=== PATIENT | male | born 1950 | race Caucasian/White ===

== ENCOUNTER 2018-12-25 21:36 | Inpatient (IN) | payer MEDICARE, OTHER ==
[~2018-12-25] VITALS: Ht 167.6 cm; Wt 68.2 kg
[2018-12-25 21:58] VITALS: Ht 167.6 cm; Wt 68.2 kg
[2018-12-25] MEDS ORDERED: morphine 2 MG INJ IV STA (21:58)
--- NOTE | 2018-12-25 22:52 | ERD ---
ER Documentation Chief Complaint Chief Complaint [id number],from home,tripped & fell,c/o Rt hip pain HPI 68-year-old male with a history of hypertension and diabetes brought in by ambulance after having a ground-level fall while getting into the car. Patient states that he suddenly had a vertiginous episode which he has had in the past. He fell onto the curb and hit the right side of his hip. Currently he is complaining of right hip pain that is nonradiating, worse with any movement, 9 out of 10, stabbing. No associated numbness or tingling in the leg. Denies any back pain or any other injuries. He is not on any blood thinners. Denies hitting his head. ROS All systems reviewed and are negative except as per history of present illness. Allergies Allergies: Coded Allergies: No Known Allergy (Unverified , 12/25/18) PMhx/Soc History of Surgery: Yes (Perforated gastric ulcer repair) Hx Cardiac Disorders: Yes (htn, dm) Hx Miscellaneous Medical Probl: Yes (Vertigo, CKD) Hx Alcohol Use: No Hx Substance Use: No Hx Tobacco Use: No Smoking Status: Current every day smoker FmHx Family History: No diabetes Physical Exam Vitals Vital Signs Date Temp Pulse Resp B/P (MAP) Pulse Ox O2 O2 Flow FiO2 Time Delivery Rate 12/25/18 76 16 169/56 99 Room Air 22:22 (93) 12/25/18 97.8 65 18 164/65 100 21:58 (98) Physical Exam Const: No acute distress Head: Atraumatic Eyes: Normal Conjunctiva, PERRLA, EOMI, no nystagmus ENT: Normal External Ears, Nose and Mouth. Neck: Full range of motion. No meningismus. Resp: Clear to auscultation bilaterally Cardio: Regular rate and rhythm, no murmurs. 2+ distal pulses in all 4 extremities Abd: Soft, non tender, non distended. Normal bowel sounds Skin: No petechiae or rashes Pelvis: Stable. Back: No midline or flank tenderness Ext: No cyanosis, or edema. Right hip with tenderness to palpation and mild joint swelling. No bruising or erythema. Unable to range at the right hip secondary to pain. Full range of motion of the right ankle. No pain to palpation below the right hip. All other extremities normal to inspection and palpation. Neur: Awake and alert, oriented x3, normal speech, cranial nerves intact, strength and sensations intact grossly in all 4 extremities. Psych: Normal Mood and Affect Result Diagram: 12/25/18221012/25/182210 Results 24 hrs Laboratory Tests Test 12/25/18 22:11 White Blood Count 10.1 10^3/ul Red Blood Count 4.17 10^6/ul Hemoglobin 10.3 g/dl Hematocrit 33.0 % Mean Corpuscular Volume 79.1 fl Mean Corpuscular Hemoglobin 24.7 pg Mean Corpuscular Hemoglobin Concent 31.2 g/dl Red Cell Distribution Width 16.1 % Platelet Count 345 10^3/UL Mean Platelet Volume 10.5 fl Immature Granulocytes % 0.700 % Neutrophils % 67.2 % Lymphocytes % 19.4 % Monocytes % 8.9 % Eosinophils % 3.2 % Basophils % 0.6 % Nucleated Red Blood Cells % 0.0 /100WBC Immature Granulocytes # 0.070 10^3/ul Neutrophils # 6.8 10^3/ul Lymphocytes # 2.0 10^3/ul Monocytes # 0.9 10^3/ul Eosinophils # 0.3 10^3/ul Basophils # 0.1 10^3/ul Nucleated Red Blood Cells # 0.0 10^3/ul Prothrombin Time 12.4 Sec Prothrombin Time Ratio 1.0 INR International Normalized Ratio 0.91 Activated Partial Thromboplast Time 28.1 Sec Sodium Level 141 mmol/L Potassium Level 5.3 mmol/L Chloride Level 114 mmol/L Carbon Dioxide Level 17 mmol/L Anion Gap 10 Blood Urea Nitrogen 53 mg/dl Creatinine 2.58 mg/dl Est Glomerular Filtrat Rate mL/min 25 mL/min Glucose Level 174 mg/dl Calcium Level 9.2 mg/dl Iron Level 63 ug/dl Total Iron Binding Capacity 270 ug/dl Percent Iron Saturation 23 % SAT Ferritin 97.8 ng/ml Troponin I < 0.012 ng/ml Current Medications Medications Dose Sig/Alexa Start Time Status Last (Trade) Ordered Route PRN Stop Time Admin Dose Reason Admin Morphine 6 mg ONCE STAT 12/25/18 DC 12/25/18 Sulfate IV 21:58 22:16 (morphine) 12/25/18 22:01 Procedures/MDM EMERGENT LABS AND DIAGNOSTIC STUDIES: Lab Results above were reviewed and interpreted by me. CBC: Mild anemia. No evidence of infection or platelet disorder BMP: Elevated BUN and creatinine with mild hyperkalemia and evidence of acidosis, consistent with renal failure. No evidence of diabetic ketoacidosis Coags unremarkable Troponin within normal limits, not indicative of cardiac ischemia 12-lead EKG was interpreted by Rachel Wright MD: Normal Sinus Rhythm Normal axis Normal intervals ST abnormality with up sloping elevations in I, III, and aVF. No acute ST or T wave changes suggestive of acute ischemia or STEMI. Radiology Results as interpreted by Radiology below were reviewed by Eilas Wright MD: Chest x-ray shows no acute abnormalities X-ray of the pelvis and right femur show mildly displaced right intertrochanteric femur fracture with impaction Initial Nursing notes reviewed. Previous Medical Records requested via the Electronic Health Record. EMERGENCY DEPARTMENT COURSE / MEDICAL DECISION MAKING: Patient is presenting after a ground-level fall after having an episode of vertigo. Vitals were notable for only mild hypertension. Neurologically he is intact and I do not suspect stroke or ACS. X-rays did confirm evidence of a right hip fracture. He is neurovascularly intact on exam. Labs showed evidence of known chronic kidney disease with possibly acute component. I spoke with the orthopedist on-call, who agreed to see the patient and plans for doing surgery tomorrow once the patient is medically cleared. I updated family and patient regarding the plan. They are agreeable to admission and surgical consultation. Accepting Care Team: Current data and ongoing care discussed. Time: Time of admission Primary Provider: Dr. Amos Consulting: Dr. Duque Outstanding Data: none Departure Diagnosis: Primary Impression: Fracture, intertrochanteric, right femur Encounter type: initial encounter Fracture type: closed Fracture alignment: displaced Qualified Codes: S72.141A - Displaced intertrochanteric fracture of right femur, initial encounter for closed f racture Additional Impressions: Acute on chronic renal failure Acute renal failure type: unspecified Chronic kidney disease stage: unspecified stage Qualified Codes: N17.9 - Acute kidney failure, unspecifie d; N18.9 - Chronic kidney disease, unspecified Metabolic acidosis Condition: Serious OLYA WRIGHT MD Dec 25, 2018 22:52
[2018-12-25] MEDS ORDERED: ONDANSETRON 4 MG INJ IV STA (23:45)
--- NOTE | 2018-12-25 23:46 | HP ---
Date/Time of Note Date/Time of Note DATE: 12/25/18 TIME: 23:46 Assessment/Plan VTE Prophylaxis SCD applied (from Nsg): Yes (Left lower extremity) Pharmacological prophylaxis: NA/contraindicated Pharm contraindication: surgical contra Lines/Catheters IV Catheter Type (from Nrsg): Saline Lock Assessment/Plan Hospital Course This is a 68-year-old male being admitted to the [facility] floor for: #1 Acute right femur fracture: X-rays show: Acute intertrochanteric fracture of the right femur. Given patient's abnormal EKG along with his dizziness that led to his fall we will need to rule out any cardiovascular events and any underlying cardiac issues prior to surgery.. Will trend cardiac enzymes x3. First set was negative. We will check an echocardiogram. On ABG patient's P O2 was noted to be 68 with a bicarb of 15, likely consistent with possible COPD given his extensive smoking history, and underlying chronic kidney disease respectively. Nonetheless given his fall will assess for pulmonary embolism though my suspicion is less likely at the current time given his normal heart rate as well as presentation with 100% on room air. Consult cardiology for preoperative clearance, pulmonology clearance as well. #2 hypoxia: Chest x-ray is clear. ABG noted to have a PO2 of 68, patient likely has underlying COPD that has not been formally diagnosed given his extensive 2 pack per day smoking history. Nonetheless we will also assess for underlying PE, and also a CT of the chest without contrast. #3 chronic kidney disease: Unknown baseline creatinine. Patient did present with hyperkalemia 5.3. As well as metabolic acidosis with a bicarb of 17 on CMP and 15 on the ABG. He is still producing urine. Will check renal ultrasound, urine studies. We will monitor electrolytes. We will give the patient a half normal saline 500 cc bolus. Consult nephrology Dr. Aldridge. #4 metabolic acidosis: ABG 7.2 with a bicarb of 15. Likely secondary to underlying chronic kidney disease. Also checking a urinalysis for any signs of underlying infection. Will consult nephrology. Patient likely will need to be started on sodium bicarb supplementation. #5 diabetes mellitus: We will check a hemoglobin A1c, hold patient's home medications, insulin sliding scale #6 hypothyroidism: Resume patient's levothyroxine #7 heavy tobacco use: Nicotine patch #8 DVT and GI prophylaxis: SCDs to the left lower externally, no GI prophylaxis indicated Further treatment strategy will be implemented as per the clinical course Result Diagram: 12/25/18 2211 12/25/18 2211 Results 24hrs Laboratory Tests Test 12/25/18 22:11 White Blood Count 10.1 Red Blood Count 4.17 L Hemoglobin 10.3 L Hematocrit 33.0 L Mean Corpuscular Volume 79.1 L Mean Corpuscular Hemoglobin 24.7 L Mean Corpuscular Hemoglobin Concent 31.2 L Red Cell Distribution Width 16.1 H Platelet Count 345 Mean Platelet Volume 10.5 H Immature Granulocytes % 0.700 H Neutrophils % 67.2 Lymphocytes % 19.4 Monocytes % 8.9 Eosinophils % 3.2 Basophils % 0.6 Nucleated Red Blood Cells % 0.0 Immature Granulocytes # 0.070 H Neutrophils # 6.8 Lymphocytes # 2.0 Monocytes # 0.9 Eosinophils # 0.3 Basophils # 0.1 Nucleated Red Blood Cells # 0.0 Prothrombin Time 12.4 Prothrombin Time Ratio 1.0 INR International Normalized Ratio 0.91 Activated Partial Thromboplast Time 28.1 Sodium Level 141 Potassium Level 5.3 H Chloride Level 114 H Carbon Dioxide Level 17 L Anion Gap 10 Blood Urea Nitrogen 53 H Creatinine 2.58 H Est Glomerular Filtrat Rate mL/min 25 L Glucose Level 174 Calcium Level 9.2 Troponin I < 0.012 HPI/ROS Admit Date/Time Admit Date/Time Hx of Present Illness Chief complaint: Dizziness, fall and right hip This is a 68-year-old male history of hypertension, chronic kidney disease, and diabetes brought in by ambulance after having a ground-level fall while getting into the car. The following history was obtained from the daughter as well as through the patient through an inspector of weights and measures. Patient apparently had a dizzy spell which she has been dealing with for a while and he he fell onto the curb and hit the right side of his hip. Currently he is complaining of right hip pain that is nonradiating, worse with any movement, 9 out of 10, stabbing. No associated numbness or tingling in the leg. Denies any back pain or any other injuries. He is not on any blood thinners. Denies hitting his head and no loss of consciousness. He is a 2 pack/day smoker. Patient does report that he does feel shortness of breath on and off. Allergies: NKDA Medications: See MAR ROS Const: As per HPI Eyes : No pain discharge or redness or change in visual acuity ENT: No pain, sore throat, congestion, congestion, dysphagia or discharge Respiratory: No shortness of breath, cough, sputum, wheezing, or pleuritic pain Cardiovascular: No chest pain, palpitation, PND, or edema GI : no change in appetite, abdominal pain, nausea, vomiting, diarrhea, constipation, or change in the color his stool Genitourinary: No dysuria, hematuria, flank pain , discharge or CVA tenderness Musculoskeletal: As per HPI Skin: No rash, bruising or hives Neuro: No headache, dizziness, syncope, seizure, focal weakness Endocrine: No polyuria, polydipsia, temperature intolerance Psych: No hallucination, depression, anxiety or suicidal ideation PMH/Family/Social Past Medical History Chronic kidney disease, diabetes mellitus, hypothyroidism, hypertension Medications Current Medications Ondansetron HCl (Zofran Inj) 4 mg BRIDGE ORDER PRN IV NAUSEA/VOMITING; Start 12/26/18 at 00:00; Stop 12/26/18 at 23:59 Acetaminophen (Tylenol Tab) 650 mg ER BRIDGE PRN PO .MILD PAIN 1-3 OR TEMP; Start 12/26/18 at 00:00; Stop 12/26/18 at 23:59 IV Flush (NS 3 ml) 3 ml PER PROTOCOL IV ; Start 12/26/18 at 00:00; Status UNV Ondansetron HCl (Zofran Tab) 4 mg Q6H PRN PO NAUSEA/VOMITING; Start 12/26/18 at 00:00; Status UNV Acetaminophen (Tylenol Tab) 650 mg Q6H PRN PO .PAIN 1-3 OR TEMP; Start 12/26/18 at 00:00; Status UNV Acetaminophen/ Hydrocodone Bitart ([place] (5/325)) 1 tab Q6H PRN PO .MOD PAIN 4- 6; Start 12/26/18 at 00:00; Status UNV Morphine Sulfate (morphine) 2 mg Q4H PRN IV .SEVERE PAIN 7-10; Start 12/26/18 at 00:00; Status UNV Docusate Sodium (Colace) 100 mg Q12H PRN PO .CONSTIPATION; Start 12/26/18 at 00:00; Status UNV Bisacodyl (Dulcolax) 5 mg DAILY PRN PO .CONSTIPATION; Start 12/26/18 at 00:00; Status UNV Coded Allergies: No Known Allergy (Unverified , 12/25/18) Past Surgical History History of stomach surgery in the past for ulcer Family History Significant Family History: no pertinent family hx Social History Alcohol Use: none Smoking Status: Current every day smoker (2 packs/day) Drug Use: none Exam/Review of Systems Vital Signs Vitals Vital Signs Date Temp Pulse Resp B/P (MAP) Pulse Ox O2 O2 Flow FiO2 Time Delivery Rate 12/25/18 76 16 169/56 99 Room Air 22:22 (93) 12/25/18 97.8 21:58 Exam Exam General: Currently lying in bed in mild distress from right hip pain HEENT: Atraumatic, normocephalic. The pupils are equal, round and reactive. Extraocular motor are intact Neck: Supple with full range of motion. No rigidity or meningismus Chest: Nontender Lungs: Clear to auscultation bilaterally no crackles rales or wheezing Heart: Normal S1-S2, regular rate rhythm, suspect systolic murmur at the left second intercostal space Abdomen: Soft , nontender, nondistended , bowel sounds are present. No guarding no rebound tenderness , No masses or organomegaly. No costovertebral temporal angle mass Extremities: Right lower extremity range of motion limited secondary to fracture, pain Neurologic: Normal mental status, speech normal, cranial nerves II through XII are intact, motor and sensory are intact, gait not assessed secondary to fracture Additional Comments PROCEDURE: XR Chest. TECHNIQUE: Single frontal radiograph. CLINICAL INDICATION: Trauma COMPARISON: CT CHEST 02/17/2016. FINDINGS: Lung volumes are low with elevation of the right hemidiaphragm. There is right basilar atelectasis. There is curvilinear densities in the peripheral left mid and basilar lungs, also present on prior urban planning teacher CT image, consistent with scarring. Hemidiaphragms remain sharply defined. No evidence of focal consolidation, pneumothorax, or pleural effusion. There is mild cardiomegaly, allowing for low lung volumes. There is mild atherosclerotic calcification of the aortic arch. No acute osseous abnormality identified, allowing for mild osteopenia and single view technique. Overlying soft tissues are equally unremarkable. IMPRESSION: No evidence of acute cardiopulmonary process, allowing for low lung volumes and atelectasis. Mild curvilinear scarring in the left mid and basilar peripheral lung. RPTAT: EE Benedicto Gary Physician Date Time Electronically viewed and signed by Physician Sofya on 12/25/2018 23:19 BP/ CC: OLYA GUTIERREZ MD [id number] PROCEDURE: Right femur x-ray CLINICAL INDICATION: pain after fall TECHNIQUE: AP and lateral views of the femur were obtained. COMPARISON: None FINDINGS: There is comminuted intertrochanteric fracture of the right femur. There is mild overlap, impaction and varus angulation with the displacement of the lesser trochanter. No additional acute displaced fracture identified in the femur. Extensive vascular calcifications are present in the soft tissues. IMPRESSION: Comminuted right intertrochanteric fracture with overlap, impaction and varus angulation mild displacement of the lesser trochanter. Extensive vascular calcifications. STEVEN singleton will alert Olya Michelle or associates, fax a report, and provide a call back number for any questions regarding the report at this time. STEVEN singleton was called for assistance at 12/25/2018 11:23:42 PM. RPTAT: EE Benedicto Gary Physician Date Time Electronically viewed and signed by Physician Sofya on 12/25/2018 23:24 BP/ CC: OYLA GUTIERREZ MD [id number] PROCEDURE: Pelvis x-ray CLINICAL INDICATION: Trauma TECHNIQUE: Single AP view of the pelvis performed. COMPARISON: Concurrent radiograph of the femur FINDINGS: Acute comminuted fracture of the right intertrochanteric femur is again identified. No additional acute displaced fracture identified within the pelvis. However, there is overlying bowel gas and stool partially obscuring osseous structures including the sacrum and sacroiliac joints. Bones are mildly osteopenic. No focal abnormality identified in the overlying soft tissues. IMPRESSION: Acute intertrochanteric fracture of the right femur, again identified. No additional fractures of the visualized pelvis identified, allowing for overlying obscuring bowel gas. RPTAT: EE Physician Sofya Date Time Electronically viewed and signed by Benedicto Gary Physician on 12/25/2018 23:28 BP/ CC: OLYA GUTIERREZ MD [id number] 12-lead EKG Normal Sinus Rhythm Normal axis Normal intervals ST abnormality with up sloping elevations in I, III, and aVF. No acute ST or T wave changes suggestive of acute ischemia or STEMI. BRITTANY CASSIDY Dec 25, 2018 23:46
[2018-12-26] MEDS ORDERED: BISACODYL (EC) 5 MG TAB PO PRN
[2018-12-26] MEDS ORDERED: ONDANSETRON 4 MG TAB PO PRN
[2018-12-26] MEDS ORDERED: NACL 0.9% 3 ML SYG IV SCH
[2018-12-26] MEDS ORDERED: DOCUSATE SODIUM 100 MG CAP PO PRN
[2018-12-26] MEDS ORDERED: ACETAMINOPHEN 325 MG TAB PO PRN
[2018-12-26 01:17] VITALS: BP 153/68; PULSE 75; RESP 18
[2018-12-26] MEDS ORDERED: SITA50TA2 PO (01:52)
[2018-12-26] MEDS ORDERED: LEVO175T6 PO (01:52)
[2018-12-26] MEDS ORDERED: LEVEM (01:52)
[2018-12-26] MEDS ORDERED: AMLO-147 PO (01:52)
[2018-12-26] MEDS ORDERED: ASPI-805 PO (01:52)
[2018-12-26] MEDS ORDERED: OMEP40CA6 PO (01:52)
[2018-12-26] MEDS ORDERED: PATI16.8 PO (01:52)
[2018-12-26] MEDS ORDERED: SERT-165 PO (01:52)
[2018-12-26] MEDS ORDERED: GLIM4TAB PO (01:52)
[2018-12-26] MEDS ORDERED: SOD CHLORIDE 0.9% 500 ML IV ONE (02:00)
[2018-12-26] MEDS: SODIUM CHLORIDE 0.45% 500 ML BAG IV* ONE ×2 (02:21→02:43)
[2018-12-26] MEDS: ACCU-CHEK XX SCH (02:22)
[2018-12-26] MEDS ORDERED: GLUCOSE GEL 15 GRAM TUBE PO PRN ×2 (02:30)
[2018-12-26] MEDS ORDERED: GLUCAGON 1 MG INJ IM PRN (02:30)
[2018-12-26] MEDS ORDERED: GLUCOSE GEL 15 GRAM TUBE BUCCAL PRN (02:30)
[2018-12-26] MEDS ORDERED: DEXTROSE 50% 50 ML SYRINGE IV PRN ×4 (02:30→12:30)
[2018-12-26] MEDS ORDERED: LEVALBUTEROL (NEB) 1.25 MG/0.5 ML AMP HHN PRN (05:30)
[2018-12-26] MEDS: morphine 2 MG INJ IV PRN ×3 (05:51→20:39)
[2018-12-26] MEDS: PANTOPRAZOLE (EC) 40 MG TAB PO SCH (06:00)
[2018-12-26] MEDS: LEVOTHYROXINE 175 MCG TAB PO SCH (06:18)
[2018-12-26] MEDS ORDERED: INSULIN REGULAR, HUMAN 100 UNIT/1 ML 3ML VIAL IVP STA ×2 (06:22→12:21)
[2018-12-26] MEDS ORDERED: ALBUTEROL 0.083% (NEB) 2.5 MG/3 ML AMP HHN STA (06:23)
[2018-12-26] MEDS ORDERED: NICOTINE POLACRILEX 2 MG GUM BUCCAL PRN (06:30)
[2018-12-26] MEDS ORDERED: MAGNESIUM SULFATE 2 GM/50 ML 50 ML IVPB ONE (07:00)
[2018-12-26] MEDS ORDERED: NA POLYST SULFON 15 GM/60 ML BTL PO ONE ×2 (07:00→15:30)
--- NOTE | 2018-12-26 07:18 | CONS ---
Assessment/Plan Assessment/Plan Hospital Course (Demo Recall) 68-year-old male with multiple medical problems including COPD, chronic renal disease, diabetes with acute right intertrochanteric hip fracture. Given the fracture I did recommend surgical fixation to the patient. I reviewed benefits and risks with the patient the benefit would be immobilization and pain control. Without surgery would likely be bedbound for many months and would likely not be able to bear weight on his right lower extremity again. Risks include but not limited to completion anesthesia, cardiopulmonary complications, , nonunion, malunion, hardware failure, infection, need for removal of hardware, neurovascular injury, and need for further surgery. He understood these and wished to proceed with surgery. Plan: Surgery this evening for IM nail right IT fracture Medical optimization DVT prophylaxis: SCDs n.p.o. Rodriguez Pain control Nonweightbearing right lower extremity Consultation Date/Type/Reason Admit Date/Time Date of Consultation: Dec 26, 2018 Reason for Consultation Right intertrochanteric hip fracture Date/Time of Note DATE: 12/26/18 TIME: 07:12 Hx of Present Illness This is a 68-year-old male history of hypertension, chronic kidney disease, COPD, and diabetes brought in by ambulance after having a ground-level fall w hile getting into the car. He was found to have a right intertrochanteric hip fracture and orthopedics was consulted. Patient states he has pain in his right groin. Denies pain elsewhere. Denies hitting his head or loss of consciousness. Denies numbness and tingling. The medical team is currently working up the patient and optimizing him for potential surgery. Cardiology and pulmonary consults are pending. Patient denies fever, chills, shortness of breath, chest pain, nausea/vomiting, constipation, diarrhea, numbness, and tingling. Past Medical History Hypertension COPD hypothyroidism Chronic renal disease diabetes Home Meds Reported Medications Patiromer Calcium Sorbitex (Veltassa) 16.8 Gm Powd.pack, 16.8 GM PO 12/26/18 Insulin Detemir (Levemir) 100 Unit/1 Ml Vial, for 20units at hs 12/26/18 Sitagliptin* (Januvia*) 50 Mg Tablet, 50 MG PO DAILY, #30 TAB 12/26/18 Sertraline Hcl* (Sertraline Hcl*) 100 Mg Tablet, 100 MG PO DAILY, #30 TAB 12/26/18 Glimepiride* (Glimepiride*) 4 Mg Tablet, 4 MG PO WITH BREAKFAST DINNE, TAB 12/26/18 Omeprazole* (Omeprazole*) 40 Mg Capsule.dr, 40 MG PO DAILY, #30 CAP 12/26/18 Levothyroxine Sodium* (Levothyroxine Sodium*) 175 Mcg Tablet, 175 MCG PO BEFORE BREAKFAST, #30 TAB 12/26/18 Aspirin* (Juniata Aspirin*) 81 Mg Tab.chew, 81 MG PO DAILY, TAB.CHEW 12/26/18 Amlodipine Besylate* (Amlodipine Besylate*) 10 Mg Tablet, 10 MG PO DAILY, #30 TAB 12/26/18 Medications Current Medications Ondansetron HCl (Zofran Inj) 4 mg BRIDGE ORDER PRN IV NAUSEA/VOMITING; Start 12/26/18 at 00:00; Stop 12/26/18 at 23:59 Acetaminophen (Tylenol Tab) 650 mg ER BRIDGE PRN PO .MILD PAIN 1-3 OR TEMP; Start 12/26/18 at 00:00; Stop 12/26/18 at 23:59 IV Flush (NS 3 ml) 3 ml PER PROTOCOL IV ; Start 12/26/18 at 00:00 Ondansetron HCl (Zofran Tab) 4 mg Q6H PRN PO NAUSEA/VOMITING; Start 12/26/18 at 00:00 Acetaminophen (Tylenol Tab) 650 mg Q6H PRN PO .PAIN 1-3 OR TEMP; Start 12/26/18 at 00:00 Acetaminophen/ Hydrocodone Bitart ([place] (5/325)) 1 tab Q6H PRN PO .MOD PAIN 4- 6; Start 12/26/18 at 00:00 Morphine Sulfate (morphine) 2 mg Q4H PRN IV .SEVERE PAIN 7-10 Last administered on 12/26/18at 05:51; Admin Dose 2 MG; Start 12/26/18 at 00:00 Docusate Sodium (Colace) 100 mg Q12H PRN PO .CONSTIPATION; Start 12/26/18 at 00:00 Bisacodyl (Dulcolax) 5 mg DAILY PRN PO .CONSTIPATION; Start 12/26/18 at 00:00 Amlodipine Besylate (Norvasc) 10 mg DAILY PO ; Start 12/26/18 at 09:00 Levothyroxine Sodium (Synthroid) 175 mcg BEFORE BREAKFAST PO ; Start 12/26/18 at 07:00 Sertraline HCl (Zoloft) 100 mg DAILY PO ; Start 12/26/18 at 09:00 Pantoprazole (Protonix Tab) 40 mg DAILY@06 PO ; Start 12/26/18 at 06:00 Diagnostic Test (Pha) (Accu-Chek) 1 ea 02 XX Last administered on 12/26/18at 02:22; Admin Dose 1 EA; Start 12/26/18 at 02:00 Insulin Aspart (Novolog Insulin Pen) NOVOLOG *MILD* ALGORITHM WITH MEALS BEDTIME SC ; Start 12/26/18 at 07:50 Miscellaneous Information 1 ea NOTE XX ; Start 12/26/18 at 02:30 Glucose (Glutose) 15 gm Q15M PRN PO DECREASED GLUCOSE; Start 12/26/18 at 02:30 Glucose (Glutose) 22.5 gm Q15M PRN PO DECREASED GLUCOSE; Start 12/26/18 at 02:30 Dextrose (D50w Syringe) 25 ml Q15M PRN IV DECREASED GLUCOSE; Start 12/26/18 at 02:30 Dextrose (D50w Syringe) 50 ml Q15M PRN IV DECREASED GLUCOSE; Start 12/26/18 at 02:30 Glucagon (Glucagen) 1 mg Q15M PRN IM DECREASED GLUCOSE; Start 12/26/18 at 02:30 Glucose (Glutose) 15 gm Q15M PRN BUCCAL DECREASED GLUCOSE; Start 12/26/18 at 02:30 Levalbuterol (Xopenex Neb) 1.25 mg Q4H RESP THERAPY PRN HHN SHORTNESS OF BREATH; Start 12/26/18 at 05:30 Sodium Chloride 1,000 ml @ 50 mls/hr Q20H IV ; Start 12/26/18 at 09:00 Insulin Glargine (Lantus) 5 units ONCE ONCE SC ; Start 12/26/18 at 08:00; Stop 12/26/18 at 08:01 Nicotine (Nicoderm 21 Mg/ 24hr) 1 patch DAILY TRANSDERM ; Start 12/26/18 at 09:00 Nicotine Polacrilex (Nicorette) 2 mg Q2H PRN BUCCAL CONTROL WITHDRAWAL SYMPTOMS; Start 12/26/18 at 06:30 Magnesium Sulfate 50 ml @ 25 mls/hr ONCE ONCE IVPB ; Start 12/26/18 at 07:00; Stop 12/26/18 at 08:59 Allergies: Coded Allergies: No Known Allergy (Unverified , 12/25/18) Past Surgical History Past Surgical Hx: noncontributory Family History Significant Family History: no pertinent family hx Social History Alcohol Use: none Smoking Status: Current every day smoker (2 packs/day) Drug Use: none Exam/Review of Systems Exam Vitals Vital Signs Date Temp Pulse Resp B/P (MAP) Pulse Ox O2 O2 Flow FiO2 Time Delivery Rate 12/26/18 3.0 01:36 12/26/18 98.1 75 18 153/68 90 Room Air 01:17 (96) Intake and Output 12/25/18 12/25/18 12/26/18 1515:00 23:00 07:00 IntakeIntake Total 500 ml OutputOutput Total 600 ml BalanceBalance -100 ml Exam General: Awake, alert, in no acute distress, pleasant and cooperative Heart: regular rhythm Lungs: breathing comfortably, no tachypnea or dyspnea MUSCULOSKELETAL: Right lower extremity: Skin intact. Right lower extremity shortened and externally rotated. Sensation intact to light touch in a sural, saphenous, deep peroneal, superficial peroneal, medial and lateral plantar nerve distribution. Motor is intact, patient able to dorsiflex and plantarflex ankle and extend and flex great toe. Dorsalis Pedis pulse +2, Brisk capillary refill. Compartments are soft. Calves non-tender to palpation bilaterally. Results Result Diagram: 12/26/18 0428 12/26/18 0428 Results 24hrs Laboratory Tests Test 12/25/18 22:11 12/25/18 23:41 12/26/18 02:10 12/26/18 04:00 White Blood 10.1 Count Red Blood Count 4.17 L Hemoglobin 10.3 L Hematocrit 33.0 L Mean Corpuscular 79.1 L Volume Mean Corpuscular 24.7 L Hemoglobin Mean Corpuscular 31.2 L Hemoglobin Janis nt Red Cell 16.1 H Distribution Width Platelet Count 345 Mean Platelet 10.5 H Volume Immature 0.700 H Granulocytes % Neutrophils % 67.2 Lymphocytes % 19.4 Monocytes % 8.9 Eosinophils % 3.2 Basophils % 0.6 Nucleated Red 0.0 Blood Cells % Immature 0.070 H Granulocytes # Neutrophils # 6.8 Lymphocytes # 2.0 Monocytes # 0.9 Eosinophils # 0.3 Basophils # 0.1 Nucleated Red 0.0 Blood Cells # Prothrombin Time 12.4 Prothrombin Time 1.0 Ratio INR 0.91 International Normalized Ratio Activated 28.1 Partial Thrombop last Time Sodium Level 141 Potassium Level 5.3 H Chloride Level 114 H Carbon Dioxide 17 L Level Anion Gap 10 Blood Urea 53 H Nitrogen Creatinine 2.58 H Est Glomerular 25 L Filtrat Rate mL/min Glucose Level 174 Calcium Level 9.2 Iron Level 63 Total Iron 270 Binding Capacity Percent Iron 23 Saturation Ferritin 97.8 Troponin I < 0.012 Blood Gas Blood arterial Specimen Source Arterial Blood 12/26/2018 1:14: Date Drawn 02 AM Arterial Blood 7.236 *L pH (Temp corrected) Arterial Blood 36.5 pCO2 (Temp correct) Arterial Blood 68.7 L pO2 (Temp corrected) Arterial Blood 15.2 L HCO3 Arterial Blood -11.4 L Base Excess Arterial Blood 92.0 L Oxygen Saturatio n Sean Test ACCEPTAB Arterial Blood Right Radial Gas Puncture Site Arterial 1.6 Blood Carboxyhem oglobin Arterial Blood 0.2 Methemoglobin Blood Gas A-a O2 37.3 H Differential Oxyhemoglobin 90.3 L Percent Blood Gas 37.0 Temperature Blood Gas ROOM AIR Modality FiO2 21.0 Blood Gas Aly CASSIDY MD Critical Value Read Back Blood Gas MM Notified Whom Blood Gas 12/26/2018 1:21: Notified Time 45 AM Bedside Glucose 231 H Urine Color YELLOW Urine Clarity SLIGHTLY CLOUDY A Urine pH 5.0 Urine Specific 1.009 [place] Urine Ketones NEGATIVE Urine Nitrite NEGATIVE Urine Bilirubin NEGATIVE Urine NEGATIVE Urobilinogen Urine Leukocyte NEGATIVE Esterase Urine 15 H Microscopic RBC Urine 1 Microscopic WBC Urine Hemoglobin 2+ H Urine Random 72 Sodium Urine Glucose NEGATIVE Urine Total 3+ H Protein Test 12/26/18 04:28 12/26/18 06:00 White Blood 17.1 #H Count Red Blood Count 4.05 L Hemoglobin 10.1 L Hematocrit 32.7 L Mean Corpuscular 80.7 L Volume Mean Corpuscular 24.9 L Hemoglobin Mean Corpuscular 30.9 L Hemoglobin Janis nt Red Cell 15.9 H Distribution Width Platelet Count 346 Mean Platelet 10.7 H Volume Immature 0.500 H Granulocytes % Neutrophils % 85.0 H Lymphocytes % 6.0 L Monocytes % 8.2 Eosinophils % 0.1 Basophils % 0.2 Nucleated Red 0.0 Blood Cells % Immature 0.090 H Granulocytes # Neutrophils # 14.6 H Lymphocytes # 1.0 Monocytes # 1.4 H Eosinophils # 0.0 Basophils # 0.0 Nucleated Red 0.0 Blood Cells # Sodium Level 139 Potassium Level 5.8 H Chloride Level 111 H Carbon Dioxide 15 L Level Anion Gap 13 Blood Urea 56 H Nitrogen Creatinine 2.76 H Est Glomerular 23 L Filtrat Rate mL/min Glucose Level 244 H Calcium Level 9.1 Magnesium Level 1.5 L Total Bilirubin 0.1 L Direct Bilirubin 0.00 Indirect 0.1 Bilirubin Aspartate Amino 11 L Transf (AST/SGOT ) Alanine 15 Aminotransferase (ALT/SGPT) Alkaline 77 Phosphatase Creatine Kinase 53 Creatine Kinase 2.9 Index Creatinine 1.56 Kinase MB (Mass) Troponin I < 0.012 Total Protein 6.7 Albumin 3.9 Globulin 2.80 Albumin/Globulin 1.39 Ratio Triglycerides 182 H Level Cholesterol 199 Level LDL Cholesterol, 126 Calculated HDL Cholesterol 37 Cholesterol/HDL 5.3 Ratio Urine Color RED Urine Clarity CLOUDY A Urine pH 6.0 Urine Specific 1.006 [place]yr Urine Ketones NEGATIVE Urine Nitrite NEGATIVE Urine Bilirubin NEGATIVE Urine NEGATIVE Urobilinogen Urine Leukocyte 2+ H Esterase Urine > 182 H Microscopic RBC Urine > 182 H Microscopic WBC Urine Bacteria FEW A Urine Yeast MODERATE A (Budding) Urine Hemoglobin 3+ H Urine Glucose 1+ H Urine Total 2+ H Protein Imaging Imaging AP pelvis and AP lateral right femur personally reviewed. Demonstrates displaced slightly comminuted right intricate trochanteric hip fracture. Medications Medication Current Medications Ondansetron HCl (Zofran Inj) 4 mg BRIDGE ORDER PRN IV NAUSEA/VOMITING; Start 12/26/18 at 00:00; Stop 12/26/18 at 23:59 Acetaminophen (Tylenol Tab) 650 mg ER BRIDGE PRN PO .MILD PAIN 1-3 OR TEMP; Start 12/26/18 at 00:00; Stop 12/26/18 at 23:59 IV Flush (NS 3 ml) 3 ml PER PROTOCOL IV ; Start 12/26/18 at 00:00 Ondansetron HCl (Zofran Tab) 4 mg Q6H PRN PO NAUSEA/VOMITING; Start 12/26/18 at 00:00 Acetaminophen (Tylenol Tab) 650 mg Q6H PRN PO .PAIN 1-3 OR TEMP; Start 12/26/18 at 00:00 Acetaminophen/ Hydrocodone Bitart ([place] (5/325)) 1 tab Q6H PRN PO .MOD PAIN 4- 6; Start 12/26/18 at 00:00 Morphine Sulfate (morphine) 2 mg Q4H PRN IV .SEVERE PAIN 7-10 Last administered on 12/26/18at 05:51; Admin Dose 2 MG; Start 12/26/18 at 00:00 Docusate Sodium (Colace) 100 mg Q12H PRN PO .CONSTIPATION; Start 12/26/18 at 00:00 Bisacodyl (Dulcolax) 5 mg DAILY PRN PO .CONSTIPATION; Start 12/26/18 at 00:00 Amlodipine Besylate (Norvasc) 10 mg DAILY PO ; Start 12/26/18 at 09:00 Levothyroxine Sodium (Synthroid) 175 mcg BEFORE BREAKFAST PO ; Start 12/26/18 at 07:00 Sertraline HCl (Zoloft) 100 mg DAILY PO ; Start 12/26/18 at 09:00 Pantoprazole (Protonix Tab) 40 mg DAILY@06 PO ; Start 12/26/18 at 06:00 Diagnostic Test (Pha) (Accu-Chek) 1 ea 02 XX Last administered on 12/26/18at 02:22; Admin Dose 1 EA; Start 12/26/18 at 02:00 Insulin Aspart (Novolog Insulin Pen) NOVOLOG *MILD* ALGORITHM WITH MEALS BEDTIME SC ; Start 12/26/18 at 07:50 Miscellaneous Information 1 ea NOTE XX ; Start 12/26/18 at 02:30 Glucose (Glutose) 15 gm Q15M PRN PO DECREASED GLUCOSE; Start 12/26/18 at 02:30 Glucose (Glutose) 22.5 gm Q15M PRN PO DECREASED GLUCOSE; Start 12/26/18 at 02:30 Dextrose (D50w Syringe) 25 ml Q15M PRN IV DECREASED GLUCOSE; Start 12/26/18 at 02:30 Dextrose (D50w Syringe) 50 ml Q15M PRN IV DECREASED GLUCOSE; Start 12/26/18 at 02:30 Glucagon (Glucagen) 1 mg Q15M PRN IM DECREASED GLUCOSE; Start 12/26/18 at 02:30 Glucose (Glutose) 15 gm Q15M PRN BUCCAL DECREASED GLUCOSE; Start 12/26/18 at 02:30 Levalbuterol (Xopenex Neb) 1.25 mg Q4H RESP THERAPY PRN HHN SHORTNESS OF BREATH; Start 12/26/18 at 05:30 Sodium Chloride 1,000 ml @ 50 mls/hr Q20H IV ; Start 12/26/18 at 09:00 Insulin Glargine (Lantus) 5 units ONCE ONCE SC ; Start 12/26/18 at 08:00; Stop 12/26/18 at 08:01 Nicotine (Nicoderm 21 Mg/ 24hr) 1 patch DAILY TRANSDERM ; Start 12/26/18 at 09:00 Nicotine Polacrilex (Nicorette) 2 mg Q2H PRN BUCCAL CONTROL WITHDRAWAL SYMPTOMS; Start 12/26/18 at 06:30 Magnesium Sulfate 50 ml @ 25 mls/hr ONCE ONCE IVPB ; Start 12/26/18 at 07:00; Stop 12/26/18 at 08:59 SIVA NGUYEN MD Dec 26, 2018 07:18
[2018-12-26] MEDS ORDERED: INSULIN GLARGINE [LANTus] (100 UNITS/ML) SYG SC ONE (08:00)
[2018-12-26] MEDS: INSULIN ASPART [NOVOLOG] 3 ML PEN SC SCH ×4 (08:09→20:33)
[2018-12-26] MEDS: AMLODIPINE 10 MG TAB PO SCH (08:12)
[2018-12-26] MEDS: CEFTRIAXONE 1 GM/50 ML (PMX) 50 ML IVPB SCH (08:13)
[2018-12-26] MEDS: NICOTINE (21 MG/24 HR) PATCH TRANSDERM SCH (08:14)
[2018-12-26] MEDS: SERTRALINE 100 MG TAB PO SCH (08:14)
[2018-12-26 08:29] VITALS: BP 179/77; PULSE 94; RESP 18
[2018-12-26] MEDS ORDERED: SOD CHLORIDE 0.9% 1,000 ML IV SCH (09:00)
--- NOTE | 2018-12-26 10:04 | CONS ---
DATE OF ADMISSION: 12/25/2018 DATE OF CONSULTATION: 12/26/2018 TYPE OF CONSULTATION: Nephrology. REASON FOR CONSULTATION: Acute kidney injury, acute CKD. REQUESTING PHYSICIAN: Dr. Cassidy. HISTORY OF PRESENT ILLNESS: This is a 68-year-old male with a past medical history of possible chron ic kidney disease with unknown baseline creatinine, history of diabetes, history of hypothyroidism, h istory of tobacco use who presents to [facility] after a ground level fall. The pa antonina stated he had a dizzy spell while getting from his car and he fell down and hit the right side of the curb. The patient developed severe pain, 9/10. He was brought into the emergency room. The patient upon arrival had imaging studies that showed evidence of right femoral fracture. The patient was given pain medications and admitted to med/surg for evaluation. In terms of patient's renal history, the patient says that he has underlying chronic kidney disease b ut does not know his baseline creatinine. The patient denies seeing a primary strategic planner. Patient denies any hemoptysis, hematemesis or hematochezia. PAST MEDICAL HISTORY: History of CKD, history of diabetes, history of hypertension, history of tobac co use. PAST SURGICAL HISTORY: Has been reviewed. ALLERGIES: Have been reviewed. FAMILY HISTORY: No family history of kidney disease. SOCIAL HISTORY: Positive for tobacco use. MEDICATIONS: The patient's medications have been reviewed. REVIEW OF SYSTEMS: A 14-point review of systems was conducted. Pertinent positives stated in HPI, o therwise negative. PHYSICAL EXAMINATION: VITAL SIGNS: Blood pressure is 179/77, respiration 18, pulse 94, temperature 98.4. HEENT: Head is normocephalic. NECK: Supple. HEART: Regular rate. LUNGS: Show diminished breath sounds at the base. ABDOMEN: Soft, nontender to palpation without rebound or guarding. EXTREMITIES: Negative for clubbing, cyanosis, no edema. DERMATOLOGIC: No rashes. MUSCULOSKELETAL: No joint effusion. NEUROLOGIC: No change in exam. MEDICATIONS: The patient's medications have been reviewed. LABORATORY DATA: The laboratory data has been reviewed. The patient's sodium is 139, potassium 5.8, BUN 56, creatinine 2.76, glucose 244. White count 17.1, hemoglobin 10.1, platelet count 346. IMAGING STUDIES: Patient's CT scan of the chest was reviewed, showed evidence of emphysematous ernandez es. A renal ultrasound is pending. ASSESSMENT AND PLAN: This is a 68-year-old male who presents with: 1. Nonoliguric acute kidney injury on top of chronic kidney disease with unknown baseline creatinine . Etiology of acute kidney injury is secondary to hemodynamics. Questionable tubular injury. The p atient's urinalysis does show evidence of pyuria, hematuria and positive yeast. The possibility of a cute glomerulonephritis, acute vasculitis is less likely given patient's clinical presentation. [place], a full workup will be done. Plan is to repeat urinalysis, will quantify the patient's proteinur ia. Will check a renal ultrasound to rule out obstruction. Will further attempt to obtain patient's old medical records to ascertain baseline creatinine. We will continue medical management with IV h ydration. Continue supportive care, renally dose all meds. Will monitor renal function closely. 2. Hyperkalemia. Etiology secondary to acute kidney injury and chronic kidney disease. The patient is status post Kayexalate. We will continue to monitor potassium levels. Continue low-potassium di et. 3. Mixed acid base disorder. The patient has a metabolic acidosis and respiratory acidosis. The pa antonina's pCO2 levels are inappropriately elevated given level of acidemia. Plan is to start the patien t on bicarbonate drip. Will continue to monitor closely. 4. Anemia. Monitor hemoglobin and hematocrit levels. 5. Mineral bone disorder, monitor calcium and phosphorus levels. 6. Hypomagnesemia. Continue to monitor and replete. 7. Acute right femoral fracture. The patient is pending orthopedic evaluation. Continue to monitor , continue pain control. 8. Leukocytosis, SIRS, possibly due to stress . Continue to monitor. 9. Hypoxemia, possibly due to underlying chronic obstructive pulmonary disease. Continue medical ma nagement. 10. Supplemental oxygen, continue nebulizers. The patient is being ruled out for PE with a V/Q scan . Thank you, Dr. Cassidy, for this interesting consult. It will be a pleasure to follow patient with y ou throughout the hospital course. Dictated By: SHIN COHEN DO NR/NTS Conf#: [id number] DID#: [id number] CC: BRITTANY CASSIDY MD; LIZZIE HAWK MD;*[facility]*
--- NOTE | 2018-12-26 11:13 | RADRPT ---
Echocardiogram Report Patient Name: EFRAIN NATHPatient ID: [id number] : 1950 (68y 3m)Study Date: 12/26/2018 7:40:22 AM Gender: MAccession #: [id number] Tech: Jass Anglin [place] Location: [facility] Ref.Physician: BRITTANY CASSIDY Height(Cm): BSA: Weight(Kg): Quality: AdequateAccount #: Procedures: Echocardiographic Report: Transthoracic echocardiogram with complete 2D, M-Mode, and doppler examination. Indications: Pre-op. Measurements: 2D/M Mode Doppler Measurement Value Normal Range Measurement Value Normal Range LVIDd 2D 5.0 [ 4.2 - 5.8 ] cm AV Peak Cecil 1.9 [ 100.0 - 170.0 ] cm/sec LVIDs 2D 2.5 [ 2.5 - 4.0 ] cm AV Peak PG 15.0 [ 2.0 - 9.0 ] mmHg LVPWd 2D 1.2 [ 0.6 - 1.0 ] cm LVOT Peak Cecil 1.5 [ 70.0 - 110.0 ] cm/sec IVSd 2D 1.2 [ 0.6 - 1.0 ] cm LVOT Peak PG 9.0 [ 2.0 - 6.0 ] mmHg AoR Diam 2D 2.9 [ 2.6 - 3.4 ] cm MV E Peak Cecil 0.7 [ 60.0 - 130.0 ] cm/sec EDV 2D 120.0 [ 62.0 - 150.0 ] ml MV A Peak Cecil 0.9 [ 100.0 - 120.0 ] cm/sec ESV 2D 23.2 [ 21.0 - 61.0 ] ml MV E/A 0.7 [ 0.8 - 1.5 ] ratio EF 2D 80.7 [ 52.0 - 72.0 ] percent MV Decel Time 180 [ 104 - 258 ] msec LA Dimen 2D 4.0 [ 3.0 - 4.0 ] cm Lat E` Cecil 0.1 [ 10.0 - 15.0 ] cm/sec Lateral E/E` 7.3 [ 1.0 - 2.0 ] ratio MV E/A 0.7 [ 0.8 - 1.5 ] ratio TR Peak Cecil 2.8 [ 100.0 - 280.0 ] cm/sec TR Peak PG 31.0 mmHg RVSP 41.0 [ 10.0 - 36.0 ] mmHg RA Pressure 10.0 mmHg Findings: Left Ventricle: Normal left ventricular systolic function. Normal left ventricular cavity size. Mild concentric left ventricular hypertrophy. Ejection fraction is visually estimated at 65-70 %. Tissue Doppler/Mitral Doppler indices are consistent with impaired relaxation (Stage I diastolic dysfunction). Right Ventricle: Normal right ventricular size. Normal right ventricular systolic function. Left Atrium: Upper limit of normal left atrial size. Right Atrium: The right atrium is normal in size. Mitral Valve: Mitral valve leaflets appear mildly thickened. Mild mitral annular calcification. Trace mitral regurgitation. Aortic Valve: Normal appearance of the aortic valve. No significant aortic stenosis or insufficiency. Tricuspid Valve: Normal appearance of the tricuspid valve. Estimated peak PA systolic pressure 41 mmHg. There is mild tricuspid regurgitation. Pulmonic Valve: Pulmonic valve not well visualized. Pericardium: Normal pericardium with no significant pericardial effusion. Aorta: Normal aortic root. IVC: Normal size and normal respiratory collapse consistent with normal right atrial pressure. Conclusions: Normal left ventricular systolic function. Normal left ventricular cavity size. Mild concentric left ventricular hypertrophy. Ejection fraction is visually estimated at 65-70 %. Tissue Doppler/Mitral Doppler indices are consistent with impaired relaxation (Stage I diastolic dysfunction). Upper limit of normal left atrial size. Mitral valve leaflets appear mildly thickened. Mild mitral annular calcification. Trace mitral regurgitation. Normal appearance of the aortic valve. No significant aortic stenosis or insufficiency. Normal appearance of the tricuspid valve. Estimated peak PA systolic pressure 41 mmHg. There is mild tricuspid regurgitation. Normal size and normal respiratory collapse consistent with normal right atrial pressure. Electronically Signed By: Tanner Sanchez 2018-12-26 11:12:53 PDT
[2018-12-26] MEDS ORDERED: ONDANSETRON 4 MG INJ IV PRN ×2 (11:30)
[2018-12-26] MEDS ORDERED: SODIUM BICARBONATE (IV ADD) 75 MEQ in SOD CHLORIDE 0.45% 1,000 ML IV SCH (11:30)
[2018-12-26 11:43] VITALS: BP 150/66; PULSE 79; RESP 18
[2018-12-26] MEDS: SODIUM BICARBONATE (IV ADD) 75 MEQ in SOD CHLORIDE 0.45% 1,000 ML IV SCH (12:01)
--- NOTE | 2018-12-26 12:08 | CONS ---
Assessment/Plan Assessment/Plan Assessment/Plan (Daily) Assessment and recommendations; 1. Patient admitted with fall resulting in right femoral fracture awaiting ORIF. 2. History of COPD with likely chronic mild hypoxemia 3. Metabolic acidosis likely from underlying renal insufficiency. 4. History of diabetes and hypertension. 5. Currently there is no indication of any ongoing infective process. Add sodium bicarbonate 650 mg orally 3 times daily. Further recommendations per banana expert and senior php developer. From a pulmonary perspective patient is cleared for general anesthesia. Consultation Date/Type/Reason Admit Date/Time Date of Consultation: Dec 26, 2018 Type of Consult Pulmonary Pulmonary consult requested for preop clearance regarding right femoral fracture . Patient is a 68-year-old male who was admitted to the hospital because of acute fall resulting in right intertrochanteric femoral fracture. Pulmonary consult has been requested for preop clearance due to hypoxemia and metabolic acidosis. Patient denies any shortness of breath, chest pain, coughing, wheezing. Complains of right leg pain. According to him he tripped and fell resulting in fracture. Past medical history; 1. Chronic renal insufficiency. 2. COPD. 3. Diabetes. 4. Hypertension. Medications; reviewed. Allergies; none. Social history; smokes 2 packs a day. Family history; , has a supportive family. Occupational history; patient has had miscellaneous occupations. Review of systems; denies any headache, visual changes, seizures. Any chest pain, angina, wheezing, cough. Denies any shortness of breath. Denies any abdominal pain, nausea vomiting. Any edema orthopnea. Complains of right hip pain. Denies any melena, hematochezia. Any urinary symptoms. Any weight loss. Any dizziness. General exam; elderly male, awake alert, currently in no distress. Laying comfortably in bed. Date/Time of Note DATE: 12/26/18 TIME: 12:04 Past Medical History Home Meds Reported Medications Patiromer Calcium Sorbitex (Veltassa) 16.8 Gm Powd.pack, 16.8 GM PO 12/26/18 Insulin Detemir (Levemir) 100 Unit/1 Ml Vial, for 20units at hs 12/26/18 Sitagliptin* (Januvia*) 50 Mg Tablet, 50 MG PO DAILY, #30 TAB 12/26/18 Sertraline Hcl* (Sertraline Hcl*) 100 Mg Tablet, 100 MG PO DAILY, #30 TAB 12/26/18 Glimepiride* (Glimepiride*) 4 Mg Tablet, 4 MG PO WITH BREAKFAST DINNE, TAB 12/26/18 Omeprazole* (Omeprazole*) 40 Mg Capsule.dr, 40 MG PO DAILY, #30 CAP 12/26/18 Levothyroxine Sodium* (Levothyroxine Sodium*) 175 Mcg Tablet, 175 MCG PO BEFORE BREAKFAST, #30 TAB 12/26/18 Aspirin* ([place] Aspirin*) 81 Mg Tab.chew, 81 MG PO DAILY, TAB.CHEW 12/26/18 Amlodipine Besylate* (Amlodipine Besylate*) 10 Mg Tablet, 10 MG PO DAILY, #30 TAB 12/26/18 Medications Current Medications IV Flush (NS 3 ml) 3 ml PER PROTOCOL IV ; Start 12/26/18 at 00:00 Acetaminophen (Tylenol Tab) 650 mg Q6H PRN PO .PAIN 1-3 OR TEMP; Start 12/26/18 at 00:00 Acetaminophen/ Hydrocodone Bitart ([place] (5/325)) 1 tab Q6H PRN PO .MOD PAIN 4- 6; Start 12/26/18 at 00:00 Morphine Sulfate (morphine) 2 mg Q4H PRN IV .SEVERE PAIN 7-10 Last administered on 12/26/18at 11:44; Admin Dose 2 MG; Start 12/26/18 at 00:00 Docusate Sodium (Colace) 100 mg Q12H PRN PO .CONSTIPATION; Start 12/26/18 at 00:00 Bisacodyl (Dulcolax) 5 mg DAILY PRN PO .CONSTIPATION; Start 12/26/18 at 00:00 Amlodipine Besylate (Norvasc) 10 mg DAILY PO Last administered on 12/26/18at 08:12; Admin Dose 10 MG; Start 12/26/18 at 09:00 Levothyroxine Sodium (Synthroid) 175 mcg BEFORE BREAKFAST PO ; Start 12/26/18 at 07:00 Sertraline HCl (Zoloft) 100 mg DAILY PO Last administered on 12/26/18at 08:14; Admin Dose 100 MG; Start 12/26/18 at 09:00 Pantoprazole (Protonix Tab) 40 mg DAILY@06 PO ; Start 12/26/18 at 06:00 Diagnostic Test (Pha) (Accu-Chek) 1 ea 02 XX Last administered on 12/26/18at 02:22; Admin Dose 1 EA; Start 12/26/18 at 02:00 Insulin Aspart (Novolog Insulin Pen) NOVOLOG *MILD* ALGORITHM WITH MEALS BEDTIME SC Last administered on 12/26/18at 08:09; Admin Dose 3 UNIT; Start 12/26/18 at 07:50 Miscellaneous Information 1 ea NOTE XX ; Start 12/26/18 at 02:30 Glucose (Glutose) 15 gm Q15M PRN PO DECREASED GLUCOSE; Start 12/26/18 at 02:30 Glucose (Glutose) 22.5 gm Q15M PRN PO DECREASED GLUCOSE; Start 12/26/18 at 02:30 Dextrose (D50w Syringe) 25 ml Q15M PRN IV DECREASED GLUCOSE; Start 12/26/18 at 02:30 Dextrose (D50w Syringe) 50 ml Q15M PRN IV DECREASED GLUCOSE; Start 12/26/18 at 02:30 Glucagon (Glucagen) 1 mg Q15M PRN IM DECREASED GLUCOSE; Start 12/26/18 at 02:30 Glucose (Glutose) 15 gm Q15M PRN BUCCAL DECREASED GLUCOSE; Start 12/26/18 at 02:30 Levalbuterol (Xopenex Neb) 1.25 mg Q4H RESP THERAPY PRN HHN SHORTNESS OF BREATH; Start 12/26/18 at 05:30 Nicotine (Nicoderm 21 Mg/ 24hr) 1 patch DAILY TRANSDERM Last administered on 12/26/18at 08:14; Admin Dose 1 PATCH; Start 12/26/18 at 09:00 Nicotine Polacrilex (Nicorette) 2 mg Q2H PRN BUCCAL CONTROL WITHDRAWAL SYMPTOMS Last administered on 12/26/18at 08:11; Admin Dose 2 MG; Start 12/26/18 at 06:30 Ceftriaxone Sodium 50 ml @ 100 mls/hr Q24H IVPB Last administered on 12/26/18at 08:13; Admin Dose 100 MLS/HR; Start 12/26/18 at 07:30 Ondansetron HCl (Zofran Inj) 4 mg Q4H PRN IV NAUSEA AND/OR VOMITING; Start 12/26/18 at 11:30 Sodium Bicarbonate 75 meq/Sodium Chloride 1,075 ml @ 50 mls/hr [id number] IV Last administered on 12/26/18at 12:01; Admin Dose 50 MLS/HR; Start 12/26/18 at 11:39 Allergies: Coded Allergies: No Known Allergy (Unverified , 12/25/18) Past Surgical History Past Surgical Hx: noncontributory Social History Alcohol Use: none Smoking Status: Current every day smoker (2 packs/day) Drug Use: none Exam/Review of Systems Exam Vitals Vital Signs Date Temp Pulse Resp B/P (MAP) Pulse Ox O2 O2 Flow FiO2 Time Delivery Rate 12/26/18 98.4 94 18 179/77 96 Room Air 08:29 (111) 12/26/18 3.0 07:35 Intake and Output 12/25/18 12/25/18 12/26/18 1414:59 22:59 06:59 IntakeIntake Total 500 ml OutputOutput Total 600 ml BalanceBalance -100 ml Exam HEENT exam; supple neck, no JVD. No lymphadenopathy. Midline trachea. No thyromegaly. Pharynx is clear. Patient has multiple carious teeth. Chest exam; diminished but clear breath sounds. S1-S2 audible, no murmurs. Regular rhythm. Abdomen exam; soft, no organomegaly. Bowel sounds audible. Nontender. Extremity exam; tenderness involving the right hip area. No peripheral edema. No clubbing. Pulses 2+. ICU RN exam; no focal deficit. Results Result Diagram: 12/26/18 0428 12/26/18 0955 Results 24hrs Laboratory Tests Test 12/25/18 22:11 12/25/18 23:41 12/26/18 02:10 12/26/18 04:00 White Blood 10.1 Count Red Blood Count 4.17 L Hemoglobin 10.3 L Hematocrit 33.0 L Mean Corpuscular 79.1 L Volume Mean Corpuscular 24.7 L Hemoglobin Mean Corpuscular 31.2 L Hemoglobin Janis nt Red Cell 16.1 H Distribution Width Platelet Count 345 Mean Platelet 10.5 H Volume Immature 0.700 H Granulocytes % Neutrophils % 67.2 Lymphocytes % 19.4 Monocytes % 8.9 Eosinophils % 3.2 Basophils % 0.6 Nucleated Red 0.0 Blood Cells % Immature 0.070 H Granulocytes # Neutrophils # 6.8 Lymphocytes # 2.0 Monocytes # 0.9 Eosinophils # 0.3 Basophils # 0.1 Nucleated Red 0.0 Blood Cells # Prothrombin Time 12.4 Prothrombin Time 1.0 Ratio INR 0.91 International Normalized Ratio Activated 28.1 Partial Thrombop last Time Sodium Level 141 Potassium Level 5.3 H Chloride Level 114 H Carbon Dioxide 17 L Level Anion Gap 10 Blood Urea 53 H Nitrogen Creatinine 2.58 H Est Glomerular 25 L Filtrat Rate mL/min Glucose Level 174 Calcium Level 9.2 Iron Level 63 Total Iron 270 Binding Capacity Percent Iron 23 Saturation Ferritin 97.8 Troponin I < 0.012 Blood Gas Blood arterial Specimen Source Arterial Blood 12/26/2018 1:14: Date Drawn 02 AM Arterial Blood 7.236 *L pH (Temp corrected) Arterial Blood 36.5 pCO2 (Temp correct) Arterial Blood 68.7 L pO2 (Temp corrected) Arterial Blood 15.2 L HCO3 Arterial Blood -11.4 L Base Excess Arterial Blood 92.0 L Oxygen Saturatio n Sean Test ACCEPTAB Arterial Blood Right Radial Gas Puncture Site Arterial 1.6 Blood Carboxyhem oglobin Arterial Blood 0.2 Methemoglobin Blood Gas A-a O2 37.3 H Differential Oxyhemoglobin 90.3 L Percent Blood Gas 37.0 Temperature Blood Gas ROOM AIR Modality FiO2 21.0 Blood Gas Aly CASSIDY MD Critical Value Read Back Blood Gas MM Notified Whom Blood Gas 12/26/2018 1:21: Notified Time 45 AM Bedside Glucose 231 H Urine Color YELLOW Urine Clarity SLIGHTLY CLOUDY A Urine pH 5.0 Urine Specific 1.009 [place] Urine Ketones NEGATIVE Urine Nitrite NEGATIVE Urine Bilirubin NEGATIVE Urine NEGATIVE Urobilinogen Urine Leukocyte NEGATIVE Esterase Urine 15 H Microscopic RBC Urine 1 Microscopic WBC Urine Hemoglobin 2+ H Urine Random 72 Sodium Urine Glucose NEGATIVE Urine Total 3+ H Protein Test 12/26/18 04:28 12/26/18 06:00 12/26/18 08:01 12/26/18 09:55 White Blood 17.1 #H Count Red Blood Count 4.05 L Hemoglobin 10.1 L Hematocrit 32.7 L Mean Corpuscular 80.7 L Volume Mean Corpuscular 24.9 L Hemoglobin Mean Corpuscular 30.9 L Hemoglobin Janis nt Red Cell 15.9 H Distribution Width Platelet Count 346 Mean Platelet 10.7 H Volume Immature 0.500 H Granulocytes % Neutrophils % 85.0 H Lymphocytes % 6.0 L Monocytes % 8.2 Eosinophils % 0.1 Basophils % 0.2 Nucleated Red 0.0 Blood Cells % Immature 0.090 H Granulocytes # Neutrophils # 14.6 H Lymphocytes # 1.0 Monocytes # 1.4 H Eosinophils # 0.0 Basophils # 0.0 Nucleated Red 0.0 Blood Cells # Sodium Level 139 139 Potassium Level 5.8 H 5.4 H Chloride Level 111 H 112 H Carbon Dioxide 15 L 17 L Level Anion Gap 13 10 Blood Urea 56 H 59 H Nitrogen Creatinine 2.76 H 2.83 H Est Glomerular 23 L 22 L Filtrat Rate mL/min Glucose Level 244 H 230 H Hemoglobin A1c 7.2 H Calcium Level 9.1 9.1 Magnesium Level 1.5 L Total Bilirubin 0.1 L Direct Bilirubin 0.00 Indirect 0.1 Bilirubin Aspartate Amino 11 L Transf (AST/SGOT ) Alanine 15 Aminotransferase (ALT/SGPT) Alkaline 77 Phosphatase Creatine Kinase 53 57 Creatine Kinase 2.9 2.5 Index Creatinine 1.56 1.43 Kinase MB (Mass) Troponin I < 0.012 < 0.012 Total Protein 6.7 Albumin 3.9 Globulin 2.80 Albumin/Globulin 1.39 Ratio Triglycerides 182 H Level Cholesterol 199 Level LDL Cholesterol, 126 Calculated HDL Cholesterol 37 Cholesterol/HDL 5.3 Ratio Urine Color RED Urine Clarity CLOUDY A Urine pH 6.0 Urine Specific 1.006 [place] Urine Ketones NEGATIVE Urine Nitrite NEGATIVE Urine Bilirubin NEGATIVE Urine NEGATIVE Urobilinogen Urine Leukocyte 2+ H Esterase Urine > 182 H Microscopic RBC Urine > 182 H Microscopic WBC Urine Bacteria FEW A Urine Yeast MODERATE A (Budding) Urine Hemoglobin 3+ H Urine Glucose 1+ H Urine Total 2+ H Protein Bedside Glucose 226 H Medications Medication Current Medications IV Flush (NS 3 ml) 3 ml PER PROTOCOL IV ; Start 12/26/18 at 00:00 Acetaminophen (Tylenol Tab) 650 mg Q6H PRN PO .PAIN 1-3 OR TEMP; Start 12/26/18 at 00:00 Acetaminophen/ Hydrocodone Bitart ([place] (5/325)) 1 tab Q6H PRN PO .MOD PAIN 4- 6; Start 12/26/18 at 00:00 Morphine Sulfate (morphine) 2 mg Q4H PRN IV .SEVERE PAIN 7-10 Last administered on 12/26/18at 11:44; Admin Dose 2 MG; Start 12/26/18 at 00:00 Docusate Sodium (Colace) 100 mg Q12H PRN PO .CONSTIPATION; Start 12/26/18 at 00:00 Bisacodyl (Dulcolax) 5 mg DAILY PRN PO .CONSTIPATION; Start 12/26/18 at 00:00 Amlodipine Besylate (Norvasc) 10 mg DAILY PO Last administered on 12/26/18at 08:12; Admin Dose 10 MG; Start 12/26/18 at 09:00 Levothyroxine Sodium (Synthroid) 175 mcg BEFORE BREAKFAST PO ; Start 12/26/18 at 07:00 Sertraline HCl (Zoloft) 100 mg DAILY PO Last administered on 12/26/18at 08:14; Admin Dose 100 MG; Start 12/26/18 at 09:00 Pantoprazole (Protonix Tab) 40 mg DAILY@06 PO ; Start 12/26/18 at 06:00 Diagnostic Test (Pha) (Accu-Chek) 1 ea 02 XX Last administered on 12/26/18at 02:22; Admin Dose 1 EA; Start 12/26/18 at 02:00 Insulin Aspart (Novolog Insulin Pen) NOVOLOG *MILD* ALGORITHM WITH MEALS BEDTIME SC Last administered on 12/26/18at 08:09; Admin Dose 3 UNIT; Start 12/26/18 at 07:50 Miscellaneous Information 1 ea NOTE XX ; Start 12/26/18 at 02:30 Glucose (Glutose) 15 gm Q15M PRN PO DECREASED GLUCOSE; Start 12/26/18 at 02:30 Glucose (Glutose) 22.5 gm Q15M PRN PO DECREASED GLUCOSE; Start 12/26/18 at 02:30 Dextrose (D50w Syringe) 25 ml Q15M PRN IV DECREASED GLUCOSE; Start 12/26/18 at 02:30 Dextrose (D50w Syringe) 50 ml Q15M PRN IV DECREASED GLUCOSE; Start 12/26/18 at 02:30 Glucagon (Glucagen) 1 mg Q15M PRN IM DECREASED GLUCOSE; Start 12/26/18 at 02:30 Glucose (Glutose) 15 gm Q15M PRN BUCCAL DECREASED GLUCOSE; Start 12/26/18 at 02:30 Levalbuterol (Xopenex Neb) 1.25 mg Q4H RESP THERAPY PRN HHN SHORTNESS OF BREATH; Start 12/26/18 at 05:30 Nicotine (Nicoderm 21 Mg/ 24hr) 1 patch DAILY TRANSDERM Last administered on 12/26/18 08:14; Admin Dose 1 PATCH; Start 12/26/18 at 09:00 Nicotine Polacrilex (Nicorette) 2 mg Q2H PRN BUCCAL CONTROL WITHDRAWAL SYMPTOMS Last administered on 12/26/18 08:11; Admin Dose 2 MG; Start 12/26/18 at 06:30 Ceftriaxone Sodium 50 ml @ 100 mls/hr Q24H IVPB Last administered on 12/26/18 08:13; Admin Dose 100 MLS/HR; Start 12/26/18 at 07:30 Ondansetron HCl (Zofran Inj) 4 mg Q4H PRN IV NAUSEA AND/OR VOMITING; Start 12/26/18 at 11:30 Sodium Bicarbonate 75 meq/Sodium Chloride 1,075 ml @ 50 mls/hr [id number] IV Last administered on 12/26/18 12:01; Admin Dose 50 MLS/HR; Start 12/26/18 at 11:39 GILBERT SPAULDING Dec 26, 2018 12:08
[2018-12-26] MEDS: NA BICARBONATE 650 MG TAB PO SCH ×2 (14:30→20:30)
--- NOTE | 2018-12-26 15:12 | PN ---
Date/Time of Note Date/Time of Note DATE: 12/26/18 TIME: 15:03 Assessment/Plan VTE Prophylaxis Risk score (from Nsg)>0 risk: 8 SCD applied (from Nsg): Yes Pharmacological prophylaxis: NA/contraindicated Pharm contraindication: surgical contra Lines/Catheters IV Catheter Type (from Nrsg): Saline Lock Urinary Cath still in place: Yes Reason Cath still needed: terminal illness/intractable pain Assessment/Plan Assessment/Plan 1. Acute right femur fracture s/p fall - Ortho on board and awaiting optimization clinically prior to clearance for OR. Once electrolytes and acidosis corrected will be able to proceed with surgical intervention if no further cardiac workup needed - Pulm on board given patient history of COPD and cleared for anesthesia - Cardiology consultation appreciated. 2. Hypoxia - resolved - tolerating RA and saturation 99% - most likely chronic given extensive smoking history and COPD - V/Q scan negative - Pulm on board - on bicarb tabs 3. LEONEL on CKD - Nephrology consultation appreciated and will continue current fluid regime 4. Metabolic acidosis - on bicarb and will monitor for improvement 5. DM - A1c noted - ISS on board 6. Hypothyroidism - on Levothyroxine 7. Hyperkalemia - in setting of LEONEL on CKD - will give insulin and Kayexalate 8. Tobacco use - nicotine patch 9. Hematuria - most likely from insertion trauma given started after placement of pinedo - H/H stable 10. Disposition - Awaiting Cardiac clearance and improvement in k/acidosis prior to medical clearance for surgical intervention Result Diagram: 12/26/18 0428 12/26/18 1427 Results 24hrs Laboratory Tests Test 12/25/18 22:11 12/25/18 23:41 12/26/18 02:10 12/26/18 04:00 White Blood 10.1 Count Red Blood Count 4.17 L Hemoglobin 10.3 L Hematocrit 33.0 L Mean Corpuscular 79.1 L Volume Mean Corpuscular 24.7 L Hemoglobin Mean Corpuscular 31.2 L Hemoglobin Janis nt Red Cell 16.1 H Distribution Width Platelet Count 345 Mean Platelet 10.5 H Volume Immature 0.700 H Granulocytes % Neutrophils % 67.2 Lymphocytes % 19.4 Monocytes % 8.9 Eosinophils % 3.2 Basophils % 0.6 Nucleated Red 0.0 Blood Cells % Immature 0.070 H Granulocytes # Neutrophils # 6.8 Lymphocytes # 2.0 Monocytes # 0.9 Eosinophils # 0.3 Basophils # 0.1 Nucleated Red 0.0 Blood Cells # Prothrombin Time 12.4 Prothrombin Time 1.0 Ratio INR 0.91 International Normalized Ratio Activated 28.1 Partial Thrombop last Time Sodium Level 141 Potassium Level 5.3 H Chloride Level 114 H Carbon Dioxide 17 L Level Anion Gap 10 Blood Urea 53 H Nitrogen Creatinine 2.58 H Est Glomerular 25 L Filtrat Rate mL/min Glucose Level 174 Calcium Level 9.2 Iron Level 63 Total Iron 270 Binding Capacity Percent Iron 23 Saturation Ferritin 97.8 Troponin I < 0.012 Blood Gas Blood arterial Specimen Source Arterial Blood 12/26/2018 1:14: Date Drawn 02 AM Arterial Blood 7.236 *L pH (Temp corrected) Arterial Blood 36.5 pCO2 (Temp correct) Arterial Blood 68.7 L pO2 (Temp corrected) Arterial Blood 15.2 L HCO3 Arterial Blood -11.4 L Base Excess Arterial Blood 92.0 L Oxygen Saturatio n Sean Test ACCEPTAB Arterial Blood Right Radial Gas Puncture Site Arterial 1.6 Blood Carboxyhem oglobin Arterial Blood 0.2 Methemoglobin Blood Gas A-a O2 37.3 H Differential Oxyhemoglobin 90.3 L Percent Blood Gas 37.0 Temperature Blood Gas ROOM AIR Modality FiO2 21.0 Blood Gas Aly CASSIDY MD Critical Value Read Back Blood Gas MM Notified Whom Blood Gas 12/26/2018 1:21: Notified Time 45 AM Bedside Glucose 231 H Urine Color YELLOW Urine Clarity SLIGHTLY CLOUDY A Urine pH 5.0 Urine Specific 1.009 [place] Urine Ketones NEGATIVE Urine Nitrite NEGATIVE Urine Bilirubin NEGATIVE Urine NEGATIVE Urobilinogen Urine Leukocyte NEGATIVE Esterase Urine 15 H Microscopic RBC Urine 1 Microscopic WBC Urine Hemoglobin 2+ H Urine Random 72 Sodium Urine Glucose NEGATIVE Urine Total 3+ H Protein Test 12/26/18 04:28 12/26/18 06:00 12/26/18 08:01 12/26/18 09:55 White Blood 17.1 #H Count Red Blood Count 4.05 L Hemoglobin 10.1 L Hematocrit 32.7 L Mean Corpuscular 80.7 L Volume Mean Corpuscular 24.9 L Hemoglobin Mean Corpuscular 30.9 L Hemoglobin Janis nt Red Cell 15.9 H Distribution Width Platelet Count 346 Mean Platelet 10.7 H Volume Immature 0.500 H Granulocytes % Neutrophils % 85.0 H Lymphocytes % 6.0 L Monocytes % 8.2 Eosinophils % 0.1 Basophils % 0.2 Nucleated Red 0.0 Blood Cells % Immature 0.090 H Granulocytes # Neutrophils # 14.6 H Lymphocytes # 1.0 Monocytes # 1.4 H Eosinophils # 0.0 Basophils # 0.0 Nucleated Red 0.0 Blood Cells # Sodium Level 139 139 Potassium Level 5.8 H 5.4 H Chloride Level 111 H 112 H Carbon Dioxide 15 L 17 L Level Anion Gap 13 10 Blood Urea 56 H 59 H Nitrogen Creatinine 2.76 H 2.83 H Est Glomerular 23 L 22 L Filtrat Rate mL/min Glucose Level 244 H 230 H Hemoglobin A1c 7.2 H Calcium Level 9.1 9.1 Magnesium Level 1.5 L Total Bilirubin 0.1 L Direct Bilirubin 0.00 Indirect 0.1 Bilirubin Aspartate Amino 11 L Transf (AST/SGOT ) Alanine 15 Aminotransferase (ALT/SGPT) Alkaline 77 Phosphatase Creatine Kinase 53 57 Creatine Kinase 2.9 2.5 Index Creatinine 1.56 1.43 Kinase MB (Mass) Troponin I < 0.012 < 0.012 Total Protein 6.7 Albumin 3.9 Globulin 2.80 Albumin/Globulin 1.39 Ratio Triglycerides 182 H Level Cholesterol 199 Level LDL Cholesterol, 126 Calculated HDL Cholesterol 37 Cholesterol/HDL 5.3 Ratio Urine Color RED Urine Clarity CLOUDY A Urine pH 6.0 Urine Specific 1.006 [place] Urine Ketones NEGATIVE Urine Nitrite NEGATIVE Urine Bilirubin NEGATIVE Urine NEGATIVE Urobilinogen Urine Leukocyte 2+ H Esterase Urine > 182 H Microscopic RBC Urine > 182 H Microscopic WBC Urine Bacteria FEW A Urine Yeast MODERATE A (Budding) Urine Hemoglobin 3+ H Urine Glucose 1+ H Urine Total 2+ H Protein Bedside Glucose 226 H Test 12/26/18 14:04 12/26/18 14:26 12/26/18 14:27 Bedside Glucose 164 172 Potassium Level 5.3 H Subjective 24 Hr Interval Summary Free Text/Dictation Patient complaining of nausea but denies any new symptoms or worsening of pain. Exam/Review of Systems Exam Vitals Vital Signs Date Temp Pulse Resp B/P (MAP) Pulse Ox O2 O2 Flow FiO2 Time Delivery Rate 12/26/18 98.3 79 18 150/66 99 Room Air 11:43 (94) 12/26/18 3.0 07:35 Intake and Output 12/25/18 12/25/18 12/26/18 1414:59 22:59 06:59 IntakeIntake Total 500 ml OutputOutput Total 600 ml BalanceBalance -100 ml Exam General: mild distress from nausea Chest: Nontender Lungs: Clear to auscultation bilaterally no crackles rales or wheezing Heart: Normal S1-S2, regular rate rhythm, systolic murmur Abdomen: Soft , nontender, nondistended , bowel sounds are present. No guarding no rebound tenderness : pinedo with red tinged urine Extremities: Right lower extremity range of motion limited secondary to fracture, pain Results Results 24hrs Laboratory Tests Test 12/25/18 22:11 12/25/18 23:41 12/26/18 02:10 12/26/18 04:00 White Blood 10.1 Count Red Blood Count 4.17 L Hemoglobin 10.3 L Hematocrit 33.0 L Mean Corpuscular 79.1 L Volume Mean Corpuscular 24.7 L Hemoglobin Mean Corpuscular 31.2 L Hemoglobin Janis nt Red Cell 16.1 H Distribution Width Platelet Count 345 Mean Platelet 10.5 H Volume Immature 0.700 H Granulocytes % Neutrophils % 67.2 Lymphocytes % 19.4 Monocytes % 8.9 Eosinophils % 3.2 Basophils % 0.6 Nucleated Red 0.0 Blood Cells % Immature 0.070 H Granulocytes # Neutrophils # 6.8 Lymphocytes # 2.0 Monocytes # 0.9 Eosinophils # 0.3 Basophils # 0.1 Nucleated Red 0.0 Blood Cells # Prothrombin Time 12.4 Prothrombin Time 1.0 Ratio INR 0.91 International Normalized Ratio Activated 28.1 Partial Thrombop last Time Sodium Level 141 Potassium Level 5.3 H Chloride Level 114 H Carbon Dioxide 17 L Level Anion Gap 10 Blood Urea 53 H Nitrogen Creatinine 2.58 H Est Glomerular 25 L Filtrat Rate mL/min Glucose Level 174 Calcium Level 9.2 Iron Level 63 Total Iron 270 Binding Capacity Percent Iron 23 Saturation Ferritin 97.8 Troponin I < 0.012 Blood Gas Blood arterial Specimen Source Arterial Blood 12/26/2018 1:14: Date Drawn 02 AM Arterial Blood 7.236 *L pH (Temp corrected) Arterial Blood 36.5 pCO2 (Temp correct) Arterial Blood 68.7 L pO2 (Temp corrected) Arterial Blood 15.2 L HCO3 Arterial Blood -11.4 L Base Excess Arterial Blood 92.0 L Oxygen Saturatio n Sean Test ACCEPTAB Arterial Blood Right Radial Gas Puncture Site Arterial 1.6 Blood Carboxyhem oglobin Arterial Blood 0.2 Methemoglobin Blood Gas A-a O2 37.3 H Differential Oxyhemoglobin 90.3 L Percent Blood Gas 37.0 Temperature Blood Gas ROOM AIR Modality FiO2 21.0 Blood Gas Aly CASSIDY MD Critical Value Read Back Blood Gas MM Notified Whom Blood Gas 12/26/2018 1:21: Notified Time 45 AM Bedside Glucose 231 H Urine Color YELLOW Urine Clarity SLIGHTLY CLOUDY A Urine pH 5.0 Urine Specific 1.009 [place] Urine Ketones NEGATIVE Urine Nitrite NEGATIVE Urine Bilirubin NEGATIVE Urine NEGATIVE Urobilinogen Urine Leukocyte NEGATIVE Esterase Urine 15 H Microscopic RBC Urine 1 Microscopic WBC Urine Hemoglobin 2+ H Urine Random 72 Sodium Urine Glucose NEGATIVE Urine Total 3+ H Protein Test 12/26/18 04:28 12/26/18 06:00 12/26/18 08:01 12/26/18 09:55 White Blood 17.1 #H Count Red Blood Count 4.05 L Hemoglobin 10.1 L Hematocrit 32.7 L Mean Corpuscular 80.7 L Volume Mean Corpuscular 24.9 L Hemoglobin Mean Corpuscular 30.9 L Hemoglobin Janis nt Red Cell 15.9 H Distribution Width Platelet Count 346 Mean Platelet 10.7 H Volume Immature 0.500 H Granulocytes % Neutrophils % 85.0 H Lymphocytes % 6.0 L Monocytes % 8.2 Eosinophils % 0.1 Basophils % 0.2 Nucleated Red 0.0 Blood Cells % Immature 0.090 H Granulocytes # Neutrophils # 14.6 H Lymphocytes # 1.0 Monocytes # 1.4 H Eosinophils # 0.0 Basophils # 0.0 Nucleated Red 0.0 Blood Cells # Sodium Level 139 139 Potassium Level 5.8 H 5.4 H Chloride Level 111 H 112 H Carbon Dioxide 15 L 17 L Level Anion Gap 13 10 Blood Urea 56 H 59 H Nitrogen Creatinine 2.76 H 2.83 H Est Glomerular 23 L 22 L Filtrat Rate mL/min Glucose Level 244 H 230 H Hemoglobin A1c 7.2 H Calcium Level 9.1 9.1 Magnesium Level 1.5 L Total Bilirubin 0.1 L Direct Bilirubin 0.00 Indirect 0.1 Bilirubin Aspartate Amino 11 L Transf (AST/SGOT ) Alanine 15 Aminotransferase (ALT/SGPT) Alkaline 77 Phosphatase Creatine Kinase 53 57 Creatine Kinase 2.9 2.5 Index Creatinine 1.56 1.43 Kinase MB (Mass) Troponin I < 0.012 < 0.012 Total Protein 6.7 Albumin 3.9 Globulin 2.80 Albumin/Globulin 1.39 Ratio Triglycerides 182 H Level Cholesterol 199 Level LDL Cholesterol, 126 Calculated HDL Cholesterol 37 Cholesterol/HDL 5.3 Ratio Urine Color RED Urine Clarity CLOUDY A Urine pH 6.0 Urine Specific 1.006 [place] Urine Ketones NEGATIVE Urine Nitrite NEGATIVE Urine Bilirubin NEGATIVE Urine NEGATIVE Urobilinogen Urine Leukocyte 2+ H Esterase Urine > 182 H Microscopic RBC Urine > 182 H Microscopic WBC Urine Bacteria FEW A Urine Yeast MODERATE A (Budding) Urine Hemoglobin 3+ H Urine Glucose 1+ H Urine Total 2+ H Protein Bedside Glucose 226 H Test 12/26/18 14:04 12/26/18 14:26 12/26/18 14:27 Bedside Glucose 164 172 Potassium Level 5.3 H Medications Medication Current Medications IV Flush (NS 3 ml) 3 ml PER PROTOCOL IV ; Start 12/26/18 at 00:00 Acetaminophen (Tylenol Tab) 650 mg Q6H PRN PO .PAIN 1-3 OR TEMP; Start 12/26/18 at 00:00 Acetaminophen/ Hydrocodone Bitart ([place] (5/325)) 1 tab Q6H PRN PO .MOD PAIN 4- 6; Start 12/26/18 at 00:00 Morphine Sulfate (morphine) 2 mg Q4H PRN IV .SEVERE PAIN 7-10 Last administered on 12/26/18at 11:44; Admin Dose 2 MG; Start 12/26/18 at 00:00 Docusate Sodium (Colace) 100 mg Q12H PRN PO .CONSTIPATION; Start 12/26/18 at 00:00 Bisacodyl (Dulcolax) 5 mg DAILY PRN PO .CONSTIPATION; Start 12/26/18 at 00:00 Amlodipine Besylate (Norvasc) 10 mg DAILY PO Last administered on 12/26/18at 08:12; Admin Dose 10 MG; Start 12/26/18 at 09:00 Levothyroxine Sodium (Synthroid) 175 mcg BEFORE BREAKFAST PO ; Start 12/26/18 at 07:00 Sertraline HCl (Zoloft) 100 mg DAILY PO Last administered on 12/26/18at 08:14; Admin Dose 100 MG; Start 12/26/18 at 09:00 Pantoprazole (Protonix Tab) 40 mg DAILY@06 PO ; Start 12/26/18 at 06:00 Diagnostic Test (Pha) (Accu-Chek) 1 ea 02 XX Last administered on 12/26/18at 02:22; Admin Dose 1 EA; Start 12/26/18 at 02:00 Insulin Aspart (Novolog Insulin Pen) NOVOLOG *MILD* ALGORITHM WITH MEALS BEDTIME SC Last administered on 12/26/18at 14:06; Admin Dose 1 UNIT; Start 12/26/18 at 07:50 Miscellaneous Information 1 ea NOTE XX ; Start 12/26/18 at 02:30 Glucose (Glutose) 15 gm Q15M PRN PO DECREASED GLUCOSE; Start 12/26/18 at 02:30 Glucose (Glutose) 22.5 gm Q15M PRN PO DECREASED GLUCOSE; Start 12/26/18 at 02:30 Dextrose (D50w Syringe) 25 ml Q15M PRN IV DECREASED GLUCOSE; Start 12/26/18 at 02:30 Dextrose (D50w Syringe) 50 ml Q15M PRN IV DECREASED GLUCOSE; Start 12/26/18 at 02:30 Glucagon (Glucagen) 1 mg Q15M PRN IM DECREASED GLUCOSE; Start 12/26/18 at 02:30 Glucose (Glutose) 15 gm Q15M PRN BUCCAL DECREASED GLUCOSE; Start 12/26/18 at 02:30 Levalbuterol (Xopenex Neb) 1.25 mg Q4H RESP THERAPY PRN HHN SHORTNESS OF ADDI ATH; Start 12/26/18 at 05:30 Nicotine (Nicoderm 21 Mg/ 24hr) 1 patch DAILY TRANSDERM Last administered on 12/26/18at 08:14; Admin Dose 1 PATCH; Start 12/26/18 at 09:00 Nicotine Polacrilex (Nicorette) 2 mg Q2H PRN BUCCAL CONTROL WITHDRAWAL SYMPTOMS Last administered on 12/26/18at 08:11; Admin Dose 2 MG; Start 12/26/18 at 06:30 Ceftriaxone Sodium 50 ml @ 100 mls/hr Q24H IVPB Last administered on 12/26/18at 08:13; Admin Dose 100 MLS/HR; Start 12/26/18 at 07:30 Ondansetron HCl (Zofran Inj) 4 mg Q4H PRN IV NAUSEA AND/OR VOMITING; Start 12/26/18 at 11:30 Sodium Bicarbonate 75 meq/Sodium Chloride 1,075 ml @ 50 mls/hr [id number] IV Last administered on 12/26/18at 12:01; Admin Dose 50 MLS/HR; Start 12/26/18 at 11:39 Sodium Bicarbonate (Sodium Bicarbonate Tab) 650 mg TID PO Last administered on 12/26/18at 14:30; Admin Dose 650 MG; Start 12/26/18 at 13:00 Dextrose (D50w Syringe) ONCE PRN IV DECREASED GLUCOSE; Start 12/26/18 at 12:30; Stop 12/27/18 at 12:29 LIZZIE HAWK MD Dec 26, 2018 15:12
[2018-12-26 15:29] VITALS: BP 150/69; PULSE 71; RESP 18
[2018-12-26 19:53] VITALS: BP 160/70; PULSE 75; RESP 18
--- NOTE | 2018-12-26 20:08 | CONS ---
Assessment/Plan Assessment/Plan Hospital Course (Demo Recall) 1. Cardiovascular preop evaluation 2.Acute intertrochanteric fracture of the right femur,/hip fracture 3. Hypertension 4. COPD 5. Chronic kidney disease unclear acute versus chronic 6. Hyperkalemia 7. Anemia 8. Abnormal EKG 9. Smoker 10. Chronic dizziness: But no report of any actual syncope Recommendations: Patient is medical optimization including correction of potassium is being done by renal and internal medicine team already. Continue with the current cardiac care and correct electrolyte as needed including potassium level Continue the blood pressure medication up to and including the day of the surgery even if the patient is n.p.o. for the orthopedic surgery Otherwise no further cardiac work-up would be indicated. Patient is optimized from the cardiac standpoint however given his poor exercise tolerance of multiple risk factor he will have probably moderate risk of cardiovascular event. Above discussed with the patient and multiple family members at the bedside. Importance of his smoking cessation has been discussed with the patient. Thank you for this referral I will continue to follow along with you GODFREY TAVERAS MD [facility] Consultation Date/Type/Reason Admit Date/Time Date of Consultation: Dec 26, 2018 Type of Consult Cardiology Reason for Consultation cv preop Requesting Provider: LIZZIE HAWK MD Date/Time of Note DATE: 12/26/18 TIME: 20:01 Hx of Present Illness Interventional cardiology consultation note Chief complaint: Status post fall with hip pain Reason for consult: Cardiovascular preop evaluation History of present illness: Thank you for this referral. History was obtained from the patient from discussion multiple family members at the bedside discussion multiple physicians and staff. This is a 68-year-old [place] gentleman with history of long-standing smoking, hypertension, more likely chronic kidney disease and hyperkalemia, chronic dizziness who had a fall and has a hip fracture. According to the family patient has been dizzy for many years. He did not lose consciousness but when he was getting out of the car he felt dizzy lost his balance and fell. Patient consistently has a hip fracture and is being scheduled for orthopedic surgery. Patient exercise is normally very limited due to his fatigue and weakness, but he denies any exertional chest pain to me Patient and the family deny any history of cardiac disorders. No chest pain or pressure is reported. He denies shortness of breath to me at this point janna gaspar has been smoking for many years and appears to have COPD. Allergies: No known drug allergies Medications were reviewed as per medical reconciliation sheet Family history: Patient brother with [place] Social history: He is still actively smokes. Has a very supportive family Past medical history: Hypertension, likely chronic kidney disease, history of hyperkalemia, COPD smoker History of peptic ulcer disease many years ago Past surgical history: Abdominal surgery 20 years for peptic ulcer disease Review of system: Patient denies all others except for above-mentioned Past Medical History Home Meds Reported Medications Patiromer Calcium Sorbitex (Veltassa) 16.8 Gm Powd.pack, 16.8 GM PO 12/26/18 Insulin Detemir (Levemir) 100 Unit/1 Ml Vial, for 20units at hs 12/26/18 Sitagliptin* (Januvia*) 50 Mg Tablet, 50 MG PO DAILY, #30 TAB 12/26/18 Sertraline Hcl* (Sertraline Hcl*) 100 Mg Tablet, 100 MG PO DAILY, #30 TAB 12/26/18 Glimepiride* (Glimepiride*) 4 Mg Tablet, 4 MG PO WITH BREAKFAST DINNE, TAB 12/26/18 Omeprazole* (Omeprazole*) 40 Mg Capsule.dr, 40 MG PO DAILY, #30 CAP 12/26/18 Levothyroxine Sodium* (Levothyroxine Sodium*) 175 Mcg Tablet, 175 MCG PO BEFORE BREAKFAST, #30 TAB 12/26/18 Aspirin* ([place] Aspirin*) 81 Mg Tab.chew, 81 MG PO DAILY, TAB.CHEW 12/26/18 Amlodipine Besylate* (Amlodipine Besylate*) 10 Mg Tablet, 10 MG PO DAILY, #30 TAB 12/26/18 Medications Current Medications IV Flush (NS 3 ml) 3 ml PER PROTOCOL IV ; Start 12/26/18 at 00:00 Acetaminophen (Tylenol Tab) 650 mg Q6H PRN PO .PAIN 1-3 OR TEMP; Start 12/26/18 at 00:00 Acetaminophen/ Hydrocodone Bitart ([place] (5/325)) 1 tab Q6H PRN PO .MOD PAIN 4- 6; Start 12/26/18 at 00:00 Morphine Sulfate (morphine) 2 mg Q4H PRN IV .SEVERE PAIN 7-10 Last administered on 12/26/18at 11:44; Admin Dose 2 MG; Start 12/26/18 at 00:00 Docusate Sodium (Colace) 100 mg Q12H PRN PO .CONSTIPATION; Start 12/26/18 at 00:00 Bisacodyl (Dulcolax) 5 mg DAILY PRN PO .CONSTIPATION; Start 12/26/18 at 00:00 Amlodipine Besylate (Norvasc) 10 mg DAILY PO Last administered on 12/26/18at 08:12; Admin Dose 10 MG; Start 12/26/18 at 09:00 Levothyroxine Sodium (Synthroid) 175 mcg BEFORE BREAKFAST PO ; Start 12/26/18 at 07:00 Sertraline HCl (Zoloft) 100 mg DAILY PO Last administered on 12/26/18at 08:14; Admin Dose 100 MG; Start 12/26/18 at 09:00 Pantoprazole (Protonix Tab) 40 mg DAILY@06 PO ; Start 12/26/18 at 06:00 Diagnostic Test (Pha) (Accu-Chek) 1 ea 02 XX Last administered on 12/26/18at 02:22; Admin Dose 1 EA; Start 12/26/18 at 02:00 Insulin Aspart (Novolog Insulin Pen) NOVOLOG *MILD* ALGORITHM WITH MEALS BEDTIME SC Last administered on 12/26/18at 14:06; Admin Dose 1 UNIT; Start 12/26/18 at 07:50 Miscellaneous Information 1 ea NOTE XX ; Start 12/26/18 at 02:30 Glucose (Glutose) 15 gm Q15M PRN PO DECREASED GLUCOSE; Start 12/26/18 at 02:30 Glucose (Glutose) 22.5 gm Q15M PRN PO DECREASED GLUCOSE; Start 12/26/18 at 02:30 Dextrose (D50w Syringe) 25 ml Q15M PRN IV DECREASED GLUCOSE; Start 12/26/18 at 02:30 Dextrose (D50w Syringe) 50 ml Q15M PRN IV DECREASED GLUCOSE; Start 12/26/18 at 02:30 Glucagon (Glucagen) 1 mg Q15M PRN IM DECREASED GLUCOSE; Start 12/26/18 at 02:30 Glucose (Glutose) 15 gm Q15M PRN BUCCAL DECREASED GLUCOSE; Start 12/26/18 at 02:30 Levalbuterol (Xopenex Neb) 1.25 mg Q4H RESP THERAPY PRN HHN SHORTNESS OF BREATH; Start 12/26/18 at 05:30 Nicotine (Nicoderm 21 Mg/ 24hr) 1 patch DAILY TRANSDERM Last administered on 12/26/18at 08:14; Admin Dose 1 PATCH; Start 12/26/18 at 09:00 Nicotine Polacrilex (Nicorette) 2 mg Q2H PRN BUCCAL CONTROL WITHDRAWAL SYMPTOMS Last administered on 12/26/18at 08:11; Admin Dose 2 MG; Start 12/26/18 at 06:30 Ceftriaxone Sodium 50 ml @ 100 mls/hr Q24H IVPB Last administered on 12/26/18at 08:13; Admin Dose 100 MLS/HR; Start 12/26/18 at 07:30 Ondansetron HCl (Zofran Inj) 4 mg Q4H PRN IV NAUSEA AND/OR VOMITING; Start 12/26/18 at 11:30 Sodium Bicarbonate 75 meq/Sodium Chloride 1,075 ml @ 50 mls/hr [id number] IV Last administered on 12/26/18at 12:01; Admin Dose 50 MLS/HR; Start 12/26/18 at 11:39 Sodium Bicarbonate (Sodium Bicarbonate Tab) 650 mg TID PO Last administered on 12/26/18at 14:30; Admin Dose 650 MG; Start 12/26/18 at 13:00 Dextrose (D50w Syringe) ONCE PRN IV DECREASED GLUCOSE; Start 12/26/18 at 12:3 0; Stop 12/27/18 at 12:29 Hydralazine HCl (Apresoline) 10 mg Q4H PRN IV SBP >170; Start 12/26/18 at 16:30 Allergies: Coded Allergies: No Known Allergy (Unverified , 12/25/18) Past Surgical History Past Surgical Hx: noncontributory Social History Alcohol Use: none Smoking Status: Current every day smoker (2 packs/day) Drug Use: none Exam/Review of Systems Vital Signs Vitals Vital Signs Date Temp Pulse Resp B/P (MAP) Pulse Ox O2 O2 Flow FiO2 Time Delivery Rate 12/26/18 98.4 75 18 160/70 100 Nasal 19:53 (100) Cannula 12/26/18 3.0 07:35 Intake and Output 12/25/18 12/25/18 12/26/18 1515:00 23:00 07:00 IntakeIntake Total 500 ml OutputOutput Total 600 ml BalanceBalance -100 ml Exam Exam General: no acute distress HEENT: NC/AT. pupils are equal. round. NECK: NO JVD. no stridor. CV: RRR. systolic murmur; no gallop or rubs. PULM: no wheezing or rhonchi. GI: SOFT, NT, ND, no rebound or guarding Extremity: trace B/L LE edema. no clubbing. neuro: awake and alert, OX3. Psych: calm and pleasant rectal: deferred EKG was personally reviewed which are normal sinus rhythm no specific ST abnormality in the vertical conduction the Echocardiogram was personally reviewed which shows: Normal left ventricular systolic function. Normal left ventricular cavity size. Mild concentric left ventricular hypertrophy. Ejection fraction is visually estimated at 65-70 %. Tissue Doppler/Mitral Doppler indices are consistent with impaired relaxation (Stage I diastolic dysfunction). Upper limit of normal left atrial size. Mitral valve leaflets appear mildly thickened. Mild mitral annular calcification. Trace mitral regurgitation. Normal appearance of the aortic valve. No significant aortic stenosis or insufficiency. Normal appearance of the tricuspid valve. Estimated peak PA systolic pressure 41 mmHg. There is mild tricuspid regurgitation. Normal size and normal respiratory collapse consistent with normal right atrial pressure. CT of the chest done in the emergency room shows: Emphysema and changes of probable upper lobe bronchiolitis, less prominent than on the prior study. No large area of consolidation. No pleural effusions. Pelvic x-ray shows:Acute intertrochanteric fracture of the right femur, again identified. Labs Result Diagram: 12/26/18 0428 12/26/18 1427 Results 24hrs Laboratory Tests Test 12/25/18 22:11 12/25/18 23:41 12/26/18 02:10 12/26/18 04:00 White Blood 10.1 Count Red Blood Count 4.17 L Hemoglobin 10.3 L Hematocrit 33.0 L Mean Corpuscular 79.1 L Volume Mean Corpuscular 24.7 L Hemoglobin Mean Corpuscular 31.2 L Hemoglobin Janis nt Red Cell 16.1 H Distribution Width Platelet Count 345 Mean Platelet 10.5 H Volume Immature 0.700 H Granulocytes % Neutrophils % 67.2 Lymphocytes % 19.4 Monocytes % 8.9 Eosinophils % 3.2 Basophils % 0.6 Nucleated Red 0.0 Blood Cells % Immature 0.070 H Granulocytes # Neutrophils # 6.8 Lymphocytes # 2.0 Monocytes # 0.9 Eosinophils # 0.3 Basophils # 0.1 Nucleated Red 0.0 Blood Cells # Prothrombin Time 12.4 Prothrombin Time 1.0 Ratio INR 0.91 International Normalized Ratio Activated 28.1 Partial Thrombop last Time Sodium Level 141 Potassium Level 5.3 H Chloride Level 114 H Carbon Dioxide 17 L Level Anion Gap 10 Blood Urea 53 H Nitrogen Creatinine 2.58 H Est Glomerular 25 L Filtrat Rate mL/min Glucose Level 174 Calcium Level 9.2 Iron Level 63 Total Iron 270 Binding Capacity Percent Iron 23 Saturation Ferritin 97.8 Troponin I < 0.012 Blood Gas Blood arterial Specimen Source Arterial Blood 12/26/2018 1:14: Date Drawn 02 AM Arterial Blood 7.236 *L pH (Temp corrected) Arterial Blood 36.5 pCO2 (Temp correct) Arterial Blood 68.7 L pO2 (Temp corrected) Arterial Blood 15.2 L HCO3 Arterial Blood -11.4 L Base Excess Arterial Blood 92.0 L Oxygen Saturatio n Sean Test ACCEPTAB Arterial Blood Right Radial Gas Puncture Site Arterial 1.6 Blood Carboxyhem oglobin Arterial Blood 0.2 Methemoglobin Blood Gas A-a O2 37.3 H Differential Oxyhemoglobin 90.3 L Percent Blood Gas 37.0 Temperature Blood Gas ROOM AIR Modality FiO2 21.0 Blood Gas Aly CASSIDY MD Critical Value Read Back Blood Gas MM Notified Whom Blood Gas 12/26/2018 1:21: Notified Time 45 AM Bedside Glucose 231 H Urine Color YELLOW Urine Clarity SLIGHTLY CLOUDY A Urine pH 5.0 Urine Specific 1.009 Scurry Urine Ketones NEGATIVE Urine Nitrite NEGATIVE Urine Bilirubin NEGATIVE Urine NEGATIVE Urobilinogen Urine Leukocyte NEGATIVE Esterase Urine 15 H Microscopic RBC Urine 1 Microscopic WBC Urine Hemoglobin 2+ H Urine Random 72 Sodium Urine Glucose NEGATIVE Urine Total 3+ H Protein Test 12/26/18 04:28 12/26/18 06:00 12/26/18 08:01 12/26/18 09:55 White Blood 17.1 #H Count Red Blood Count 4.05 L Hemoglobin 10.1 L Hematocrit 32.7 L Mean Corpuscular 80.7 L Volume Mean Corpuscular 24.9 L Hemoglobin Mean Corpuscular 30.9 L Hemoglobin Janis nt Red Cell 15.9 H Distribution Width Platelet Count 346 Mean Platelet 10.7 H Volume Immature 0.500 H Granulocytes % Neutrophils % 85.0 H Lymphocytes % 6.0 L Monocytes % 8.2 Eosinophils % 0.1 Basophils % 0.2 Nucleated Red 0.0 Blood Cells % Immature 0.090 H Granulocytes # Neutrophils # 14.6 H Lymphocytes # 1.0 Monocytes # 1.4 H Eosinophils # 0.0 Basophils # 0.0 Nucleated Red 0.0 Blood Cells # Sodium Level 139 139 Potassium Level 5.8 H 5.4 H Chloride Level 111 H 112 H Carbon Dioxide 15 L 17 L Level Anion Gap 13 10 Blood Urea 56 H 59 H Nitrogen Creatinine 2.76 H 2.83 H Est Glomerular 23 L 22 L Filtrat Rate mL/min Glucose Level 244 H 230 H Hemoglobin A1c 7.2 H Calcium Level 9.1 9.1 Magnesium Level 1.5 L Total Bilirubin 0.1 L Direct Bilirubin 0.00 Indirect 0.1 Bilirubin Aspartate Amino 11 L Transf (AST/SGOT ) Alanine 15 Aminotransferase (ALT/SGPT) Alkaline 77 Phosphatase Creatine Kinase 53 57 Creatine Kinase 2.9 2.5 Index Creatinine 1.56 1.43 Kinase MB (Mass) Troponin I < 0.012 < 0.012 Total Protein 6.7 Albumin 3.9 Globulin 2.80 Albumin/Globulin 1.39 Ratio Triglycerides 182 H Level Cholesterol 199 Level LDL Cholesterol, 126 Calculated HDL Cholesterol 37 Cholesterol/HDL 5.3 Ratio Urine Color RED Urine Clarity CLOUDY A Urine pH 6.0 Urine Specific 1.006 Scurry Urine Ketones NEGATIVE Urine Nitrite NEGATIVE Urine Bilirubin NEGATIVE Urine NEGATIVE Urobilinogen Urine Leukocyte 2+ H Esterase Urine > 182 H Microscopic RBC Urine > 182 H Microscopic WBC Urine Bacteria FEW A Urine Yeast MODERATE A (Budding) Urine Hemoglobin 3+ H Urine Glucose 1+ H Urine Total 2+ H Protein Bedside Glucose 226 H Test 12/26/18 14:04 12/26/18 14:26 12/26/18 14:27 12/26/18 17:50 Bedside Glucose 164 172 68 L Potassium Level 5.3 H Test 12/26/18 18:10 12/26/18 18:40 Bedside Glucose 63 L 101 Medications Medications Current Medications IV Flush (NS 3 ml) 3 ml PER PROTOCOL IV ; Start 12/26/18 at 00:00 Acetaminophen (Tylenol Tab) 650 mg Q6H PRN PO .PAIN 1-3 OR TEMP; Start 12/26/18 at 00:00 Acetaminophen/ Hydrocodone Bitart ([place] (5/325)) 1 tab Q6H PRN PO .MOD PAIN 4- 6; Start 12/26/18 at 00:00 Morphine Sulfate (morphine) 2 mg Q4H PRN IV .SEVERE PAIN 7-10 Last administered on 12/26/18at 11:44; Admin Dose 2 MG; Start 12/26/18 at 00:00 Docusate Sodium (Colace) 100 mg Q12H PRN PO .CONSTIPATION; Start 12/26/18 at 00:00 Bisacodyl (Dulcolax) 5 mg DAILY PRN PO .CONSTIPATION; Start 12/26/18 at 00:00 Amlodipine Besylate (Norvasc) 10 mg DAILY PO Last administered on 12/26/18at 08:12; Admin Dose 10 MG; Start 12/26/18 at 09:00 Levothyroxine Sodium (Synthroid) 175 mcg BEFORE BREAKFAST PO ; Start 12/26/18 at 07:00 Sertraline HCl (Zoloft) 100 mg DAILY PO Last administered on 12/26/18at 08:14; Admin Dose 100 MG; Start 12/26/18 at 09:00 Pantoprazole (Protonix Tab) 40 mg DAILY@06 PO ; Start 12/26/18 at 06:00 Diagnostic Test (Pha) (Accu-Chek) 1 ea 02 XX Last administered on 12/26/18at 02:22; Admin Dose 1 EA; Start 12/26/18 at 02:00 Insulin Aspart (Novolog Insulin Pen) NOVOLOG *MILD* ALGORITHM WITH MEALS BEDTIME SC Last administered on 12/26/18at 14:06; Admin Dose 1 UNIT; Start 12/26/18 at 07:50 Miscellaneous Information 1 ea NOTE XX ; Start 12/26/18 at 02:30 Glucose (Glutose) 15 gm Q15M PRN PO DECREASED GLUCOSE; Start 12/26/18 at 02:30 Glucose (Glutose) 22.5 gm Q15M PRN PO DECREASED GLUCOSE; Start 12/26/18 at 02:30 Dextrose (D50w Syringe) 25 ml Q15M PRN IV DECREASED GLUCOSE; Start 12/26/18 at 02:30 Dextrose (D50w Syringe) 50 ml Q15M PRN IV DECREASED GLUCOSE; Start 12/26/18 at 02:30 Glucagon (Glucagen) 1 mg Q15M PRN IM DECREASED GLUCOSE; Start 12/26/18 at 02:30 Glucose (Glutose) 15 gm Q15M PRN BUCCAL DECREASED GLUCOSE; Start 12/26/18 at 02:30 Levalbuterol (Xopenex Neb) 1.25 mg Q4H RESP THERAPY PRN HHN SHORTNESS OF BREATH; Start 12/26/18 at 05:30 Nicotine (Nicoderm 21 Mg/ 24hr) 1 patch DAILY TRANSDERM Last administered on 12/26/18at 08:14; Admin Dose 1 PATCH; Start 12/26/18 at 09:00 Nicotine Polacrilex (Nicorette) 2 mg Q2H PRN BUCCAL CONTROL WITHDRAWAL SYMPTOMS Last administered on 12/26/18 08:11; Admin Dose 2 MG; Start 12/26/18 at 06:30 Ceftriaxone Sodium 50 ml @ 100 mls/hr Q24H IVPB Last administered on 12/26/18 08:13; Admin Dose 100 MLS/HR; Start 12/26/18 at 07:30 Ondansetron HCl (Zofran Inj) 4 mg Q4H PRN IV NAUSEA AND/OR VOMITING; Start 12/26/18 at 11:30 Sodium Bicarbonate 75 meq/Sodium Chloride 1,075 ml @ 50 mls/hr [id number] IV Last administered on 12/26/18at 12:01; Admin Dose 50 MLS/HR; Start 12/26/18 at 11:39 Sodium Bicarbonate (Sodium Bicarbonate Tab) 650 mg TID PO Last administered on 12/26/18at 14:30; Admin Dose 650 MG; Start 12/26/18 at 13:00 Dextrose (D50w Syringe) ONCE PRN IV DECREASED GLUCOSE; Start 12/26/18 at 12:30; Stop 12/27/18 at 12:29 Hydralazine HCl (Apresoline) 10 mg Q4H PRN IV SBP >170; Start 12/26/18 at 16:30 GODFREY TAVERAS MD Dec 26, 2018 20:08
[2018-12-27] MEDS: ACCU-CHEK XX SCH (02:01)
[2018-12-27 02:07] VITALS: BP 152/85; PULSE 74; RESP 18
[2018-12-27] MEDS: morphine 2 MG INJ IV PRN (03:29)
[2018-12-27] MEDS: PANTOPRAZOLE (EC) 40 MG TAB PO SCH (06:00)
[2018-12-27] MEDS: LEVOTHYROXINE 175 MCG TAB PO SCH (06:16)
[2018-12-27 07:55] VITALS: BP 174/74; PULSE 80; RESP 19
[2018-12-27] MEDS: INSULIN ASPART [NOVOLOG] 3 ML PEN SC SCH ×4 (08:30→20:54)
[2018-12-27] MEDS: CEFTRIAXONE 1 GM/50 ML (PMX) 50 ML IVPB SCH (08:48)
[2018-12-27] MEDS: AMLODIPINE 10 MG TAB PO SCH (08:52)
[2018-12-27] MEDS: SERTRALINE 100 MG TAB PO SCH (08:53)
[2018-12-27] MEDS: NA BICARBONATE 650 MG TAB PO SCH ×3 (08:53→20:51)
[2018-12-27] MEDS: NICOTINE (21 MG/24 HR) PATCH TRANSDERM SCH (08:54)
--- NOTE | 2018-12-27 09:11 | CONS ---
Consult Date/Type/Reason Admit Date/Time Dec 25, 2018 at 23:37 Initial Consult Date 12/26/18 Type of Consultation: cv Requesting Provider: LIZZIE HAWK MD Date/Time of Note DATE: 12/27/18 TIME: 09:09 Subjective Cardiology follow-up progress note Subjective: Discussed with the staff discussed with daughter. Telemetry was reviewed. Patient remains sinus rhythm Patient denies any left-sided chest pain or pressure to me. He denies any PND orthopnea or shortness of breath to me Patient is still has hip pain but improved with pain medication Ejective: General: no acute distress HEENT: NC/AT. pupils are equal. round. NECK: NO JVD. no stridor. CV: RRR. systolic murmur; no gallop or rubs. PULM: no wheezing or rhonchi. GI: SOFT, NT, ND, no rebound or guarding Extremity: trace B/L LE edema. no clubbing. neuro: awake and alert, OX3. Psych: calm and pleasant rectal: deferred EKG was personally reviewed which are normal sinus rhythm no specific ST abnormality in the vertical conduction the Echocardiogram was personally reviewed which shows: Normal left ventricular systolic function. Normal left ventricular cavity size. Mild concentric left ventricular hypertrophy. Ejection fraction is visually estimated at 65-70 %. Tissue Doppler/Mitral Doppler indices are consistent with impaired relaxation (Stage I diastolic dysfunction). Upper limit of normal left atrial size. Mitral valve leaflets appear mildly thickened. Mild mitral annular calcification. Trace mitral regurgitation. Normal appearance of the aortic valve. No significant aortic stenosis or insufficiency. Normal appearance of the tricuspid valve. Estimated peak PA systolic pressure 41 mmHg. There is mild tricuspid regurgitation. Normal size and normal respiratory collapse consistent with normal right atrial pressure. CT of the chest done in the emergency room shows: Emphysema and changes of probable upper lobe bronchiolitis, less prominent than on the prior study. No large area of consolidation. No pleural effusions. Pelvic x-ray shows:Acute intertrochanteric fracture of the right femur, again identified. Objective Vitals Vital Signs Date Temp Pulse Resp B/P (MAP) Pulse Ox O2 O2 Flow FiO2 Time Delivery Rate 12/27/18 97.7 80 19 174/74 93 07:55 (107) 12/27/18 3.0 04:05 12/27/18 Room Air 02:07 Intake and Output 12/26/18 12/26/18 12/27/18 1515:00 23:00 07:00 IntakeIntake Total 400 ml 1140 ml 750 ml OutputOutput Total 450 ml 600 ml BalanceBalance -50 ml 540 ml 750 ml Results/Medications Result Diagram: 12/27/18 0446 12/27/18 0446 Results 24 hrs Laboratory Tests Test 12/26/18 09:55 12/26/18 14:04 12/26/18 14:26 12/26/18 14:27 Sodium Level 139 Potassium Level 5.4 H 5.3 H Chloride Level 112 H Carbon Dioxide Level 17 L Anion Gap 10 Blood Urea Nitrogen 59 H Creatinine 2.83 H Est Glomerular 22 L Filtrat Rate mL/min Glucose Level 230 H Calcium Level 9.1 Creatine Kinase 57 Creatine Kinase 2.5 Index Creatinine Kinase MB 1.43 (Mass) Troponin I < 0.012 Bedside Glucose 164 172 Test 12/26/18 17:50 12/26/18 18:10 12/26/18 18:40 12/26/18 20:28 Bedside Glucose 68 L 63 L 101 186 Test 12/27/18 01:59 12/27/18 04:46 12/27/18 08:21 Bedside Glucose 148 162 White Blood Count 10.8 # Red Blood Count 3.61 L Hemoglobin 9.1 L Hematocrit 28.6 L Mean Corpuscular 79.2 L Volume Mean Corpuscular 25.2 L Hemoglobin Mean Corpuscular 31.8 L Hemoglobin Concent Red Cell 15.8 H Distribution Width Platelet Count 300 Mean Platelet Volume 10.9 H Immature 0.600 H Granulocytes % Neutrophils % 71.5 Lymphocytes % 12.2 L Monocytes % 13.2 H Eosinophils % 2.0 Basophils % 0.5 Nucleated Red Blood 0.0 Cells % Immature 0.060 H Granulocytes # Neutrophils # 7.7 H Lymphocytes # 1.3 Monocytes # 1.4 H Eosinophils # 0.2 Basophils # 0.1 Nucleated Red Blood 0.0 Cells # Sodium Level 140 Potassium Level 4.9 Chloride Level 111 H Carbon Dioxide Level 19 L Anion Gap 10 Blood Urea Nitrogen 56 H Creatinine 2.73 H Est Glomerular 23 L Filtrat Rate mL/min Glucose Level 142 # Calcium Level 8.6 Total Bilirubin 0.2 Direct Bilirubin 0.00 Indirect Bilirubin 0.2 Aspartate Amino 9 L Transf (AST/SGOT) Alanine 15 Aminotransferase (AL T/SGPT) Alkaline Phosphatase 62 Total Protein 6.1 Albumin 3.4 Globulin 2.70 Albumin/Globulin 1.25 Ratio Home Meds Reported Medications Patiromer Calcium Sorbitex (Veltassa) 16.8 Gm Powd.pack, 16.8 GM PO 12/26/18 Insulin Detemir (Levemir) 100 Unit/1 Ml Vial, for 20units at hs 12/26/18 Sitagliptin* (Januvia*) 50 Mg Tablet, 50 MG PO DAILY, #30 TAB 12/26/18 Sertraline Hcl* (Sertraline Hcl*) 100 Mg Tablet, 100 MG PO DAILY, #30 TAB 12/26/18 Glimepiride* (Glimepiride*) 4 Mg Tablet, 4 MG PO WITH BREAKFAST DINNE, TAB 12/26/18 Omeprazole* (Omeprazole*) 40 Mg Capsule.dr, 40 MG PO DAILY, #30 CAP 12/26/18 Levothyroxine Sodium* (Levothyroxine Sodium*) 175 Mcg Tablet, 175 MCG PO BEFORE BREAKFAST, #30 TAB 12/26/18 Aspirin* ([place] Aspirin*) 81 Mg Tab.chew, 81 MG PO DAILY, TAB.CHEW 12/26/18 Amlodipine Besylate* (Amlodipine Besylate*) 10 Mg Tablet, 10 MG PO DAILY, #30 TAB 12/26/18 Medications Current Medications IV Flush (NS 3 ml) 3 ml PER PROTOCOL IV ; Start 12/26/18 at 00:00 Acetaminophen (Tylenol Tab) 650 mg Q6H PRN PO .PAIN 1-3 OR TEMP; Start 12/26/18 at 00:00 Acetaminophen/ Hydrocodone Bitart ([place] (5/325)) 1 tab Q6H PRN PO .MOD PAIN 4- 6; Start 12/26/18 at 00:00 Morphine Sulfate (morphine) 2 mg Q4H PRN IV .SEVERE PAIN 7-10 Last administered on 12/27/18at 03:29; Admin Dose 2 MG; Start 12/26/18 at 00:00 Docusate Sodium (Colace) 100 mg Q12H PRN PO .CONSTIPATION; Start 12/26/18 at 00:00 Bisacodyl (Dulcolax) 5 mg DAILY PRN PO .CONSTIPATION; Start 12/26/18 at 00:00 Amlodipine Besylate (Norvasc) 10 mg DAILY PO Last administered on 12/27/18at 08:52; Admin Dose 10 MG; Start 12/26/18 at 09:00 Levothyroxine Sodium (Synthroid) 175 mcg BEFORE BREAKFAST PO ; Start 12/26/18 at 07:00 Sertraline HCl (Zoloft) 100 mg DAILY PO Last administered on 12/26/18at 08:14; Admin Dose 100 MG; Start 12/26/18 at 09:00 Pantoprazole (Protonix Tab) 40 mg DAILY@06 PO ; Start 12/26/18 at 06:00 Diagnostic Test (Pha) (Accu-Chek) 1 ea 02 XX Last administered on 12/27/18at 02:01; Admin Dose 1 EA; Start 12/26/18 at 02:00 Insulin Aspart (Novolog Insulin Pen) NOVOLOG *MILD* ALGORITHM WITH MEALS BEDTIME SC Last administered on 12/26/18at 20:33; Admin Dose 1 UNIT; Start 12/26/18 at 07:50 Miscellaneous Information 1 ea NOTE XX ; Start 12/26/18 at 02:30 Glucose (Glutose) 15 gm Q15M PRN PO DECREASED GLUCOSE; Start 12/26/18 at 02:30 Glucose (Glutose) 22.5 gm Q15M PRN PO DECREASED GLUCOSE; Start 12/26/18 at 02:30 Dextrose (D50w Syringe) 25 ml Q15M PRN IV DECREASED GLUCOSE; Start 12/26/18 at 02:30 Dextrose (D50w Syringe) 50 ml Q15M PRN IV DECREASED GLUCOSE; Start 12/26/18 at 02:30 Glucagon (Glucagen) 1 mg Q15M PRN IM DECREASED GLUCOSE; Start 12/26/18 at 02:30 Glucose (Glutose) 15 gm Q15M PRN BUCCAL DECREASED GLUCOSE; Start 12/26/18 at 02:30 Levalbuterol (Xopenex Neb) 1.25 mg Q4H RESP THERAPY PRN HHN SHORTNESS OF BREATH; Start 12/26/18 at 05:30 Nicotine (Nicoderm 21 Mg/ 24hr) 1 patch DAILY TRANSDERM Last administered on 12/27/18at 08:54; Admin Dose 1 PATCH; Start 12/26/18 at 09:00 Nicotine Polacrilex (Nicorette) 2 mg Q2H PRN BUCCAL CONTROL WITHDRAWAL SYMPTOMS Last administered on 12/26/18at 08:11; Admin Dose 2 MG; Start 12/26/18 at 06:30 Ceftriaxone Sodium 50 ml @ 100 mls/hr Q24H IVPB Last administered on 12/27/18at 08:48; Admin Dose 100 MLS/HR; Start 12/26/18 at 07:30 Ondansetron HCl (Zofran Inj) 4 mg Q4H PRN IV NAUSEA AND/OR VOMITING; Start 12/26/18 at 11:30 Sodium Bicarbonate 75 meq/Sodium Chloride 1,075 ml @ 50 mls/hr [id number] IV Last administered on 12/26/18at 12:01; Admin Dose 50 MLS/HR; Start 12/26/18 at 11:39 Sodium Bicarbonate (Sodium Bicarbonate Tab) 650 mg TID PO Last administered on 12/26/18at 20:30; Admin Dose 650 MG; Start 12/26/18 at 13:00 Dextrose (D50w Syringe) ONCE PRN IV DECREASED GLUCOSE; Start 12/26/18 at 12:30; Stop 12/27/18 at 12:29 Hydralazine HCl (Apresoline) 10 mg Q4H PRN IV SBP >170; Start 12/26/18 at 16:30 Assessment/Plan Hospital Course (Demo Recall) 1. Cardiovascular preop evaluation 2 .Acute intertrochanteric fracture of the right femur,/hip fracture 3. Hypertension 4. COPD 5. Chronic kidney disease unclear acute versus chronic 6. Hyperkalemia 7. Anemia 8. Abnormal EKG 9. Smoker 10. Chronic dizziness: But no report of any actual syncope Recommendations: Continue with the current cardiac care and correct electrolyte as needed including potassium level Continue the blood pressure medication up to and including the day of the surgery even if the patient is n.p.o. for the orthopedic surgery Otherwise no further cardiac work-up would be indicated. Patient is optimized from the cardiac standpoint. however given his poor exercise tolerance of multiple risk factor he will have probably moderate risk of cardiovascular e vent. Above discussed with the patient and multiple family members at the bedside. Importance of his smoking cessation has been discussed with the patient. Thank you for this referral I will continue to follow along with you GODFREY TAVERAS MD [facility] GODFREY TAVERAS MD December 27, 2018 09:11
--- NOTE | 2018-12-27 09:33 | PN ---
DATE: 12/27/2018 SUBJECTIVE: The patient was stable overnight. No fevers, chills, nausea, or vomiting. The patient continues to have pain. OBJECTIVE: VITAL SIGNS: Blood pressure is 174/74, respirations 18, pulse 80, temperature 97.7. HEENT: Head is normocephalic. NECK: Supple. HEART: Regular rate. LUNGS: Show diminished breath sounds at the base. ABDOMEN: Soft, nontender to palpation without rebound or guarding. EXTREMITIES: Negative for clubbing, cyanosis, no edema. DERMATOLOGIC: No rashes. MUSCULOSKELETAL: No joint effusion. NEUROLOGIC: No change in exam. MEDICATIONS: The patient's medications have been reviewed. LABORATORY DATA: From 12/27/18 was reviewed. Hematology was reviewed. Urinalysis was reviewed. e patient's renal ultrasound was reviewed, showed increased echogenicity in both kidneys without hydr onephrosis. ASSESSMENT AND PLAN: 1. Nonoliguric acute kidney injury on top of chronic kidney disease with unknown baseline creatinine . Etiology of current acute kidney injury is secondary to hemodynamics. Renal function is fluctuati ng, but appears to be stabilizing around creatinine of 2.5 to 2.8 mg/dL. The patient's renal ultraso und was reviewed, no evidence of obstruction, increased echogenicity consistent with chronic kidney d isease. Recommendation at this point is to continue current treatment plan. Continue supportive car e, continue to renally dose all medications. 2. Hyperkalemia, etiology is secondary to acute kidney injury, and metabolic acidemia. The patient' s potassium levels have improved. Continue low-potassium diet. Continue to correct underlying acid osis. 3. Anemia. Monitor hemoglobin and hematocrit levels. 4. Mineral bone disorder, monitor calcium and phosphorus levels. 5. Metabolic acidemia, likely secondary to chronic kidney disease. The patient is currently on bica rbonate drip. We will continue. Bicarbonate levels have been improving. 6. Anemia. Monitor hemoglobin and hematocrit levels. 7. Mineral bone disorder. Monitor calcium and phosphorus levels. 8. Hypomagnesemia. Continue to monitor and replete. 9. Acute right femoral fracture. The patient is pending surgical correction. 10. Leukocytosis, systemic inflammatory response syndrome. Continue to monitor. 11. Chronic obstructive pulmonary disease. Continue current medical management. 12. Hypoxemia, likely due to chronic obstructive pulmonary disease exacerbation. The patient's VQ s can was negative. Continue to monitor. 13. Hematuria, likely due to Rodriguez trauma. Continue to observe. 14. Hypertension. Etiology is likely multifactorial secondary to pain. Continue blood pressure reg imen. If blood pressure remains elevated, we will consider deescalation of IV fluids. Dictated By: SHIN COHEN DO NR/NTS Conf#: [id number] DID#: [id number] CC: LIZZIE HAWK MD; SHIN COHEN DO; BRITTANY CASSIDY MD;*EndCC*
--- NOTE | 2018-12-27 12:32 | PN ---
Date/Time of Note Date/Time of Note DATE: 12/27/18 TIME: 12:32 Assessment/Plan VTE Prophylaxis Risk score (from Ns)>0 risk: 9 SCD applied (from Ns): Yes Pharmacological prophylaxis: NA/contraindicated Pharm contraindication: surgical contra Lines/Catheters IV Catheter Type (from Nrsg): Peripheral IV Urinary Cath still in place: Yes Reason Cath still needed: terminal illness/intractable pain Assessment/Plan Assessment/Plan 1. Acute right femur fracture s/p fall - Ortho on board and plan for OR tomorrow at 3pm. Will keep NPO after midnight. Cleared by Pulm and Cardiology for surgical intervention - Pulm on board given patient history of COPD and cleared for anesthesia - Cardiology consultation appreciated. 2. Hypoxia- resolved - most likely chronic given extensive smoking history and COPD - V/Q scan negative - Pulm on board - on bicarb tabs 3. LEONEL on CKD - Nephrology consultation appreciated 4. Metabolic acidosis- improving - on bicarb and will monitor for improvement 5. DM - A1c noted - ISS on board 6. Hypothyroidism - on Levothyroxine 7. Hyperkalemia- resolved - in setting of LEONEL on CKD 8. Tobacco use - nicotine patch 9. Hematuria- resolved - traumatic pinedo insertion 10. Disposition - Continue current care and will keep NPO after midnight for surgical intervention tomorrow. Result Diagram: 12/27/18 0446 12/27/18 0446 Results 24hrs Laboratory Tests Test 12/26/18 14:04 12/26/18 14:26 12/26/18 14:27 12/26/18 17:50 Bedside Glucose 164 172 68 L Potassium Level 5.3 H Test 12/26/18 18:10 12/26/18 18:40 12/26/18 20:28 12/27/18 01:59 Bedside Glucose 63 L 101 186 148 Test 12/27/18 04:46 12/27/18 08:21 White Blood Count 10.8 # Red Blood Count 3.61 L Hemoglobin 9.1 L Hematocrit 28.6 L Mean Corpuscular 79.2 L Volume Mean Corpuscular 25.2 L Hemoglobin Mean Corpuscular 31.8 L Hemoglobin Concent Red Cell 15.8 H Distribution Width Platelet Count 300 Mean Platelet Volume 10.9 H Immature 0.600 H Granulocytes % Neutrophils % 71.5 Lymphocytes % 12.2 L Monocytes % 13.2 H Eosinophils % 2.0 Basophils % 0.5 Nucleated Red Blood 0.0 Cells % Immature 0.060 H Granulocytes # Neutrophils # 7.7 H Lymphocytes # 1.3 Monocytes # 1.4 H Eosinophils # 0.2 Basophils # 0.1 Nucleated Red Blood 0.0 Cells # Sodium Level 140 Potassium Level 4.9 Chloride Level 111 H Carbon Dioxide Level 19 L Anion Gap 10 Blood Urea Nitrogen 56 H Creatinine 2.73 H Est Glomerular 23 L Filtrat Rate mL/min Glucose Level 142 # Calcium Level 8.6 Total Bilirubin 0.2 Direct Bilirubin 0.00 Indirect Bilirubin 0.2 Aspartate Amino 9 L Transf (AST/SGOT) Alanine 15 Aminotransferase (AL T/SGPT) Alkaline Phosphatase 62 Total Protein 6.1 Albumin 3.4 Globulin 2.70 Albumin/Globulin 1.25 Ratio Bedside Glucose 162 Subjective 24 Hr Interval Summary Free Text/Dictation Patient denies any acute issues. Still with pain at site of fracture but no overnight events. Plans for OR tomorrow at 3pm. Exam/Review of Systems Exam Vitals Vital Signs Date Temp Pulse Resp B/P (MAP) Pulse Ox O2 O2 Flow FiO2 Time Delivery Rate 12/27/18 97.7 80 19 174/74 93 07:55 (107) 12/27/18 3.0 04:05 12/27/18 Room Air 02:07 Intake and Output 12/26/18 12/26/18 12/27/18 1414:59 22:59 06:59 IntakeIntake Total 400 ml 1140 ml 750 ml OutputOutput Total 450 ml 600 ml BalanceBalance -50 ml 540 ml 750 ml Exam General: no acute distress. answering questions appropriately Chest: Nontender Lungs: Clear to auscultation bilaterally no crackles rales or wheezing Heart: Normal S1-S2, regular rate rhythm, systolic murmur Abdomen: Soft , nontender, nondistended , bowel sounds are present. No guarding no rebound tenderness : pinedo with clear urine Extremities: Right lower extremity range of motion limited secondary to fracture, pain Results Results 24hrs Laboratory Tests Test 12/26/18 14:04 12/26/18 14:26 12/26/18 14:27 12/26/18 17:50 Bedside Glucose 164 172 68 L Potassium Level 5.3 H Test 12/26/18 18:10 12/26/18 18:40 12/26/18 20:28 12/27/18 01:59 Bedside Glucose 63 L 101 186 148 Test 12/27/18 04:46 12/27/18 08:21 White Blood Count 10.8 # Red Blood Count 3.61 L Hemoglobin 9.1 L Hematocrit 28.6 L Mean Corpuscular 79.2 L Volume Mean Corpuscular 25.2 L Hemoglobin Mean Corpuscular 31.8 L Hemoglobin Concent Red Cell 15.8 H Distribution Width Platelet Count 300 Mean Platelet Volume 10.9 H Immature 0.600 H Granulocytes % Neutrophils % 71.5 Lymphocytes % 12.2 L Monocytes % 13.2 H Eosinophils % 2.0 Basophils % 0.5 Nucleated Red Blood 0.0 Cells % Immature 0.060 H Granulocytes # Neutrophils # 7.7 H Lymphocytes # 1.3 Monocytes # 1.4 H Eosinophils # 0.2 Basophils # 0.1 Nucleated Red Blood 0.0 Cells # Sodium Level 140 Potassium Level 4.9 Chloride Level 111 H Carbon Dioxide Level 19 L Anion Gap 10 Blood Urea Nitrogen 56 H Creatinine 2.73 H Est Glomerular 23 L Filtrat Rate mL/min Glucose Level 142 # Calcium Level 8.6 Total Bilirubin 0.2 Direct Bilirubin 0.00 Indirect Bilirubin 0.2 Aspartate Amino 9 L Transf (AST/SGOT) Alanine 15 Aminotransferase (AL T/SGPT) Alkaline Phosphatase 62 Total Protein 6.1 Albumin 3.4 Globulin 2.70 Albumin/Globulin 1.25 Ratio Bedside Glucose 162 Medications Medication Current Medications IV Flush (NS 3 ml) 3 ml PER PROTOCOL IV ; Start 12/26/18 at 00:00 Acetaminophen (Tylenol Tab) 650 mg Q6H PRN PO .PAIN 1-3 OR TEMP; Start 12/26/18 at 00:00 Acetaminophen/ Hydrocodone Bitart ([place] (5/325)) 1 tab Q6H PRN PO .MOD PAIN 4- 6; Start 12/26/18 at 00:00 Morphine Sulfate (morphine) 2 mg Q4H PRN IV .SEVERE PAIN 7-10 Last administered on 12/27/18at 03:29; Admin Dose 2 MG; Start 12/26/18 at 00:00 Docusate Sodium (Colace) 100 mg Q12H PRN PO .CONSTIPATION; Start 12/26/18 at 00:00 Bisacodyl (Dulcolax) 5 mg DAILY PRN PO .CONSTIPATION; Start 12/26/18 at 00:00 Amlodipine Besylate (Norvasc) 10 mg DAILY PO Last administered on 12/27/18at 08:52; Admin Dose 10 MG; Start 12/26/18 at 09:00 Levothyroxine Sodium (Synthroid) 175 mcg BEFORE BREAKFAST PO ; Start 12/26/18 at 07:00 Sertraline HCl (Zoloft) 100 mg DAILY PO Last administered on 12/26/18at 08:14; Admin Dose 100 MG; Start 12/26/18 at 09:00 Pantoprazole (Protonix Tab) 40 mg DAILY@06 PO ; Start 12/26/18 at 06:00 Diagnostic Test (Pha) (Accu-Chek) 1 ea 02 XX Last administered on 12/27/18at 02:01; Admin Dose 1 EA; Start 12/26/18 at 02:00 Insulin Aspart (Novolog Insulin Pen) NOVOLOG *MILD* ALGORITHM WITH MEALS BEDTIME SC Last administered on 12/26/18at 20:33; Admin Dose 1 UNIT; Start 12/26/18 at 07:50 Miscellaneous Information 1 ea NOTE XX ; Start 12/26/18 at 02:30 Glucose (Glutose) 15 gm Q15M PRN PO DECREASED GLUCOSE; Start 12/26/18 at 02:30 Glucose (Glutose) 22.5 gm Q15M PRN PO DECREASED GLUCOSE; Start 12/26/18 at 02:30 Dextrose (D50w Syringe) 25 ml Q15M PRN IV DECREASED GLUCOSE; Start 12/26/18 at 02:30 Dextrose (D50w Syringe) 50 ml Q15M PRN IV DECREASED GLUCOSE; Start 12/26/18 at 02:30 Glucagon (Glucagen) 1 mg Q15M PRN IM DECREASED GLUCOSE; Start 12/26/18 at 02:30 Glucose (Glutose) 15 gm Q15M PRN BUCCAL DECREASED GLUCOSE; Start 12/26/18 at 02:30 Levalbuterol (Xopenex Neb) 1.25 mg Q4H RESP THERAPY PRN HHN SHORTNESS OF BREATH; Start 12/26/18 at 05:30 Nicotine (Nicoderm 21 Mg/ 24hr) 1 patch DAILY TRANSDERM Last administered on 12/27/18at 08:54; Admin Dose 1 PATCH; Start 12/26/18 at 09:00 Nicotine Polacrilex (Nicorette) 2 mg Q2H PRN BUCCAL CONTROL WITHDRAWAL SYMPTOMS Last administered on 12/26/18at 08:11; Admin Dose 2 MG; Start 12/26/18 at 06:30 Ceftriaxone Sodium 50 ml @ 100 mls/hr Q24H IVPB Last administered on 12/27/18at 08:48; Admin Dose 100 MLS/HR; Start 12/26/18 at 07:30 Ondansetron HCl (Zofran Inj) 4 mg Q4H PRN IV NAUSEA AND/OR VOMITING; Start 12/26/18 at 11:30 Sodium Bicarbonate 75 meq/Sodium Chloride 1,075 ml @ 50 mls/hr [id number] IV Last administered on 12/26/18at 12:01; Admin Dose 50 MLS/HR; Start 12/26/18 at 11:39 Sodium Bicarbonate (Sodium Bicarbonate Tab) 650 mg TID PO Last administered on 12/26/18at 20:30; Admin Dose 650 MG; Start 12/26/18 at 13:00 Hydralazine HCl (Apresoline) 10 mg Q4H PRN IV SBP >170; Start 12/26/18 at 16:30 LIZZIE HAWK MD December 27, 2018 12:32
[2018-12-27] MEDS: SODIUM BICARBONATE (IV ADD) 75 MEQ in SOD CHLORIDE 0.45% 1,000 ML IV SCH (13:27)
[2018-12-27 15:09] VITALS: BP 186/78; PULSE 77; RESP 18
[2018-12-27] MEDS: hydrALAzine 20 MG INJ IV PRN (15:19)
[2018-12-27] MEDS: ACETAMINOPHEN 325 MG TAB PO PRN (17:56)
[2018-12-27 19:20] VITALS: BP 171/74; PULSE 80; RESP 20
[2018-12-27] MEDS: HYDROCODONE/APAP (5/325) TAB PO PRN (20:51)
[2018-12-28] VITALS (42 sets, daily range): BP systolic 104–190; BP diastolic 33–83; PULSE 76–118; RESP 14–20
[2018-12-28] MEDS: ACCU-CHEK XX SCH (02:25)
[2018-12-28] MEDS: hydrALAzine 20 MG INJ IV PRN (02:25)
[2018-12-28] MEDS: PANTOPRAZOLE (EC) 40 MG TAB PO SCH (05:12)
[2018-12-28] MEDS: LEVOTHYROXINE 175 MCG TAB PO SCH (05:13)
[2018-12-28] MEDS ORDERED: EPHEDrine 25 MG/5 ML SYG ONE (07:00)
[2018-12-28] MEDS: INSULIN ASPART [NOVOLOG] 3 ML PEN SC SCH ×4 (07:50→22:47)
--- NOTE | 2018-12-28 07:56 | CONS ---
Consult Date/Type/Reason Admit Date/Time Dec 25, 2018 at 23:37 Initial Consult Date 12/26/18 Type of Consultation: cv Requesting Provider: LIZZIE HAWK MD Date/Time of Note DATE: 12/28/18 TIME: 07:55 Subjective Cardiology follow-up progress note Subjective: Discussed with the staff discussed with daughter. Telemetry was reviewed. Patient remains sinus rhythm Patient denies any left-sided chest pain or pressure to me. He denies any PND orthopnea or shortness of breath to me Patient is still has hip pain but improves with pain medication pt has been hypertensive Objective: General: no acute distress HEENT: NC/AT. pupils are equal. round. NECK: NO JVD. no stridor. CV: RRR. systolic murmur; no gallop or rubs. PULM: no wheezing or rhonchi. GI: SOFT, NT, ND, no rebound or guarding Extremity: trace B/L LE edema. no clubbing. neuro: awake and alert, OX3. Psych: calm and pleasant rectal: deferred EKG was personally reviewed which are normal sinus rhythm no specific ST abnormality in the vertical conduction the Echocardiogram was personally reviewed which shows: Normal left ventricular systolic function. Normal left ventricular cavity size. Mild concentric left ventricular hypertrophy. Ejection fraction is visually estimated at 65-70 %. Tissue Doppler/Mitral Doppler indices are consistent with impaired relaxation (Stage I diastolic dysfunction). Upper limit of normal left atrial size. Mitral valve leaflets appear mildly thickened. Mild mitral annular calcification. Trace mitral regurgitation. Normal appearance of the aortic valve. No significant aortic stenosis or insufficiency. Normal appearance of the tricuspid valve. Estimated peak PA systolic pressure 41 mmHg. There is mild tricuspid regurgitation. Normal size and normal respiratory collapse consistent with normal right atrial pressure. CT of the chest done in the emergency room shows: Emphysema and changes of probable upper lobe bronchiolitis, less prominent than on the prior study. No large area of consolidation. No pleural effusions. Pelvic x-ray shows:Acute intertrochanteric fracture of the right femur, again identified. Objective Vitals Vital Signs Date Temp Pulse Resp B/P (MAP) Pulse Ox O2 O2 Flow FiO2 Time Delivery Rate 12/28/18 99.0 84 17 170/73 99 07:39 (105) 12/28/18 3.0 04:23 12/28/18 Room Air 03:05 Intake and Output 12/27/18 12/27/18 12/28/18 1515:00 23:00 07:00 IntakeIntake Total 275 ml 600 ml 680 ml OutputOutput Total 600 ml 950 ml 1000 ml BalanceBalance -325 ml -350 ml -320 ml Results/Medications Result Diagram: 12/28/18 0435 12/28/18 0435 Results 24 hrs Laboratory Tests Test 12/27/18 08:21 12/27/18 12:48 12/27/18 17:44 12/27/18 20:50 Bedside Glucose 162 168 198 204 Test 12/28/18 01:49 12/28/18 04:35 Bedside Glucose 158 White Blood Count 12.0 H Red Blood Count 3.57 L Hemoglobin 9.0 L Hematocrit 28.3 L Mean Corpuscular Volume 79.3 L Mean Corpuscular 25.2 L Hemoglobin Mean Corpuscular 31.8 L Hemoglobin Concent Red Cell Distribution 15.4 H Width Platelet Count 299 Mean Platelet Volume 11.0 H Immature Granulocytes % 0.600 H Neutrophils % 74.9 Lymphocytes % 9.4 L Monocytes % 12.9 H Eosinophils % 1.7 Basophils % 0.5 Nucleated Red Blood 0.0 Cells % Immature Granulocytes # 0.070 H Neutrophils # 9.0 H Lymphocytes # 1.1 Monocytes # 1.6 H Eosinophils # 0.2 Basophils # 0.1 Nucleated Red Blood 0.0 Cells # Sodium Level 139 Potassium Level 4.5 Chloride Level 108 Carbon Dioxide Level 23 Anion Gap 8 Blood Urea Nitrogen 55 H Creatinine 2.39 H Est Glomerular Filtrat 27 L Rate mL/min Glucose Level 167 Calcium Level 8.6 Total Bilirubin 0.2 Direct Bilirubin 0.00 Indirect Bilirubin 0.2 Aspartate Amino 10 L Transf (AST/SGOT) Alanine 16 Aminotransferase (ALT/SG PT) Alkaline Phosphatase 68 Total Protein 6.4 Albumin 3.3 Globulin 3.10 Albumin/Globulin Ratio 1.06 Home Meds Reported Medications Patiromer Calcium Sorbitex (Veltassa) 16.8 Gm Powd.pack, 16.8 GM PO 12/26/18 Insulin Detemir (Levemir) 100 Unit/1 Ml Vial, for 20units at hs 12/26/18 Sitagliptin* (Januvia*) 50 Mg Tablet, 50 MG PO DAILY, #30 TAB 12/26/18 Sertraline Hcl* (Sertraline Hcl*) 100 Mg Tablet, 100 MG PO DAILY, #30 TAB 12/26/18 Glimepiride* (Glimepiride*) 4 Mg Tablet, 4 MG PO WITH BREAKFAST DINNE, TAB 12/26/18 Omeprazole* (Omeprazole*) 40 Mg Capsule.dr, 40 MG PO DAILY, #30 CAP 12/26/18 Levothyroxine Sodium* (Levothyroxine Sodium*) 175 Mcg Tablet, 175 MCG PO BEFORE BREAKFAST, #30 TAB 12/26/18 Aspirin* ([place] Aspirin*) 81 Mg Tab.chew, 81 MG PO DAILY, TAB.CHEW 12/26/18 Amlodipine Besylate* (Amlodipine Besylate*) 10 Mg Tablet, 10 MG PO DAILY, #30 TAB 12/26/18 Medications Current Medications IV Flush (NS 3 ml) 3 ml PER PROTOCOL IV ; Start 12/26/18 at 00:00 Acetaminophen (Tylenol Tab) 650 mg Q6H PRN PO .PAIN 1-3 OR TEMP Last administered on 12/27/18at 17:56; Admin Dose 650 MG; Start 12/26/18 at 00:00 Acetaminophen/ Hydrocodone Bitart ([place] (5/325)) 1 tab Q6H PRN PO .MOD PAIN 4- 6 Last administered on 12/27/18at 20:51; Admin Dose 1 TAB; Start 12/26/18 at 00:00 Morphine Sulfate (morphine) 2 mg Q4H PRN IV .SEVERE PAIN 7-10 Last administered on 12/27/18at 03:29; Admin Dose 2 MG; Start 12/26/18 at 00:00 Docusate Sodium (Colace) 100 mg Q12H PRN PO .CONSTIPATION; Start 12/26/18 at 00:00 Bisacodyl (Dulcolax) 5 mg DAILY PRN PO .CONSTIPATION; Start 12/26/18 at 00:00 Amlodipine Besylate (Norvasc) 10 mg DAILY PO Last administered on 12/27/18at 08:52; Admin Dose 10 MG; Start 12/26/18 at 09:00 Levothyroxine Sodium (Synthroid) 175 mcg BEFORE BREAKFAST PO Last administered on 12/28/18 05:13; Admin Dose 175 MCG; Start 12/26/18 at 07:00 Sertraline HCl (Zoloft) 100 mg DAILY PO Last administered on 12/26/18at 08:14; Admin Dose 100 MG; Start 12/26/18 at 09:00 Pantoprazole (Protonix Tab) 40 mg DAILY@06 PO Last administered on 12/28/18at 05:12; Admin Dose 40 MG; Start 12/26/18 at 06:00 Diagnostic Test (Pha) (Accu-Chek) 1 ea 02 XX Last administered on 12/28/18at 02:25; Admin Dose 1 EA; Start 12/26/18 at 02:00 Insulin Aspart (Novolog Insulin Pen) NOVOLOG *MILD* ALGORITHM WITH MEALS BEDTIME SC Last administered on 12/27/18at 20:54; Admin Dose 1 UNIT; Start 12/26/18 at 07:50 Miscellaneous Information 1 ea NOTE XX ; Start 12/26/18 at 02:30 Glucose (Glutose) 15 gm Q15M PRN PO DECREASED GLUCOSE; Start 12/26/18 at 02:30 Glucose (Glutose) 22.5 gm Q15M PRN PO DECREASED GLUCOSE; Start 12/26/18 at 02:30 Dextrose (D50w Syringe) 25 ml Q15M PRN IV DECREASED GLUCOSE; Start 12/26/18 at 02:30 Dextrose (D50w Syringe) 50 ml Q15M PRN IV DECREASED GLUCOSE; Start 12/26/18 at 02:30 Glucagon (Glucagen) 1 mg Q15M PRN IM DECREASED GLUCOSE; Start 12/26/18 at 02:30 Glucose (Glutose) 15 gm Q15M PRN BUCCAL DECREASED GLUCOSE; Start 12/26/18 at 02:30 Levalbuterol (Xopenex Neb) 1.25 mg Q4H RESP THERAPY PRN HHN SHORTNESS OF BREATH; Start 12/26/18 at 05:30 Nicotine (Nicoderm 21 Mg/ 24hr) 1 patch DAILY TRANSDERM Last administered on 12/27/18at 08:54; Admin Dose 1 PATCH; Start 12/26/18 at 09:00 Nicotine Polacrilex (Nicorette) 2 mg Q2H PRN BUCCAL CONTROL WITHDRAWAL SYMPTOMS Last administered on 12/26/18at 08:11; Admin Dose 2 MG; Start 12/26/18 at 06:30 Ceftriaxone Sodium 50 ml @ 100 mls/hr Q24H IVPB Last administered on 12/27/18 08:48; Admin Dose 100 MLS/HR; Start 12/26/18 at 07:30 Ondansetron HCl (Zofran Inj) 4 mg Q4H PRN IV NAUSEA AND/OR VOMITING; Start 12/26/18 at 11:30 Sodium Bicarbonate 75 meq/Sodium Chloride 1,075 ml @ 50 mls/hr [id number] IV Last administered on 12/27/18 13:27; Admin Dose 50 MLS/HR; Start 12/26/18 at 11:39 Sodium Bicarbonate (Sodium Bicarbonate Tab) 650 mg TID PO Last administered on 12/27/18 20:51; Admin Dose 650 MG; Start 12/26/18 at 13:00 Hydralazine HCl (Apresoline) 10 mg Q4H PRN IV SBP >170 Last administered on 12/28/18 02:25; Admin Dose 10 MG; Start 12/26/18 at 16:30 Hydralazine HCl (Apresoline) 50 mg QID PO ; Start 12/28/18 at 09:00 Assessment/Plan Hospital Course (Demo Recall) 1. Cardiovascular preop evaluation 2 .Acute intertrochanteric fracture of the right femur,/hip fracture 3. Hypertension 4. COPD 5. Chronic kidney disease unclear acute versus chronic 6. Hyperkalemia 7. Anemia 8. Abnormal EKG 9. Smoker 10. Chronic dizziness: But no report of any actual syncope Recommendations: add hydralazine for better BP control Continue with the current cardiac care and correct electrolyte as needed including potassium level Continue the blood pressure medication up to and including the day of the surgery even if the patient is n.p.o. for the orthopedic surgery Otherwise no further cardiac work-up would be indicated. Patient is optimized from the cardiac standpoint. however given his poor exercise tolerance of multiple risk factor he will have probably moderate risk of cardiovascular event. Thank you for this referral I will continue to follow along with you GODFREY TAVERAS MD MERGED WITH [facility] GODFREY TAVERAS MD December 28, 2018 07:56
[2018-12-28] MEDS: NA BICARBONATE 650 MG TAB PO SCH ×3 (08:16→21:00)
[2018-12-28] MEDS: SERTRALINE 100 MG TAB PO SCH (08:16)
[2018-12-28] MEDS: AMLODIPINE 10 MG TAB PO SCH (08:17)
[2018-12-28] MEDS: NICOTINE (21 MG/24 HR) PATCH TRANSDERM SCH (08:17)
[2018-12-28] MEDS: CEFTRIAXONE 1 GM/50 ML (PMX) 50 ML IVPB SCH (08:19)
[2018-12-28] MEDS: DEXTROSE 5%-0.45% NACL 1,000 ML IV SCH (09:18)
--- NOTE | 2018-12-28 10:02 | PREAC ---
Date/Time of Note Date/Time of Note DATE: 12/28/18 TIME: 09:58 Anesthesia Eval and Record Evaluation Time Pre-Procedure Interview DATE: 12/28/18 TIME: 09:58 Age 68 Sex male NPO: 8 hrs Preoperative diagnosis ACUTE R INTERTROCHANTERIC HIP FX Planned procedure RIGHT HIP IM NAILING Past Medical History Past Medical History: Includes Cardio: HTN Endo: Diabetes, Hypothyroid Pulm: Smoking Hx (DAILY SMOKER), COPD, Other (EMPHYSEMA ON CXR) Heme: Anemia Surgery & Anesthesia Issues No known issue (STOMACH SURGERY) Meds Anticoagulation: No Beta Tony within 24 hr: No Reason Beta Tony not given: Pt. not on B-Tony Reported Medications Patiromer Calcium Sorbitex (Veltassa) 16.8 Gm Powd.pack, 16.8 GM PO 12/26/18 Insulin Detemir (Levemir) 100 Unit/1 Ml Vial, for 20units at hs 12/26/18 Sitagliptin* (Januvia*) 50 Mg Tablet, 50 MG PO DAILY, #30 TAB 12/26/18 Sertraline Hcl* (Sertraline Hcl*) 100 Mg Tablet, 100 MG PO DAILY, #30 TAB 12/26/18 Glimepiride* (Glimepiride*) 4 Mg Tablet, 4 MG PO WITH BREAKFAST DINNE, TAB 12/26/18 Omeprazole* (Omeprazole*) 40 Mg Capsule.dr, 40 MG PO DAILY, #30 CAP 12/26/18 Levothyroxine Sodium* (Levothyroxine Sodium*) 175 Mcg Tablet, 175 MCG PO BEFORE BREAKFAST, #30 TAB 12/26/18 Aspirin* ([place] Aspirin*) 81 Mg Tab.chew, 81 MG PO DAILY, TAB.CHEW 12/26/18 Amlodipine Besylate* (Amlodipine Besylate*) 10 Mg Tablet, 10 MG PO DAILY, #30 TAB 12/26/18 Current Medications IV Flush (NS 3 ml) 3 ml PER PROTOCOL IV ; Start 12/26/18 at 00:00 Acetaminophen (Tylenol Tab) 650 mg Q6H PRN PO .PAIN 1-3 OR TEMP Last administered on 12/27/18at 17:56; Admin Dose 650 MG; Start 12/26/18 at 00:00 Acetaminophen/ Hydrocodone Bitart ([place] (5/325)) 1 tab Q6H PRN PO .MOD PAIN 4- 6 Last administered on 12/27/18 20:51; Admin Dose 1 TAB; Start 12/26/18 at 00:00 Morphine Sulfate (morphine) 2 mg Q4H PRN IV .SEVERE PAIN 7-10 Last administered on 12/27/18 03:29; Admin Dose 2 MG; Start 12/26/18 at 00:00 Docusate Sodium (Colace) 100 mg Q12H PRN PO .CONSTIPATION; Start 12/26/18 at 00:00 Bisacodyl (Dulcolax) 5 mg DAILY PRN PO .CONSTIPATION; Start 12/26/18 at 00:00 Amlodipine Besylate (Norvasc) 10 mg DAILY PO Last administered on 12/28/18 08:17; Admin Dose 10 MG; Start 12/26/18 at 09:00 Levothyroxine Sodium (Synthroid) 175 mcg BEFORE BREAKFAST PO Last administered on 12/28/18 05:13; Admin Dose 175 MCG; Start 12/26/18 at 07:00 Sertraline HCl (Zoloft) 100 mg DAILY PO Last administered on 12/28/18 08:16; Admin Dose 100 MG; Start 12/26/18 at 09:00 Pantoprazole (Protonix Tab) 40 mg DAILY@06 PO Last administered on 12/28/18 05:12; Admin Dose 40 MG; Start 12/26/18 at 06:00 Diagnostic Test (Pha) (Accu-Chek) 1 ea 02 XX Last administered on 12/28/18 02:25; Admin Dose 1 EA; Start 12/26/18 at 02:00 Insulin Aspart (Novolog Insulin Pen) NOVOLOG *MILD* ALGORITHM WITH MEALS BEDTIME SC Last administered on 12/27/18 20:54; Admin Dose 1 UNIT; Start 12/26/18 at 07:50 Miscellaneous Information 1 ea NOTE XX ; Start 12/26/18 at 02:30 Glucose (Glutose) 15 gm Q15M PRN PO DECREASED GLUCOSE; Start 12/26/18 at 02:30 Glucose (Glutose) 22.5 gm Q15M PRN PO DECREASED GLUCOSE; Start 12/26/18 at 02:30 Dextrose (D50w Syringe) 25 ml Q15M PRN IV DECREASED GLUCOSE; Start 12/26/18 at 02:30 Dextrose (D50w Syringe) 50 ml Q15M PRN IV DECREASED GLUCOSE; Start 12/26/18 at 02:30 Glucagon (Glucagen) 1 mg Q15M PRN IM DECREASED GLUCOSE; Start 12/26/18 at 02:30 Glucose (Glutose) 15 gm Q15M PRN BUCCAL DECREASED GLUCOSE; Start 12/26/18 at 02:30 Levalbuterol (Xopenex Neb) 1.25 mg Q4H RESP THERAPY PRN HHN SHORTNESS OF BREATH; Start 12/26/18 at 05:30 Nicotine (Nicoderm 21 Mg/ 24hr) 1 patch DAILY TRANSDERM Last administered on 12/28/18 08:17; Admin Dose 1 PATCH; Start 12/26/18 at 09:00 Nicotine Polacrilex (Nicorette) 2 mg Q2H PRN BUCCAL CONTROL WITHDRAWAL SYMPTOMS Last administered on 12/26/18at 08:11; Admin Dose 2 MG; Start 12/26/18 at 06:30 Ceftriaxone Sodium 50 ml @ 100 mls/hr Q24H IVPB Last administered on 12/28/18 08:19; Admin Dose 100 MLS/HR; Start 12/26/18 at 07:30 Ondansetron HCl (Zofran Inj) 4 mg Q4H PRN IV NAUSEA AND/OR VOMITING; Start 12/26/18 at 11:30 Sodium Bicarbonate (Sodium Bicarbonate Tab) 650 mg TID PO Last administered on 12/28/18 08:16; Admin Dose 650 MG; Start 12/26/18 at 13:00 Hydralazine HCl (Apresoline) 10 mg Q4H PRN IV SBP >170 Last administered on 12/28/18at 02:25; Admin Dose 10 MG; Start 12/26/18 at 16:30 Hydralazine HCl (Apresoline) 50 mg QID PO Last administered on 12/28/18 08:16; Admin Dose 50 MG; Start 12/28/18 at 09:00 Dextrose/Sodium Chloride 1,000 ml @ 60 mls/hr [id number] IV Last administered on 12/28/18 09:18; Admin Dose 60 MLS/HR; Start 12/28/18 at 09:00 Meds reviewed: Yes Allergies Coded Allergies: No Known Allergy (Unverified , 12/25/18) Allergies Reviewed: Yes Labs/Studies Labs Reviewed: Reviewed by anesthesiologist Result Diagram: 12/28/18 0435 12/28/18 0435 Laboratory Tests 12/28/18 04:35 test: N/A Studies: ECG (NSR, NONSPECIFIC ST AND T WAV ABNORMALITY) Pre-procedure Exam Last vitals Vital Signs Date Temp Pulse Resp B/P (MAP) Pulse Ox O2 O2 Flow FiO2 Time Delivery Rate 12/28/18 92 18 153/67 99 Nasal 09:25 (95) Cannula 12/28/18 99.0 07:39 12/28/18 3.0 04:23 Airway: Adequate mouth opening, Adequate thyromental dist Mallampati: Mallampati II Teeth: Abnormal (TEETH IN POOR CONDITION, BROKEN UPPER FRONT TEETH) Lung: Normal Heart: Normal ASA Physical Status ASA physical status: 3 Emergency: None Planned Anesthetic General/MAC: ETT Neuraxial: Spinal Nerve block: Other Pre-operative Attestations Prior to commencing anesthesia and surgery, the patient was re-evaluated, there was verification of: *The patient's identity *The results of appropriate recent lab work and preoperative vital signs *The above evaluation not changing prior to induction *Anesthetic plan, risk benefits, alternative and complications discussed with patient/family; questions answered; patient/family understands, accepts and wishes to proceed. DANIAL KAUFFMAN December 28, 2018 10:02
--- NOTE | 2018-12-28 10:26 | PN ---
DATE: 12/28/2018 SUBJECTIVE: The patient is stable. No events overnight. The patient is scheduled for arthroplasty today. No other events noted. OBJECTIVE: VITAL SIGNS: Blood pressure is 170/73, respirations 17, pulse 84, temperature 99.0. HEENT: Head is normocephalic. NECK: Supple. HEART: Regular rate. LUNGS: Show diminished breath sounds at the base. ABDOMEN: Soft, nontender to palpation without rebound or guarding. EXTREMITIES: Negative for clubbing, cyanosis, no edema. DERMATOLOGIC: No rashes. MUSCULOSKELETAL: No joint effusion. NEUROLOGIC: No change in exam. MEDICATIONS: The patient's medications have been reviewed. LABORATORY DATA: Has been reviewed. ASSESSMENT AND PLAN: 1. Nonoliguric acute kidney injury on top of chronic kidney disease with unknown baseline creatinine . Etiology of acute kidney injury is secondary to hemodynamics. The patient's renal function has be en fluctuating but appears to be stabilizing around a creatinine of 2.4 to 2.5 mg/deciliter. At this point, continue current treatment plan, supportive care, renally dose all meds. 2. Hyperkalemia secondary to acute injury, metabolic acidemia, resolved. Continue to monitor. Cont inue low-potassium diet. 3. Anemia. Monitor hemoglobin and hematocrit levels. 4. Mineral bone disorder. Monitor calcium and phosphorus levels. 5. Metabolic acidemia secondary to chronic kidney disease. Improved. We will discontinue bicarbona te drip. 6. Anemia. Monitor hemoglobin and hematocrit levels. 7. Mineral bone disorder, monitor calcium and phosphorus levels. 8. Hypomagnesemia. Continue to monitor and replete as needed. 9. Acute right femoral fracture. The patient is pending arthroplasty. 10. Leukocytosis. Continue to monitor. 11. History of chronic obstructive pulmonary disease. Continue medical management. 12. Hypertension in part due to increased intravascular volume. Will discontinue IV fluids, continu e current blood pressure regimen. Defer SALVADOR inhibitor ARB at this time. Dictated By: SHIN COHEN DO NR/NTS Conf#: [id number] DID#: [id number] CC: BRITTANY CASSIDY MD; LIZZIE HAWK MD;*EndCC*
[2018-12-28] MEDS ORDERED: PROPOFOL 20 ML ONE (15:14)
[2018-12-28] MEDS ORDERED: CEFAZOLIN 1 GM INJ ONE (15:14)
[2018-12-28] MEDS ORDERED: morphine SULFATE/PF (10 MG/10 ML) INJ ONE (15:14)
[2018-12-28] MEDS ORDERED: ONDANSETRON 4 MG INJ ONE (15:15)
[2018-12-28] MEDS ORDERED: MIDAZOLAM 1 MG/ML 2 ML INJ ONE (15:15)
[2018-12-28] MEDS ORDERED: METOCLOPRAMIDE 10 MG INJ ONE (15:15)
[2018-12-28] MEDS ORDERED: FENTAnyl 50 MCG/ML VIAL ONE (15:19)
--- NOTE | 2018-12-28 16:14 | PN ---
Date/Time of Note Date/Time of Note DATE: 12/28/18 TIME: 16:12 Assessment/Plan VTE Prophylaxis Risk score (from Nsg)>0 risk: 8 SCD applied (from Nsg): Yes Pharmacological prophylaxis: NA/contraindicated Pharm contraindication: surgical contra Lines/Catheters IV Catheter Type (from Nrsg): Peripheral IV Urinary Cath still in place: Yes Reason Cath still needed: terminal illness/intractable pain Assessment/Plan Assessment/Plan 1. Acute right femur fracture s/p fall - Ortho on board and plans for OR today. Appreciate consultation - Pulm on board given patient history of COPD and cleared for anesthesia - Cardiology consultation appreciated. 2. Hypoxia- resolved - most likely chronic given extensive smoking history and COPD - V/Q scan negative - Pulm on board 3. LEONEL on CKD- improving - Nephrology consultation appreciated 4. Metabolic acidosis- resolved - will d/c bicarb drip 5. DM - A1c noted - ISS on board 6. Hypothyroidism - on Levothyroxine 7. Hyperkalemia- resolved - in setting of LEONEL on CKD 8. Tobacco use - nicotine patch 9. Disposition - Plans for ortho intervention today and will await PT evaluation. Discussed with family discharge planning with ARU vs HHPT Result Diagram: 12/28/18 0435 12/28/18 0435 Results 24hrs Laboratory Tests Test 12/27/18 17:44 12/27/18 20:50 12/28/18 01:49 12/28/18 04:35 Bedside Glucose 198 204 158 White Blood Count 12.0 H Red Blood Count 3.57 L Hemoglobin 9.0 L Hematocrit 28.3 L Mean Corpuscular Volume 79.3 L Mean Corpuscular 25.2 L Hemoglobin Mean Corpuscular 31.8 L Hemoglobin Concent Red Cell Distribution 15.4 H Width Platelet Count 299 Mean Platelet Volume 11.0 H Immature Granulocytes % 0.600 H Neutrophils % 74.9 Lymphocytes % 9.4 L Monocytes % 12.9 H Eosinophils % 1.7 Basophils % 0.5 Nucleated Red Blood 0.0 Cells % Immature Granulocytes # 0.070 H Neutrophils # 9.0 H Lymphocytes # 1.1 Monocytes # 1.6 H Eosinophils # 0.2 Basophils # 0.1 Nucleated Red Blood 0.0 Cells # Sodium Level 139 Potassium Level 4.5 Chloride Level 108 Carbon Dioxide Level 23 Anion Gap 8 Blood Urea Nitrogen 55 H Creatinine 2.39 H Est Glomerular Filtrat 27 L Rate mL/min Glucose Level 167 Calcium Level 8.6 Total Bilirubin 0.2 Direct Bilirubin 0.00 Indirect Bilirubin 0.2 Aspartate Amino 10 L Transf (AST/SGOT) Alanine 16 Aminotransferase (ALT/SG PT) Alkaline Phosphatase 68 Total Protein 6.4 Albumin 3.3 Globulin 3.10 Albumin/Globulin Ratio 1.06 Test 12/28/18 08:15 12/28/18 13:33 Bedside Glucose 178 236 H Subjective 24 Hr Interval Summary Free Text/Dictation Patient doing well and denies any acute issues. Plans for surgical intervention today. Exam/Review of Systems Exam Vitals Vital Signs Date Temp Pulse Resp B/P (MAP) Pulse Ox O2 O2 Flow FiO2 Time Delivery Rate 12/28/18 92 18 153/67 99 Nasal 09:25 (95) Cannula 12/28/18 2.0 08:00 12/28/18 99.0 07:39 Intake and Output 12/27/18 12/27/18 12/28/18 1515:00 23:00 07:00 IntakeIntake Total 275 ml 600 ml 680 ml OutputOutput Total 600 ml 950 ml 1000 ml BalanceBalance -325 ml -350 ml -320 ml Exam General: no acute distress. answering questions appropriately Chest: Nontender Lungs: Clear to auscultation bilaterally no crackles rales or wheezing Heart: Normal S1-S2, regular rate rhythm, systolic murmur Abdomen: Soft , nontender, nondistended , bowel sounds are present. No guarding no rebound tenderness : pinedo with clear urine Extremities: Right lower extremity range of motion limited secondary to fracture, pain Results Results 24hrs Laboratory Tests Test 12/27/18 17:44 12/27/18 20:50 12/28/18 01:49 12/28/18 04:35 Bedside Glucose 198 204 158 White Blood Count 12.0 H Red Blood Count 3.57 L Hemoglobin 9.0 L Hematocrit 28.3 L Mean Corpuscular Volume 79.3 L Mean Corpuscular 25.2 L Hemoglobin Mean Corpuscular 31.8 L Hemoglobin Concent Red Cell Distribution 15.4 H Width Platelet Count 299 Mean Platelet Volume 11.0 H Immature Granulocytes % 0.600 H Neutrophils % 74.9 Lymphocytes % 9.4 L Monocytes % 12.9 H Eosinophils % 1.7 Basophils % 0.5 Nucleated Red Blood 0.0 Cells % Immature Granulocytes # 0.070 H Neutrophils # 9.0 H Lymphocytes # 1.1 Monocytes # 1.6 H Eosinophils # 0.2 Basophils # 0.1 Nucleated Red Blood 0.0 Cells # Sodium Level 139 Potassium Level 4.5 Chloride Level 108 Carbon Dioxide Level 23 Anion Gap 8 Blood Urea Nitrogen 55 H Creatinine 2.39 H Est Glomerular Filtrat 27 L Rate mL/min Glucose Level 167 Calcium Level 8.6 Total Bilirubin 0.2 Direct Bilirubin 0.00 Indirect Bilirubin 0.2 Aspartate Amino 10 L Transf (AST/SGOT) Alanine 16 Aminotransferase (ALT/SG PT) Alkaline Phosphatase 68 Total Protein 6.4 Albumin 3.3 Globulin 3.10 Albumin/Globulin Ratio 1.06 Test 12/28/18 08:15 12/28/18 13:33 Bedside Glucose 178 236 H Medications Medication Current Medications IV Flush (NS 3 ml) 3 ml PER PROTOCOL IV ; Start 12/26/18 at 00:00 Acetaminophen (Tylenol Tab) 650 mg Q6H PRN PO .PAIN 1-3 OR TEMP Last administered on 12/27/18at 17:56; Admin Dose 650 MG; Start 12/26/18 at 00:00 Acetaminophen/ Hydrocodone Bitart ([place] (5/325)) 1 tab Q6H PRN PO .MOD PAIN 4- 6 Last administered on 12/27/18at 20:51; Admin Dose 1 TAB; Start 12/26/18 at 00:00 Morphine Sulfate (morphine) 2 mg Q4H PRN IV .SEVERE PAIN 7-10 Last administered on 12/27/18 03:29; Admin Dose 2 MG; Start 12/26/18 at 00:00 Docusate Sodium (Colace) 100 mg Q12H PRN PO .CONSTIPATION; Start 12/26/18 at 00:00 Bisacodyl (Dulcolax) 5 mg DAILY PRN PO .CONSTIPATION; Start 12/26/18 at 00:00 Amlodipine Besylate (Norvasc) 10 mg DAILY PO Last administered on 12/28/18 08:17; Admin Dose 10 MG; Start 12/26/18 at 09:00 Levothyroxine Sodium (Synthroid) 175 mcg BEFORE BREAKFAST PO Last administered on 12/28/18at 05:13; Admin Dose 175 MCG; Start 12/26/18 at 07:00 Sertraline HCl (Zoloft) 100 mg DAILY PO Last administered on 12/28/18 08:16; Admin Dose 100 MG; Start 12/26/18 at 09:00 Pantoprazole (Protonix Tab) 40 mg DAILY@06 PO Last administered on 12/28/18at 05:12; Admin Dose 40 MG; Start 12/26/18 at 06:00 Diagnostic Test (Pha) (Accu-Chek) 1 ea 02 XX Last administered on 12/28/18at 02:25; Admin Dose 1 EA; Start 12/26/18 at 02:00 Insulin Aspart (Novolog Insulin Pen) NOVOLOG *MILD* ALGORITHM WITH MEALS BEDTIME SC Last administered on 12/28/18 13:35; Admin Dose 3 UNIT; Start 12/26/18 at 07:50 Miscellaneous Information 1 ea NOTE XX ; Start 12/26/18 at 02:30 Glucose (Glutose) 15 gm Q15M PRN PO DECREASED GLUCOSE; Start 12/26/18 at 02:30 Glucose (Glutose) 22.5 gm Q15M PRN PO DECREASED GLUCOSE; Start 12/26/18 at 02:30 Dextrose (D50w Syringe) 25 ml Q15M PRN IV DECREASED GLUCOSE; Start 12/26/18 at 02:30 Dextrose (D50w Syringe) 50 ml Q15M PRN IV DECREASED GLUCOSE; Start 12/26/18 at 02:30 Glucagon (Glucagen) 1 mg Q15M PRN IM DECREASED GLUCOSE; Start 12/26/18 at 02:30 Glucose (Glutose) 15 gm Q15M PRN BUCCAL DECREASED GLUCOSE; Start 12/26/18 at 02:30 Levalbuterol (Xopenex Neb) 1.25 mg Q4H RESP THERAPY PRN HHN SHORTNESS OF BREATH; Start 12/26/18 at 05:30 Nicotine (Nicoderm 21 Mg/ 24hr) 1 patch DAILY TRANSDERM Last administered on 12/28/18at 08:17; Admin Dose 1 PATCH; Start 12/26/18 at 09:00 Nicotine Polacrilex (Nicorette) 2 mg Q2H PRN BUCCAL CONTROL WITHDRAWAL SYMPTOMS Last administered on 12/26/18at 08:11; Admin Dose 2 MG; Start 12/26/18 at 06:30 Ceftriaxone Sodium 50 ml @ 100 mls/hr Q24H IVPB Last administered on 12/28/18 08:19; Admin Dose 100 MLS/HR; Start 12/26/18 at 07:30 Ondansetron HCl (Zofran Inj) 4 mg Q4H PRN IV NAUSEA AND/OR VOMITING; Start 12/26/18 at 11:30 Sodium Bicarbonate (Sodium Bicarbonate Tab) 650 mg TID PO Last administered on 12/28/18 13:32; Admin Dose 650 MG; Start 12/26/18 at 13:00 Hydralazine HCl (Apresoline) 10 mg Q4H PRN IV SBP >170 Last administered on 12/28/18 02:25; Admin Dose 10 MG; Start 12/26/18 at 16:30 Hydralazine HCl (Apresoline) 50 mg QID PO Last administered on 12/28/18 13:32; Admin Dose 50 MG; Start 12/28/18 at 09:00 Dextrose/Sodium Chloride 1,000 ml @ 60 mls/hr Q08U21H IV Last administered on 12/28/18 09:18; Admin Dose 60 MLS/HR; Start 12/28/18 at 09:00 LIZZIE HAWK MD December 28, 2018 16:14
[2018-12-28] MEDS ORDERED: ROPIVACAINE 0.5 % 30 ML VIAL ONE (17:44)
[2018-12-28] MEDS ORDERED: MEPERIDINE 25 MG INJ ONE (18:32)
--- NOTE | 2018-12-28 18:58 | OPR ---
Date/Time of Note Date/Time of Note DATE: 12/28/18 TIME: 18:45 Operative Report Procedure Date: December 28, 2018 Preoperative Diagnosis Right IT fracture Postoperative Diagnosis Right IT fracture Operation/Procedure Performed Intramedullary nail of right intertrochanteric hip fracture right Surgeon see signature line Boilermaker None Anesthesia Type: general, spinal Estimated Blood Loss: 100 - 150 ml's Transfusion none Specimen None Grafts/Implants Thomas gamma cephalo-medullary nail size 10 x 360 125 degree angle 100 mm lag screw 2 distal interlocking screws Complications none Procedure Description Indications and consent: This is a 68-year-old male with multiple medical problems including COPD, cardiac disease, renal failure who presented to the emergency department Tuesday evening December 25. He became dizzy when exiting his car and fell and sustained a right intertrochanteric hip fracture. Orthopedics was consulted. Preoperative clearance process was begun at that she is late evening. However his potassium was significantly elevated by Tuesday and he was not cleared by cardiology. Therefore the surgery was delayed. Fortunately following day which would have been ideal time to do the surgery there is no operating room available until after midnight. Therefore the surgery was scheduled for . I discussed treatment options with the patient as well as the daughter. I strongly recommended surgical treatment as the patient was ambulatory and completely independent prior to the fall. I reviewed the benefits and risks. The risks include but not limited to medical complications, cardiopulmonary complications, anesthetic complications, bleeding, infection, nonunion, malunion, hardware failure, continued pain, need for further surgery, need for removal of hardware, neurovascular injury. He understood these benefits and risks and wished to proceed with surgery. Procedure in detail: Patient was brought to the operating room. He is given a spinal anesthetic and placed in supine position on the [place] table. All bony problems well-padded. Patient was appropriately positioned and put in traction on the right lower extremity. At this time fluoroscopy was used to confirm positioning as well as reduction of right intertrochanteric hip fracture. This time the right lower extremity was prepped and draped in normal sterile fashion. A timeout was performed confirming the patient's name, medical record number, diagnosis, procedure performed, and laterality procedure. 2 g of Ancef was dosed. Fluoroscopy was used to localize the tip of greater trochanter and obtain the longitudinal axis of the femur. A #10 blade was used to make a skin incision several centimeters proximal and posterior to the tip of the greater trochanter. IT band was sharply incised. Tip of the greater trochanter could be palpated. The guidepin was then placed in the tip of the greater trochanter. Placement was confirmed on both AP and lateral fluoroscopy. The pin was then driven down with a wire coal tram driver just past the lesser trochanter. Soft tissue guide was plac ed over the guidepin followed by the opening reamer. This was then removed. A ball-tipped guidewire with the band was placed into the opening hole. The guide wire was confirmed to be in the femur on both AP and lateral films. It was placed in both the center of the femur distally in both the AP and lateral planes. This was measured at approximately 400 mm. The pain was buried quite deep therefore a 360 mm nail was chosen. The canal was quite capacious began reaming with a 9 mm reamer there is no chatter sequentially moved up to a 12 mm reamer where there was appropriate chatter at the isthmus. Therefore a 10 x 360 mm nail with 125 degree angle was chosen. This was then placed over the guidewire until the proper depth was obtained in the guidewire was then pulled out. A small 2 cm incision was made over the location of the future lag screw. The lag screw sleeve was placed through the jig and a guidepin was placed center center in the femoral head which is confirmed on both AP and lateral fluoroscopy . The pin was driven to the subchondral bone. This measured 100 mm. Therefore reamed to 105 mm and placed 100 mm screw. Plate approximately 5 mm of compression. Good feedback was felt while compressing the fracture site. The set screw was then tightened all the way down. The screw was center center in the femoral head on both AP and lateral films. Our attention turned distally where perfect circles were obtained. Both dynamic and static interlocking screw holes were used. Appropriate drill was used to drill through these holes using perfect [place] technique followed by the appropriate length screws. All jigs and hardware was removed and final x-rays were obtained confirming good reduction of the fracture and positioning placement of the hardware. At this time all wounds were closely irrigated. The IT band was closed with #1 Vicryl in [id number] fashion followed by subcutaneous closure and paul for the skin. The lag screw and interlocking screw incisions were closed with 2-0 Vicryl and skin for paul. The dressings were covered with Mepilex dressing. All counts were correct x2 Disposition: Patient was awoken from anesthesia and transferred back in stable condition. Will be weight-bear as tolerated in the right lower extremity. He will receive Ancef 2 g for 24 hours postop. He will be on DVT prophylaxis. Secondary to renal failure he will not be on Lovenox. He will be on subcutaneous heparin 5000 units 3 times daily x6 weeks. I like to see the patient in clinic in 2 weeks. SIVA NGUYEN MD December 28, 2018 18:58
[2018-12-28] MEDS ORDERED: MEPERIDINE 25 MG INJ IV ONE (20:00)
[2018-12-28] MEDS ORDERED: LABETALOL HCL 20MG INJ IV PRN (20:30)
[2018-12-28] MEDS ORDERED: HYDROmorphONE 1 MG/5 ML IV SYRINGE IV PRN ×3 (20:30)
[2018-12-28] MEDS ORDERED: ONDANSETRON 4 MG INJ IV PRN (20:30)
[2018-12-28] MEDS ORDERED: hydrALAzine 20 MG INJ IV PRN (20:30)
[2018-12-28] MEDS ORDERED: DIPHENHYDRAMINE 50 MG INJ IV PRN (20:30)
[2018-12-28] MEDS ORDERED: MEPERIDINE 25 MG INJ IV PRN (20:30)
[2018-12-28] MEDS ORDERED: FUROSEMIDE 20 MG INJ ONE (21:51)
[2018-12-28] MEDS ORDERED: FUROSEMIDE 20 MG INJ IV ONE (22:00)
[2018-12-29 00:07] VITALS: BP 129/60; PULSE 95; RESP 18
[2018-12-29] MEDS: DEXTROSE 5%-0.45% NACL 1,000 ML IV SCH ×2 (01:40→11:17)
[2018-12-29] MEDS: ACCU-CHEK XX SCH (02:30)
[2018-12-29] MEDS: LEVOTHYROXINE 175 MCG TAB PO SCH (05:43)
[2018-12-29] MEDS: PANTOPRAZOLE (EC) 40 MG TAB PO SCH (05:44)
[2018-12-29] MEDS: HYDROCODONE/APAP (5/325) TAB PO PRN ×2 (05:44→17:01)
[2018-12-29 08:09] VITALS: BP 144/65; PULSE 84; RESP 18
[2018-12-29] MEDS: NA BICARBONATE 650 MG TAB PO SCH ×3 (08:31→20:33)
[2018-12-29] MEDS: SERTRALINE 100 MG TAB PO SCH (08:31)
[2018-12-29] MEDS: AMLODIPINE 10 MG TAB PO SCH (08:32)
[2018-12-29] MEDS: NICOTINE (21 MG/24 HR) PATCH TRANSDERM SCH (08:32)
[2018-12-29] MEDS: CEFTRIAXONE 1 GM/50 ML (PMX) 50 ML IVPB SCH (08:32)
[2018-12-29] MEDS: INSULIN ASPART [NOVOLOG] 3 ML PEN SC SCH ×4 (08:36→20:51)
[2018-12-29] MEDS: HEPARIN 5,000 UNIT/1 ML VIAL SC SCH ×3 (09:28→22:08)
--- NOTE | 2018-12-29 09:37 | PN ---
DATE: 12/29/2018 SUBJECTIVE: The patient is stable. The patient yesterday underwent successful arthroplasty, right h ip. No acute events noted overnight. OBJECTIVE: VITAL SIGNS: Blood pressure is 144/65, respirations 18, pulse 85, temperature 98.7. HEENT: Head is normocephalic. NECK: Supple. HEART: Regular rate. LUNGS: Show diminished breath sounds at the base. ABDOMEN: Soft, nontender to palpation without rebound or guarding. EXTREMITIES: Negative for clubbing, cyanosis, no edema. DERMATOLOGIC: No rashes. MUSCULOSKELETAL: No joint effusion. NEUROLOGIC: No change in exam. MEDICATIONS: Reviewed. LABORATORY DATA: Reviewed. ASSESSMENT AND PLAN: 1. Nonoliguric acute kidney injury on top of chronic kidney disease with unknown baseline creatinine . Etiology of acute kidney injury is secondary to hemodynamics. The patient's renal function has be en fluctuating, but appears to be stabilizing around creatinine of 2.4 to 2.7 mg/dL. At this point, continue current treatment plans, supportive care, renally dose all medicines. 2. Hyperkalemia secondary to acute kidney injury, resolved. The patient is status post bicarbonate drip. Continue low-potassium diet. 3. Anemia. Monitor hemoglobin and hematocrit levels. 4. Mineral bone disorder, monitor calcium and phosphorus levels. 5. Metabolic acidemia secondary to acute kidney injury, improved. The patient is status post bicarb karen drip, monitor bicarbonate levels. 6. Anemia. Continue to monitor hemoglobin and hematocrit levels. 7. Hypomagnesemia. Continue to monitor and replete as needed. 8. Acute right femoral fracture. The patient is status post arthroplasty, postop day #1. Continue to monitor, continue pain control. 9. Leukocytosis. Etiology may be reactive in nature. The patient is on empiric antibiotics. Catherine nue to monitor. 10. History of chronic obstructive pulmonary disease. Continue medical management. 11. Hypertension. Continue current blood pressure regimen. Adjust medications as needed. Dictated By: SHIN COHEN DO NR/NTS Conf#: [id number] DID#: [id number] CC: BRITTANY CASSIDY MD; LIZZIE HAWK MD; SHIN COHEN DO;*EndCC*
--- NOTE | 2018-12-29 11:08 | PAC ---
Date/Time of Note Date/Time of Note DATE: 12/29/18 TIME: 11:08 Post-Anesthesia Notes Post-Anesthesia Note Last documented vital signs Vital Signs Date Temp Pulse Resp B/P (MAP) Pulse Ox O2 O2 Flow FiO2 Time Delivery Rate 12/29/18 98.7 84 18 144/65 91 08:09 (91) 12/29/18 3.0 04:54 12/28/18 Nasal 23:45 Cannula Activity: WNL Respiratory function: WNL Cardiovascular function: WNL Mental status: Baseline Pain reasonably controlled: Yes Hydration appropriate: Yes Nausea/Vomiting absent: No NICOLAS DE LA GARZA MD December 29, 2018 11:08
--- NOTE | 2018-12-29 11:10 | OPPN ---
Date/Time of Note Date/Time of Note DATE: 12/29/18 TIME: 11:08 Anesthesia Follow up Anesthesia Follow up Last documented vital signs Vital Signs Date Temp Pulse Resp B/P (MAP) Pulse Ox O2 O2 Flow FiO2 Time Delivery Rate 12/29/18 98.7 84 18 144/65 91 08:09 (91) 12/29/18 3.0 04:54 12/28/18 Nasal 23:45 Cannula Respiratory function: WNL Cardiovascular function: WNL Comments A 68 year shakir s/p hip nailing under [place],, spinal with duramorph for post op pain POD#1 is doing fine. No pain, N/V, headache, neural deficit, SOB, itching. care per medical team NICOLAS DE LA GARZA MD December 29, 2018 11:10
[2018-12-29] MEDS: ACETAMINOPHEN 325 MG TAB PO PRN ×2 (14:00→20:39)
[2018-12-29 14:34] VITALS: BP 132/78; PULSE 84; RESP 18
[2018-12-29 14:40] VITALS: BP 123/62; PULSE 75; RESP 18
--- NOTE | 2018-12-29 14:54 | PN ---
Date/Time of Note Date/Time of Note DATE: 12/29/18 TIME: 14:49 Assessment/Plan VTE Prophylaxis Risk score (from Nsg)>0 risk: 8 SCD applied (from Nsg): Yes Pharmacological prophylaxis: heparin Lines/Catheters IV Catheter Type (from Nrsg): [place] Urinary Cath still in place: Yes Reason Cath still needed: terminal illness/intractable pain Assessment/Plan Assessment/Plan 1. Acute right femur fracture s/p Intramedullary nail of right intertrochante beba hip fracture right, POD #1 - Ortho on board and appreciate consultation. Will need to continue on heparin TID and follow up in 1-2 weeks as outpatient - Pulm consultation for clearance appreciated. - Cardiology consultation appreciated. 2. Hypoxia- stable - okay for saturations 88% and above. encouraged IS - most likely chronic given extensive smoking history and COPD - V/Q scan negative - Pulm on board 3. LEONEL on CKD - Nephrology consultation appreciated 4. Metabolic acidosis- resolved 5. DM - A1c noted - ISS on board 6. Hypothyroidism - on Levothyroxine 7. Hyperkalemia- resolved - in setting of LEONEL on CKD 8. Tobacco use - nicotine patch 9. Disposition - CM consulted for ARU evaluation vs SNF placement Result Diagram: 12/29/18 0425 12/29/18 0425 Results 24hrs Laboratory Tests Test 12/28/18 18:40 12/28/18 22:11 12/28/18 22:16 12/28/18 22:38 Bedside Glucose 188 214 210 Sodium Level 140 Potassium Level 4.7 Chloride Level 110 Carbon Dioxide Level 21 Anion Gap 9 Blood Urea Nitrogen 57 H Creatinine 2.62 H Est Glomerular Filtrat 24 L Rate mL/min Glucose Level 202 Calcium Level 7.7 L Total Bilirubin 0.1 L Direct Bilirubin 0.00 Indirect Bilirubin 0.1 Aspartate Amino 11 L Transf (AST/SGOT) Alanine 13 Aminotransferase (ALT/SG PT) Alkaline Phosphatase 60 Total Protein 5.8 L Albumin 3.1 L Globulin 2.70 Albumin/Globulin Ratio 1.14 Test 12/29/18 02:31 12/29/18 04:25 12/29/18 08:21 12/29/18 12:34 Bedside Glucose 268 H 242 H 173 White Blood Count 14.4 H Red Blood Count 3.36 L Hemoglobin 8.4 L Hematocrit 27.2 L Mean Corpuscular Volume 81.0 L Mean Corpuscular 25.0 L Hemoglobin Mean Corpuscular 30.9 L Hemoglobin Concent Red Cell Distribution 15.7 H Width Platelet Count 312 Mean Platelet Volume 11.5 H Immature Granulocytes % 0.600 H Neutrophils % 79.9 H Lymphocytes % 6.1 L Monocytes % 13.1 H Eosinophils % 0.1 Basophils % 0.2 Nucleated Red Blood 0.0 Cells % Immature Granulocytes # 0.090 H Neutrophils # 11.5 H Lymphocytes # 0.9 Monocytes # 1.9 H Eosinophils # 0.0 Basophils # 0.0 Nucleated Red Blood 0.0 Cells # Sodium Level 139 Potassium Level 4.6 Chloride Level 107 Carbon Dioxide Level 22 Anion Gap 10 Blood Urea Nitrogen 59 H Creatinine 2.76 H Est Glomerular Filtrat 23 L Rate mL/min Glucose Level 254 H Calcium Level 8.0 L Magnesium Level 1.7 Total Bilirubin 0.1 L Direct Bilirubin 0.00 Indirect Bilirubin 0.1 Aspartate Amino 15 Transf (AST/SGOT) Alanine 10 L Aminotransferase (ALT/SG PT) Alkaline Phosphatase 62 Total Protein 6.1 Albumin 3.3 Globulin 2.80 Albumin/Globulin Ratio 1.17 Subjective 24 Hr Interval Summary Free Text/Dictation Patient refusing to use incentive spirometry and encouraged to prevent any complications. Family at bedside. No acute issues and denies any worsening of pain. Exam/Review of Systems Exam Vitals Vital Signs Date Temp Pulse Resp B/P (MAP) Pulse Ox O2 O2 Flow FiO2 Time Delivery Rate 12/29/18 98.3 75 18 123/62 Room Air 14:40 (82) 12/29/18 91 14:34 12/29/18 3.0 04:54 Intake and Output 12/28/18 12/28/18 12/29/18 1515:00 23:00 07:00 IntakeIntake Total 50 ml 1500 ml 340 ml OutputOutput Total 650 ml 120 ml 400 ml BalanceBalance -600 ml 1380 ml -60 ml Exam General: no acute distress. answering questions appropriately, fatigued Chest: Nontender Lungs: Clear to auscultation bilaterally no crackles rales or wheezing Heart: Normal S1-S2, regular rate rhythm, systolic murmur Abdomen: Soft , nontender, nondistended , bowel sounds are present. No guarding no rebound tenderness : pinedo with clear urine Extremities: right dressing in place, CDI Results Results 24hrs Laboratory Tests Test 12/28/18 18:40 12/28/18 22:11 12/28/18 22:16 12/28/18 22:38 Bedside Glucose 188 214 210 Sodium Level 140 Potassium Level 4.7 Chloride Level 110 Carbon Dioxide Level 21 Anion Gap 9 Blood Urea Nitrogen 57 H Creatinine 2.62 H Est Glomerular Filtrat 24 L Rate mL/min Glucose Level 202 Calcium Level 7.7 L Total Bilirubin 0.1 L Direct Bilirubin 0.00 Indirect Bilirubin 0.1 Aspartate Amino 11 L Transf (AST/SGOT) Alanine 13 Aminotransferase (ALT/SG PT) Alkaline Phosphatase 60 Total Protein 5.8 L Albumin 3.1 L Globulin 2.70 Albumin/Globulin Ratio 1.14 Test 12/29/18 02:31 12/29/18 04:25 12/29/18 08:21 12/29/18 12:34 Bedside Glucose 268 H 242 H 173 White Blood Count 14.4 H Red Blood Count 3.36 L Hemoglobin 8.4 L Hematocrit 27.2 L Mean Corpuscular Volume 81.0 L Mean Corpuscular 25.0 L Hemoglobin Mean Corpuscular 30.9 L Hemoglobin Concent Red Cell Distribution 15.7 H Width Platelet Count 312 Mean Platelet Volume 11.5 H Immature Granulocytes % 0.600 H Neutrophils % 79.9 H Lymphocytes % 6.1 L Monocytes % 13.1 H Eosinophils % 0.1 Basophils % 0.2 Nucleated Red Blood 0.0 Cells % Immature Granulocytes # 0.090 H Neutrophils # 11.5 H Lymphocytes # 0.9 Monocytes # 1.9 H Eosinophils # 0.0 Basophils # 0.0 Nucleated Red Blood 0.0 Cells # Sodium Level 139 Potassium Level 4.6 Chloride Level 107 Carbon Dioxide Level 22 Anion Gap 10 Blood Urea Nitrogen 59 H Creatinine 2.76 H Est Glomerular Filtrat 23 L Rate mL/min Glucose Level 254 H Calcium Level 8.0 L Magnesium Level 1.7 Total Bilirubin 0.1 L Direct Bilirubin 0.00 Indirect Bilirubin 0.1 Aspartate Amino 15 Transf (AST/SGOT) Alanine 10 L Aminotransferase (ALT/SG PT) Alkaline Phosphatase 62 Total Protein 6.1 Albumin 3.3 Globulin 2.80 Albumin/Globulin Ratio 1.17 Medications Medication Current Medications IV Flush (NS 3 ml) 3 ml PER PROTOCOL IV ; Start 12/26/18 at 00:00 Acetaminophen (Tylenol Tab) 650 mg Q6H PRN PO .PAIN 1-3 OR TEMP Last administered on 12/29/18 14:00; Admin Dose 650 MG; Start 12/26/18 at 00:00 Acetaminophen/ Hydrocodone Bitart ([place] (5/325)) 1 tab Q6H PRN PO .MOD PAIN 4- 6 Last administered on 12/29/18 05:44; Admin Dose 1 TAB; Start 12/26/18 at 00:00 Morphine Sulfate (morphine) 2 mg Q4H PRN IV .SEVERE PAIN 7-10 Last administered on 12/27/18 03:29; Admin Dose 2 MG; Start 12/26/18 at 00:00 Docusate Sodium (Colace) 100 mg Q12H PRN PO .CONSTIPATION; Start 12/26/18 at 00:00 Bisacodyl (Dulcolax) 5 mg DAILY PRN PO .CONSTIPATION; Start 12/26/18 at 00:00 Amlodipine Besylate (Norvasc) 10 mg DAILY PO Last administered on 12/29/18 08:32; Admin Dose 10 MG; Start 12/26/18 at 09:00 Levothyroxine Sodium (Synthroid) 175 mcg BEFORE BREAKFAST PO Last administered on 12/29/18 05:43; Admin Dose 175 MCG; Start 12/26/18 at 07:00 Sertraline HCl (Zoloft) 100 mg DAILY PO Last administered on 12/29/18 08:31; Admin Dose 100 MG; Start 12/26/18 at 09:00 Pantoprazole (Protonix Tab) 40 mg DAILY@06 PO Last administered on 12/29/18 05:44; Admin Dose 40 MG; Start 12/26/18 at 06:00 Diagnostic Test (Pha) (Accu-Chek) 1 ea 02 XX Last administered on 12/29/18 02:30; Admin Dose 1 EA; Start 12/26/18 at 02:00 Insulin Aspart (Novolog Insulin Pen) NOVOLOG *MILD* ALGORITHM WITH MEALS BEDTIME SC Last administered on 12/29/18 12:52; Admin Dose 1 UNIT; Start 12/26/18 at 07:50 Miscellaneous Information 1 ea NOTE XX ; Start 12/26/18 at 02:30 Glucose (Glutose) 15 gm Q15M PRN PO DECREASED GLUCOSE; Start 12/26/18 at 02:30 Glucose (Glutose) 22.5 gm Q15M PRN PO DECREASED GLUCOSE; Start 12/26/18 at 02:30 Dextrose (D50w Syringe) 25 ml Q15M PRN IV DECREASED GLUCOSE; Start 12/26/18 at 02:30 Dextrose (D50w Syringe) 50 ml Q15M PRN IV DECREASED GLUCOSE; Start 12/26/18 at 02:30 Glucagon (Glucagen) 1 mg Q15M PRN IM DECREASED GLUCOSE; Start 12/26/18 at 02:30 Glucose (Glutose) 15 gm Q15M PRN BUCCAL DECREASED GLUCOSE; Start 12/26/18 at 02:30 Levalbuterol (Xopenex Neb) 1.25 mg Q4H RESP THERAPY PRN HHN SHORTNESS OF BREATH; Start 12/26/18 at 05:30 Nicotine (Nicoderm 21 Mg/ 24hr) 1 patch DAILY TRANSDERM Last administered on 12/29/18 08:32; Admin Dose 1 PATCH; Start 12/26/18 at 09:00 Nicotine Polacrilex (Nicorette) 2 mg Q2H PRN BUCCAL CONTROL WITHDRAWAL SYMPTOMS Last administered on 12/26/18 08:11; Admin Dose 2 MG; Start 12/26/18 at 06:30 Ceftriaxone Sodium 50 ml @ 100 mls/hr Q24H IVPB Last administered on 12/29/18 08:32; Admin Dose 100 MLS/HR; Start 12/26/18 at 07:30 Ondansetron HCl (Zofran Inj) 4 mg Q4H PRN IV NAUSEA AND/OR VOMITING Last administered on 12/29/18 09:26; Admin Dose 4 MG; Start 12/26/18 at 11:30 Sodium Bicarbonate (Sodium Bicarbonate Tab) 650 mg TID PO Last administered on 12/29/18 12:49; Admin Dose 650 MG; Start 12/26/18 at 13:00 Hydralazine HCl (Apresoline) 10 mg Q4H PRN IV SBP >170 Last administered on 12/28/18 02:25; Admin Dose 10 MG; Start 12/26/18 at 16:30 Hydralazine HCl (Apresoline) 50 mg QID PO Last administered on 12/29/18 12:50; Admin Dose 50 MG; Start 12/28/18 at 09:00 Dextrose/Sodium Chloride 1,000 ml @ 60 mls/hr [id number] IV Last administered on 12/29/18at 11:17; Admin Dose 60 MLS/HR; Start 12/28/18 at 09:00 Aspirin (Aspirin) 81 mg DAILY PO ; Start 12/30/18 at 09:00 Heparin Sodium (Porcine) (Heparin (5000 Units/1ml)) 5,000 unit Q8 SC Last administered on 12/29/18at 09:28; Admin Dose 5,000 UNIT; Start 12/29/18 at 09:30 LIZZIE HAWK MD December 29, 2018 14:54
--- NOTE | 2018-12-29 14:56 | CONS ---
Consult Date/Type/Reason Admit Date/Time Dec 25, 2018 at 23:37 Initial Consult Date 12/26/18 Type of Consultation: cv Requesting Provider: LIZZIE HAWK MD Date/Time of Note DATE: 12/29/18 TIME: 14:55 Subjective Cardiology follow-up progress note Subjective: Discussed with the staff Patient denies any left-sided chest pain or pressure to me. He denies any PND orthopnea or shortness of breath to me s/p hip surgery and now with less pain no cardiac complications is reported Objective: General: no acute distress HEENT: NC/AT. pupils are equal. round. NECK: NO JVD. no stridor. CV: RRR. systolic murmur; no gallop or rubs. PULM: no wheezing or rhonchi. GI: SOFT, NT, ND, no rebound or guarding Extremity: trace B/L LE edema. no clubbing. neuro: Sleeping comfortably Psych: calm and pleasant rectal: deferred EKG was personally reviewed which are normal sinus rhythm no specific ST abnormality in the vertical conduction the Echocardiogram was personally reviewed which shows: Normal left ventricular systolic function. Normal left ventricular cavity size. Mild concentric left ventricular hypertrophy. Ejection fraction is visually estimated at 65-70 %. Tissue Doppler/Mitral Doppler indices are consistent with impaired relaxation (Stage I diastolic dysfunction). Upper limit of normal left atrial size. Mitral valve leaflets appear mildly thickened. Mild mitral annular calcification. Trace mitral regurgitation. Normal appearance of the aortic valve. No significant aortic stenosis or insufficiency. Normal appearance of the tricuspid valve. Estimated peak PA systolic pressure 41 mmHg. There is mild tricuspid regurgitation. Normal size and normal respiratory collapse consistent with normal right atrial pressure. CT of the chest done in the emergency room shows: Emphysema and changes of probable upper lobe bronchiolitis, less prominent than on the prior study. No large area of consolidation. No pleural effusions. Pelvic x-ray shows:Acute intertrochanteric fracture of the right femur, again identified. Objective Vitals Vital Signs Date Temp Pulse Resp B/P (MAP) Pulse Ox O2 O2 Flow FiO2 Time Delivery Rate 12/29/18 98.3 75 18 123/62 Room Air 14:40 (82) 12/29/18 91 14:34 12/29/18 3.0 04:54 Intake and Output 12/28/18 12/28/18 12/29/18 1515:00 23:00 07:00 IntakeIntake Total 50 ml 1500 ml 340 ml OutputOutput Total 650 ml 120 ml 400 ml BalanceBalance -600 ml 1380 ml -60 ml Results/Medications Result Diagram: 12/29/18 0425 12/29/18 0425 Results 24 hrs Laboratory Tests Test 12/28/18 18:40 12/28/18 22:11 12/28/18 22:16 12/28/18 22:38 Bedside Glucose 188 214 210 Sodium Level 140 Potassium Level 4.7 Chloride Level 110 Carbon Dioxide Level 21 Anion Gap 9 Blood Urea Nitrogen 57 H Creatinine 2.62 H Est Glomerular Filtrat 24 L Rate mL/min Glucose Level 202 Calcium Level 7.7 L Total Bilirubin 0.1 L Direct Bilirubin 0.00 Indirect Bilirubin 0.1 Aspartate Amino 11 L Transf (AST/SGOT) Alanine 13 Aminotransferase (ALT/SG PT) Alkaline Phosphatase 60 Total Protein 5.8 L Albumin 3.1 L Globulin 2.70 Albumin/Globulin Ratio 1.14 Test 12/29/18 02:31 12/29/18 04:25 12/29/18 08:21 12/29/18 12:34 Bedside Glucose 268 H 242 H 173 White Blood Count 14.4 H Red Blood Count 3.36 L Hemoglobin 8.4 L Hematocrit 27.2 L Mean Corpuscular Volume 81.0 L Mean Corpuscular 25.0 L Hemoglobin Mean Corpuscular 30.9 L Hemoglobin Concent Red Cell Distribution 15.7 H Width Platelet Count 312 Mean Platelet Volume 11.5 H Immature Granulocytes % 0.600 H Neutrophils % 79.9 H Lymphocytes % 6.1 L Monocytes % 13.1 H Eosinophils % 0.1 Basophils % 0.2 Nucleated Red Blood 0.0 Cells % Immature Granulocytes # 0.090 H Neutrophils # 11.5 H Lymphocytes # 0.9 Monocytes # 1.9 H Eosinophils # 0.0 Basophils # 0.0 Nucleated Red Blood 0.0 Cells # Sodium Level 139 Potassium Level 4.6 Chloride Level 107 Carbon Dioxide Level 22 Anion Gap 10 Blood Urea Nitrogen 59 H Creatinine 2.76 H Est Glomerular Filtrat 23 L Rate mL/min Glucose Level 254 H Calcium Level 8.0 L Magnesium Level 1.7 Total Bilirubin 0.1 L Direct Bilirubin 0.00 Indirect Bilirubin 0.1 Aspartate Amino 15 Transf (AST/SGOT) Alanine 10 L Aminotransferase (ALT/SG PT) Alkaline Phosphatase 62 Total Protein 6.1 Albumin 3.3 Globulin 2.80 Albumin/Globulin Ratio 1.17 Home Meds Reported Medications Patiromer Calcium Sorbitex ([place]) 16.8 Gm Powd.pack, 16.8 GM PO 12/26/18 Insulin Detemir (Levemir) 100 Unit/1 Ml Vial, for 20units at hs 12/26/18 Sitagliptin* (Januvia*) 50 Mg Tablet, 50 MG PO DAILY, #30 TAB 12/26/18 Sertraline Hcl* (Sertraline Hcl*) 100 Mg Tablet, 100 MG PO DAILY, #30 TAB 12/26/18 Glimepiride* (Glimepiride*) 4 Mg Tablet, 4 MG PO WITH BREAKFAST DINNE, TAB 12/26/18 Omeprazole* (Omeprazole*) 40 Mg Capsule.dr, 40 MG PO DAILY, #30 CAP 12/26/18 Levothyroxine Sodium* (Levothyroxine Sodium*) 175 Mcg Tablet, 175 MCG PO BEFORE BREAKFAST, #30 TAB 12/26/18 Aspirin* (Sac Aspirin*) 81 Mg Tab.chew, 81 MG PO DAILY, TAB.CHEW 12/26/18 Amlodipine Besylate* (Amlodipine Besylate*) 10 Mg Tablet, 10 MG PO DAILY, #30 TAB 12/26/18 Medications Current Medications IV Flush (NS 3 ml) 3 ml PER PROTOCOL IV ; Start 12/26/18 at 00:00 Acetaminophen (Tylenol Tab) 650 mg Q6H PRN PO .PAIN 1-3 OR TEMP Last administered on 12/29/18at 14:00; Admin Dose 650 MG; Start 12/26/18 at 00:00 Acetaminophen/ Hydrocodone Bitart ([place] (5/325)) 1 tab Q6H PRN PO .MOD PAIN 4- 6 Last administered on 12/29/18at 05:44; Admin Dose 1 TAB; Start 12/26/18 at 00:00 Morphine Sulfate (morphine) 2 mg Q4H PRN IV .SEVERE PAIN 7-10 Last administered on 12/27/18at 03:29; Admin Dose 2 MG; Start 12/26/18 at 00:00 Docusate Sodium (Colace) 100 mg Q12H PRN PO .CONSTIPATION; Start 12/26/18 at 00:00 Bisacodyl (Dulcolax) 5 mg DAILY PRN PO .CONSTIPATION; Start 12/26/18 at 00:00 Amlodipine Besylate (Norvasc) 10 mg DAILY PO Last administered on 12/29/18 08:32; Admin Dose 10 MG; Start 12/26/18 at 09:00 Levothyroxine Sodium (Synthroid) 175 mcg BEFORE BREAKFAST PO Last administered on 12/29/18 05:43; Admin Dose 175 MCG; Start 12/26/18 at 07:00 Sertraline HCl (Zoloft) 100 mg DAILY PO Last administered on 12/29/18 08:31; Admin Dose 100 MG; Start 12/26/18 at 09:00 Pantoprazole (Protonix Tab) 40 mg DAILY@06 PO Last administered on 12/29/18 05:44; Admin Dose 40 MG; Start 12/26/18 at 06:00 Diagnostic Test (Pha) (Accu-Chek) 1 ea 02 XX Last administered on 12/29/18at 02:30; Admin Dose 1 EA; Start 12/26/18 at 02:00 Insulin Aspart (Novolog Insulin Pen) NOVOLOG *MILD* ALGORITHM WITH MEALS BEDTIME SC Last administered on 12/29/18 12:52; Admin Dose 1 UNIT; Start 12/26/18 at 07:50 Miscellaneous Information 1 ea NOTE XX ; Start 12/26/18 at 02:30 Glucose (Glutose) 15 gm Q15M PRN PO DECREASED GLUCOSE; Start 12/26/18 at 02:30 Glucose (Glutose) 22.5 gm Q15M PRN PO DECREASED GLUCOSE; Start 12/26/18 at 02:30 Dextrose (D50w Syringe) 25 ml Q15M PRN IV DECREASED GLUCOSE; Start 12/26/18 at 02:30 Dextrose (D50w Syringe) 50 ml Q15M PRN IV DECREASED GLUCOSE; Start 12/26/18 at 02:30 Glucagon (Glucagen) 1 mg Q15M PRN IM DECREASED GLUCOSE; Start 12/26/18 at 02:30 Glucose (Glutose) 15 gm Q15M PRN BUCCAL DECREASED GLUCOSE; Start 12/26/18 at 02:30 Levalbuterol (Xopenex Neb) 1.25 mg Q4H RESP THERAPY PRN HHN SHORTNESS OF BREATH; Start 12/26/18 at 05:30 Nicotine (Nicoderm 21 Mg/ 24hr) 1 patch DAILY TRANSDERM Last administered on 12/29/18 08:32; Admin Dose 1 PATCH; Start 12/26/18 at 09:00 Nicotine Polacrilex (Nicorette) 2 mg Q2H PRN BUCCAL CONTROL WITHDRAWAL SYMPTOMS Last administered on 12/26/18 08:11; Admin Dose 2 MG; Start 12/26/18 at 06:30 Ceftriaxone Sodium 50 ml @ 100 mls/hr Q24H IVPB Last administered on 12/29/18 08:32; Admin Dose 100 MLS/HR; Start 12/26/18 at 07:30 Ondansetron HCl (Zofran Inj) 4 mg Q4H PRN IV NAUSEA AND/OR VOMITING Last administered on 12/29/18 09:26; Admin Dose 4 MG; Start 12/26/18 at 11:30 Sodium Bicarbonate (Sodium Bicarbonate Tab) 650 mg TID PO Last administered on 12/29/18 12:49; Admin Dose 650 MG; Start 12/26/18 at 13:00 Hydralazine HCl (Apresoline) 10 mg Q4H PRN IV SBP >170 Last administered on 12/28/18 02:25; Admin Dose 10 MG; Start 12/26/18 at 16:30 Hydralazine HCl (Apresoline) 50 mg QID PO Last administered on 12/29/18 12:50; Admin Dose 50 MG; Start 12/28/18 at 09:00 Dextrose/Sodium Chloride 1,000 ml @ 60 mls/hr [id number] IV Last administered on 12/29/18 11:17; Admin Dose 60 MLS/HR; Start 12/28/18 at 09:00 Aspirin (Aspirin) 81 mg DAILY PO ; Start 12/30/18 at 09:00 Heparin Sodium (Porcine) (Heparin (5000 Units/1ml)) 5,000 unit Q8 SC Last administered on 12/29/18 09:28; Admin Dose 5,000 UNIT; Start 12/29/18 at 09:30 Assessment/Plan Hospital Course (Demo Recall) 1. Cardiovascular preop evaluation 2 .Acute intertrochanteric fracture of the right femur,/hip fracture: Now status post surgery 3. Hypertension 4. COPD 5. Chronic kidney disease unclear acute versus chronic 6. Hyperkalemia 7. Anemia 8. Abnormal EKG 9. Smoker 10. Chronic dizziness: But no report of any actual syncope Recommendations: Continue with current cardiac care. Blood pressure remained stable now postop care and DVT prophylaxis as per internal medicine and surgical team Thank you for this referral I will continue to follow along with you as needed basis now GODFREY TAVERAS MD [facility] GODFREY TAVERAS MD December 29, 2018 14:56
[2018-12-29 19:35] VITALS: BP 135/63; PULSE 94; RESP 18
[2018-12-30] MEDS: ACCU-CHEK XX SCH (02:00)
[2018-12-30 02:07] VITALS: BP 168/74; PULSE 96; RESP 18
[2018-12-30] MEDS: HYDROCODONE/APAP (5/325) TAB PO PRN ×2 (02:11→11:08)
[2018-12-30 02:59] VITALS: BP 145/80
[2018-12-30] MEDS: DEXTROSE 5%-0.45% NACL 1,000 ML IV SCH ×2 (03:39→23:51)
[2018-12-30] MEDS: PANTOPRAZOLE (EC) 40 MG TAB PO SCH (05:28)
[2018-12-30] MEDS: HEPARIN 5,000 UNIT/1 ML VIAL SC SCH ×3 (05:28→21:39)
[2018-12-30] MEDS: LEVOTHYROXINE 175 MCG TAB PO SCH (06:06)
[2018-12-30] MEDS: CEFTRIAXONE 1 GM/50 ML (PMX) 50 ML IVPB SCH (06:35)
[2018-12-30 08:05] VITALS: BP 138/80; PULSE 88; RESP 18
[2018-12-30] MEDS: SERTRALINE 100 MG TAB PO SCH (08:34)
[2018-12-30] MEDS: ASPIRIN 81 MG TAB PO SCH (08:34)
[2018-12-30] MEDS: NA BICARBONATE 650 MG TAB PO SCH ×3 (08:34→21:35)
[2018-12-30] MEDS: AMLODIPINE 10 MG TAB PO SCH (08:34)
[2018-12-30] MEDS: NICOTINE (21 MG/24 HR) PATCH TRANSDERM SCH (08:35)
[2018-12-30] MEDS: INSULIN ASPART [NOVOLOG] 3 ML PEN SC SCH ×4 (08:37→21:37)
--- NOTE | 2018-12-30 11:19 | CONS ---
Assessment/Plan Assessment/Plan Hospital Course (Demo Recall) 1. Nonoliguric acute kidney injury on top of chronic kidney disease with unknown baseline creatinine. Etiology of acute kidney injury is secondary to hemodynamics. The patient's renal function has been fluctuating, but appears to be stabilizing around creatinine of 2.4 to 2.7 mg/dL. At this point, continue current treatment plans, supportive care, renally dose all medicines. 2. Hyperkalemia secondary to acute kidney injury, resolved. The patient is status post bicarbonate drip. on bicarb po. Continue low-potassium diet. 3. Anemia. Monitor hemoglobin and hematocrit levels. 4. Mineral bone disorder, monitor calcium and phosphorus levels. 5. Metabolic acidemia secondary to acute kidney injury, improved. The patient is status post bicarbonate drip, monitor bicarbonate levels. 6. Anemia. Continue to monitor hemoglobin and hematocrit levels. 7. Hypomagnesemia. Continue to monitor and replete as needed. 8. Acute right femoral fracture. The patient is status post arthroplasty. Continue to monitor, continue pain control. 9. Leukocytosis. Etiology may be reactive in nature. The patient is on empiric antibiotics. Continue to monitor. 10. History of chronic obstructive pulmonary disease. Continue medical management. 11. Hypertension. Continue current blood pressure regimen. Adjust medications as needed. Consultation Date/Type/Reason Admit Date/Time Dec 25, 2018 at 23:37 Initial Consult Date 12/26/18 Requesting Provider: LIZZIE HAWK MD Date/Time of Note DATE: 12/30/18 TIME: 11:18 24 HR Interval Summary Free Text/Dictation pain well controlled urinating without problems denies n/v d/w rn PE gen: nad cv rrr pulm ctab abd soft, nd, nt +bs ext: no edema Exam/Review of Systems Exam Vitals Vital Signs Date Temp Pulse Resp B/P (MAP) Pulse Ox O2 O2 Flow FiO2 Time Delivery Rate 12/30/18 98.0 88 18 138/80 94 08:05 (99) 12/30/18 2.0 05:18 12/29/18 Room Air 14:40 Intake and Output 12/29/18 12/29/18 12/30/18 1515:00 23:00 07:00 IntakeIntake Total 290 ml 480 ml 1080 ml OutputOutput Total 1500 ml 900 ml BalanceBalance 290 ml -1020 ml 180 ml Results Result Diagram: 12/30/18 0438 12/30/18 0437 Results 24hrs Laboratory Tests Test 12/29/18 12:34 12/29/18 17:51 12/29/18 20:34 12/30/18 02:10 Bedside Glucose 173 253 H 279 H 221 H Test 12/30/18 04:37 12/30/18 04:38 12/30/18 08:22 Sodium Level 134 L Potassium Level 4.2 Chloride Level 102 Carbon Dioxide Level 21 Anion Gap 11 Blood Urea Nitrogen 62 H Creatinine 2.69 H Est Glomerular Filtrat 24 L Rate mL/min Glucose Level 207 Calcium Level 8.0 L Phosphorus Level 4.9 White Blood Count 12.2 H Red Blood Count 2.89 L Hemoglobin 7.3 L Hematocrit 22.8 L Mean Corpuscular Volume 78.9 L Mean Corpuscular 25.3 L Hemoglobin Mean Corpuscular 32.0 Hemoglobin Concent Red Cell Distribution 15.1 H Width Platelet Count 294 Mean Platelet Volume 11.5 H Immature Granulocytes % 0.700 H Neutrophils % 82.1 H Lymphocytes % 5.5 L Monocytes % 11.0 Eosinophils % 0.5 Basophils % 0.2 Nucleated Red Blood 0.0 Cells % Immature Granulocytes # 0.090 H Neutrophils # 10.0 H Lymphocytes # 0.7 L Monocytes # 1.3 H Eosinophils # 0.1 Basophils # 0.0 Nucleated Red Blood 0.0 Cells # Magnesium Level 1.8 Bedside Glucose 219 Medications Medication Current Medications IV Flush (NS 3 ml) 3 ml PER PROTOCOL IV ; Start 12/26/18 at 00:00 Acetaminophen (Tylenol Tab) 650 mg Q6H PRN PO .PAIN 1-3 OR TEMP Last administered on 12/29/18at 20:39; Admin Dose 650 MG; Start 12/26/18 at 00:00 Acetaminophen/ Hydrocodone Bitart ([place] (5/325)) 1 tab Q6H PRN PO .MOD PAIN 4- 6 Last administered on 12/30/18at 11:08; Admin Dose 1 TAB; Start 12/26/18 at 00:00 Morphine Sulfate (morphine) 2 mg Q4H PRN IV .SEVERE PAIN 7-10 Last administered on 12/27/18at 03:29; Admin Dose 2 MG; Start 12/26/18 at 00:00 Docusate Sodium (Colace) 100 mg Q12H PRN PO .CONSTIPATION; Start 12/26/18 at 00:00 Bisacodyl (Dulcolax) 5 mg DAILY PRN PO .CONSTIPATION; Start 12/26/18 at 00:00 Amlodipine Besylate (Norvasc) 10 mg DAILY PO Last administered on 12/30/18 08:34; Admin Dose 10 MG; Start 12/26/18 at 09:00 Levothyroxine Sodium (Synthroid) 175 mcg BEFORE BREAKFAST PO Last administered on 12/30/18 06:06; Admin Dose 175 MCG; Start 12/26/18 at 07:00 Sertraline HCl (Zoloft) 100 mg DAILY PO Last administered on 12/30/18 08:34; Admin Dose 100 MG; Start 12/26/18 at 09:00 Pantoprazole (Protonix Tab) 40 mg DAILY@06 PO Last administered on 12/30/18 05:28; Admin Dose 40 MG; Start 12/26/18 at 06:00 Diagnostic Test (Pha) (Accu-Chek) 1 ea 02 XX Last administered on 12/29/18 02:30; Admin Dose 1 EA; Start 12/26/18 at 02:00 Insulin Aspart (Novolog Insulin Pen) NOVOLOG *MILD* ALGORITHM WITH MEALS BEDTIME SC Last administered on 12/30/18 08:37; Admin Dose 2 UNIT; Start 12/26/18 at 07:50 Miscellaneous Information 1 ea NOTE XX ; Start 12/26/18 at 02:30 Glucose (Glutose) 15 gm Q15M PRN PO DECREASED GLUCOSE; Start 12/26/18 at 02:30 Glucose (Glutose) 22.5 gm Q15M PRN PO DECREASED GLUCOSE; Start 12/26/18 at 02:30 Dextrose (D50w Syringe) 25 ml Q15M PRN IV DECREASED GLUCOSE; Start 12/26/18 at 02:30 Dextrose (D50w Syringe) 50 ml Q15M PRN IV DECREASED GLUCOSE; Start 12/26/18 at 02:30 Glucagon (Glucagen) 1 mg Q15M PRN IM DECREASED GLUCOSE; Start 12/26/18 at 02:30 Glucose (Glutose) 15 gm Q15M PRN BUCCAL DECREASED GLUCOSE; Start 12/26/18 at 02:30 Levalbuterol (Xopenex Neb) 1.25 mg Q4H RESP THERAPY PRN HHN SHORTNESS OF BREATH; Start 12/26/18 at 05:30 Nicotine (Nicoderm 21 Mg/ 24hr) 1 patch DAILY TRANSDERM Last administered on 12/30/18 08:35; Admin Dose 1 PATCH; Start 12/26/18 at 09:00 Nicotine Polacrilex (Nicorette) 2 mg Q2H PRN BUCCAL CONTROL WITHDRAWAL SYMPTOMS Last administered on 12/26/18 08:11; Admin Dose 2 MG; Start 12/26/18 at 06:30 Ceftriaxone Sodium 50 ml @ 100 mls/hr Q24H IVPB Last administered on 12/30/18 06:35; Admin Dose 100 MLS/HR; Start 12/26/18 at 07:30 Ondansetron HCl (Zofran Inj) 4 mg Q4H PRN IV NAUSEA AND/OR VOMITING Last administered on 12/29/18 09:26; Admin Dose 4 MG; Start 12/26/18 at 11:30 Sodium Bicarbonate (Sodium Bicarbonate Tab) 650 mg TID PO Last administered on 12/30/18 08:34; Admin Dose 650 MG; Start 12/26/18 at 13:00 Hydralazine HCl (Apresoline) 10 mg Q4H PRN IV SBP >170 Last administered on 12/28/18 02:25; Admin Dose 10 MG; Start 12/26/18 at 16:30 Hydralazine HCl (Apresoline) 50 mg QID PO Last administered on 12/30/18 08:34; Admin Dose 50 MG; Start 12/28/18 at 09:00 Dextrose/Sodium Chloride 1,000 ml @ 60 mls/hr [id number] IV Last administered on 12/30/18 03:39; Admin Dose 60 MLS/HR; Start 12/28/18 at 09:00 Aspirin (Aspirin) 81 mg DAILY PO Last administered on 12/30/18 08:34; Admin Dose 81 MG; Start 12/30/18 at 09:00 Heparin Sodium (Porcine) (Heparin (5000 Units/1ml)) 5,000 unit Q8 SC Last administered on 12/29/18 22:08; Admin Dose 5,000 UNIT; Start 12/29/18 at 09:30 Insulin Glargine (Lantus) 20 units QPM SC ; Start 12/30/18 at 21:00 ABHILASH ONEILL MD December 30, 2018 11:19
--- NOTE | 2018-12-30 12:24 | PN ---
Date/Time of Note Date/Time of Note DATE: 12/30/18 TIME: 12:19 Assessment/Plan VTE Prophylaxis Risk score (from Nsg)>0 risk: 3 SCD applied (from Nsg): Yes Pharmacological prophylaxis: heparin Lines/Catheters IV Catheter Type (from Nrsg): Peripheral IV Urinary Cath still in place: No Assessment/Plan Assessment/Plan 1. Acute hematuria - started with removal of pinedo catheter - discussed with Urology and recommending check INR and if optimal placement of 3 way pinedo for CBI or regular pinedo with manual flushing as needed. If continues to bleed, will hold heparin 2. Acute right femur fracture s/p Intramedullary nail of right intertrochanteric hip fracture right, POD #2 - Ortho on board and appreciate consultation. Will need follow up in 1-2 weeks as outpatient - Pulm consultation for clearance appreciated. - Cardiology consultation appreciated. 3. Hypoxia- stable - wean O2 as able and okay for saturations 88% and above. encouraged IS - most likely chronic given extensive smoking history and COPD - V/Q scan negative - Pulm on board 4. LEONEL on CKD - Nephrology consultation appreciated. Cr shows some improvement this am 5. DM - A1c noted - ISS on board 6. Hypothyroidism - on Levothyroxine 7. Hyperkalemia- resolved - in setting of LEONEL on CKD 8. Tobacco use - nicotine patch 9. Disposition - Will monitor hematuria and place pinedo for CBI vs manual irrigation if INR not elevated. Continue current care. ARU evaluation pending Result Diagram: 12/30/18 0438 12/30/18 0437 Results 24hrs Laboratory Tests Test 12/29/18 12:34 12/29/18 17:51 12/29/18 20:34 12/30/18 02:10 Bedside Glucose 173 253 H 279 H 221 H Test 12/30/18 04:37 12/30/18 04:38 12/30/18 08:22 Sodium Level 134 L Potassium Level 4.2 Chloride Level 102 Carbon Dioxide Level 21 Anion Gap 11 Blood Urea Nitrogen 62 H Creatinine 2.69 H Est Glomerular Filtrat 24 L Rate mL/min Glucose Level 207 Calcium Level 8.0 L Phosphorus Level 4.9 White Blood Count 12.2 H Red Blood Count 2.89 L Hemoglobin 7.3 L Hematocrit 22.8 L Mean Corpuscular Volume 78.9 L Mean Corpuscular 25.3 L Hemoglobin Mean Corpuscular 32.0 Hemoglobin Concent Red Cell Distribution 15.1 H Width Platelet Count 294 Mean Platelet Volume 11.5 H Immature Granulocytes % 0.700 H Neutrophils % 82.1 H Lymphocytes % 5.5 L Monocytes % 11.0 Eosinophils % 0.5 Basophils % 0.2 Nucleated Red Blood 0.0 Cells % Immature Granulocytes # 0.090 H Neutrophils # 10.0 H Lymphocytes # 0.7 L Monocytes # 1.3 H Eosinophils # 0.1 Basophils # 0.0 Nucleated Red Blood 0.0 Cells # Magnesium Level 1.8 Bedside Glucose 219 Subjective 24 Hr Interval Summary Free Text/Dictation Patient noted with hematuria following deflation and removal of pinedo catheter. Denies any pain. Exam/Review of Systems Exam Vitals Vital Signs Date Temp Pulse Resp B/P (MAP) Pulse Ox O2 O2 Flow FiO2 Time Delivery Rate 12/30/18 98.0 88 18 138/80 94 08:05 (99) 12/30/18 2.0 05:18 12/29/18 Room Air 14:40 Intake and Output 12/29/18 12/29/18 12/30/18 1414:59 22:59 06:59 IntakeIntake Total 290 ml 480 ml 1080 ml OutputOutput Total 1500 ml 900 ml BalanceBalance 290 ml -1020 ml 180 ml Exam General: no acute distress. answering questions appropriately, Chest: Nontender Lungs: Clear to auscultation bilaterally no crackles rales or wheezing Heart: Normal S1-S2, regular rate rhythm, systolic murmur Abdomen: Soft , nontender, nondistended , bowel sounds are present. No guarding no rebound tenderness : bleeding from urethra with clots Extremities: right dressing in place, CDI Results Results 24hrs Laboratory Tests Test 12/29/18 12:34 12/29/18 17:51 12/29/18 20:34 12/30/18 02:10 Bedside Glucose 173 253 H 279 H 221 H Test 12/30/18 04:37 12/30/18 04:38 12/30/18 08:22 Sodium Level 134 L Potassium Level 4.2 Chloride Level 102 Carbon Dioxide Level 21 Anion Gap 11 Blood Urea Nitrogen 62 H Creatinine 2.69 H Est Glomerular Filtrat 24 L Rate mL/min Glucose Level 207 Calcium Level 8.0 L Phosphorus Level 4.9 White Blood Count 12.2 H Red Blood Count 2.89 L Hemoglobin 7.3 L Hematocrit 22.8 L Mean Corpuscular Volume 78.9 L Mean Corpuscular 25.3 L Hemoglobin Mean Corpuscular 32.0 Hemoglobin Concent Red Cell Distribution 15.1 H Width Platelet Count 294 Mean Platelet Volume 11.5 H Immature Granulocytes % 0.700 H Neutrophils % 82.1 H Lymphocytes % 5.5 L Monocytes % 11.0 Eosinophils % 0.5 Basophils % 0.2 Nucleated Red Blood 0.0 Cells % Immature Granulocytes # 0.090 H Neutrophils # 10.0 H Lymphocytes # 0.7 L Monocytes # 1.3 H Eosinophils # 0.1 Basophils # 0.0 Nucleated Red Blood 0.0 Cells # Magnesium Level 1.8 Bedside Glucose 219 Medications Medication Current Medications IV Flush (NS 3 ml) 3 ml PER PROTOCOL IV ; Start 12/26/18 at 00:00 Acetaminophen (Tylenol Tab) 650 mg Q6H PRN PO .PAIN 1-3 OR TEMP Last administered on 12/29/18 20:39; Admin Dose 650 MG; Start 12/26/18 at 00:00 Acetaminophen/ Hydrocodone Bitart ([place] (5/325)) 1 tab Q6H PRN PO .MOD PAIN 4- 6 Last administered on 12/30/18 11:08; Admin Dose 1 TAB; Start 12/26/18 at 00:00 Morphine Sulfate (morphine) 2 mg Q4H PRN IV .SEVERE PAIN 7-10 Last administered on 12/27/18 03:29; Admin Dose 2 MG; Start 12/26/18 at 00:00 Docusate Sodium (Colace) 100 mg Q12H PRN PO .CONSTIPATION; Start 12/26/18 at 00:00 Bisacodyl (Dulcolax) 5 mg DAILY PRN PO .CONSTIPATION; Start 12/26/18 at 00:00 Amlodipine Besylate (Norvasc) 10 mg DAILY PO Last administered on 12/30/18 08:34; Admin Dose 10 MG; Start 12/26/18 at 09:00 Levothyroxine Sodium (Synthroid) 175 mcg BEFORE BREAKFAST PO Last administered on 12/30/18 06:06; Admin Dose 175 MCG; Start 12/26/18 at 07:00 Sertraline HCl (Zoloft) 100 mg DAILY PO Last administered on 12/30/18 08:34; Admin Dose 100 MG; Start 12/26/18 at 09:00 Pantoprazole (Protonix Tab) 40 mg DAILY@06 PO Last administered on 12/30/18 05:28; Admin Dose 40 MG; Start 12/26/18 at 06:00 Diagnostic Test (Pha) (Accu-Chek) 1 ea 02 XX Last administered on 12/29/18at 02:30; Admin Dose 1 EA; Start 12/26/18 at 02:00 Insulin Aspart (Novolog Insulin Pen) NOVOLOG *MILD* ALGORITHM WITH MEALS BEDTIME SC Last administered on 12/30/18 08:37; Admin Dose 2 UNIT; Start 12/26/18 at 07:50 Miscellaneous Information 1 ea NOTE XX ; Start 12/26/18 at 02:30 Glucose (Glutose) 15 gm Q15M PRN PO DECREASED GLUCOSE; Start 12/26/18 at 02:30 Glucose (Glutose) 22.5 gm Q15M PRN PO DECREASED GLUCOSE; Start 12/26/18 at 02:30 Dextrose (D50w Syringe) 25 ml Q15M PRN IV DECREASED GLUCOSE; Start 12/26/18 at 02:30 Dextrose (D50w Syringe) 50 ml Q15M PRN IV DECREASED GLUCOSE; Start 12/26/18 at 02:30 Glucagon (Glucagen) 1 mg Q15M PRN IM DECREASED GLUCOSE; Start 12/26/18 at 02:30 Glucose (Glutose) 15 gm Q15M PRN BUCCAL DECREASED GLUCOSE; Start 12/26/18 at 02:30 Levalbuterol (Xopenex Neb) 1.25 mg Q4H RESP THERAPY PRN HHN SHORTNESS OF BREATH; Start 12/26/18 at 05:30 Nicotine (Nicoderm 21 Mg/ 24hr) 1 patch DAILY TRANSDERM Last administered on 12/30/18 08:35; Admin Dose 1 PATCH; Start 12/26/18 at 09:00 Nicotine Polacrilex (Nicorette) 2 mg Q2H PRN BUCCAL CONTROL WITHDRAWAL SYMPTOMS Last administered on 12/26/18at 08:11; Admin Dose 2 MG; Start 12/26/18 at 06:30 Ceftriaxone Sodium 50 ml @ 100 mls/hr Q24H IVPB Last administered on 12/30/18 06:35; Admin Dose 100 MLS/HR; Start 12/26/18 at 07:30 Ondansetron HCl (Zofran Inj) 4 mg Q4H PRN IV NAUSEA AND/OR VOMITING Last administered on 12/29/18 09:26; Admin Dose 4 MG; Start 12/26/18 at 11:30 Sodium Bicarbonate (Sodium Bicarbonate Tab) 650 mg TID PO Last administered on 12/30/18 08:34; Admin Dose 650 MG; Start 12/26/18 at 13:00 Hydralazine HCl (Apresoline) 10 mg Q4H PRN IV SBP >170 Last administered on 12/28/18 02:25; Admin Dose 10 MG; Start 12/26/18 at 16:30 Hydralazine HCl (Apresoline) 50 mg QID PO Last administered on 12/30/18 08:34; Admin Dose 50 MG; Start 12/28/18 at 09:00 Dextrose/Sodium Chloride 1,000 ml @ 60 mls/hr [id number] IV Last administered on 12/30/18 03:39; Admin Dose 60 MLS/HR; Start 12/28/18 at 09:00 Aspirin (Aspirin) 81 mg DAILY PO Last administered on 12/30/18 08:34; Admin Dose 81 MG; Start 12/30/18 at 09:00 Heparin Sodium (Porcine) (Heparin (5000 Units/1ml)) 5,000 unit Q8 SC Last administered on 12/29/18 22:08; Admin Dose 5,000 UNIT; Start 12/29/18 at 09:30 Insulin Glargine (Lantus) 20 units QPM SC ; Start 12/30/18 at 21:00 LIZZIE HAWK MD December 30, 2018 12:24
[2018-12-30 14:00] VITALS: BP 140/78; PULSE 90; RESP 18
[2018-12-30 19:15] VITALS: BP 169/74; PULSE 96; RESP 18
[2018-12-30] MEDS ORDERED: INSULIN GLARGINE [LANTus] (100 UNITS/ML) SYG SC SCH (21:00)
[2018-12-30] MEDS: ACETAMINOPHEN 325 MG TAB PO PRN (21:35)
[2018-12-30 23:02] VITALS: BP 142/66; PULSE 85; RESP 18
[2018-12-31] MEDS: ACCU-CHEK XX SCH (01:21)
[2018-12-31 02:27] VITALS: BP 149/68; PULSE 77; RESP 18
[2018-12-31] MEDS: DEXTROSE 5%-0.45% NACL 1,000 ML IV SCH ×2 (03:40→17:39)
[2018-12-31] MEDS: HEPARIN 5,000 UNIT/1 ML VIAL SC SCH ×2 (06:00→14:00)
[2018-12-31] MEDS: PANTOPRAZOLE (EC) 40 MG TAB PO SCH (06:11)
[2018-12-31] MEDS: LEVOTHYROXINE 175 MCG TAB PO SCH (06:11)
[2018-12-31 07:13] VITALS: BP 159/69; PULSE 83; RESP 18
[2018-12-31] MEDS: CEFTRIAXONE 1 GM/50 ML (PMX) 50 ML IVPB SCH (09:00)
[2018-12-31] MEDS: NA BICARBONATE 650 MG TAB PO SCH ×3 (09:02→21:47)
[2018-12-31] MEDS: ASPIRIN 81 MG TAB PO SCH (09:02)
[2018-12-31] MEDS: SERTRALINE 100 MG TAB PO SCH (09:02)
[2018-12-31] MEDS: INSULIN ASPART [NOVOLOG] 3 ML PEN SC SCH ×4 (09:02→21:53)
[2018-12-31] MEDS: NICOTINE (21 MG/24 HR) PATCH TRANSDERM SCH (09:04)
[2018-12-31] MEDS: AMLODIPINE 10 MG TAB PO SCH (09:04)
--- NOTE | 2018-12-31 11:08 | CONS ---
Assessment/Plan Assessment/Plan Hospital Course (Demo Recall) 1. Nonoliguric acute kidney injury on top of chronic kidney disease with unknown baseline creatinine. Etiology of acute kidney injury is secondary to hemodynamics. The patient's renal function has been fluctuating, but now improving. At this point, continue current treatment plans, supportive care, renally dose all medicines. 2. Hyperkalemia secondary to acute kidney injury, resolved. The patient is status post bicarbonate drip. on bicarb po. Continue low-potassium diet. 3. Anemia. Monitor hemoglobin and hematocrit levels. 4. Mineral bone disorder, monitor calcium and phosphorus levels. 5. Metabolic acidemia secondary to acute kidney injury, improved. The patient is status post bicarbonate drip, monitor bicarbonate levels. 6. Anemia. Continue to monitor hemoglobin and hematocrit levels. 7. Hypomagnesemia. Continue to monitor and replete as needed. 8. Acute right femoral fracture. The patient is status post arthroplasty. Continue to monitor, continue pain control. 9. Leukocytosis. Etiology may be reactive in nature. The patient is on empiric antibiotics. Continue to monitor. 10. History of chronic obstructive pulmonary disease. Continue medical management. 11. Hypertension. Continue current blood pressure regimen. Adjust medications as needed. Consultation Date/Type/Reason Admit Date/Time Dec 25, 2018 at 23:37 Initial Consult Date 12/26/18 Requesting Provider: LIZZIE HAWK MD Date/Time of Note DATE: 12/31/18 TIME: 11:07 24 HR Interval Summary Free Text/Dictation urinating without problems denies shortness of breath or n/v d/w rn gen nad cv rrr pulm ctab abd soft, nd, nt +bs ext: no edema Exam/Review of Systems Exam Vitals Vital Signs Date Temp Pulse Resp B/P (MAP) Pulse Ox O2 O2 Flow FiO2 Time Delivery Rate 12/31/18 97.9 83 18 159/69 95 Room Air 07:13 (99) 12/31/18 2.0 02:09 Intake and Output 12/30/18 12/30/18 12/31/18 1515:00 23:00 07:00 IntakeIntake Total 370 ml 960 ml 540 ml OutputOutput Total 200 ml BalanceBalance 370 ml 960 ml 340 ml Results Result Diagram: 12/31/18 0432 12/31/18 0433 Results 24hrs Laboratory Tests Test 12/30/18 11:17 12/30/18 12:29 12/30/18 17:40 12/30/18 21:34 Prothrombin Time 14.0 Prothrombin Time Ratio 1.1 INR International 1.07 Normalized Ratio Bedside Glucose 229 H 285 H 306 H Test 12/31/18 01:25 12/31/18 04:32 12/31/18 04:33 12/31/18 08:02 Bedside Glucose 252 H 196 White Blood Count 9.8 Red Blood Count 2.83 L Hemoglobin 7.2 L Hematocrit 22.2 L Mean Corpuscular Volume 78.4 L Mean Corpuscular 25.4 L Hemoglobin Mean Corpuscular 32.4 Hemoglobin Concent Red Cell Distribution 14.6 H Width Platelet Count 325 Mean Platelet Volume 11.2 H Immature Granulocytes % 0.800 H Neutrophils % 74.2 Lymphocytes % 9.9 L Monocytes % 12.5 H Eosinophils % 2.2 Basophils % 0.4 Nucleated Red Blood 0.0 Cells % Immature Granulocytes # 0.080 H Neutrophils # 7.3 Lymphocytes # 1.0 Monocytes # 1.2 H Eosinophils # 0.2 Basophils # 0.0 Nucleated Red Blood 0.0 Cells # Magnesium Level 2.0 Sodium Level 134 L Potassium Level 4.3 Chloride Level 103 Carbon Dioxide Level 22 Anion Gap 9 Blood Urea Nitrogen 62 H Creatinine 2.31 H Glucose Level 189 Calcium Level 7.9 L Phosphorus Level 4.4 Albumin 2.6 L Medications Medication Current Medications IV Flush (NS 3 ml) 3 ml PER PROTOCOL IV ; Start 12/26/18 at 00:00 Acetaminophen (Tylenol Tab) 650 mg Q6H PRN PO .PAIN 1-3 OR TEMP Last administered on 12/30/18at 21:35; Admin Dose 650 MG; Start 12/26/18 at 00:00 Acetaminophen/ Hydrocodone Bitart ([place] (5/325)) 1 tab Q6H PRN PO .MOD PAIN 4- 6 Last administered on 12/30/18at 11:08; Admin Dose 1 TAB; Start 12/26/18 at 00:00 Morphine Sulfate (morphine) 2 mg Q4H PRN IV .SEVERE PAIN 7-10 Last administered on 12/27/18 03:29; Admin Dose 2 MG; Start 12/26/18 at 00:00 Docusate Sodium (Colace) 100 mg Q12H PRN PO .CONSTIPATION; Start 12/26/18 at 00:00 Bisacodyl (Dulcolax) 5 mg DAILY PRN PO .CONSTIPATION; Start 12/26/18 at 00:00 Amlodipine Besylate (Norvasc) 10 mg DAILY PO Last administered on 12/31/18 09:04; Admin Dose 10 MG; Start 12/26/18 at 09:00 Levothyroxine Sodium (Synthroid) 175 mcg BEFORE BREAKFAST PO Last administered on 12/31/18 06:11; Admin Dose 175 MCG; Start 12/26/18 at 07:00 Sertraline HCl (Zoloft) 100 mg DAILY PO Last administered on 12/31/18 09:02; Admin Dose 100 MG; Start 12/26/18 at 09:00 Pantoprazole (Protonix Tab) 40 mg DAILY@06 PO Last administered on 12/31/18 06:11; Admin Dose 40 MG; Start 12/26/18 at 06:00 Diagnostic Test (Pha) (Accu-Chek) 1 ea 02 XX Last administered on 12/29/18at 02:30; Admin Dose 1 EA; Start 12/26/18 at 02:00 Insulin Aspart (Novolog Insulin Pen) NOVOLOG *MILD* ALGORITHM WITH MEALS BEDTIME SC Last administered on 12/31/18 09:02; Admin Dose 2 UNIT; Start 11/29 at 07:50 Miscellaneous Information 1 ea NOTE XX ; Start 12/26/18 at 02:30 Glucose (Glutose) 15 gm Q15M PRN PO DECREASED GLUCOSE; Start 12/26/18 at 02:30 Glucose (Glutose) 22.5 gm Q15M PRN PO DECREASED GLUCOSE; Start 12/26/18 at 02:30 Dextrose (D50w Syringe) 25 ml Q15M PRN IV DECREASED GLUCOSE; Start 12/26/18 at 02:30 Dextrose (D50w Syringe) 50 ml Q15M PRN IV DECREASED GLUCOSE; Start 12/26/18 at 02:30 Glucagon (Glucagen) 1 mg Q15M PRN IM DECREASED GLUCOSE; Start 12/26/18 at 02:30 Glucose (Glutose) 15 gm Q15M PRN BUCCAL DECREASED GLUCOSE; Start 12/26/18 at 02:30 Levalbuterol (Xopenex Neb) 1.25 mg Q4H RESP THERAPY PRN HHN SHORTNESS OF BREATH; Start 12/26/18 at 05:30 Nicotine (Nicoderm 21 Mg/ 24hr) 1 patch DAILY TRANSDERM Last administered on 12/31/18 09:04; Admin Dose 1 PATCH; Start 12/26/18 at 09:00 Nicotine Polacrilex (Nicorette) 2 mg Q2H PRN BUCCAL CONTROL WITHDRAWAL SYMPTOMS Last administered on 12/26/18 08:11; Admin Dose 2 MG; Start 12/26/18 at 06:30 Ceftriaxone Sodium 50 ml @ 100 mls/hr Q24H IVPB Last administered on 12/31/18 09:00; Admin Dose 100 MLS/HR; Start 12/26/18 at 07:30 Ondansetron HCl (Zofran Inj) 4 mg Q4H PRN IV NAUSEA AND/OR VOMITING Last administered on 12/29/18 09:26; Admin Dose 4 MG; Start 12/26/18 at 11:30 Sodium Bicarbonate (Sodium Bicarbonate Tab) 650 mg TID PO Last administered on 12/31/18 09:02; Admin Dose 650 MG; Start 12/26/18 at 13:00 Hydralazine HCl (Apresoline) 10 mg Q4H PRN IV SBP >170 Last administered on 12/28/18 02:25; Admin Dose 10 MG; Start 12/26/18 at 16:30 Hydralazine HCl (Apresoline) 50 mg QID PO Last administered on 12/31/18 09:04; Admin Dose 50 MG; Start 12/28/18 at 09:00 Dextrose/Sodium Chloride 1,000 ml @ 60 mls/hr [id number] IV Last administered on 12/30/18 23:51; Admin Dose 60 MLS/HR; Start 12/28/18 at 09:00 Aspirin (Aspirin) 81 mg DAILY PO Last administered on 12/31/18 09:02; Admin Dose 81 MG; Start 12/30/18 at 09:00 Heparin Sodium (Porcine) (Heparin (5000 Units/1ml)) 5,000 unit Q8 SC Last administered on 12/30/18 21:39; Admin Dose 5,000 UNIT; Start 12/29/18 at 09:30 Insulin Glargine (Lantus) 20 units QPM SC Last administered on 5/4/19at 21:39; Admin Dose 20 UNITS; Start 12/30/18 at 21:00 ABHILASH ONEILL MD December 31, 2018 11:08
--- NOTE | 2018-12-31 11:11 | PN ---
Date/Time of Note Date/Time of Note DATE: 12/31/18 TIME: 11:10 Assessment/Plan VTE Prophylaxis Risk score (from Ns)>0 risk: 11 SCD applied (from Ns): Yes Pharmacological prophylaxis: heparin Lines/Catheters IV Catheter Type (from Nrsg): Peripheral IV Urinary Cath still in place: No Assessment/Plan Assessment/Plan 1. Acute hematuria- resolved 2. Acute right femur fracture s/p Intramedullary nail of right intertrochanteric hip fracture right, POD #3 - Ortho on board and appreciate consultation. Will need follow up in 1-2 weeks as outpatient. Dressing to remain in place for 7-14 days - Pulm consultation for clearance appreciated. - Cardiology consultation appreciated. 3. Hypoxia- resolved - doing well on room air and saturating >90% - most likely chronic given extensive smoking history and COPD - V/Q scan negative - Pulm on board - will need outpatient sleep study 4. LEONEL on CKD - Nephrology consultation appreciated. Cr improving 5. Blood loss anemia - continue to monitor and transfuse if <7. Stable for now and no transfusions needed 6. Hypothyroidism - on Levothyroxine 7. Hyperkalemia- resolved - in setting of LEONEL on CKD 8. Tobacco use - nicotine patch - cessation encouraged 9. DM - A1c noted - ISS on board 10. Disposition - ARU consultation pending. Will need to follow up with Ortho in 1-2 weeks Result Diagram: 12/31/18 0432 12/31/18 0433 Results 24hrs Laboratory Tests Test 12/30/18 11:17 12/30/18 12:29 12/30/18 17:40 12/30/18 21:34 Prothrombin Time 14.0 Prothrombin Time Ratio 1.1 INR International 1.07 Normalized Ratio Bedside Glucose 229 H 285 H 306 H Test 12/31/18 01:25 12/31/18 04:32 12/31/18 04:33 12/31/18 08:02 Bedside Glucose 252 H 196 White Blood Count 9.8 Red Blood Count 2.83 L Hemoglobin 7.2 L Hematocrit 22.2 L Mean Corpuscular Volume 78.4 L Mean Corpuscular 25.4 L Hemoglobin Mean Corpuscular 32.4 Hemoglobin Concent Red Cell Distribution 14.6 H Width Platelet Count 325 Mean Platelet Volume 11.2 H Immature Granulocytes % 0.800 H Neutrophils % 74.2 Lymphocytes % 9.9 L Monocytes % 12.5 H Eosinophils % 2.2 Basophils % 0.4 Nucleated Red Blood 0.0 Cells % Immature Granulocytes # 0.080 H Neutrophils # 7.3 Lymphocytes # 1.0 Monocytes # 1.2 H Eosinophils # 0.2 Basophils # 0.0 Nucleated Red Blood 0.0 Cells # Magnesium Level 2.0 Sodium Level 134 L Potassium Level 4.3 Chloride Level 103 Carbon Dioxide Level 22 Anion Gap 9 Blood Urea Nitrogen 62 H Creatinine 2.31 H Glucose Level 189 Calcium Level 7.9 L Phosphorus Level 4.4 Albumin 2.6 L Subjective 24 Hr Interval Summary Free Text/Dictation Patient resting comfortably and in no acute distress. Sugars better controlled. May have a component of OLGA given noted with snoring and apneic episodes. Exam/Review of Systems Exam Vitals Vital Signs Date Temp Pulse Resp B/P (MAP) Pulse Ox O2 O2 Flow FiO2 Time Delivery Rate 12/31/18 97.9 83 18 159/69 95 Room Air 07:13 (99) 12/31/18 2.0 02:09 Intake and Output 12/30/18 12/30/18 12/31/18 1515:00 23:00 07:00 IntakeIntake Total 370 ml 960 ml 540 ml OutputOutput Total 200 ml BalanceBalance 370 ml 960 ml 340 ml Exam General: no acute distress. resting comfortably Chest: Nontender Lungs: Clear to auscultation bilaterally no crackles rales or wheezing Heart: Normal S1-S2, regular rate rhythm, systolic murmur Abdomen: Soft , nontender, nondistended , bowel sounds are present. No guarding no rebound tenderness Extremities: right dressing in place, CDI Results Results 24hrs Laboratory Tests Test 12/30/18 11:17 12/30/18 12:29 12/30/18 17:40 12/30/18 21:34 Prothrombin Time 14.0 Prothrombin Time Ratio 1.1 INR International 1.07 Normalized Ratio Bedside Glucose 229 H 285 H 306 H Test 12/31/18 01:25 12/31/18 04:32 12/31/18 04:33 12/31/18 08:02 Bedside Glucose 252 H 196 White Blood Count 9.8 Red Blood Count 2.83 L Hemoglobin 7.2 L Hematocrit 22.2 L Mean Corpuscular Volume 78.4 L Mean Corpuscular 25.4 L Hemoglobin Mean Corpuscular 32.4 Hemoglobin Concent Red Cell Distribution 14.6 H Width Platelet Count 325 Mean Platelet Volume 11.2 H Immature Granulocytes % 0.800 H Neutrophils % 74.2 Lymphocytes % 9.9 L Monocytes % 12.5 H Eosinophils % 2.2 Basophils % 0.4 Nucleated Red Blood 0.0 Cells % Immature Granulocytes # 0.080 H Neutrophils # 7.3 Lymphocytes # 1.0 Monocytes # 1.2 H Eosinophils # 0.2 Basophils # 0.0 Nucleated Red Blood 0.0 Cells # Magnesium Level 2.0 Sodium Level 134 L Potassium Level 4.3 Chloride Level 103 Carbon Dioxide Level 22 Anion Gap 9 Blood Urea Nitrogen 62 H Creatinine 2.31 H Glucose Level 189 Calcium Level 7.9 L Phosphorus Level 4.4 Albumin 2.6 L Medications Medication Current Medications IV Flush (NS 3 ml) 3 ml PER PROTOCOL IV ; Start 12/26/18 at 00:00 Acetaminophen (Tylenol Tab) 650 mg Q6H PRN PO .PAIN 1-3 OR TEMP Last administered on 12/30/18 21:35; Admin Dose 650 MG; Start 12/26/18 at 00:00 Acetaminophen/ Hydrocodone Bitart ([place] (5/325)) 1 tab Q6H PRN PO .MOD PAIN 4- 6 Last administered on 12/30/18 11:08; Admin Dose 1 TAB; Start 12/26/18 at 00:00 Morphine Sulfate (morphine) 2 mg Q4H PRN IV .SEVERE PAIN 7-10 Last administered on 12/27/18 03:29; Admin Dose 2 MG; Start 12/26/18 at 00:00 Docusate Sodium (Colace) 100 mg Q12H PRN PO .CONSTIPATION; Start 12/26/18 at 00:00 Bisacodyl (Dulcolax) 5 mg DAILY PRN PO .CONSTIPATION; Start 12/26/18 at 00:00 Amlodipine Besylate (Norvasc) 10 mg DAILY PO Last administered on 12/31/18 09:04; Admin Dose 10 MG; Start 12/26/18 at 09:00 Levothyroxine Sodium (Synthroid) 175 mcg BEFORE BREAKFAST PO Last administered on 12/31/18 06:11; Admin Dose 175 MCG; Start 12/26/18 at 07:00 Sertraline HCl (Zoloft) 100 mg DAILY PO Last administered on 12/31/18 09:02; Admin Dose 100 MG; Start 12/26/18 at 09:00 Pantoprazole (Protonix Tab) 40 mg DAILY@06 PO Last administered on 12/31/18 06:11; Admin Dose 40 MG; Start 12/26/18 at 06:00 Diagnostic Test (Pha) (Accu-Chek) 1 ea 02 XX Last administered on 12/29/18at 02:30; Admin Dose 1 EA; Start 12/26/18 at 02:00 Insulin Aspart (Novolog Insulin Pen) NOVOLOG *MILD* ALGORITHM WITH MEALS BEDTIME SC Last administered on 12/31/18 09:02; Admin Dose 2 UNIT; Start 12/26/18 at 07:50 Miscellaneous Information 1 ea NOTE XX ; Start 12/26/18 at 02:30 Glucose (Glutose) 15 gm Q15M PRN PO DECREASED GLUCOSE; Start 12/26/18 at 02:30 Glucose (Glutose) 22.5 gm Q15M PRN PO DECREASED GLUCOSE; Start 12/26/18 at 02:30 Dextrose (D50w Syringe) 25 ml Q15M PRN IV DECREASED GLUCOSE; Start 12/26/18 at 02:30 Dextrose (D50w Syringe) 50 ml Q15M PRN IV DECREASED GLUCOSE; Start 12/26/18 at 02:30 Glucagon (Glucagen) 1 mg Q15M PRN IM DECREASED GLUCOSE; Start 12/26/18 at 02:30 Glucose (Glutose) 15 gm Q15M PRN BUCCAL DECREASED GLUCOSE; Start 12/26/18 at 02:30 Levalbuterol (Xopenex Neb) 1.25 mg Q4H RESP THERAPY PRN HHN SHORTNESS OF BREATH; Start 12/26/18 at 05:30 Nicotine (Nicoderm 21 Mg/ 24hr) 1 patch DAILY TRANSDERM Last administered on 12/31/18 09:04; Admin Dose 1 PATCH; Start 12/26/18 at 09:00 Nicotine Polacrilex (Nicorette) 2 mg Q2H PRN BUCCAL CONTROL WITHDRAWAL SYMPTOMS Last administered on 12/26/18 08:11; Admin Dose 2 MG; Start 12/26/18 at 06:30 Ceftriaxone Sodium 50 ml @ 100 mls/hr Q24H IVPB Last administered on 12/31/18 09:00; Admin Dose 100 MLS/HR; Start 12/26/18 at 07:30 Ondansetron HCl (Zofran Inj) 4 mg Q4H PRN IV NAUSEA AND/OR VOMITING Last administered on 12/29/18 09:26; Admin Dose 4 MG; Start 12/26/18 at 11:30 Sodium Bicarbonate (Sodium Bicarbonate Tab) 650 mg TID PO Last administered on 12/31/18 09:02; Admin Dose 650 MG; Start 12/26/18 at 13:00 Hydralazine HCl (Apresoline) 10 mg Q4H PRN IV SBP >170 Last administered on 12/28/18 02:25; Admin Dose 10 MG; Start 12/26/18 at 16:30 Hydralazine HCl (Apresoline) 50 mg QID PO Last administered on 12/31/18 09:04; Admin Dose 50 MG; Start 12/28/18 at 09:00 Dextrose/Sodium Chloride 1,000 ml @ 60 mls/hr [id number] IV Last administered on 12/30/18 23:51; Admin Dose 60 MLS/HR; Start 12/28/18 at 09:00 Aspirin (Aspirin) 81 mg DAILY PO Last administered on 12/31/18 09:02; Admin Dose 81 MG; Start 12/30/18 at 09:00 Heparin Sodium (Porcine) (Heparin (5000 Units/1ml)) 5,000 unit Q8 SC Last administered on 12/30/18 21:39; Admin Dose 5,000 UNIT; Start 12/29/18 at 09:30 Insulin Glargine (Lantus) 20 units QPM SC Last administered on 12/30/18 21:39; Admin Dose 20 UNITS; Start 12/30/18 at 21:00 LIZZIE HAWK MD December 31, 2018 11:11
[2018-12-31] MEDS: HYDROCODONE/APAP (5/325) TAB PO PRN (12:59)
[2018-12-31 16:31] VITALS: BP 144/65; PULSE 82; RESP 18
[2018-12-31 19:30] VITALS: BP 151/68; PULSE 89; RESP 18
[2018-12-31] MEDS: TAMSULOSIN (SR) 0.4 MG CAP PO SCH (21:47)
[2018-12-31] MEDS: INSULIN GLARGINE [LANTus] (100 UNITS/ML) SYG SC SCH (22:11)
[2018-12-31] MEDS: ACETAMINOPHEN 325 MG TAB PO PRN (22:16)
[2019-01-01 01:58] VITALS: BP 120/67; PULSE 60; RESP 18
[2019-01-01] MEDS: ACCU-CHEK XX SCH (02:11)
[2019-01-01] MEDS: LEVOTHYROXINE 175 MCG TAB PO SCH (06:06)
[2019-01-01] MEDS: PANTOPRAZOLE (EC) 40 MG TAB PO SCH (06:06)
[2019-01-01 07:40] VITALS: BP 156/71; PULSE 70; RESP 18
[2019-01-01] MEDS: INSULIN ASPART [NOVOLOG] 3 ML PEN SC SCH ×4 (07:50→20:54)
[2019-01-01] MEDS: ASPIRIN 81 MG TAB PO SCH (08:37)
[2019-01-01] MEDS: SERTRALINE 100 MG TAB PO SCH (08:37)
[2019-01-01] MEDS: AMLODIPINE 10 MG TAB PO SCH (08:38)
[2019-01-01] MEDS: HYDROCODONE/APAP (5/325) TAB PO PRN ×2 (08:38→16:16)
[2019-01-01] MEDS: NICOTINE (21 MG/24 HR) PATCH TRANSDERM SCH (08:39)
[2019-01-01] MEDS: CEFTRIAXONE 1 GM/50 ML (PMX) 50 ML IVPB SCH (08:39)
--- NOTE | 2019-01-01 09:16 | PN ---
DATE: 01/01/2019 SUBJECTIVE: The patient is stable, no events overnight. OBJECTIVE: VITAL SIGNS: Blood pressure is 156/71, respirations 18, pulse 70, temperature 98.2. HEENT: Head is normocephalic. NECK: Supple. HEART: Regular rate. LUNGS: Show diminished breath sounds at the base. ABDOMEN: Soft, nontender to palpation without rebound or guarding. EXTREMITIES: Negative for clubbing, cyanosis, no edema. DERMATOLOGIC: No rashes. MUSCULOSKELETAL: No joint effusion. NEUROLOGIC: No change in exam. MEDICATIONS: Reviewed. LABORATORY DATA: Reviewed. ASSESSMENT AND PLAN: 1. Nonoliguric acute kidney injury on top of chronic kidney disease with unknown baseline creatinine . Etiology of acute kidney injury is secondary to hemodynamics. The patient's renal function has be en fluctuating, but overall improving. At this point, continue current treatment plan, supportive ca re, renally dose all medications. 2. Hyperkalemia. Etiology is secondary to acute kidney injury, metabolic acidosis. The patient is status post bicarbonate drip. Continue to monitor. Continue low-potassium diet. 3. Metabolic acidosis, resolved. We will discontinue bicarbonate tablets. 4. Mineral bone disorder. Monitor calcium and phosphorus levels. 5. Anemia. The patient had a drop in hemoglobin and hematocrit levels. We will repeat a hemoglobin level and monitor. Transfuse as needed. 6. Hypomagnesemia. Continue to monitor and replete. 7. Acute right femoral fracture. The patient is status post arthroplasty. Continue to monitor. Co ntinue physical therapy. 8. Leukocytosis likely resolved. Continue to monitor. 9. Chronic obstructive pulmonary disease. Continue medical management. 10. Hypertension. Continue current blood pressure regimen. Dictated By: SHIN COHEN DO NR/NTS Conf#: [id number] DID#: [id number] CC: SHIN COHEN DO; BRITTANY CASSIDY MD; LIZZIE HAWK MD;*End*
[2019-01-01 14:30] VITALS: BP 127/56; PULSE 84; RESP 18
--- NOTE | 2019-01-01 18:16 | PN ---
Date/Time of Note Date/Time of Note DATE: 01/01/19 TIME: 18:14 Assessment/Plan VTE Prophylaxis Risk score (from Nsg)>0 risk: 5 SCD applied (from Nsg): Yes SCD contraindicated: low risk/ambulating Pharmacological prophylaxis: LMWH Lines/Catheters IV Catheter Type (from Nrsg): Peripheral IV Urinary Cath still in place: No Assessment/Plan Hospital Course Assessment and plan 1. Right hip fracture status post ORIF stable, treat pain 2. Debility transfer to SNF versus home versus ARU 3. DJD? 4. Chronic kidney disease stage III/ IV based on GFR stable, observe 5. Anemia likely of chronic disease stable observe 6. Dm II 7. Essential hypertension 8. Tobacco abuse status post counseling offered patch 9. Emphysema COPD 10. Hypothyroidism 11. Mechanical fall 12. History of intermittent dizzy spells? Subjective: Events noted Objective: Vital signs stable Physical exam No pallor adenopathy carotid bruits JVD Regular no murmur rub gallop Clear Benign No edema; hip intact Result Diagram: 01/01/19 0853 01/01/19 0423 Results 24hrs Laboratory Tests Test 12/31/18 21:45 01/01/19 02:09 01/01/19 04:23 01/01/19 08:36 Bedside Glucose 276 H 187 102 White Blood Count 8.6 Red Blood Count 2.62 L Hemoglobin 6.7 *L Hematocrit 20.6 L Mean Corpuscular Volume 78.6 L Mean Corpuscular 25.6 L Hemoglobin Mean Corpuscular 32.5 Hemoglobin Concent Red Cell Distribution 14.3 Width Platelet Count 330 Mean Platelet Volume 11.1 H Immature Granulocytes % 0.800 H Neutrophils % 68.7 Lymphocytes % 13.6 L Monocytes % 12.8 H Eosinophils % 3.6 Basophils % 0.5 Nucleated Red Blood 0.0 Cells % Immature Granulocytes # 0.070 H Neutrophils # 5.9 Lymphocytes # 1.2 Monocytes # 1.1 H Eosinophils # 0.3 Basophils # 0.0 Nucleated Red Blood 0.0 Cells # Sodium Level 135 Potassium Level 4.0 Chloride Level 104 Carbon Dioxide Level 25 Anion Gap 6 Blood Urea Nitrogen 58 H Creatinine 2.26 H Glucose Level 122 # Calcium Level 8.0 L Phosphorus Level 4.1 Albumin 2.8 L Test 01/01/19 08:53 01/01/19 12:50 01/01/19 17:53 Hemoglobin 7.3 L Hematocrit 22.7 L Bedside Glucose 228 H 141 Exam/Review of Systems Exam Vitals Vital Signs Date Temp Pulse Resp B/P (MAP) Pulse Ox O2 O2 Flow FiO2 Time Delivery Rate 01/01/19 98.2 84 18 127/56 90 Room Air 14:30 (79) 01/01/19 2.0 08:00 Intake and Output 12/31/18 12/31/18 01/01/19 1515:00 23:00 07:00 IntakeIntake Total 960 ml OutputOutput Total 200 ml BalanceBalance 760 ml Results Results 24hrs Laboratory Tests Test 12/31/18 21:45 01/01/19 02:09 01/01/19 04:23 01/01/19 08:36 Bedside Glucose 276 H 187 102 White Blood Count 8.6 Red Blood Count 2.62 L Hemoglobin 6.7 *L Hematocrit 20.6 L Mean Corpuscular Volume 78.6 L Mean Corpuscular 25.6 L Hemoglobin Mean Corpuscular 32.5 Hemoglobin Concent Red Cell Distribution 14.3 Width Platelet Count 330 Mean Platelet Volume 11.1 H Immature Granulocytes % 0.800 H Neutrophils % 68.7 Lymphocytes % 13.6 L Monocytes % 12.8 H Eosinophils % 3.6 Basophils % 0.5 Nucleated Red Blood 0.0 Cells % Immature Granulocytes # 0.070 H Neutrophils # 5.9 Lymphocytes # 1.2 Monocytes # 1.1 H Eosinophils # 0.3 Basophils # 0.0 Nucleated Red Blood 0.0 Cells # Sodium Level 135 Potassium Level 4.0 Chloride Level 104 Carbon Dioxide Level 25 Anion Gap 6 Blood Urea Nitrogen 58 H Creatinine 2.26 H Glucose Level 122 # Calcium Level 8.0 L Phosphorus Level 4.1 Albumin 2.8 L Test 01/01/19 08:53 01/01/19 12:50 01/01/19 17:53 Hemoglobin 7.3 L Hematocrit 22.7 L Bedside Glucose 228 H 141 Medications Medication Current Medications IV Flush (NS 3 ml) 3 ml PER PROTOCOL IV ; Start 12/26/18 at 00:00 Acetaminophen (Tylenol Tab) 650 mg Q6H PRN PO .PAIN 1-3 OR TEMP Last administered on 12/31/18at 22:16; Admin Dose 650 MG; Start 12/26/18 at 00:00 Acetaminophen/ Hydrocodone Bitart ([place] (5/325)) 1 tab Q6H PRN PO .MOD PAIN 4- 6 Last administered on 01/01/19 16:16; Admin Dose 1 TAB; Start 12/26/18 at 00:00 Morphine Sulfate (morphine) 2 mg Q4H PRN IV .SEVERE PAIN 7-10 Last administered on 12/27/18 03:29; Admin Dose 2 MG; Start 12/26/18 at 00:00 Docusate Sodium (Colace) 100 mg Q12H PRN PO .CONSTIPATION Last administered on 01/01/19 06:06; Admin Dose 100 MG; Start 12/26/18 at 00:00 Bisacodyl (Dulcolax) 5 mg DAILY PRN PO .CONSTIPATION; Start 12/26/18 at 00:00 Amlodipine Besylate (Norvasc) 10 mg DAILY PO Last administered on 01/01/19 08:38; Admin Dose 10 MG; Start 12/26/18 at 09:00 Levothyroxine Sodium (Synthroid) 175 mcg BEFORE BREAKFAST PO Last administered on 01/01/19 06:06; Admin Dose 175 MCG; Start 12/26/18 at 07:00 Sertraline HCl (Zoloft) 100 mg DAILY PO Last administered on 01/01/19 08:37; Admin Dose 100 MG; Start 12/26/18 at 09:00 Pantoprazole (Protonix Tab) 40 mg DAILY@06 PO Last administered on 01/01/19 06:06; Admin Dose 40 MG; Start 12/26/18 at 06:00 Diagnostic Test (Pha) (Accu-Chek) 1 ea 02 XX Last administered on 01/01/19 02:11; Admin Dose 1 EA; Start 12/26/18 at 02:00 Insulin Aspart (Novolog Insulin Pen) NOVOLOG *MILD* ALGORITHM WITH MEALS BEDTIME SC Last administered on 01/01/19 12:53; Admin Dose 3 UNIT; Start 12/26/18 at 07:50 Miscellaneous Information 1 ea NOTE XX ; Start 12/26/18 at 02:30 Glucose (Glutose) 15 gm Q15M PRN PO DECREASED GLUCOSE; Start 12/26/18 at 02:30 Glucose (Glutose) 22.5 gm Q15M PRN PO DECREASED GLUCOSE; Start 12/26/18 at 02:30 Dextrose (D50w Syringe) 25 ml Q15M PRN IV DECREASED GLUCOSE; Start 12/26/18 at 02:30 Dextrose (D50w Syringe) 50 ml Q15M PRN IV DECREASED GLUCOSE; Start 12/26/18 at 02:30 Glucagon (Glucagen) 1 mg Q15M PRN IM DECREASED GLUCOSE; Start 12/26/18 at 02:30 Glucose (Glutose) 15 gm Q15M PRN BUCCAL DECREASED GLUCOSE; Start 12/26/18 at 02:30 Levalbuterol (Xopenex Neb) 1.25 mg Q4H RESP THERAPY PRN HHN SHORTNESS OF BREATH; Start 12/26/18 at 05:30 Nicotine (Nicoderm 21 Mg/ 24hr) 1 patch DAILY TRANSDERM Last administered on 01/01/19 08:39; Admin Dose 1 PATCH; Start 12/26/18 at 09:00 Nicotine Polacrilex (Nicorette) 2 mg Q2H PRN BUCCAL CONTROL WITHDRAWAL SYMPTOMS Last administered on 12/26/18 08:11; Admin Dose 2 MG; Start 12/26/18 at 06:30 Ceftriaxone Sodium 50 ml @ 100 mls/hr Q24H IVPB Last administered on 01/01/19 08:39; Admin Dose 100 MLS/HR; Start 12/26/18 at 07:30 Ondansetron HCl (Zofran Inj) 4 mg Q4H PRN IV NAUSEA AND/OR VOMITING Last administered on 12/29/18 09:26; Admin Dose 4 MG; Start 12/26/18 at 11:30 Hydralazine HCl (Apresoline) 10 mg Q4H PRN IV SBP >170 Last administered on 12/28/18 02:25; Admin Dose 10 MG; Start 12/26/18 at 16:30 Hydralazine HCl (Apresoline) 50 mg QID PO Last administered on 01/01/19 17:52; Admin Dose 50 MG; Start 12/28/18 at 09:00 Aspirin (Aspirin) 81 mg DAILY PO Last administered on 01/01/19 08:37; Admin Dose 81 MG; Start 12/30/18 at 09:00 Heparin Sodium (Porcine) (Heparin (5000 Units/1ml)) 5,000 unit Q8 SC Last ad ministered on 12/30/18 21:39; Admin Dose 5,000 UNIT; Start 12/29/18 at 09:30; Status Hold Tamsulosin HCl (Flomax) 0.4 mg HS PO Last administered on 12/31/18 21:47; Admin Dose 0.4 MG; Start 12/31/18 at 21:00 Insulin Glargine (Lantus) 25 units QPM SC Last administered on 12/31/18 22:11; Admin Dose 25 UNITS; Start 12/31/18 at 21:00 ELIZABETH LEMON MD January 01, 2019 18:16
--- NOTE | 2019-01-01 18:34 | CONS ---
Consult Date/Type/Reason Admit Date/Time Dec 25, 2018 at 23:37 Initial Consult Date 12/26/18 Type of Consultation: cv Requesting Provider: LIZZIE HAWK MD Date/Time of Note DATE: 01/01/19 TIME: 18:33 Subjective Cardiology follow-up progress note Subjective: Discussed with the staff and Patient denies any left-sided chest pain or pressure to me. He denies any PND orthopnea or shortness of breath to me no active bleeding is reported Objective: General: no acute distress HEENT: NC/AT. pupils are equal. round. NECK: NO JVD. no stridor. CV: RRR. systolic murmur; no gallop or rubs. PULM: no wheezing or rhonchi. GI: SOFT, NT, ND, no rebound or guarding Extremity: trace B/L LE edema. no clubbing. neuro: Sleeping comfortably Psych: calm and pleasant rectal: deferred EKG was personally reviewed which are normal sinus rhythm no specific ST abnormality in the vertical conduction the Echocardiogram was personally reviewed which shows: Normal left ventricular systolic function. Normal left ventricular cavity size. Mild concentric left ventricular hypertrophy. Ejection fraction is visually estimated at 65-70 %. Tissue Doppler/Mitral Doppler indices are consistent with impaired relaxation (Stage I diastolic dysfunction). Upper limit of normal left atrial size. Mitral valve leaflets appear mildly thickened. Mild mitral annular calcification. Trace mitral regurgitation. Normal appearance of the aortic valve. No significant aortic stenosis or insufficiency. Normal appearance of the tricuspid valve. Estimated peak PA systolic pressure 41 mmHg. There is mild tricuspid regurgitation. Normal size and normal respiratory collapse consistent with normal right atrial pressure. CT of the chest done in the emergency room shows: Emphysema and changes of probable upper lobe bronchiolitis, less prominent than on the prior study. No large area of consolidation. No pleural effusions. Pelvic x-ray shows:Acute intertrochanteric fracture of the right femur, again identified. Objective Vitals Vital Signs Date Temp Pulse Resp B/P (MAP) Pulse Ox O2 O2 Flow FiO2 Time Delivery Rate 01/01/19 98.2 84 18 127/56 90 Room Air 14:30 (79) 01/01/19 2.0 08:00 Intake and Output 12/31/18 12/31/18 01/01/19 1515:00 23:00 07:00 IntakeIntake Total 960 ml OutputOutput Total 200 ml BalanceBalance 760 ml Results/Medications Result Diagram: 01/01/19 0853 01/01/19 0423 Results 24 hrs Laboratory Tests Test 12/31/18 21:45 01/01/19 02:09 01/01/19 04:23 01/01/19 08:36 Bedside Glucose 276 H 187 102 White Blood Count 8.6 Red Blood Count 2.62 L Hemoglobin 6.7 *L Hematocrit 20.6 L Mean Corpuscular Volume 78.6 L Mean Corpuscular 25.6 L Hemoglobin Mean Corpuscular 32.5 Hemoglobin Concent Red Cell Distribution 14.3 Width Platelet Count 330 Mean Platelet Volume 11.1 H Immature Granulocytes % 0.800 H Neutrophils % 68.7 Lymphocytes % 13.6 L Monocytes % 12.8 H Eosinophils % 3.6 Basophils % 0.5 Nucleated Red Blood 0.0 Cells % Immature Granulocytes # 0.070 H Neutrophils # 5.9 Lymphocytes # 1.2 Monocytes # 1.1 H Eosinophils # 0.3 Basophils # 0.0 Nucleated Red Blood 0.0 Cells # Sodium Level 135 Potassium Level 4.0 Chloride Level 104 Carbon Dioxide Level 25 Anion Gap 6 Blood Urea Nitrogen 58 H Creatinine 2.26 H Glucose Level 122 # Calcium Level 8.0 L Phosphorus Level 4.1 Albumin 2.8 L Test 01/01/19 08:53 01/01/19 12:50 01/01/19 17:53 Hemoglobin 7.3 L Hematocrit 22.7 L Bedside Glucose 228 H 141 Home Meds Reported Medications Patiromer Calcium Sorbitex (Veltassa) 16.8 Gm Powd.pack, 16.8 GM PO 12/26/18 Insulin Detemir (Levemir) 100 Unit/1 Ml Vial, for 20units at hs 12/26/18 Sitagliptin* (Januvia*) 50 Mg Tablet, 50 MG PO DAILY, #30 TAB 12/26/18 Sertraline Hcl* (Sertraline Hcl*) 100 Mg Tablet, 100 MG PO DAILY, #30 TAB 12/26/18 Glimepiride* (Glimepiride*) 4 Mg Tablet, 4 MG PO WITH BREAKFAST DINNE, TAB 12/26/18 Omeprazole* (Omeprazole*) 40 Mg Capsule.dr, 40 MG PO DAILY, #30 CAP 12/26/18 Levothyroxine Sodium* (Levothyroxine Sodium*) 175 Mcg Tablet, 175 MCG PO BEFORE BREAKFAST, #30 TAB 12/26/18 Aspirin* ([place] Aspirin*) 81 Mg Tab.chew, 81 MG PO DAILY, TAB.CHEW 12/26/18 Amlodipine Besylate* (Amlodipine Besylate*) 10 Mg Tablet, 10 MG PO DAILY, #30 TAB 12/26/18 Medications Current Medications IV Flush (NS 3 ml) 3 ml PER PROTOCOL IV ; Start 12/26/18 at 00:00 Acetaminophen (Tylenol Tab) 650 mg Q6H PRN PO .PAIN 1-3 OR TEMP Last administered on 12/31/18 22:16; Admin Dose 650 MG; Start 12/26/18 at 00:00 Acetaminophen/ Hydrocodone Bitart ([place] (5/325)) 1 tab Q6H PRN PO .MOD PAIN 4- 6 Last administered on 01/01/19 16:16; Admin Dose 1 TAB; Start 12/26/18 at 00:00 Morphine Sulfate (morphine) 2 mg Q4H PRN IV .SEVERE PAIN 7-10 Last administered on 12/27/18 03:29; Admin Dose 2 MG; Start 12/26/18 at 00:00 Bisacodyl (Dulcolax) 5 mg DAILY PRN PO .CONSTIPATION; Start 12/26/18 at 00:00 Amlodipine Besylate (Norvasc) 10 mg DAILY PO Last administered on 01/01/19 08:38; Admin Dose 10 MG; Start 12/26/18 at 09:00 Levothyroxine Sodium (Synthroid) 175 mcg BEFORE BREAKFAST PO Last administered on 01/01/19 06:06; Admin Dose 175 MCG; Start 12/26/18 at 07:00 Sertraline HCl (Zoloft) 100 mg DAILY PO Last administered on 01/01/19 08:37; Admin Dose 100 MG; Start 12/26/18 at 09:00 Diagnostic Test (Pha) (Accu-Chek) 1 ea 02 XX Last administered on 01/01/19 02:11; Admin Dose 1 EA; Start 12/26/18 at 02:00 Insulin Aspart (Novolog Insulin Pen) NOVOLOG *MILD* ALGORITHM WITH MEALS BEDTIME SC Last administered on 01/01/19 12:53; Admin Dose 3 UNIT; Start 12/26/18 at 07:50 Miscellaneous Information 1 ea NOTE XX ; Start 12/26/18 at 02:30 Glucose (Glutose) 15 gm Q15M PRN PO DECREASED GLUCOSE; Start 12/26/18 at 02:30 Glucose (Glutose) 22.5 gm Q15M PRN PO DECREASED GLUCOSE; Start 12/26/18 at 02:30 Dextrose (D50w Syringe) 25 ml Q15M PRN IV DECREASED GLUCOSE; Start 12/26/18 at 02:30 Dextrose (D50w Syringe) 50 ml Q15M PRN IV DECREASED GLUCOSE; Start 12/26/18 at 02:30 Glucose (Glutose) 15 gm Q15M PRN BUCCAL DECREASED GLUCOSE; Start 12/26/18 at 02:30 Levalbuterol (Xopenex Neb) 1.25 mg Q4H RESP THERAPY PRN HHN SHORTNESS OF BREATH; Start 12/26/18 at 05:30 Nicotine (Nicoderm 21 Mg/ 24hr) 1 patch DAILY TRANSDERM Last administered on 01/01/19at 08:39; Admin Dose 1 PATCH; Start 12/26/18 at 09:00 Nicotine Polacrilex (Nicorette) 2 mg Q2H PRN BUCCAL CONTROL WITHDRAWAL SYMPTOMS Last administered on 12/26/18at 08:11; Admin Dose 2 MG; Start 12/26/18 at 06:30 Ondansetron HCl (Zofran Inj) 4 mg Q4H PRN IV NAUSEA AND/OR VOMITING Last administered on 12/29/18at 09:26; Admin Dose 4 MG; Start 12/26/18 at 11:30 Hydralazine HCl (Apresoline) 10 mg Q4H PRN IV SBP >170 Last administered on 12/28/18at 02:25; Admin Dose 10 MG; Start 12/26/18 at 16:30 Hydralazine HCl (Apresoline) 50 mg QID PO Last administered on 01/01/19at 17:52; Admin Dose 50 MG; Start 12/28/18 at 09:00 Heparin Sodium (Porcine) (Heparin (5000 Units/1ml)) 5,000 unit Q8 SC Last administered on 12/30/18at 21:39; Admin Dose 5,000 UNIT; Start 12/29/18 at 09:30; Status Hold Tamsulosin HCl (Flomax) 0.4 mg HS PO Last administered on 12/31/18at 21:47; Admin Dose 0.4 MG; Start 12/31/18 at 21:00 Insulin Glargine (Lantus) 25 units QPM SC Last administered on 12/31/18at 22:11; Admin Dose 25 UNITS; Start 12/31/18 at 21:00 Aspirin (Halfprin) 81 mg DAILY PO ; Start 01/02/19 at 09:00 Famotidine (Pepcid) 20 mg DAILY PO ; Start 01/02/19 at 09:00 Senna/Docusate Sodium (Senokot-S) 2 tab DAILY PO ; Start 01/02/19 at 09:00 Assessment/Plan Hospital Course (Demo Recall) 1. Cardiovascular preop evaluation 2 .Acute intertrochanteric fracture of the right femur,/hip fracture: Now status post surgery 3. Hypertension 4. COPD 5. Chronic kidney disease unclear acute versus chronic 6. Hyperkalemia 7. Anemia 8. Abnormal EKG 9. Smoker 10. Chronic dizziness: But no report of any actual syncope Recommendations: Continue with current cardiac care. Blood pressure remained stable now PT as tolerated transfusion prn postop care and DVT prophylaxis as per internal medicine and surgical team Thank you for this referral I will continue to follow along with you as needed basis now GODFREY TAVERAS MD [facility] GODFREY TAVERAS MD January 01, 2019 18:34
[2019-01-01 19:19] VITALS: BP 155/65; PULSE 74; RESP 18
[2019-01-01] MEDS: TAMSULOSIN (SR) 0.4 MG CAP PO SCH (20:55)
[2019-01-01] MEDS: INSULIN GLARGINE [LANTus] (100 UNITS/ML) SYG SC SCH (20:55)
[2019-01-02 02:02] VITALS: BP 136/60; PULSE 80; RESP 20
[2019-01-02] MEDS: ACCU-CHEK XX SCH (02:08)
[2019-01-02] MEDS: LEVOTHYROXINE 175 MCG TAB PO SCH (06:39)
[2019-01-02] MEDS: INSULIN ASPART [NOVOLOG] 3 ML PEN SC SCH ×4 (07:50→21:23)
[2019-01-02] MEDS: AMLODIPINE 10 MG TAB PO SCH (08:56)
[2019-01-02] MEDS: SERTRALINE 100 MG TAB PO SCH (08:56)
[2019-01-02] MEDS: FAMOTIDINE 20 MG TAB PO SCH (08:56)
[2019-01-02] MEDS: ASPIRIN (EC) 81 MG TAB PO SCH (08:56)
[2019-01-02] MEDS: SENNA/DOCUSATE NA (8.6MG/50MG) TAB PO SCH (08:57)
[2019-01-02] MEDS: NICOTINE (21 MG/24 HR) PATCH TRANSDERM SCH (08:57)
--- NOTE | 2019-01-02 09:00 | PN ---
DATE: 01/02/2019 SUBJECTIVE: The patient is stable. The patient's pain is controlled. No other acute events noted. No hemoptysis, hematemesis or hematochezia. OBJECTIVE: VITAL SIGNS: Blood pressure is 136/60, respirations 20, pulse 80, temperature 98.8. HEENT: Head is normocephalic. NECK: Supple. HEART: Regular rate. LUNGS: Show diminished breath sounds at the base. ABDOMEN: Soft, nontender to palpation without rebound or guarding. EXTREMITIES: Negative for clubbing, cyanosis, no edema. DERMATOLOGIC: No rashes. MUSCULOSKELETAL: No joint effusion. NEUROLOGIC: No change in exam. MEDICATIONS: Reviewed. LABORATORY DATA: Reviewed. ASSESSMENT AND PLAN: 1. Nonoliguric acute kidney injury on top of chronic kidney disease with unknown baseline creatinine . Etiology of acute kidney injury is secondary to hemodynamics. The patient's renal function has be en fluctuating but overall stable. Continue current treatment plans, supportive care, renally dose a ll medications. 2. Hyperkalemia, resolved. Continue to monitor. 3. Metabolic acidosis, resolved. 4. Mineral bone disorder, monitor calcium and phosphorus levels. 5. Anemia, etiology may be secondary to iron deficiency. We will repeat an iron panel. We will giv e the patient a course of Epogen. We will continue to monitor hemoglobin and hematocrit levels, gonzalez sfuse as needed. 6. Hypomagnesemia, improved. Continue to monitor and replete as needed. 7. Acute right femoral fracture. The patient is status post arthroplasty. Continue to monitor. Co ntinue physical therapy. 8. History of chronic obstructive pulmonary disease. Continue medical management. 9. Hypertension. Continue current blood pressure regimen. 10. Leukocytosis, resolved. Dictated By: SHIN COHEN DO NR/NTS Conf#: [id number] DID#: [id number] CC: SHIN COHEN DO; ELIZABETH LEMON MD; BRITTANY CASSIDY MD;*EndCC*
[2019-01-02] MEDS: HYDROCODONE/APAP (5/325) TAB PO PRN (09:02)
[2019-01-02 09:04] VITALS: BP 166/72; RESP 18
--- NOTE | 2019-01-02 09:52 | CONS ---
Consult Date/Type/Reason Admit Date/Time Dec 25, 2018 at 23:37 Initial Consult Date 12/26/18 Type of Consultation: cv Requesting Provider: LIZZIE HAWK MD Date/Time of Note DATE: 01/02/19 TIME: 09:52 Subjective Cardiology follow-up progress note Subjective: Discussed with the staff Patient denies any left-sided chest pain or pressure to me. He denies any PND orthopnea or shortness of breath to me no active bleeding is reported but pt is severely anemic Objective: General: no acute distress HEENT: NC/AT. pupils are equal. round. NECK: NO JVD. no stridor. CV: RRR. systolic murmur; no gallop or rubs. PULM: no wheezing or rhonchi. GI: SOFT, NT, ND, no rebound or guarding Extremity: trace B/L LE edema. no clubbing. neuro: Sleeping comfortably Psych: calm and pleasant rectal: deferred EKG was personally reviewed which are normal sinus rhythm no specific ST abnormality in the vertical conduction the Echocardiogram was personally reviewed which shows: Normal left ventricular systolic function. Normal left ventricular cavity size. Mild concentric left ventricular hypertrophy. Ejection fraction is visually estimated at 65-70 %. Tissue Doppler/Mitral Doppler indices are consistent with impaired relaxation (Stage I diastolic dysfunction). Upper limit of normal left atrial size. Mitral valve leaflets appear mildly thickened. Mild mitral annular calcification. Trace mitral regurgitation. Normal appearance of the aortic valve. No significant aortic stenosis or insufficiency. Normal appearance of the tricuspid valve. Estimated peak PA systolic pressure 41 mmHg. There is mild tricuspid regurgitation. Normal size and normal respiratory collapse consistent with normal right atrial pressure. CT of the chest done in the emergency room shows: Emphysema and changes of probable upper lobe bronchiolitis, less prominent than on the prior study. No large area of consolidation. No pleural effusions. Pelvic x-ray shows:Acute intertrochanteric fracture of the right femur, again identified. Objective Vitals Vital Signs Date Temp Pulse Resp B/P (MAP) Pulse Ox O2 O2 Flow FiO2 Time Delivery Rate 01/02/19 98.6 18 166/72 95 Room Air 09:04 (103) 01/02/19 21 02:35 01/02/19 80 02:02 01/01/19 2.0 08:00 Intake and Output 01/01/19 01/01/19 01/02/19 1414:59 22:59 06:59 IntakeIntake Total 50 ml 120 ml 240 ml OutputOutput Total 200 ml BalanceBalance 50 ml -80 ml 240 ml Results/Medications Result Diagram: 01/02/19 0444 01/02/19 0444 Results 24 hrs Laboratory Tests Test 01/01/19 12:50 01/01/19 17:53 01/01/19 20:51 01/02/19 02:07 Bedside Glucose 228 H 141 224 H 117 Test 01/02/19 04:42 01/02/19 04:44 01/02/19 04:45 01/02/19 08:44 Iron Level 15 L Total Iron Binding Pending Capacity Percent Iron Saturation Pending White Blood Count 8.5 Red Blood Count 2.66 L Hemoglobin 6.7 *L Hematocrit 21.3 L Mean Corpuscular Volume 80.1 L Mean Corpuscular 25.2 L Hemoglobin Mean Corpuscular 31.5 L Hemoglobin Concent Red Cell Distribution 14.2 Width Platelet Count 377 Mean Platelet Volume 10.6 H Immature Granulocytes % 0.700 H Neutrophils % 69.3 Lymphocytes % 12.6 L Monocytes % 13.1 H Eosinophils % 3.8 Basophils % 0.5 Nucleated Red Blood 0.0 Cells % Immature Granulocytes # 0.060 H Neutrophils # 5.9 Lymphocytes # 1.1 Monocytes # 1.1 H Eosinophils # 0.3 Basophils # 0.0 Nucleated Red Blood 0.0 Cells # Sodium Level 137 Potassium Level 4.8 Chloride Level 105 Carbon Dioxide Level 24 Anion Gap 8 Blood Urea Nitrogen 57 H Creatinine 2.23 H Est Glomerular Filtrat 28 L Rate mL/min Glucose Level 63 L Calcium Level 8.3 L Phosphorus Level 4.4 Magnesium Level 1.8 Albumin 2.6 L Thyroid Stimulating 0.594 Hormone (TSH) Bedside Glucose 71 Home Meds Reported Medications Patiromer Calcium Sorbitex (Veltassa) 16.8 Gm Powd.pack, 16.8 GM PO 12/26/18 Insulin Detemir (Levemir) 100 Unit/1 Ml Vial, for 20units at hs 12/26/18 Sitagliptin* (Januvia*) 50 Mg Tablet, 50 MG PO DAILY, #30 TAB 12/26/18 Sertraline Hcl* (Sertraline Hcl*) 100 Mg Tablet, 100 MG PO DAILY, #30 TAB 12/26/18 Glimepiride* (Glimepiride*) 4 Mg Tablet, 4 MG PO WITH BREAKFAST DINNE, TAB 12/26/18 Omeprazole* (Omeprazole*) 40 Mg Capsule.dr, 40 MG PO DAILY, #30 CAP 12/26/18 Levothyroxine Sodium* (Levothyroxine Sodium*) 175 Mcg Tablet, 175 MCG PO BEFORE BREAKFAST, #30 TAB 12/26/18 Aspirin* ([place] Aspirin*) 81 Mg Tab.chew, 81 MG PO DAILY, TAB.CHEW 12/26/18 Amlodipine Besylate* (Amlodipine Besylate*) 10 Mg Tablet, 10 MG PO DAILY, #30 TAB 12/26/18 Medications Current Medications IV Flush (NS 3 ml) 3 ml PER PROTOCOL IV ; Start 12/26/18 at 00:00 Acetaminophen (Tylenol Tab) 650 mg Q6H PRN PO .PAIN 1-3 OR TEMP Last administered on 12/31/18 22:16; Admin Dose 650 MG; Start 12/26/18 at 00:00 Acetaminophen/ Hydrocodone Bitart ([place] (5/325)) 1 tab Q6H PRN PO .MOD PAIN 4- 6 Last administered on 01/02/19 09:02; Admin Dose 1 TAB; Start 12/26/18 at 00:00 Morphine Sulfate (morphine) 2 mg Q4H PRN IV .SEVERE PAIN 7-10 Last administered on 12/27/18 03:29; Admin Dose 2 MG; Start 12/26/18 at 00:00 Bisacodyl (Dulcolax) 5 mg DAILY PRN PO .CONSTIPATION; Start 12/26/18 at 00:00 Amlodipine Besylate (Norvasc) 10 mg DAILY PO Last administered on 01/02/19 08:56; Admin Dose 10 MG; Start 12/26/18 at 09:00 Levothyroxine Sodium (Synthroid) 175 mcg BEFORE BREAKFAST PO Last administered on 01/02/19 06:39; Admin Dose 175 MCG; Start 12/26/18 at 07:00 Sertraline HCl (Zoloft) 100 mg DAILY PO Last administered on 01/02/19 08:56; Admin Dose 100 MG; Start 12/26/18 at 09:00 Diagnostic Test (Pha) (Accu-Chek) ea 02 XX Last administered on 01/02/19 02:08; Admin Dose 1 EA; Start 12/26/18 at 02:00 Insulin Aspart (Novolog Insulin Pen) NOVOLOG *MILD* ALGORITHM WITH MEALS BEDTIME SC Last administered on 01/01/19 20:54; Admin Dose 2 UNIT; Start 12/26/18 at 07:50 Miscellaneous Information 1 ea NOTE XX ; Start 12/26/18 at 02:30 Glucose (Glutose) 15 gm Q15M PRN PO DECREASED GLUCOSE; Start 12/26/18 at 02:30 Glucose (Glutose) 22.5 gm Q15M PRN PO DECREASED GLUCOSE; Start 12/26/18 at 02:30 Dextrose (D50w Syringe) 25 ml Q15M PRN IV DECREASED GLUCOSE; Start 12/26/18 at 02:30 Dextrose (D50w Syringe) 50 ml Q15M PRN IV DECREASED GLUCOSE; Start 12/26/18 at 02:30 Glucose (Glutose) 15 gm Q15M PRN BUCCAL DECREASED GLUCOSE; Start 12/26/18 at 02:30 Levalbuterol (Xopenex Neb) 1.25 mg Q4H RESP THERAPY PRN HHN SHORTNESS OF BREATH; Start 12/26/18 at 05:30 Nicotine (Nicoderm 21 Mg/ 24hr) 1 patch DAILY TRANSDERM Last administered on 01/02/19 08:57; Admin Dose 1 PATCH; Start 12/26/18 at 09:00 Nicotine Polacrilex (Nicorette) 2 mg Q2H PRN BUCCAL CONTROL WITHDRAWAL SYMPTOMS Last administered on 12/26/18 08:11; Admin Dose 2 MG; Start 12/26/18 at 06:30 Ondansetron HCl (Zofran Inj) 4 mg Q4H PRN IV NAUSEA AND/OR VOMITING Last administered on 12/29/18 09:26; Admin Dose 4 MG; Start 12/26/18 at 11:30 Hydralazine HCl (Apresoline) 10 mg Q4H PRN IV SBP >170 Last administered on 12/28/18 02:25; Admin Dose 10 MG; Start 12/26/18 at 16:30 Hydralazine HCl (Apresoline) 50 mg QID PO Last administered on 01/02/19 08:56; Admin Dose 50 MG; Start 12/28/18 at 09:00 Heparin Sodium (Porcine) (Heparin (5000 Units/1ml)) 5,000 unit Q8 SC Last administered on 12/30/18 21:39; Admin Dose 5,000 UNIT; Start 12/29/18 at 09:30; Status Hold Tamsulosin HCl (Flomax) 0.4 mg HS PO Last administered on 01/01/19 20:55; Admin Dose 0.4 MG; Start 12/31/18 at 21:00 Insulin Glargine (Lantus) 25 units QPM SC Last administered on 01/01/19 20:55; Admin Dose 25 UNITS; Start 12/31/18 at 21:00 Aspirin (Halfprin) 81 mg DAILY PO Last administered on 01/02/19 08:56; Admin Dose 81 MG; Start 01/02/19 at 09:00 Famotidine (Pepcid) 20 mg DAILY PO Last administered on 01/02/19 08:56; Admin Dose 20 MG; Start 01/02/19 at 09:00 Senna/Docusate Sodium (Senokot-S) 2 tab DAILY PO Last administered on 01/02/19 08:57; Admin Dose 2 TAB; Start 01/02/19 at 09:00 Epoetin Jose-epbx (RETACRIT(non-esrd)) 10,000 unit ONCE ONCE SC ; Start 01/02/19 at 10:00; Stop 01/02/19 at 10:01 Assessment/Plan Hospital Course (Demo Recall) 1. Cardiovascular preop evaluation 2 .Acute intertrochanteric fracture of the right femur,/hip fracture: Now status post surgery 3. Hypertension 4. COPD 5. Chronic kidney disease unclear acute versus chronic 6. Hyperkalemia 7. Anemia 8. Abnormal EKG 9. Smoker 10. Chronic dizziness: But no report of any actual syncope Recommendations: Continue with current cardiac care. Blood pressure remained stable now PT as tolerated transfusion prn postop care and DVT prophylaxis as per internal medicine and surgical team Thank you for this referral I will continue to follow along with you as needed basis now GODFREY TAVERAS MD [facility] GODFREY TAVERAS MD January 02, 2019 09:52
[2019-01-02] MEDS ORDERED: EPOETIN ALFA-EPBX (NON-ESRD 10,000 UNIT/ML VIAL SC ONE (10:00)
[2019-01-02 15:55] VITALS: BP 122/58; RESP 19
--- NOTE | 2019-01-02 16:08 | DS ---
Date/Time of Note Date/Time of Note DATE: 01/02/19 TIME: 16:05 Discharge Summary Admission/Discharge Info Admit Date/Time Dec 25, 2018 at 23:37 Discharge Date/Time Patient Condition: Stable Consults Dr Neto Aldridge Procedures ORIF Hip Hx of Present Illness Admitted after fall hip fracture Hospital Course Hospitalist coverage/hospital course 1. Right hip fracture status post ORIF stable, treat pain for discharge to ARU continue Lovenox for DVT prophylaxis. 2. Debility transfer to ARU 3. DJD? 4. Chronic kidney disease stage III/ IV based on GFR stable, observe 5. Anemia likely of chronic disease? However today iron looks low. Also check occult stool down the line. 6. Dm II 7. Essential hypertension 8. Tobacco abuse status post counseling offered patch 9. Emphysema COPD 10. Hypothyroidism 11. Mechanical fall 12. H/o intermittent dizzy spells? Nonfocal, no evidence of arrhythmias, or carotid bruits. Doubt symptomatic anemia, but will follow. May check carotids, orthostatics soon S: Events noted O: Vital signs stable PE No pallor carotid bruits JVD Regular no murmur rub gallop Clear Benign No edema; hip intact Home Meds Reported Medications Patiromer Calcium Sorbitex (Veltassa) 16.8 Gm Powd.pack, 16.8 GM PO 12/26/18 Insulin Detemir (Levemir) 100 Unit/1 Ml Vial, for 20units at hs 12/26/18 Sitagliptin* (Januvia*) 50 Mg Tablet, 50 MG PO DAILY, #30 TAB 12/26/18 Sertraline Hcl* (Sertraline Hcl*) 100 Mg Tablet, 100 MG PO DAILY, #30 TAB 12/26/18 Glimepiride* (Glimepiride*) 4 Mg Tablet, 4 MG PO WITH BREAKFAST DINNE, TAB 12/26/18 Omeprazole* (Omeprazole*) 40 Mg Capsule., 40 MG PO DAILY, #30 CAP 12/26/18 Levothyroxine Sodium* (Levothyroxine Sodium*) 175 Mcg Tablet, 175 MCG PO BEFORE BREAKFAST, #30 TAB 12/26/18 Aspirin* ([place] Aspirin*) 81 Mg Tab.chew, 81 MG PO DAILY, TAB.CHEW 12/26/18 Amlodipine Besylate* (Amlodipine Besylate*) 10 Mg Tablet, 10 MG PO DAILY, #30 TAB 12/26/18 Primary Care Provider Care Physician No Primary Time spent on discharge: > 30 minutes Pending Labs Laboratory Tests Test 01/01/19 17:53 01/01/19 20:51 01/02/19 02:07 01/02/19 04:42 Bedside 141 224 117 Glucose mg/dL (70-220) mg/dL (70-220) mg/dL (70-220) Iron Level 15 ug/dl (35-150) Total Iron 182 Binding ug/dl (241-421 Capacity ) Percent Iron 8 % Saturation SAT (22-52) Ferritin 212.0 ng/ml (11.1-26 4.0) Test 01/02/19 04:44 01/02/19 04:45 01/02/19 08:44 01/02/19 13:25 White Blood 8.5 Count 10^3/ul (4.8-10 .8) Red Blood 2.66 Count 10^6/ul (4.70-6 .10) Hemoglobin 6.7 g/dl (14.0-18.0 ) Hematocrit 21.3 % (42.0-52.0) Mean 80.1 Corpuscular fl (82.0-101.0) Volume Mean 25.2 Corpuscular pg (29.0-33.0) Hemoglobin Mean 31.5 Corpuscular g/dl (32.0-37.0 Hemoglobin Conc ) ent Red Cell 14.2 Distribution % (11.5-14.5) Width Platelet Count 377 10^3/UL (140-41 5) Mean Platelet 10.6 Volume fl (7.4-10.4) Immature 0.700 Granulocytes % % (0.001-0.429) Neutrophils % 69.3 % (39.0-77.0) Lymphocytes % 12.6 % (15.0-51.0) Monocytes % 13.1 % (0.0-11.0) Eosinophils % 3.8 % (0.0-7.0) Basophils % 0.5 % (0.0-2.0) Nucleated Red 0.0 Blood Cells % /100WBC (0.0-0. 0) Immature 0.060 Granulocytes # 10^3/ul (0.0-0. 031) Neutrophils # 5.9 10^3/ul (1.6-7. 5) Lymphocytes # 1.1 10^3/ul (0.8-2. 9) Monocytes # 1.1 10^3/ul (0.3-0. 9) Eosinophils # 0.3 10^3/ul (0.0-0. 5) Basophils # 0.0 10^3/ul (0.0-0. 1) Nucleated Red 0.0 Blood Cells # 10^3/ul (0.0-0. 0) Sodium Level 137 mmol/L (135-144 ) Potassium 4.8 Level mmol/L (3.5-5.1 ) Chloride Level 105 mmol/L (97-110) Carbon Dioxide 24 Level mmol/L (21-31) Anion Gap 8 (5-13) Blood Urea 57 mg/dl (7-20) Nitrogen Creatinine 2.23 mg/dl (0.61-1.2 4) Est Glomerular 28 mL/min (>60) Filtrat Rate mL/min Glucose Level 63 mg/dl (70-220) Calcium Level 8.3 mg/dl (8.4-10.2 ) Phosphorus 4.4 Level mg/dl (2.5-4.9) Magnesium 1.8 Level mg/dl (1.7-2.5) Albumin 2.6 g/dl (3.3-4.9) Thyroid 0.594 Stimulating MIU/L (0.465-4 Hormone (TSH) .680) Bedside 71 233 Glucose mg/dL (70-220) mg/dL (70-220) ELIZABETH LEMON MD January 02, 2019 16:08
--- NOTE | 2019-01-02 16:09 | PDOCDIS ---
Discharge Instructions CONDITION [id number] Patient Condition: [id number] Stable HOME CARE INSTRUCTIONS: [id number] Diet Instructions: [id number] RENAL/ CARB CONTROLLED ACTIVITY: [id number] Activity Restrictions: [id number] Slowly Increase Activity Rest between Activity Avoid heavy lifting FOLLOW UP/APPOINTMENTS Follow-up Plan Dr Duque 1wk ELIZABETH LEMON MD January 02, 2019 16:09
[2019-01-02 19:24] VITALS: BP 156/68; PULSE 94; RESP 18
[2019-01-02] MEDS: TAMSULOSIN (SR) 0.4 MG CAP PO SCH (21:21)
[2019-01-02] MEDS: INSULIN GLARGINE [LANTus] (100 UNITS/ML) SYG SC SCH (21:24)
[2019-01-03 01:29] VITALS: BP 163/72; PULSE 88; RESP 18
[2019-01-03] MEDS ORDERED: BISACODYL 10 MG SUPP PR ONE (02:00)
[2019-01-03] MEDS: ACCU-CHEK XX SCH (02:44)
[2019-01-03] MEDS: LEVOTHYROXINE 175 MCG TAB PO SCH (06:32)
[2019-01-03 07:46] VITALS: BP 162/70; PULSE 91; RESP 18
--- NOTE | 2019-01-03 08:34 | PN ---
DATE: 01/03/2019 SUBJECTIVE: The patient is stable, continues to have pain. Working minimally with physical therapy. No other events noted. OBJECTIVE: VITAL SIGNS: Blood pressure is 162/70, pulse 91, respirations 18, temperature 98.1. HEENT: Head is normocephalic. NECK: Supple. HEART: Regular rate. LUNGS: Show diminished breath sounds at the base. ABDOMEN: Soft, nontender to palpation without rebound or guarding. EXTREMITIES: Negative for clubbing, cyanosis, no edema. DERMATOLOGIC: No rashes. MUSCULOSKELETAL: No joint effusion. NEUROLOGIC: No change in exam. MEDICATIONS: The patient's medications have been reviewed. LABORATORY DATA: Reviewed. ASSESSMENT AND PLAN: 1. Nonoliguric acute kidney injury on top of chronic kidney disease with unknown baseline creatinine . Etiology of acute kidney injury is secondary to hemodynamics. Renal function has been fluctuating but appears to be stabilizing between creatinine of 2.2 to 2.7 mg/dL. At this point, continue [facility] treatment plans, supportive care, renally dose all medications. 2. Hyperkalemia, mild. Continue to monitor. Continue low-potassium diet. 3. Metabolic acidosis, resolved. 4. Mineral bone disorder, monitor calcium and phosphorus levels. 5. Anemia with iron deficiency. Continue IV Ferrlecit. The patient is status post Epogen. Monitor hemoglobin and hematocrit levels. 6. Hypomagnesemia, improved. 7. Acute right femoral fracture. The patient is status post arthroplasty. Continue to monitor. Co ntinue physical therapy. 8. History of chronic obstructive pulmonary disease. Continue medical management. 9. Hypertension. The patient's blood pressure remains elevated. Continue current blood pressure re gimen. Continue pain control. Defer any SALVADOR inhibitor or ARB in the setting of hyperkalemia. 10. Leukocytosis, resolved. Dictated By: SHIN COHEN DO NR/NTS Conf#: [id number] DID#: [id number] CC: SHIN COHEN DO; BRITTANY CASSIDY MD; ELIZABETH LEMON MD;*EndCC*
--- NOTE | 2019-01-03 09:02 | CONS ---
Consult Date/Type/Reason Admit Date/Time Dec 25, 2018 at 23:37 Initial Consult Date 12/26/18 Type of Consultation: cv Requesting Provider: LIZZIE HAWK MD Date/Time of Note DATE: 01/03/19 TIME: 09:00 Subjective Cardiology follow-up progress note Subjective: Discussed with the staff and physicians Patient denies any left-sided chest pain or pressure to me. He denies any PND orthopnea or shortness of breath to me no active bleeding is reported Objective: General: no acute distress HEENT: NC/AT. pupils are equal. round. NECK: NO JVD. no stridor. CV: RRR. systolic murmur; no gallop or rubs. PULM: no wheezing or rhonchi. GI: SOFT, NT, ND, no rebound or guarding Extremity: trace B/L LE edema. no clubbing. neuro: Sleeping comfortably Psych: calm and pleasant rectal: deferred EKG was personally reviewed which are normal sinus rhythm no specific ST abnormality in the vertical conduction the Echocardiogram was personally reviewed which shows: Normal left ventricular systolic function. Normal left ventricular cavity size. Mild concentric left ventricular hypertrophy. Ejection fraction is visually estimated at 65-70 %. Tissue Doppler/Mitral Doppler indices are consistent with impaired relaxation (Stage I diastolic dysfunction). Upper limit of normal left atrial size. Mitral valve leaflets appear mildly thickened. Mild mitral annular calcification. Trace mitral regurgitation. Normal appearance of the aortic valve. No significant aortic stenosis or insufficiency. Normal appearance of the tricuspid valve. Estimated peak PA systolic pressure 41 mmHg. There is mild tricuspid regurgitation. Normal size and normal respiratory collapse consistent with normal right atrial pressure. Objective Vitals Vital Signs Date Temp Pulse Resp B/P (MAP) Pulse Ox O2 O2 Flow FiO2 Time Delivery Rate 01/03/19 98.1 91 18 162/70 93 Room Air 07:46 (100) 91 01/02/19 21 02:35 01/01/19 2.0 08:00 Intake and Output 01/02/19 01/02/19 01/03/19 1515:00 23:00 07:00 IntakeIntake Total 440 ml 460 ml BalanceBalance 440 ml 460 ml Results/Medications Result Diagram: 01/03/19 0431 01/03/19 0435 Results 24 hrs Laboratory Tests Test 01/02/19 13:25 01/02/19 17:56 01/02/19 21:18 01/03/19 01:37 Bedside Glucose 233 H 210 215 201 Test 01/03/19 04:31 01/03/19 04:35 01/03/19 08:34 White Blood Count 12.1 #H Red Blood Count 2.87 L Hemoglobin 7.2 L Hematocrit 22.6 L Mean Corpuscular Volume 78.7 L Mean Corpuscular 25.1 L Hemoglobin Mean Corpuscular 31.9 L Hemoglobin Concent Red Cell Distribution 14.2 Width Platelet Count 457 #H Mean Platelet Volume 10.8 H Immature Granulocytes % 1.200 H Neutrophils % 78.1 H Lymphocytes % 9.3 L Monocytes % 9.4 Eosinophils % 1.6 Basophils % 0.4 Nucleated Red Blood 0.0 Cells % Immature Granulocytes # 0.150 H Neutrophils # 9.4 H Lymphocytes # 1.1 Monocytes # 1.1 H Eosinophils # 0.2 Basophils # 0.1 Nucleated Red Blood 0.0 Cells # Sodium Level 137 Potassium Level 5.3 H Chloride Level 105 Carbon Dioxide Level 24 Anion Gap 8 Blood Urea Nitrogen 56 H Creatinine 2.51 H Est Glomerular Filtrat 26 L Rate mL/min Glucose Level 168 # Calcium Level 8.3 L Phosphorus Level 4.5 Magnesium Level 1.8 Bedside Glucose 179 Home Meds Reported Medications Patiromer Calcium Sorbitex (Veltassa) 16.8 Gm Powd.pack, 16.8 GM PO 12/26/18 Insulin Detemir (Levemir) 100 Unit/1 Ml Vial, for 20units at hs 12/26/18 Sertraline Hcl* (Sertraline Hcl*) 100 Mg Tablet, 100 MG PO DAILY, #30 TAB 12/26/18 Glimepiride* (Glimepiride*) 4 Mg Tablet, 4 MG PO WITH BREAKFAST DINNE, TAB 12/26/18 Omeprazole* (Omeprazole*) 40 Mg Capsule.dr, 40 MG PO DAILY, #30 CAP 12/26/18 Levothyroxine Sodium* (Levothyroxine Sodium*) 175 Mcg Tablet, 175 MCG PO BEFORE BREAKFAST, #30 TAB 12/26/18 Aspirin* ([place] Aspirin*) 81 Mg Tab.chew, 81 MG PO DAILY, TAB.CHEW 12/26/18 Amlodipine Besylate* (Amlodipine Besylate*) 10 Mg Tablet, 10 MG PO DAILY, #30 TAB 12/26/18 Discontinued Reported Medications Sitagliptin* (Januvia*) 50 Mg Tablet, 50 MG PO DAILY, #30 TAB 12/26/18 Medications Current Medications IV Flush (NS 3 ml) 3 ml PER PROTOCOL IV ; Start 12/26/18 at 00:00 Acetaminophen (Tylenol Tab) 650 mg Q6H PRN PO .PAIN 1-3 OR TEMP Last administered on 12/31/18 22:16; Admin Dose 650 MG; Start 12/26/18 at 00:00 Acetaminophen/ Hydrocodone Bitart (Organ (5/325)) 1 tab Q6H PRN PO .MOD PAIN 4- 6 Last administered on 01/02/19 09:02; Admin Dose 1 TAB; Start 12/26/18 at 00:00 Morphine Sulfate (morphine) 2 mg Q4H PRN IV .SEVERE PAIN 7-10 Last administered on 12/27/18 03:29; Admin Dose 2 MG; Start 12/26/18 at 00:00 Bisacodyl (Dulcolax) 5 mg DAILY PRN PO .CONSTIPATION Last administered on 01/02/19 21:20; Admin Dose 5 MG; Start 12/26/18 at 00:00 Amlodipine Besylate (Norvasc) 10 mg DAILY PO Last administered on 01/02/19 08:56; Admin Dose 10 MG; Start 12/26/18 at 09:00 Levothyroxine Sodium (Synthroid) 175 mcg BEFORE BREAKFAST PO Last administered on 01/03/19 06:32; Admin Dose 175 MCG; Start 12/26/18 at 07:00 Sertraline HCl (Zoloft) 100 mg DAILY PO Last administered on 01/02/19 08:56; Admin Dose 100 MG; Start 12/26/18 at 09:00 Diagnostic Test (Pha) (Accu-Chek) 1 ea 02 XX Last administered on 01/03/19 02:44; Admin Dose 1 EA; Start 12/26/18 at 02:00 Insulin Aspart (Novolog Insulin Pen) NOVOLOG *MILD* ALGORITHM WITH MEALS BEDTIME SC Last administered on 01/02/19 21:23; Admin Dose 1 UNIT; Start 12/26/18 at 07:50 Miscellaneous Information 1 ea NOTE XX ; Start 12/26/18 at 02:30 Glucose (Glutose) 15 gm Q15M PRN PO DECREASED GLUCOSE; Start 12/26/18 at 02:30 Glucose (Glutose) 22.5 gm Q15M PRN PO DECREASED GLUCOSE; Start 12/26/18 at 02:30 Dextrose (D50w Syringe) 25 ml Q15M PRN IV DECREASED GLUCOSE; Start 12/26/18 at 02:30 Dextrose (D50w Syringe) 50 ml Q15M PRN IV DECREASED GLUCOSE; Start 12/26/18 at 02:30 Glucose (Glutose) 15 gm Q15M PRN BUCCAL DECREASED GLUCOSE; Start 12/26/18 at 02:30 Levalbuterol (Xopenex Neb) 1.25 mg Q4H RESP THERAPY PRN HHN SHORTNESS OF BREATH; Start 12/26/18 at 05:30 Nicotine (Nicoderm 21 Mg/ 24hr) 1 patch DAILY TRANSDERM Last administered on 01/02/19 08:57; Admin Dose 1 PATCH; Start 12/26/18 at 09:00 Nicotine Polacrilex (Nicorette) 2 mg Q2H PRN BUCCAL CONTROL WITHDRAWAL SYMPTOMS Last administered on 12/26/18 08:11; Admin Dose 2 MG; Start 12/26/18 at 06:30 Ondansetron HCl (Zofran Inj) 4 mg Q4H PRN IV NAUSEA AND/OR VOMITING Last administered on 12/29/18 09:26; Admin Dose 4 MG; Start 12/26/18 at 11:30 Hydralazine HCl (Apresoline) 10 mg Q4H PRN IV SBP >170 Last administered on 12/28/18 02:25; Admin Dose 10 MG; Start 12/26/18 at 16:30 Hydralazine HCl (Apresoline) 50 mg QID PO Last administered on 01/02/19 21:20; Admin Dose 50 MG; Start 12/28/18 at 09:00 Heparin Sodium (Porcine) (Heparin (5000 Units/1ml)) 5,000 unit Q8 SC Last administered on 12/30/18 21:39; Admin Dose 5,000 UNIT; Start 12/29/18 at 09:30; Status Hold Tamsulosin HCl (Flomax) 0.4 mg HS PO Last administered on 01/02/19 21:21; Admin Dose 0.4 MG; Start 12/31/18 at 21:00 Insulin Glargine (Lantus) 25 units QPM SC Last administered on 01/02/19at 21:24; Admin Dose 25 UNITS; Start 12/31/18 at 21:00 Aspirin (Halfprin) 81 mg DAILY PO Last administered on 01/02/19 08:56; Admin Dose 81 MG; Start 01/02/19 at 09:00 Famotidine (Pepcid) 20 mg DAILY PO Last administered on 01/02/19 08:56; Admin Dose 20 MG; Start 01/02/19 at 09:00 Senna/Docusate Sodium (Senokot-S) 2 tab DAILY PO Last administered on 01/02/19 08:57; Admin Dose 2 TAB; Start 01/02/19 at 09:00 Assessment/Plan Hospital Course (Demo Recall) 1. Cardiovascular preop evaluation 2 .Acute intertrochanteric fracture of the right femur,/hip fracture: Now status post surgery 3. Hypertension 4. COPD 5. Chronic kidney disease unclear acute versus chronic 6. Hyperkalemia 7. Anemia 8. Abnormal EKG 9. Smoker 10. Chronic dizziness: But no report of any actual syncope Recommendations: Continue with current cardiac care. Blood pressure is elevated. will add coreg PT as tolerated transfusion prn postop care and DVT prophylaxis as per internal medicine and surgical team Thank you for this referral I will continue to follow along with you as needed basis now GODFREY TAVERAS MD [facility] GODFREY TAVERAS MD January 03, 2019 09:02
[2019-01-03] MEDS: INSULIN ASPART [NOVOLOG] 3 ML PEN SC SCH ×4 (09:12→21:57)
[2019-01-03] MEDS: NICOTINE (21 MG/24 HR) PATCH TRANSDERM SCH (09:17)
[2019-01-03] MEDS: ASPIRIN (EC) 81 MG TAB PO SCH (09:17)
[2019-01-03] MEDS: FAMOTIDINE 20 MG TAB PO SCH (09:17)
[2019-01-03] MEDS: SENNA/DOCUSATE NA (8.6MG/50MG) TAB PO SCH (09:17)
[2019-01-03] MEDS: AMLODIPINE 10 MG TAB PO SCH (09:18)
[2019-01-03] MEDS: SERTRALINE 100 MG TAB PO SCH (09:18)
[2019-01-03 10:15] VITALS: BP 143/60
[2019-01-03 13:21] VITALS: BP 128/60; PULSE 80
--- NOTE | 2019-01-03 14:00 | DS ---
Date/Time of Note Date/Time of Note DATE: 01/03/19 TIME: 13:57 Discharge Summary Admission/Discharge Info Admit Date/Time Dec 25, 2018 at 23:37 Discharge Date/Time Patient Condition: Stable Consults Dr Neto Aldridge Procedures ORIF right hip Hx of Present Illness Admitted after fall hip fracture Hospital Course Hospitalist coverage/hospital course 1. Right hip fracture status post ORIF stable, dc to ARU/ SNF vs home w pt; continue Lovenox for DVT prophylaxis. 2. Debility transfer to ARU/ SNF updated daughter Hazel [phone] 3. DJD? 4. Chronic kidney disease stage III/ IV based on GFR stable, observe. Renin 2.5 today. 5. Anemia likely of chronic disease? However today iron looks low. On Epogen. check occult stool down the line. 6. Dm II 7. Essential hypertension 8. Tobacco abuse sp counseling offered patch 9. Emphysema COPD 10. Hypothyroidism 11. Mechanical fall 12. H/o intermittent dizzy spells? Nonfocal, no evidence of arrhythmias, or carotid bruits. Doubt symptomatic anemia, but will follow. May check carotids, orthostatics soon. 13. Hematuria? Reevaluate as an outpatient. Consider urine cytology down the line as he is a smoker. S: Positive BM. Nausea vomiting a little later. No abdominal pain fever. Participated with PT O: Vital signs stable PE No pallor VD Regular m/ r /g Clear Benign No edema; hip intact Home Meds Reported Medications Patiromer Calcium Sorbitex (Veltassa) 16.8 Gm Powd.pack, 16.8 GM PO 12/26/18 Insulin Detemir (Levemir) 100 Unit/1 Ml Vial, for 20units at hs 12/26/18 Sertraline Hcl* (Sertraline Hcl*) 100 Mg Tablet, 100 MG PO DAILY, #30 TAB 12/26/18 Glimepiride* (Glimepiride*) 4 Mg Tablet, 4 MG PO WITH BREAKFAST DINNE, TAB 12/26/18 Omeprazole* (Omeprazole*) 40 Mg Capsule., 40 MG PO DAILY, #30 CAP 12/26/18 Levothyroxine Sodium* (Levothyroxine Sodium*) 175 Mcg Tablet, 175 MCG PO BEFORE BREAKFAST, #30 TAB 12/26/18 Aspirin* ([place] Aspirin*) 81 Mg Tab.chew, 81 MG PO DAILY, TAB.CHEW 12/26/18 Amlodipine Besylate* (Amlodipine Besylate*) 10 Mg Tablet, 10 MG PO DAILY, #30 TAB 12/26/18 Discontinued Reported Medications Sitagliptin* (Januvia*) 50 Mg Tablet, 50 MG PO DAILY, #30 TAB 12/26/18 Follow-up Plan Dr Duque 1wk Primary Care Provider Care Physician No Primary Time spent on discharge: > 30 minutes Pending Labs Laboratory Tests Test 01/02/19 17:56 01/02/19 21:18 01/03/19 01:37 01/03/19 04:31 Bedside 210 215 201 Glucose mg/dL (70-220) mg/dL (70-220) mg/dL (70-220) White Blood 12.1 Count 10^3/ul (4.8-1 0.8) Red Blood 2.87 Count 10^6/ul (4.70- 6.10) Hemoglobin 7.2 g/dl (14.0-18. 0) Hematocrit 22.6 % (42.0-52.0) Mean 78.7 Corpuscular fl (82.0-101.0 Volume ) Mean 25.1 Corpuscular pg (29.0-33.0) Hemoglobin Mean 31.9 Corpuscular g/dl (32.0-37. Hemoglobin Conc 0) ent Red Cell 14.2 Distribution % (11.5-14.5) Width Platelet Count 457 10^3/UL (140-4 15) Mean Platelet 10.8 Volume fl (7.4-10.4) Immature 1.200 Granulocytes % % (0.001-0.429 ) Neutrophils % 78.1 % (39.0-77.0) Lymphocytes % 9.3 % (15.0-51.0) Monocytes % 9.4 % (0.0-11.0) Eosinophils % 1.6 % (0.0-7.0) Basophils % 0.4 % (0.0-2.0) Nucleated Red 0.0 Blood Cells % /100WBC (0.0-0 .0) Immature 0.150 Granulocytes # 10^3/ul (0.0-0 .031) Neutrophils # 9.4 10^3/ul (1.6-7 .5) Lymphocytes # 1.1 10^3/ul (0.8-2 .9) Monocytes # 1.1 10^3/ul (0.3-0 .9) Eosinophils # 0.2 10^3/ul (0.0-0 .5) Basophils # 0.1 10^3/ul (0.0-0 .1) Nucleated Red 0.0 Blood Cells # 10^3/ul (0.0-0 .0) Test 01/03/19 04:35 01/03/19 08:34 01/03/19 12:41 Sodium Level 137 mmol/L (135-144 ) Potassium 5.3 Level mmol/L (3.5-5.1 ) Chloride Level 105 mmol/L (97-110) Carbon Dioxide 24 Level mmol/L (21-31) Anion Gap 8 (5-13) Blood Urea 56 mg/dl (7-20) Nitrogen Creatinine 2.51 mg/dl (0.61-1.2 4) Est Glomerular 26 mL/min (>60) Filtrat Rate mL/min Glucose Level 168 mg/dl (70-220) Calcium Level 8.3 mg/dl (8.4-10.2 ) Phosphorus 4.5 Level mg/dl (2.5-4.9) Magnesium 1.8 Level mg/dl (1.7-2.5) Bedside 179 201 Glucose mg/dL (70-220) mg/dL (70-220) ELIZABETH LEMON MD January 03, 2019 14:00
[2019-01-03 14:23] VITALS: BP 134/60; PULSE 78; RESP 18
--- NOTE | 2019-01-03 16:54 | PN ---
Date/Time of Note Date/Time of Note DATE: 01/03/19 TIME: 16:54 Assessment/Plan Lines/Catheters IV Catheter Type (from Nrsg): Saline Lock Rodriguez in Place (from Nrsg): No Assessment/Plan Chief Complaint/Hosp Course 68-year-old male postop day #6 status post IM nail for right IT fracture. Stable from an orthopedic standpoint. Weight-bear as tolerated Physical therapy, occupational therapy DVT prophylaxis with SCDs while admitted. Subcutaneous heparin 5000 TID for 6 weeks Pain control DC planning Follow-up with me in clinic 2 weeks from surgery. Subjective 24 Hr Interval Summary Patient doing well No acute events overnight Pain is moderately well controlled Exam/Review of Systems Vital Signs Vitals Vital Signs Date Temp Pulse Resp B/P (MAP) Pulse Ox O2 O2 Flow FiO2 Time Delivery Rate 01/03/19 98.5 78 18 134/60 91 Room Air 14:23 (84) 01/02/19 21 02:35 01/01/19 2.0 08:00 Intake and Output 01/02/19 01/02/19 01/03/19 1515:00 23:00 07:00 IntakeIntake Total 440 ml 460 ml BalanceBalance 440 ml 460 ml Exam Free Text/Dictation Right lower extremity: Dressing: clean, dry, and intact, no erythema Sensation intact to light touch in a sural, saphenous, deep peroneal, super ficial peroneal, medial and lateral plantar nerve distribution. Motor is intact, patient able to dorsiflex and plantarflex ankle and extend and flex great toe. Dorsalis Pedis pulse +2, Brisk capillary refill. Compartments are soft. Calves non-tender to palpation bilaterally. Results Result Diagram: 01/03/19 0431 01/03/19 0435 SIVA NGUYEN MD January 03, 2019 16:54
[2019-01-03 21:15] VITALS: BP 150/66; PULSE 84; RESP 18
[2019-01-03] MEDS: TAMSULOSIN (SR) 0.4 MG CAP PO SCH (21:52)
[2019-01-03] MEDS: INSULIN GLARGINE [LANTus] (100 UNITS/ML) SYG SC SCH (21:55)
[2019-01-04] MEDS: ACCU-CHEK XX SCH (02:10)
[2019-01-04 02:30] VITALS: BP 151/66; PULSE 73; RESP 19
[2019-01-04] MEDS: LEVOTHYROXINE 175 MCG TAB PO SCH (06:30)
[2019-01-04 07:56] VITALS: BP 148/68; PULSE 80; RESP 18
--- NOTE | 2019-01-04 08:34 | CONS ---
Consult Date/Type/Reason Admit Date/Time Dec 25, 2018 at 23:37 Initial Consult Date 12/26/18 Type of Consultation: cv Requesting Provider: LIZZIE HAWK MD Date/Time of Note DATE: 01/04/19 TIME: 08:33 Subjective Cardiology follow-up progress note Subjective: Discussed with the staff and physicians Patient denies any left-sided chest pain or pressure to me. He denies any PND orthopnea or shortness of breath to me no active bleeding is reported Objective: General: no acute distress HEENT: NC/AT. pupils are equal. round. NECK: NO JVD. no stridor. CV: RRR. systolic murmur; no gallop or rubs. PULM: no wheezing or rhonchi. GI: SOFT, NT, ND, no rebound or guarding Extremity: trace B/L LE edema. no clubbing. neuro: Sleeping comfortably Psych: calm and pleasant rectal: deferred EKG was personally reviewed which are normal sinus rhythm no specific ST abnormality in the vertical conduction the Echocardiogram was personally reviewed which shows: Normal left ventricular systolic function. Normal left ventricular cavity size. Mild concentric left ventricular hypertrophy. Ejection fraction is visually estimated at 65-70 %. Tissue Doppler/Mitral Doppler indices are consistent with impaired relaxation (Stage I diastolic dysfunction). Upper limit of normal left atrial size. Mitral valve leaflets appear mildly thickened. Mild mitral annular calcification. Trace mitral regurgitation. Normal appearance of the aortic valve. No significant aortic stenosis or insufficiency. Normal appearance of the tricuspid valve. Estimated peak PA systolic pressure 41 mmHg. There is mild tricuspid regurgitation. Normal size and normal respiratory collapse consistent with normal right atrial pressure. Objective Vitals Vital Signs Date Temp Pulse Resp B/P (MAP) Pulse Ox O2 O2 Flow FiO2 Time Delivery Rate 01/04/19 98.0 80 18 148/68 96 Room Air 07:56 (94) 01/02/19 21 02:35 01/01/19 2.0 08:00 Intake and Output 01/03/19 01/03/19 01/04/19 1515:00 23:00 07:00 IntakeIntake Total 200 ml 340 ml 200 ml BalanceBalance 200 ml 340 ml 200 ml Results/Medications Result Diagram: 01/04/19 0433 01/04/19 0433 Results 24 hrs Laboratory Tests Test 01/03/19 08:34 01/03/19 12:41 01/03/19 17:47 01/03/19 21:51 Bedside Glucose 179 201 182 185 Test 01/04/19 02:01 01/04/19 02:27 01/04/19 04:33 Bedside Glucose 74 91 White Blood Count 10.6 Red Blood Count 2.74 L Hemoglobin 6.9 *L Hematocrit 22.0 L Mean Corpuscular Volume 80.3 L Mean Corpuscular 25.2 L Hemoglobin Mean Corpuscular 31.4 L Hemoglobin Concent Red Cell Distribution 14.3 Width Platelet Count 483 H Mean Platelet Volume 10.3 Immature Granulocytes % 2.000 H Neutrophils % 67.3 Lymphocytes % 14.9 L Monocytes % 12.3 H Eosinophils % 3.1 Basophils % 0.4 Nucleated Red Blood 0.0 Cells % Immature Granulocytes # 0.210 H Neutrophils # 7.2 Lymphocytes # 1.6 Monocytes # 1.3 H Eosinophils # 0.3 Basophils # 0.0 Nucleated Red Blood 0.0 Cells # Sodium Level 136 Potassium Level 4.8 Chloride Level 103 Carbon Dioxide Level 28 Anion Gap 5 Blood Urea Nitrogen 55 H Creatinine 2.47 H Est Glomerular Filtrat 26 L Rate mL/min Glucose Level 57 #L Calcium Level 8.7 Phosphorus Level 4.6 Magnesium Level 1.8 Home Meds Reported Medications Patiromer Calcium Sorbitex (Veltassa) 16.8 Gm Powd.pack, 16.8 GM PO 12/26/18 Insulin Detemir (Levemir) 100 Unit/1 Ml Vial, for 20units at hs 12/26/18 Sertraline Hcl* (Sertraline Hcl*) 100 Mg Tablet, 100 MG PO DAILY, #30 TAB 12/26/18 Glimepiride* (Glimepiride*) 4 Mg Tablet, 4 MG PO WITH BREAKFAST DINNE, TAB 12/26/18 Omeprazole* (Omeprazole*) 40 Mg Capsule.dr, 40 MG PO DAILY, #30 CAP 12/26/18 Levothyroxine Sodium* (Levothyroxine Sodium*) 175 Mcg Tablet, 175 MCG PO BEFORE BREAKFAST, #30 TAB 12/26/18 Aspirin* ([place] Aspirin*) 81 Mg Tab.chew, 81 MG PO DAILY, TAB.CHEW 12/26/18 Amlodipine Besylate* (Amlodipine Besylate*) 10 Mg Tablet, 10 MG PO DAILY, #30 TAB 12/26/18 Discontinued Reported Medications Sitagliptin* (Januvia*) 50 Mg Tablet, 50 MG PO DAILY, #30 TAB 12/26/18 Medications Current Medications IV Flush (NS 3 ml) 3 ml PER PROTOCOL IV ; Start 12/26/18 at 00:00 Acetaminophen (Tylenol Tab) 650 mg Q6H PRN PO .PAIN 1-3 OR TEMP Last administered on 12/31/18 22:16; Admin Dose 650 MG; Start 12/26/18 at 00:00 Acetaminophen/ Hydrocodone Bitart ([place] (5/325)) 1 tab Q6H PRN PO .MOD PAIN 4- 6 Last administered on 01/02/19 09:02; Admin Dose 1 TAB; Start 12/26/18 at 00:00 Morphine Sulfate (morphine) 2 mg Q4H PRN IV .SEVERE PAIN 7-10 Last administered on 12/27/18 03:29; Admin Dose 2 MG; Start 12/26/18 at 00:00 Bisacodyl (Dulcolax) 5 mg DAILY PRN PO .CONSTIPATION Last administered on 01/02/19 21:20; Admin Dose 5 MG; Start 12/26/18 at 00:00 Amlodipine Besylate (Norvasc) 10 mg DAILY PO Last administered on 01/03/19 09:18; Admin Dose 10 MG; Start 12/26/18 at 09:00 Levothyroxine Sodium (Synthroid) 175 mcg BEFORE BREAKFAST PO Last administered on 01/04/19 06:30; Admin Dose 175 MCG; Start 12/26/18 at 07:00 Sertraline HCl (Zoloft) 100 mg DAILY PO Last administered on 01/03/19 09:18; Admin Dose 100 MG; Start 12/26/18 at 09:00 Diagnostic Test (Pha) (Accu-Chek) 1 ea 02 XX Last administered on 01/04/19 02:10; Admin Dose 1 EA; Start 12/26/18 at 02:00 Insulin Aspart (Novolog Insulin Pen) NOVOLOG *MILD* ALGORITHM WITH MEALS BEDTIME SC Last administered on 01/03/19 21:57; Admin Dose 1 UNIT; Start 12/26/18 at 07:50 Miscellaneous Information 1 ea NOTE XX ; Start 12/26/18 at 02:30 Glucose (Glutose) 15 gm Q15M PRN PO DECREASED GLUCOSE; Start 12/26/18 at 02:30 Glucose (Glutose) 22.5 gm Q15M PRN PO DECREASED GLUCOSE; Start 12/26/18 at 02:30 Dextrose (D50w Syringe) 25 ml Q15M PRN IV DECREASED GLUCOSE; Start 12/26/18 at 02:30 Dextrose (D50w Syringe) 50 ml Q15M PRN IV DECREASED GLUCOSE; Start 12/26/18 at 02:30 Glucose (Glutose) 15 gm Q15M PRN BUCCAL DECREASED GLUCOSE; Start 12/26/18 at 0 2:30 Levalbuterol (Xopenex Neb) 1.25 mg Q4H RESP THERAPY PRN HHN SHORTNESS OF BREATH; Start 12/26/18 at 05:30 Nicotine (Nicoderm 21 Mg/ 24hr) 1 patch DAILY TRANSDERM Last administered on 01/03/19 09:17; Admin Dose 1 PATCH; Start 12/26/18 at 09:00 Nicotine Polacrilex (Nicorette) 2 mg Q2H PRN BUCCAL CONTROL WITHDRAWAL SYMPTOMS Last administered on 12/26/18 08:11; Admin Dose 2 MG; Start 12/26/18 at 06:30 Ondansetron HCl (Zofran Inj) 4 mg Q4H PRN IV NAUSEA AND/OR VOMITING Last administered on 12/29/18 09:26; Admin Dose 4 MG; Start 12/26/18 at 11:30 Hydralazine HCl (Apresoline) 10 mg Q4H PRN IV SBP >170 Last administered on 12/28/18 02:25; Admin Dose 10 MG; Start 12/26/18 at 16:30 Hydralazine HCl (Apresoline) 50 mg QID PO Last administered on 01/03/19 21:52; Admin Dose 50 MG; Start 12/28/18 at 09:00 Heparin Sodium (Porcine) (Heparin (5000 Units/1ml)) 5,000 unit Q8 SC Last administered on 12/30/18 21:39; Admin Dose 5,000 UNIT; Start 12/29/18 at 09:30; Status Hold Tamsulosin HCl (Flomax) 0.4 mg HS PO Last administered on 01/03/19 21:52; Admin Dose 0.4 MG; Start 12/31/18 at 21:00 Insulin Glargine (Lantus) 25 units QPM SC Last administered on 01/03/19at 21:55; Admin Dose 25 UNITS; Start 12/31/18 at 21:00 Famotidine (Pepcid) 20 mg DAILY PO Last administered on 01/03/19 09:17; Admin Dose 20 MG; Start 01/02/19 at 09:00 Senna/Docusate Sodium (Senokot-S) 2 tab DAILY PO Last administered on 01/03/19at 09:17; Admin Dose 2 TAB; Start 01/02/19 at 09:00 Carvedilol (Coreg) 3.125 mg BID PO Last administered on 01/03/19 21:52; Admin Dose 3.125 MG; Start 01/03/19 at 09:30 Aspirin (Halfprin) 81 mg DAILY PO ; Start 01/05/19 at 09:00 Lactobacillus Acidophilus/ Rhamnosus (Culturelle) 1 cap BID PO ; Start 01/04/19 at 09:00 Ferric Sodium Gluconate Complex 125 mg/Sodium Chloride 110 ml @ 110 mls/hr DAILY@1300 IVPB ; Start 01/04/19 at 13:00; Stop 01/08/19 at 13:59 Assessment/Plan Hospital Course (Demo Recall) 1. Cardiovascular preop evaluation 2 .Acute intertrochanteric fracture of the right femur,/hip fracture: Now status post surgery 3. Hypertension 4. COPD 5. Chronic kidney disease unclear acute versus chronic 6. Hyperkalemia 7. Anemia 8. Abnormal EKG 9. Smoker 10. Chronic dizziness: But no report of any actual syncope Recommendations: Continue with current cardiac care. will cont coreg PT as tolerated transfusion prn postop care and DVT prophylaxis as per internal medicine and surgical team Thank you for this referral I will continue to follow along with you as needed basis now GODFREY TAVERAS MD [facility] GODFREY TAVERAS MD January 04, 2019 08:34
--- NOTE | 2019-01-04 08:58 | PN ---
DATE: 01/04/2019 SUBJECTIVE: The patient is stable. No events overnight. The patient's pain is controlled. OBJECTIVE: VITAL SIGNS: Blood pressure is 151/66, respirations 18, pulse 73, temperature 98.9. HEENT: Head is normocephalic. NECK: Supple. HEART: Regular rate. LUNGS: Show diminished breath sounds at the base. ABDOMEN: Soft, nontender to palpation. No rebound or guarding. EXTREMITIES: Negative for clubbing, cyanosis. No edema. DERMATOLOGIC: No rashes. MUSCULOSKELETAL: No joint effusion. NEUROLOGIC: No change in exam. MEDICATIONS: Reviewed. LABORATORY DATA: Reviewed. ASSESSMENT AND PLAN: 1. Nonoliguric acute kidney injury on top of chronic kidney disease with unknown baseline creatinine of 2.2 to 2.7 mg/dL. Etiology is secondary to hemodynamics. Renal function is stabilized. 2. Metabolic acidosis, resolved. 3. Mineral bone disorder. Monitor calcium and phosphorus levels. 4. Anemia with iron deficiency. The patient is status post Epogen. We will start the patient on IV Ferrlecit. Continue to monitor hemoglobin and hematocrit levels. 5. Hypomagnesemia, improved. 6. Acute right femoral fracture status post arthroplasty. Continue physical therapy. 7. History of chronic obstructive pulmonary disease. Continue medical management. 8. Hypertension. Continue current blood pressure regimen. 9. Leukocytosis, resolved. Dictated By: SHIN COHEN DO NR/NTS Conf#: [id number] DID#: [id number] CC: ELIZABETH LEMON MD; BRITTANY CASSIDY MD; SHIN COHEN DO;*EndCC*
[2019-01-04] MEDS: INSULIN ASPART [NOVOLOG] 3 ML PEN SC SCH ×4 (09:00→20:30)
[2019-01-04] MEDS: AMLODIPINE 10 MG TAB PO SCH (09:01)
[2019-01-04] MEDS: FAMOTIDINE 20 MG TAB PO SCH (09:01)
[2019-01-04] MEDS: LACTOBACILLUS RHAMNOSUS CAP PO SCH ×2 (09:01→20:22)
[2019-01-04] MEDS: SENNA/DOCUSATE NA (8.6MG/50MG) TAB PO SCH (09:01)
[2019-01-04] MEDS: NICOTINE (21 MG/24 HR) PATCH TRANSDERM SCH (09:02)
[2019-01-04] MEDS: SERTRALINE 100 MG TAB PO SCH (09:02)
[2019-01-04] MEDS ORDERED: HYDROmorphONE 1 MG/ML SYG IV PRN (11:30)
[2019-01-04] MEDS ORDERED: SENNA/DOCUSATE NA (8.6MG/50MG) TAB PO PRN (11:30)
[2019-01-04] MEDS ORDERED: ACETAMINOPHEN 500 MG TAB PO SCH (11:30)
[2019-01-04] MEDS ORDERED: NA PHOSPHATE/BIPHOS 133 ML ENEMA PR PRN (11:30)
[2019-01-04] MEDS ORDERED: BETHANECHOL 25 MG TAB PO PRN (11:30)
[2019-01-04] MEDS ORDERED: DOCUSATE SODIUM 100 MG CAP PO ONE (11:30)
[2019-01-04] MEDS ORDERED: BISACODYL 10 MG SUPP PR PRN (11:30)
[2019-01-04] MEDS ORDERED: HEPARIN 5,000 UNIT/1 ML VIAL SC SCH (11:30)
[2019-01-04] MEDS ORDERED: oxyCODONE 5 MG TAB PO PRN ×2 (11:30)
[2019-01-04] MEDS ORDERED: ONDANSETRON 4 MG INJ IV PRN (11:30)
[2019-01-04] MEDS ORDERED: NALOXONE (0.4 MG/ML) INJ IV PRN (11:30)
[2019-01-04] MEDS ORDERED: NACL 0.9% 3 ML SYG IV SCH (11:30)
[2019-01-04] MEDS ORDERED: DIPHENHYDRAMINE 50 MG INJ IV PRN (11:30)
[2019-01-04] MEDS ORDERED: DOCUSATE SODIUM 100 MG CAP PO SCH (11:30)
[2019-01-04] MEDS: HEPARIN 5,000 UNIT/1 ML VIAL SC SCH ×2 (11:57→20:31)
[2019-01-04 13:46] VITALS: BP 137/63; PULSE 78; RESP 18
--- NOTE | 2019-01-04 14:11 | DS ---
Date/Time of Note Date/Time of Note DATE: 01/04/19 TIME: 14:10 Discharge Summary Admission/Discharge Info Admit Date/Time Dec 25, 2018 at 23:37 Discharge Date/Time Patient Condition: Stable Hx of Present Illness Admitted after fall hip fracture Hospital Course Hospitalist coverage/hospital course 1. Right hip fracture status post ORIF stable, dc to ARU/ SNF vs home w pt; continue Lovenox for DVT prophylaxis. 2. Debility transfer to ARU. updated daughter Hazel [phone] 3. DJD? 4. Chronic kidney disease stage III/ IV based on GFR stable, observe. Renin 2.5 today. 5. Anemia likely of chronic disease? However today iron looks low. On Epogen. check occult stool down the line. 6. Dm II 7. Essential hypertension 8. Tobacco abuse sp counseling offered patch 9. Emphysema COPD 10. Hypothyroidism 11. Mechanical fall 12. H/o intermittent dizzy spells? Nonfocal, no evidence of arrhythmias, or carotid bruits. Doubt symptomatic anemia, but will follow. May check carotids, orthostatics soon. 13. Hematuria? Reevaluate as an outpatient. Consider urine cytology down the line as he is a smoker. S: 01/03: Positive BM. Nausea vomiting a little later. No abdominal pain fever. Participated with PT 01/04: ADDENDUM: patient to ARU today. O: Vital signs stable PE No pallor VD Regular m/ r /g Clear Benign No edema; hip intact Home Meds Reported Medications Patiromer Calcium Sorbitex ([place]eltassa) 16.8 Gm Powd.pack, 16.8 GM PO 12/26/18 Insulin Detemir (Levemir) 100 Unit/1 Ml Vial, for 20units at hs 12/26/18 Sertraline Hcl* (Sertraline Hcl*) 100 Mg Tablet, 100 MG PO DAILY, #30 TAB 12/26/18 Glimepiride* (Glimepiride*) 4 Mg Tablet, 4 MG PO WITH BREAKFAST DINNE, TAB 12/26/18 Omeprazole* (Omeprazole*) 40 Mg Capsule., 40 MG PO DAILY, #30 CAP 12/26/18 Levothyroxine Sodium* (Levothyroxine Sodium*) 175 Mcg Tablet, 175 MCG PO BEFORE BREAKFAST, #30 TAB 12/26/18 Aspirin* ([place] Aspirin*) 81 Mg Tab.chew, 81 MG PO DAILY, TAB.CHEW 12/26/18 Amlodipine Besylate* (Amlodipine Besylate*) 10 Mg Tablet, 10 MG PO DAILY, #30 TAB 12/26/18 Discontinued Reported Medications Sitagliptin* (Januvia*) 50 Mg Tablet, 50 MG PO DAILY, #30 TAB 12/26/18 Follow-up Plan Dr Duque 1wk Primary Care Provider Care Physician No Primary Time spent on discharge: < 30 minutes Pending Labs Laboratory Tests Test 01/03/19 17:47 01/03/19 21:51 01/04/19 02:01 01/04/19 02:27 Bedside 182 185 74 91 Glucose mg/dL (70-220) mg/dL (70-220) mg/dL (70-220) mg/dL (70-220) Test 01/04/19 04:33 01/04/19 08:55 01/04/19 09:19 01/04/19 09:37 White Blood 10.6 Count 10^3/ul (4.8-10 .8) Red Blood 2.74 Count 10^6/ul (4.70-6 .10) Hemoglobin 6.9 g/dl (14.0-18.0 ) Hematocrit 22.0 % (42.0-52.0) Mean 80.3 Corpuscular fl (82.0-101.0) Volume Mean 25.2 Corpuscular pg (29.0-33.0) Hemoglobin Mean 31.4 Corpuscular g/dl (32.0-37.0 Hemoglobin Conc ) ent Red Cell 14.3 Distribution % (11.5-14.5) Width Platelet Count 483 10^3/UL (140-41 5) Mean Platelet 10.3 Volume fl (7.4-10.4) Immature 2.000 Granulocytes % % (0.001-0.429) Neutrophils % 67.3 % (39.0-77.0) Lymphocytes % 14.9 % (15.0-51.0) Monocytes % 12.3 % (0.0-11.0) Eosinophils % 3.1 % (0.0-7.0) Basophils % 0.4 % (0.0-2.0) Nucleated Red 0.0 Blood Cells % /100WBC (0.0-0. 0) Immature 0.210 Granulocytes # 10^3/ul (0.0-0. 031) Neutrophils # 7.2 10^3/ul (1.6-7. 5) Lymphocytes # 1.6 10^3/ul (0.8-2. 9) Monocytes # 1.3 10^3/ul (0.3-0. 9) Eosinophils # 0.3 10^3/ul (0.0-0. 5) Basophils # 0.0 10^3/ul (0.0-0. 1) Nucleated Red 0.0 Blood Cells # 10^3/ul (0.0-0. 0) Sodium Level 136 mmol/L (135-144 ) Potassium 4.8 Level mmol/L (3.5-5.1 ) Chloride Level 103 mmol/L (97-110) Carbon Dioxide 28 Level mmol/L (21-31) Anion Gap 5 (5-13) Blood Urea 55 mg/dl (7-20) Nitrogen Creatinine 2.47 mg/dl (0.61-1.2 4) Est Glomerular 26 mL/min (>60) Filtrat Rate mL/min Glucose Level 57 mg/dl (70-220) Calcium Level 8.7 mg/dl (8.4-10.2 ) Phosphorus 4.6 Level mg/dl (2.5-4.9) Magnesium 1.8 Level mg/dl (1.7-2.5) Bedside 50 111 167 Glucose mg/dL (70-220) mg/dL (70-220) mg/dL (70-220) Test 01/04/19 12:03 Bedside 224 Glucose mg/dL (70-220) ELIZABETH LEMON MD January 04, 2019 14:11
[2019-01-04] MEDS: SOD FERRIC GLUC COMPLX 125 MG in SOD CHLORIDE 0.9% 100 ML IVPB SCH (14:48)
[2019-01-04 19:57] VITALS: BP 142/68; PULSE 85; RESP 20
[2019-01-04] MEDS: TAMSULOSIN (SR) 0.4 MG CAP PO SCH (20:21)
[2019-01-04] MEDS: INSULIN GLARGINE [LANTus] (100 UNITS/ML) SYG SC SCH (20:29)
[2019-01-04] MEDS ORDERED: MAGNESIUM HYDROXIDE 30ML CUP PO PRN (21:00)
[2019-01-05] MEDS: ACCU-CHEK XX SCH (02:00)
[2019-01-05 02:25] VITALS: BP 140/66; PULSE 80; RESP 20
[2019-01-05] MEDS: PANTOPRAZOLE (EC) 40 MG TAB PO SCH (06:05)
[2019-01-05] MEDS: LEVOTHYROXINE 175 MCG TAB PO SCH (06:05)
[2019-01-05 07:17] VITALS: BP 149/67; PULSE 80; RESP 18
[2019-01-05] MEDS: INSULIN ASPART [NOVOLOG] 3 ML PEN SC SCH ×4 (07:50→21:47)
--- NOTE | 2019-01-05 08:20 | PN ---
DATE: 01/05/2019 SUBJECTIVE: The patient is stable, no events overnight. The patient's pain is controlled. OBJECTIVE: VITAL SIGNS: Blood pressure is 149/67, pulse 80, respiration 18, temperature 97.7. HEENT: Head is normocephalic. NECK: Supple. HEART: Regular rate. LUNGS: Show diminished breath sounds at the base. ABDOMEN: Soft, nontender to palpation without rebound or guarding. EXTREMITIES: Negative for clubbing, cyanosis, no edema. DERMATOLOGIC: No rashes. MUSCULOSKELETAL: No joint effusion. NEUROLOGIC: No change in exam. MEDICATIONS: Have been reviewed. LABORATORY DATA: Has been reviewed. ASSESSMENT AND PLAN: 1. Nonoliguric acute kidney injury on top of chronic kidney disease stage III/IV, with a baseline cr eatinine between 2.2 to 2.7 mg/dL. Etiology of acute kidney injury is secondary to hemodynamics. Re nal function appears to have stabilized. We will continue current treatment plan, supportive care, r enally dose all meds. 2. Metabolic acidosis, resolved. 3. Hyperkalemia, resolved. Continue low-potassium diet. 4. Mineral bone disorder, monitor calcium and phosphorus levels. 5. Anemia with iron deficiency. The patient is completing course of IV Ferrlecit. Monitor hemoglob in and hematocrit levels. Will give Epogen once iron replete. 6. Hypomagnesemia, improved. 7. Acute right femoral fracture, status post arthroplasty. Continue physical therapy. 8. Chronic obstructive pulmonary disease. Continue medical management. 9. Hypertension. Continue current blood pressure regimen. Defer an SALVADOR inhibitor or ARB due to epi sodes of hyperkalemia. Adjust blood pressure medications as needed. 10. Leukocytosis, resolved. Dictated By: SHIN METCALF/RAE Conf#: [id number] DID#: [id number] CC: BRITTANY CASSIDY MD;*End*
[2019-01-05] MEDS: LACTOBACILLUS RHAMNOSUS CAP PO SCH ×2 (08:53→21:30)
[2019-01-05] MEDS: AMLODIPINE 10 MG TAB PO SCH (08:54)
[2019-01-05] MEDS: SENNA/DOCUSATE NA (8.6MG/50MG) TAB PO SCH (08:54)
[2019-01-05] MEDS: FAMOTIDINE 20 MG TAB PO SCH (08:55)
[2019-01-05] MEDS: SERTRALINE 100 MG TAB PO SCH (08:55)
[2019-01-05] MEDS: ASPIRIN (EC) 81 MG TAB PO SCH (08:56)
[2019-01-05] MEDS: NICOTINE (21 MG/24 HR) PATCH TRANSDERM SCH (08:57)
[2019-01-05] MEDS: HEPARIN 5,000 UNIT/1 ML VIAL SC SCH ×2 (09:03→21:47)
--- NOTE | 2019-01-05 09:09 | CONS ---
Consult Date/Type/Reason Admit Date/Time Dec 25, 2018 at 23:37 Initial Consult Date 12/26/18 Type of Consultation: cv Requesting Provider: LIZZIE HAWK MD Date/Time of Note DATE: 01/05/19 TIME: 09:08 Subjective Cardiology follow-up progress note Subjective: Discussed with the staff Patient denies any left-sided chest pain or pressure to me. He denies any PND orthopnea or shortness of breath to me no active bleeding is reported he is awaiting transfer to ARU Objective: General: no acute distress HEENT: NC/AT. pupils are equal. round. NECK: NO JVD. no stridor. CV: RRR. systolic murmur; no gallop or rubs. PULM: no wheezing or rhonchi. GI: SOFT, NT, ND, no rebound or guarding Extremity: trace B/L LE edema. no clubbing. neuro: Sleeping comfortably Psych: calm and pleasant rectal: deferred EKG was personally reviewed which are normal sinus rhythm no specific ST abnormality in the vertical conduction the Echocardiogram was personally reviewed which shows: Normal left ventricular systolic function. Normal left ventricular cavity size. Mild concentric left ventricular hypertrophy. Ejection fraction is visually estimated at 65-70 %. Tissue Doppler/Mitral Doppler indices are consistent with impaired relaxation (Stage I diastolic dysfunction). Upper limit of normal left atrial size. Mitral valve leaflets appear mildly thickened. Mild mitral annular calcification. Trace mitral regurgitation. Normal appearance of the aortic valve. No significant aortic stenosis or insufficiency. Normal appearance of the tricuspid valve. Estimated peak PA systolic pressure 41 mmHg. There is mild tricuspid regurgitation. Normal size and normal respiratory collapse consistent with normal right atrial pressure. Objective Vitals Vital Signs Date Temp Pulse Resp B/P (MAP) Pulse Ox O2 O2 Flow FiO2 Time Delivery Rate 01/05/19 97.7 80 18 149/67 95 07:17 (94) 01/04/19 Room Air 07:56 01/02/19 21 02:35 01/01/19 2.0 08:00 Intake and Output 01/04/19 01/04/19 01/05/19 1414:59 22:59 06:59 IntakeIntake Total 400 ml 510 ml 280 ml OutputOutput Total 350 ml 200 ml BalanceBalance 50 ml 310 ml 280 ml Results/Medications Result Diagram: 01/05/19 0433 01/05/19 0433 Results 24 hrs Laboratory Tests Test 01/04/19 09:19 01/04/19 09:37 01/04/19 12:03 01/04/19 17:48 Bedside Glucose 111 167 224 H 311 H Test 01/04/19 20:19 01/05/19 02:45 01/05/19 04:33 01/05/19 08:52 Bedside Glucose 257 H 103 68 L White Blood Count 13.5 #H Red Blood Count 2.74 L Hemoglobin 6.9 *L Hematocrit 22.1 L Mean Corpuscular 80.7 L Volume Mean Corpuscular 25.2 L Hemoglobin Mean Corpuscular 31.2 L Hemoglobin Concent Red Cell Distribution 14.0 Width Platelet Count 592 #H Mean Platelet Volume 10.3 Immature Granulocytes 3.400 H % Neutrophils % 69.4 Lymphocytes % 12.3 L Monocytes % 11.3 H Eosinophils % 3.0 Basophils % 0.6 Nucleated Red Blood 0.0 Cells % Immature Granulocytes 0.460 H # Neutrophils # 9.4 H Lymphocytes # 1.7 Monocytes # 1.5 H Eosinophils # 0.4 Basophils # 0.1 Nucleated Red Blood 0.0 Cells # Sodium Level 136 Potassium Level 4.7 Chloride Level 103 Carbon Dioxide Level 25 Anion Gap 8 Blood Urea Nitrogen 56 H Creatinine 2.47 H Est Glomerular 26 L Filtrat Rate mL/min Glucose Level 65 L Calcium Level 8.5 Home Meds Reported Medications Patiromer Calcium Sorbitex (Veltassa) 16.8 Gm Powd.pack, 16.8 GM PO 12/26/18 Insulin Detemir (Levemir) 100 Unit/1 Ml Vial, for 20units at hs 12/26/18 Sertraline Hcl* (Sertraline Hcl*) 100 Mg Tablet, 100 MG PO DAILY, #30 TAB 12/26/18 Glimepiride* (Glimepiride*) 4 Mg Tablet, 4 MG PO WITH BREAKFAST DINNE, TAB 12/26/18 Omeprazole* (Omeprazole*) 40 Mg Capsule.dr, 40 MG PO DAILY, #30 CAP 12/26/18 Levothyroxine Sodium* (Levothyroxine Sodium*) 175 Mcg Tablet, 175 MCG PO BEFORE BREAKFAST, #30 TAB 12/26/18 Aspirin* ([place] Aspirin*) 81 Mg Tab.chew, 81 MG PO DAILY, TAB.CHEW 4/30/19 Amlodipine Besylate* (Amlodipine Besylate*) 10 Mg Tablet, 10 MG PO DAILY, #30 TAB 12/26/18 Discontinued Reported Medications Sitagliptin* (Januvia*) 50 Mg Tablet, 50 MG PO DAILY, #30 TAB 12/26/18 Medications Current Medications Acetaminophen (Tylenol Tab) 650 mg Q6H PRN PO .PAIN 1-3 OR TEMP Last administered on 12/31/18 22:16; Admin Dose 650 MG; Start 12/26/18 at 00:00 Acetaminophen/ Hydrocodone Bitart ([place] (5/325)) 1 tab Q6H PRN PO .MOD PAIN 4- 6 Last administered on 01/02/19 09:02; Admin Dose 1 TAB; Start 12/26/18 at 00:00 Morphine Sulfate (morphine) 2 mg Q4H PRN IV .SEVERE PAIN 7-10 Last administered on 12/27/18 03:29; Admin Dose 2 MG; Start 12/26/18 at 00:00 Bisacodyl (Dulcolax) 5 mg DAILY PRN PO .CONSTIPATION Last administered on 01/02/19 21:20; Admin Dose 5 MG; Start 12/26/18 at 00:00 Amlodipine Besylate (Norvasc) 10 mg DAILY PO Last administered on 01/05/19 08 :54; Admin Dose 10 MG; Start 12/26/18 at 09:00 Levothyroxine Sodium (Synthroid) 175 mcg BEFORE BREAKFAST PO Last administered on 01/05/19 06:05; Admin Dose 175 MCG; Start 12/26/18 at 07:00 Sertraline HCl (Zoloft) 100 mg DAILY PO Last administered on 01/05/19 08:55; Admin Dose 100 MG; Start 12/26/18 at 09:00 Diagnostic Test (Pha) (Accu-Chek) 1 ea 02 XX Last administered on 01/04/19 02:10; Admin Dose 1 EA; Start 12/26/18 at 02:00 Insulin Aspart (Novolog Insulin Pen) NOVOLOG *MILD* ALGORITHM WITH MEALS BEDTIME SC Last administered on 01/04/19 20:30; Admin Dose 2 UNIT; Start 12/26/18 at 07:50 Miscellaneous Information 1 ea NOTE XX ; Start 12/26/18 at 02:30 Glucose (Glutose) 15 gm Q15M PRN PO DECREASED GLUCOSE; Start 12/26/18 at 02:30 Glucose (Glutose) 22.5 gm Q15M PRN PO DECREASED GLUCOSE; Start 12/26/18 at 02:30 Dextrose (D50w Syringe) 25 ml Q15M PRN IV DECREASED GLUCOSE; Start 12/26/18 at 02:30 Dextrose (D50w Syringe) 50 ml Q15M PRN IV DECREASED GLUCOSE; Start 12/26/18 at 02:30 Glucose (Glutose) 15 gm Q15M PRN BUCCAL DECREASED GLUCOSE; Start 12/26/18 at 02:30 Levalbuterol (Xopenex Neb) 1.25 mg Q4H RESP THERAPY PRN HHN SHORTNESS OF BREATH; Start 12/26/18 at 05:30 Nicotine (Nicoderm 21 Mg/ 24hr) 1 patch DAILY TRANSDERM Last administered on 01/05/19 08:57; Admin Dose 1 PATCH; Start 12/26/18 at 09:00 Nicotine Polacrilex (Nicorette) 2 mg Q2H PRN BUCCAL CONTROL WITHDRAWAL SYMPTOMS Last administered on 12/26/18 08:11; Admin Dose 2 MG; Start 12/26/18 at 06:30 Ondansetron HCl (Zofran Inj) 4 mg Q4H PRN IV NAUSEA AND/OR VOMITING Last administered on 12/29/18 09:26; Admin Dose 4 MG; Start 12/26/18 at 11:30 Hydralazine HCl (Apresoline) 10 mg Q4H PRN IV SBP >170 Last administered on 12/28/18at 02:25; Admin Dose 10 MG; Start 12/26/18 at 16:30 Hydralazine HCl (Apresoline) 50 mg QID PO Last administered on 01/05/19 08:54; Admin Dose 50 MG; Start 12/28/18 at 09:00 Tamsulosin HCl (Flomax) 0.4 mg HS PO Last administered on 01/04/19 20:21; Admin Dose 0.4 MG; Start 12/31/18 at 21:00 Insulin Glargine (Lantus) 25 units QPM SC Last administered on 01/04/19 20:29; Admin Dose 25 UNITS; Start 12/31/18 at 21:00 Famotidine (Pepcid) 20 mg DAILY PO Last administered on 01/05/19 08:55; Admin Dose 20 MG; Start 01/02/19 at 09:00 Senna/Docusate Sodium (Senokot-S) 2 tab DAILY PO Last administered on 01/05/19 08:54; Admin Dose 2 TAB; Start 01/02/19 at 09:00 Carvedilol (Coreg) 3.125 mg BID PO Last administered on 01/05/19 08:56; Admin Dose 3.125 MG; Start 01/03/19 at 09:30 Aspirin (Halfprin) 81 mg DAILY PO Last administered on 01/05/19 08:56; Admin Dose 81 MG; Start 01/05/19 at 09:00 Lactobacillus Acidophilus/ Rhamnosus (Culturelle) 1 cap BID PO Last administered on 01/05/19 08:53; Admin Dose 1 CAP; Start 01/04/19 at 09:00 Ferric Sodium Gluconate Complex 125 mg/Sodium Chloride 110 ml @ 110 mls/hr DAILY@1300 IVPB Last administered on 01/04/19at 14:48; Admin Dose 110 MLS/HR; Start 01/04/19 at 13:00; Stop 01/08/19 at 13:59 Heparin Sodium (Porcine) (Heparin (5000 Units/1ml)) 5,000 unit BID SC Last administered on 01/05/19 09:03; Admin Dose 5,000 UNIT; Start 01/04/19 at 11:00 Simethicone (Mylicon) 80 mg TID PRN PO .GAS; Start 01/04/19 at 11:30 Senna/Docusate Sodium (Senokot-S) 2 tab BID PRN PO .CONSTIPATION; Start 01/04/19 at 11:30 Magnesium Hydroxide (Milk Of Mag) 30 ml HS PRN PO .CONSTIPATION; Start 01/04/19 at 21:00 Bisacodyl (Dulcolax Supp) [address] .CONSTIPATION; Start 01/04/19 at 11:30 Sodium Biphosphate/ Sodium Phosphate (Fleet Enema) [address] .CONSTIPATION; Start 01/04/19 at 11:30 Diphenhydramine HCl (Benadryl) 25 mg Q4H PRN IV .ITCHING; Start 01/04/19 at 11:30 Naloxone HCl (Narcan) 0.2 mg Q2M PRN IV .RESP RATE; Start 01/04/19 at 11:30 IV Flush (NS 3 ml) 3 ml per protocol IV ; Start 01/04/19 at 11:30 Bethanechol Chloride (Urecholine) 25 mg URINARY CATH D/C PRN PO UNABLE TO VOID; Start 01/04/19 at 11:30 Pantoprazole (Protonix Tab) 40 mg DAILY@06 PO Last administered on 01/05/19at 06:05; Admin Dose 40 MG; Start 01/05/19 at 06:00 Assessment/Plan Hospital Course (Demo Recall) 1. Cardiovascular preop evaluation 2 .Acute intertrochanteric fracture of the right femur,/hip fracture: Now status post surgery 3. Hypertension 4. COPD 5. Chronic kidney disease unclear acute versus chronic 6. Hyperkalemia 7. Anemia 8. Abnormal EKG 9. Smoker 10. Chronic dizziness: But no report of any actual syncope Recommendations: Continue with current cardiac care. will INC coreg 6.25 BID PT as tolerated transfusion prn postop care and DVT prophylaxis as per internal medicine and surgical team awaiting transfer to acute rehab Thank you for this referral I will continue to follow along with you as needed basis now GODFREY TAVERAS MD [facility] GODFREY TAVERAS MD January 05, 2019 09:09
--- NOTE | 2019-01-05 12:29 | DS ---
Date/Time of Note Date/Time of Note DATE: 01/05/19 TIME: 12:28 Discharge Summary Admission/Discharge Info Admit Date/Time Dec 25, 2018 at 23:37 Discharge Date/Time Consults Dr Neto Aldridge Procedures See below Hx of Present Illness Admitted after fall hip fracture Hospital Course Hospitalist coverage/hospital course 1. Right hip fracture status post ORIF stable, dc to ARU/ SNF vs home w pt; continue Lovenox for DVT prophylaxis. 2. Debility transfer to ARU. updated daughter Hazel [phone] 3. DJD? 4. Chronic kidney disease stage III/ IV based on GFR stable, observe. Creatinine 2.47 5. Anemia likely of chronic disease/versus deficiency. On urine/Epogen. check occult stool down the line. 6. Dm II 7. Essential hypertension 8. Tobacco abuse sp counseling offered patch 9. Emphysema COPD 10. Hypothyroidism 11. Mechanical fall 12. H/o intermittent dizzy spells? Nonfocal, no evidence of arrhythmias, or carotid bruits. Doubt symptomatic anemia, but will follow. May check carotids, orthostatics soon. 13. Hematuria? Reevaluate as an outpatient. Consider urine cytology down the line as he is a smoker. 14. History of stomach surgery/ulcers? 20 years ago S: 01/03: Positive BM. Nausea vomiting a little later. No abdominal pain fever. Participated with PT 01/04: ADDENDUM: patient to ARU today. 01/05: No events. O: Vital signs stable PE No pallor VD Regular m/ r /g Clear Benign No edema; hip intact Home Meds Reported Medications Patiromer Calcium Sorbitex (Veltassa) 16.8 Gm Powd.pack, 16.8 GM PO 12/26/18 Insulin Detemir (Levemir) 100 Unit/1 Ml Vial, for 20units at hs 12/26/18 Sertraline Hcl* (Sertraline Hcl*) 100 Mg Tablet, 100 MG PO DAILY, #30 TAB 12/26/18 Glimepiride* (Glimepiride*) 4 Mg Tablet, 4 MG PO WITH BREAKFAST DINNE, TAB 12/26/18 Omeprazole* (Omeprazole*) 40 Mg Capsule., 40 MG PO DAILY, #30 CAP 12/26/18 Levothyroxine Sodium* (Levothyroxine Sodium*) 175 Mcg Tablet, 175 MCG PO BEFORE BREAKFAST, #30 TAB 12/26/18 Aspirin* ([place] Aspirin*) 81 Mg Tab.chew, 81 MG PO DAILY, TAB.CHEW 12/26/18 Amlodipine Besylate* (Amlodipine Besylate*) 10 Mg Tablet, 10 MG PO DAILY, #30 TAB 12/26/18 Discontinued Reported Medications Sitagliptin* (Januvia*) 50 Mg Tablet, 50 MG PO DAILY, #30 TAB 12/26/18 Follow-up Plan Dr Duque 1wk Primary Care Provider Care Physician No Primary Time spent on discharge: < 30 minutes Pending Labs Laboratory Tests Test 01/04/19 17:48 01/04/19 20:19 01/05/19 02:45 01/05/19 04:33 Bedside 311 257 103 Glucose mg/dL (70-220) mg/dL (70-220) mg/dL (70-220) White Blood 13.5 Count 10^3/ul (4.8-1 0.8) Red Blood 2.74 Count 10^6/ul (4.70- 6.10) Hemoglobin 6.9 g/dl (14.0-18. 0) Hematocrit 22.1 % (42.0-52.0) Mean 80.7 Corpuscular fl (82.0-101.0 Volume ) Mean 25.2 Corpuscular pg (29.0-33.0) Hemoglobin Mean 31.2 Corpuscular g/dl (32.0-37. Hemoglobin Conc 0) ent Red Cell 14.0 Distribution % (11.5-14.5) Width Platelet Count 592 10^3/UL (140-4 15) Mean Platelet 10.3 Volume fl (7.4-10.4) Immature 3.400 Granulocytes % % (0.001-0.429 ) Neutrophils % 69.4 % (39.0-77.0) Lymphocytes % 12.3 % (15.0-51.0) Monocytes % 11.3 % (0.0-11.0) Eosinophils % 3.0 % (0.0-7.0) Basophils % 0.6 % (0.0-2.0) Nucleated Red 0.0 Blood Cells % /100WBC (0.0-0 .0) Immature 0.460 Granulocytes # 10^3/ul (0.0-0 .031) Neutrophils # 9.4 10^3/ul (1.6-7 .5) Lymphocytes # 1.7 10^3/ul (0.8-2 .9) Monocytes # 1.5 10^3/ul (0.3-0 .9) Eosinophils # 0.4 10^3/ul (0.0-0 .5) Basophils # 0.1 10^3/ul (0.0-0 .1) Nucleated Red 0.0 Blood Cells # 10^3/ul (0.0-0 .0) Sodium Level 136 mmol/L (135-14 4) Potassium 4.7 Level mmol/L (3.5-5. 1) Chloride Level 103 mmol/L (97-110 ) Carbon Dioxide 25 Level mmol/L (21-31) Anion Gap 8 (5-13) Blood Urea 56 Nitrogen mg/dl (7-20) Creatinine 2.47 mg/dl (0.61-1. 24) Est Glomerular 26 Filtrat mL/min (>60) Rate mL/min Glucose Level 65 mg/dl (70-220) Calcium Level 8.5 mg/dl (8.4-10. 2) Test 01/05/19 08:52 01/05/19 09:33 Bedside 68 91 Glucose mg/dL (70-220) mg/dL (70-220) ELIZABETH LEMON MD January 05, 2019 12:29
[2019-01-05] MEDS: SOD FERRIC GLUC COMPLX 125 MG in SOD CHLORIDE 0.9% 100 ML IVPB SCH (13:26)
[2019-01-05 13:52] VITALS: BP 135/63; PULSE 72; RESP 18
[2019-01-05] MEDS ORDERED: SOD CHLORIDE 0.9% 250 ML IV* ONE (18:14)
[2019-01-05 19:20] VITALS: BP 160/69; PULSE 77; RESP 18
[2019-01-05] MEDS ORDERED: INSULIN GLARGINE [LANTus] (100 UNITS/ML) SYG SC SCH (21:00)
[2019-01-05] MEDS: TAMSULOSIN (SR) 0.4 MG CAP PO SCH (21:30)
[2019-01-06] MEDS: ACCU-CHEK XX SCH (02:00)
[2019-01-06 02:10] VITALS: BP 151/69; PULSE 66; RESP 18
[2019-01-06] MEDS: PANTOPRAZOLE (EC) 40 MG TAB PO SCH (06:34)
[2019-01-06] MEDS: LEVOTHYROXINE 175 MCG TAB PO SCH (06:34)
[2019-01-06 07:26] VITALS: BP 138/72; PULSE 69; RESP 18
[2019-01-06] MEDS: INSULIN ASPART [NOVOLOG] 3 ML PEN SC SCH ×4 (07:50→22:14)
[2019-01-06] MEDS: LACTOBACILLUS RHAMNOSUS CAP PO SCH ×2 (09:47→21:51)
[2019-01-06] MEDS: ASPIRIN (EC) 81 MG TAB PO SCH (09:47)
[2019-01-06] MEDS: NICOTINE (21 MG/24 HR) PATCH TRANSDERM SCH (09:47)
[2019-01-06] MEDS: SENNA/DOCUSATE NA (8.6MG/50MG) TAB PO SCH (09:48)
[2019-01-06] MEDS: SERTRALINE 100 MG TAB PO SCH (09:48)
[2019-01-06] MEDS: AMLODIPINE 10 MG TAB PO SCH (09:49)
[2019-01-06] MEDS: HEPARIN 5,000 UNIT/1 ML VIAL SC SCH ×2 (09:51→22:12)
--- NOTE | 2019-01-06 11:41 | CONS ---
Assessment/Plan Assessment/Plan Hospital Course (Demo Recall) 1. Nonoliguric acute kidney injury on top of chronic kidney disease stage III/IV, with a baseline creatinine between 2.2 to 2.7 mg/dL. Etiology of acute kidney injury is secondary to hemodynamics. Renal function appears to be improving. We will continue current treatment plan, supportive care, renally dose all meds. 2. Metabolic acidosis, resolved. 3. Hyperkalemia, resolved. Continue low-potassium diet. 4. Mineral bone disorder, monitor calcium and phosphorus levels. 5. Anemia with iron deficiency. The patient is completing course of IV Ferrlecit. Monitor hemoglobin and hematocrit levels. Will give Epogen once iron replete. 6. Hypomagnesemia, improved. 7. Acute right femoral fracture, status post arthroplasty. Continue physical therapy. 8. Chronic obstructive pulmonary disease. Continue medical management. 9. Hypertension. Continue current blood pressure regimen. Defer an SALVADOR inhibitor or ARB due to episodes of hyperkalemia. Adjust blood pressure medications as needed. 10. DM with hypoglycemic episode: adjust lantus per PMD Consultation Date/Type/Reason Admit Date/Time Dec 25, 2018 at 23:37 Initial Consult Date 12/26/18 Requesting Provider: LIZZIE HAWK MD Date/Time of Note DATE: 01/06/19 TIME: 11:39 24 HR Interval Summary Free Text/Dictation overnight events noted hypoglycemia this am afebrile adequate urine output d/w rn gen nad cv rrr pulm ctab abd soft, nd, nt +bs ext: no edema Exam/Review of Systems Exam Vitals Vital Signs Date Temp Pulse Resp B/P (MAP) Pulse Ox O2 O2 Flow FiO2 Time Delivery Rate 01/06/19 97.3 69 18 138/72 94 07:26 (94) 01/04/19 Room Air 07:56 Intake and Output 01/05/19 01/05/19 01/06/19 1414:59 22:59 06:59 IntakeIntake Total 100 ml 400 ml OutputOutput Total 400 ml BalanceBalance 100 ml 0 ml Results Result Diagram: 01/06/19 0435 01/06/19 0435 Results 24hrs Laboratory Tests Test 01/05/19 12:29 01/05/19 15:46 01/05/19 17:47 01/05/19 21:37 Bedside Glucose 182 187 240 H Hemoglobin 6.9 *L Hematocrit 21.7 L Test 01/06/19 02:21 01/06/19 04:35 01/06/19 06:04 01/06/19 06:21 Bedside Glucose 110 48 *L 77 White Blood Count 12.0 H Red Blood Count 3.38 #L Hemoglobin 8.8 #L Hematocrit 27.5 #L Mean Corpuscular 81.4 L Volume Mean Corpuscular 26.0 L Hemoglobin Mean Corpuscular 32.0 Hemoglobin Concen t Red Cell 14.4 Distribution Width Platelet Count 608 H Mean Platelet 9.8 Volume Immature 3.600 H Granulocytes % Neutrophils % 65.4 Lymphocytes % 14.8 L Monocytes % 12.6 H Eosinophils % 2.8 Basophils % 0.8 Nucleated Red 0.0 Blood Cells % Immature 0.430 H Granulocytes # Neutrophils # 7.8 H Lymphocytes # 1.8 Monocytes # 1.5 H Eosinophils # 0.3 Basophils # 0.1 Nucleated Red 0.0 Blood Cells # Sodium Level 137 Potassium Level 5.2 H Chloride Level 104 Carbon Dioxide 26 Level Anion Gap 7 Blood Urea 52 H Nitrogen Creatinine 2.43 H Est Glomerular 27 L Filtrat Rate mL/min Glucose Level 50 #*L Calcium Level 8.2 L Test 01/06/19 06:37 01/06/19 06:58 01/06/19 07:19 01/06/19 08:00 Bedside Glucose 107 121 155 Lab Scanned BLOOD TRANSFUSIO Report N Medications Medication Current Medications Acetaminophen (Tylenol Tab) 650 mg Q6H PRN PO .PAIN 1-3 OR TEMP Last administered on 12/31/18 22:16; Admin Dose 650 MG; Start 12/26/18 at 00:00 Acetaminophen/ Hydrocodone Bitart ([place] (5/325)) 1 tab Q6H PRN PO .MOD PAIN 4- 6 Last administered on 01/02/19 09:02; Admin Dose 1 TAB; Start 12/26/18 at 00:00 Morphine Sulfate (morphine) 2 mg Q4H PRN IV .SEVERE PAIN 7-10 Last administered on 12/27/18 03:29; Admin Dose 2 MG; Start 12/26/18 at 00:00 Bisacodyl (Dulcolax) 5 mg DAILY PRN PO .CONSTIPATION Last administered on 01/02/19 21:20; Admin Dose 5 MG; Start 12/26/18 at 00:00 Amlodipine Besylate (Norvasc) 10 mg DAILY PO Last administered on 01/06/19 09:49; Admin Dose 10 MG; Start 12/26/18 at 09:00 Levothyroxine Sodium (Synthroid) 175 mcg BEFORE BREAKFAST PO Last administered on 01/06/19 06:34; Admin Dose 175 MCG; Start 12/26/18 at 07:00 Sertraline HCl (Zoloft) 100 mg DAILY PO Last administered on 01/06/19 09:48; Admin Dose 100 MG; Start 12/26/18 at 09:00 Diagnostic Test (Pha) (Accu-Chek) 1 ea 02 XX Last administered on 01/04/19 02:10; Admin Dose 1 EA; Start 12/26/18 at 02:00 Insulin Aspart (Novolog Insulin Pen) NOVOLOG *MILD* ALGORITHM WITH MEALS BEDTIME SC Last administered on 01/05/19 21:47; Admin Dose 2 UNIT; Start 12/26/18 at 07:50 Miscellaneous Information 1 ea NOTE XX ; Start 12/26/18 at 02:30 Glucose (Glutose) 15 gm Q15M PRN PO DECREASED GLUCOSE; Start 12/26/18 at 02:30 Glucose (Glutose) 22.5 gm Q15M PRN PO DECREASED GLUCOSE Last administered on 01/06/19 06:10; Admin Dose 22.5 GM; Start 12/26/18 at 02:30 Dextrose (D50w Syringe) 25 ml Q15M PRN IV DECREASED GLUCOSE; Start 12/26/18 at 02:30 Dextrose (D50w Syringe) 50 ml Q15M PRN IV DECREASED GLUCOSE; Start 12/26/18 at 02:30 Glucose (Glutose) 15 gm Q15M PRN BUCCAL DECREASED GLUCOSE; Start 12/26/18 at 02:30 Levalbuterol (Xopenex Neb) 1.25 mg Q4H RESP THERAPY PRN HHN SHORTNESS OF BREATH; Start 12/26/18 at 05:30 Nicotine (Nicoderm 21 Mg/ 24hr) 1 patch DAILY TRANSDERM Last administered on 01/06/19 09:47; Admin Dose 1 PATCH; Start 12/26/18 at 09:00 Nicotine Polacrilex (Nicorette) 2 mg Q2H PRN BUCCAL CONTROL WITHDRAWAL SYMPTOMS Last administered on 12/26/18 08:11; Admin Dose 2 MG; Start 12/26/18 at 06:30 Ondansetron HCl (Zofran Inj) 4 mg Q4H PRN IV NAUSEA AND/OR VOMITING Last administered on 12/29/18 09:26; Admin Dose 4 MG; Start 12/26/18 at 11:30 Hydralazine HCl (Apresoline) 10 mg Q4H PRN IV SBP >170 Last administered on 12/28/18 02:25; Admin Dose 10 MG; Start 12/26/18 at 16:30 Hydralazine HCl (Apresoline) 50 mg QID PO Last administered on 01/06/19 09:47; Admin Dose 50 MG; Start 12/28/18 at 09:00 Tamsulosin HCl (Flomax) 0.4 mg HS PO Last administered on 01/05/19 21:30; Admin Dose 0.4 MG; Start 12/31/18 at 21:00 Senna/Docusate Sodium (Senokot-S) 2 tab DAILY PO Last administered on 01/06/19 09:48; Admin Dose 2 TAB; Start 01/02/19 at 09:00 Aspirin (Halfprin) 81 mg DAILY PO Last administered on 01/06/19 09:47; Admin Dose 81 MG; Start 01/05/19 at 09:00 Lactobacillus Acidophilus/ Rhamnosus (Culturelle) 1 cap BID PO Last administered on 01/06/19 09:47; Admin Dose 1 CAP; Start 01/04/19 at 09:00 Ferric Sodium Gluconate Complex 125 mg/Sodium Chloride 110 ml @ 110 mls/hr DAILY@1300 IVPB Last administered on 01/05/19 13:26; Admin Dose 110 MLS/HR; Start 01/04/19 at 13:00; Stop 01/08/19 at 13:59 Heparin Sodium (Porcine) (Heparin (5000 Units/1ml)) 5,000 unit BID SC Last administered on 01/06/19 09:51; Admin Dose 5,000 UNIT; Start 01/04/19 at 11:00 Simethicone (Mylicon) 80 mg TID PRN PO .GAS; Start 01/04/19 at 11:30 Senna/Docusate Sodium (Senokot-S) 2 tab BID PRN PO .CONSTIPATION; Start 01/04/19 at 11:30 Bisacodyl (Dulcolax Supp) 10 mg DAILY PRN NE .CONSTIPATION; Start 01/04/19 at 11:30 Sodium Biphosphate/ Sodium Phosphate (Fleet Enema) 133 ml DAILY PRN NE .CONSTIPATION; Start 01/04/19 at 11:30 Diphenhydramine HCl (Benadryl) 25 mg Q4H PRN IV .ITCHING; Start 01/04/19 at 11:30 Naloxone HCl (Narcan) 0.2 mg Q2M PRN IV .RESP RATE; Start 01/04/19 at 11:30 IV Flush (NS 3 ml) 3 ml per protocol IV ; Start 01/04/19 at 11:30 Bethanechol Chloride (Urecholine) 25 mg URINARY CATH D/C PRN PO UNABLE TO VOID; Start 01/04/19 at 11:30 Pantoprazole (Protonix Tab) 40 mg DAILY@06 PO Last administered on 01/06/19at 06:34; Admin Dose 40 MG; Start 01/05/19 at 06:00 Carvedilol (Coreg) 6.25 mg BID PO Last administered on 01/06/19at 09:00; Admin Dose 6.25 MG; Start 01/05/19 at 21:00 Insulin Glargine (Lantus) 22 units QPM SC Last administered on 01/05/19at 21:45; Admin Dose 22 UNITS; Start 01/05/19 at 21:00 ABHILASH ONEILL MD January 06, 2019 11:41
--- NOTE | 2019-01-06 11:47 | CONS ---
Consult Date/Type/Reason Admit Date/Time Dec 25, 2018 at 23:37 Initial Consult Date 12/26/18 Type of Consultation: cv Requesting Provider: LIZZIE HAWK MD Date/Time of Note DATE: 01/06/19 TIME: 11:47 Subjective Cardiology follow-up progress note Subjective: Discussed with the staff Patient denies any left-sided chest pain or pressure to me. He denies any PND orthopnea or shortness of breath to me no active bleeding is reported he is more active with PT today Objective: General: no acute distress HEENT: NC/AT. pupils are equal. round. NECK: NO JVD. no stridor. CV: RRR. systolic murmur; no gallop or rubs. PULM: no wheezing or rhonchi. GI: SOFT, NT, ND, no rebound or guarding Extremity: trace B/L LE edema. no clubbing. neuro: Sleeping comfortably Psych: calm and pleasant rectal: deferred EKG was personally reviewed which are normal sinus rhythm no specific ST abnormality in the vertical conduction the Echocardiogram was personally reviewed which shows: Normal left ventricular systolic function. Normal left ventricular cavity size. Mild concentric left ventricular hypertrophy. Ejection fraction is visually estimated at 65-70 %. Tissue Doppler/Mitral Doppler indices are consistent with impaired relaxation (Stage I diastolic dysfunction). Upper limit of normal left atrial size. Mitral valve leaflets appear mildly thickened. Mild mitral annular calcification. Trace mitral regurgitation. Normal appearance of the aortic valve. No significant aortic stenosis or insufficiency. Normal appearance of the tricuspid valve. Estimated peak PA systolic pressure 41 mmHg. There is mild tricuspid regurgitation. Normal size and normal respiratory collapse consistent with normal right atrial pressure. Objective Vitals Vital Signs Date Temp Pulse Resp B/P (MAP) Pulse Ox O2 O2 Flow FiO2 Time Delivery Rate 01/06/19 97.3 69 18 138/72 94 07:26 (94) 01/04/19 Room Air 07:56 Intake and Output 01/05/19 01/05/19 01/06/19 1515:00 23:00 07:00 IntakeIntake Total 100 ml 400 ml OutputOutput Total 400 ml BalanceBalance 100 ml 0 ml Results/Medications Result Diagram: 01/06/19 0435 01/06/19 0435 Results 24 hrs Laboratory Tests Test 01/05/19 12:29 01/05/19 15:46 01/05/19 17:47 01/05/19 21:37 Bedside Glucose 182 187 240 H Hemoglobin 6.9 *L Hematocrit 21.7 L Test 01/06/19 02:21 01/06/19 04:35 01/06/19 06:04 01/06/19 06:21 Bedside Glucose 110 48 *L 77 White Blood Count 12.0 H Red Blood Count 3.38 #L Hemoglobin 8.8 #L Hematocrit 27.5 #L Mean Corpuscular 81.4 L Volume Mean Corpuscular 26.0 L Hemoglobin Mean Corpuscular 32.0 Hemoglobin Concen t Red Cell 14.4 Distribution Width Platelet Count 608 H Mean Platelet 9.8 Volume Immature 3.600 H Granulocytes % Neutrophils % 65.4 Lymphocytes % 14.8 L Monocytes % 12.6 H Eosinophils % 2.8 Basophils % 0.8 Nucleated Red 0.0 Blood Cells % Immature 0.430 H Granulocytes # Neutrophils # 7.8 H Lymphocytes # 1.8 Monocytes # 1.5 H Eosinophils # 0.3 Basophils # 0.1 Nucleated Red 0.0 Blood Cells # Sodium Level 137 Potassium Level 5.2 H Chloride Level 104 Carbon Dioxide 26 Level Anion Gap 7 Blood Urea 52 H Nitrogen Creatinine 2.43 H Est Glomerular 27 L Filtrat Rate mL/min Glucose Level 50 #*L Calcium Level 8.2 L Test 01/06/19 06:37 01/06/19 06:58 01/06/19 07:19 01/06/19 08:00 Bedside Glucose 107 121 155 Lab Scanned BLOOD TRANSFUSIO Report N Home Meds Reported Medications Patiromer Calcium Sorbitex (Veltassa) 16.8 Gm Powd.pack, 16.8 GM PO 12/26/18 Insulin Detemir (Levemir) 100 Unit/1 Ml Vial, for 20units at hs 12/26/18 Sertraline Hcl* (Sertraline Hcl*) 100 Mg Tablet, 100 MG PO DAILY, #30 TAB 12/26/18 Glimepiride* (Glimepiride*) 4 Mg Tablet, 4 MG PO WITH BREAKFAST DINNE, TAB 12/26/18 Omeprazole* (Omeprazole*) 40 Mg Capsule.dr, 40 MG PO DAILY, #30 CAP 12/26/18 Levothyroxine Sodium* (Levothyroxine Sodium*) 175 Mcg Tablet, 175 MCG PO BEFORE BREAKFAST, #30 TAB 12/26/18 Aspirin* ([place] Aspirin*) 81 Mg Tab.chew, 81 MG PO DAILY, TAB.CHEW 12/26/18 Amlodipine Besylate* (Amlodipine Besylate*) 10 Mg Tablet, 10 MG PO DAILY, #30 TAB 12/26/18 Discontinued Reported Medications Sitagliptin* (Januvia*) 50 Mg Tablet, 50 MG PO DAILY, #30 TAB 12/26/18 Medications Current Medications Acetaminophen (Tylenol Tab) 650 mg Q6H PRN PO .PAIN 1-3 OR TEMP Last administered on 12/31/18 22:16; Admin Dose 650 MG; Start 12/26/18 at 00:00 Acetaminophen/ Hydrocodone Bitart ([place] (5/325)) 1 tab Q6H PRN PO .MOD PAIN 4- 6 Last administered on 01/02/19 09:02; Admin Dose 1 TAB; Start 12/26/18 at 00:00 Morphine Sulfate (morphine) 2 mg Q4H PRN IV .SEVERE PAIN 7-10 Last administered on 12/27/18 03:29; Admin Dose 2 MG; Start 12/26/18 at 00:00 Bisacodyl (Dulcolax) 5 mg DAILY PRN PO .CONSTIPATION Last administered on 01/02/19 21:20; Admin Dose 5 MG; Start 12/26/18 at 00:00 Amlodipine Besylate (Norvasc) 10 mg DAILY PO Last administered on 01/06/19 09:49; Admin Dose 10 MG; Start 12/26/18 at 09:00 Levothyroxine Sodium (Synthroid) 175 mcg BEFORE BREAKFAST PO Last administered on 01/06/19 06:34; Admin Dose 175 MCG; Start 12/26/18 at 07:00 Sertraline HCl (Zoloft) 100 mg DAILY PO Last administered on 01/06/19 09:48; Admin Dose 100 MG; Start 12/26/18 at 09:00 Diagnostic Test (Pha) (Accu-Chek) 1 ea 02 XX Last administered on 01/04/19 02:10; Admin Dose 1 EA; Start 12/26/18 at 02:00 Insulin Aspart (Novolog Insulin Pen) NOVOLOG *MILD* ALGORITHM WITH MEALS BEDTIME SC Last administered on 01/05/19 21:47; Admin Dose 2 UNIT; Start 12/26/18 at 07:50 Miscellaneous Information 1 ea NOTE XX ; Start 12/26/18 at 02:30 Glucose (Glutose) 15 gm Q15M PRN PO DECREASED GLUCOSE; Start 12/26/18 at 02:30 Glucose (Glutose) 22.5 gm Q15M PRN PO DECREASED GLUCOSE Last administered on 01/06/19 06:10; Admin Dose 22.5 GM; Start 12/26/18 at 02:30 Dextrose (D50w Syringe) 25 ml Q15M PRN IV DECREASED GLUCOSE; Start 12/26/18 at 02:30 Dextrose (D50w Syringe) 50 ml Q15M PRN IV DECREASED GLUCOSE; Start 12/26/18 at 02:30 Glucose (Glutose) 15 gm Q15M PRN BUCCAL DECREASED GLUCOSE; Start 12/26/18 at 02:30 Levalbuterol (Xopenex Neb) 1.25 mg Q4H RESP THERAPY PRN HHN SHORTNESS OF BREATH; Start 12/26/18 at 05:30 Nicotine (Nicoderm 21 Mg/ 24hr) 1 patch DAILY TRANSDERM Last administered on 01/06/19 09:47; Admin Dose 1 PATCH; Start 12/26/18 at 09:00 Nicotine Polacrilex (Nicorette) 2 mg Q2H PRN BUCCAL CONTROL WITHDRAWAL SYMPTOMS Last administered on 12/26/18 08:11; Admin Dose 2 MG; Start 12/26/18 at 06:30 Ondansetron HCl (Zofran Inj) 4 mg Q4H PRN IV NAUSEA AND/OR VOMITING Last administered on 12/29/18 09:26; Admin Dose 4 MG; Start 12/26/18 at 11:30 Hydralazine HCl (Apresoline) 10 mg Q4H PRN IV SBP >170 Last administered on 12/28/18 02:25; Admin Dose 10 MG; Start 12/26/18 at 16:30 Hydralazine HCl (Apresoline) 50 mg QID PO Last administered on 01/06/19 09:47; Admin Dose 50 MG; Start 12/28/18 at 09:00 Tamsulosin HCl (Flomax) 0.4 mg HS PO Last administered on 01/05/19 21:30; Admin Dose 0.4 MG; Start 12/31/18 at 21:00 Senna/Docusate Sodium (Senokot-S) 2 tab DAILY PO Last administered on 01/06/19 09:48; Admin Dose 2 TAB; Start 01/02/19 at 09:00 Aspirin (Halfprin) 81 mg DAILY PO Last administered on 01/06/19 09:47; Admin Dose 81 MG; Start 01/05/19 at 09:00 Lactobacillus Acidophilus/ Rhamnosus (Culturelle) 1 cap BID PO Last administered on 01/06/19 09:47; Admin Dose 1 CAP; Start 01/04/19 at 09:00 Ferric Sodium Gluconate Complex 125 mg/Sodium Chloride 110 ml @ 110 mls/hr DAILY@1300 IVPB Last administered on 01/05/19 13:26; Admin Dose 110 MLS/HR; Start 01/04/19 at 13:00; Stop 01/08/19 at 13:59 Heparin Sodium (Porcine) (Heparin (5000 Units/1ml)) 5,000 unit BID SC Last administered on 01/06/19 09:51; Admin Dose 5,000 UNIT; Start 01/04/19 at 11:00 Simethicone (Mylicon) 80 mg TID PRN PO .GAS; Start 01/04/19 at 11:30 Senna/Docusate Sodium (Senokot-S) 2 tab BID PRN PO .CONSTIPATION; Start 01/04/19 at 11:30 Bisacodyl (Dulcolax Supp) 10 mg DAILY PRN [place] .CONSTIPATION; Start 01/04/19 at 11:30 Sodium Biphosphate/ Sodium Phosphate (Fleet Enema) 133 ml DAILY PRN SD .CONSTIPATION; Start 01/04/19 at 11:30 Diphenhydramine HCl (Benadryl) 25 mg Q4H PRN IV .ITCHING; Start 01/04/19 at 11:30 Naloxone HCl (Narcan) 0.2 mg Q2M PRN IV .RESP RATE; Start 01/04/19 at 11:30 IV Flush (NS 3 ml) 3 ml per protocol IV ; Start 01/04/19 at 11:30 Bethanechol Chloride (Urecholine) 25 mg URINARY CATH D/C PRN PO UNABLE TO VOID; Start 01/04/19 at 11:30 Pantoprazole (Protonix Tab) 40 mg DAILY@06 PO Last administered on 01/06/19at 06:34; Admin Dose 40 MG; Start 01/05/19 at 06:00 Carvedilol (Coreg) 6.25 mg BID PO Last administered on 01/06/19at 09:00; Admin Dose 6.25 MG; Start 01/05/19 at 21:00 Insulin Glargine (Lantus) 22 units QPM SC Last administered on 01/05/19at 21:45; Admin Dose 22 UNITS; Start 01/05/19 at 21:00 Assessment/Plan Hospital Course (Demo Recall) 1. Cardiovascular preop evaluation 2 .Acute intertrochanteric fracture of the right femur,/hip fracture: Now status post surgery 3. Hypertension 4. COPD 5. Chronic kidney disease unclear acute versus chronic 6. Hyperkalemia 7. Anemia 8. Abnormal EKG 9. Smoker 10. Chronic dizziness: But no report of any actual syncope Recommendations: Continue with current cardiac care. will cont coreg 6.25 BID PT as tolerated transfusion prn postop care and DVT prophylaxis as per internal medicine and surgical team awaiting transfer to acute rehab Thank you for this referral I will continue to follow along with you as needed basis now GODFREY TAVERAS MD [facility] GODFREY TAVERAS MD January 06, 2019 11:47
[2019-01-06] MEDS: SOD FERRIC GLUC COMPLX 125 MG in SOD CHLORIDE 0.9% 100 ML IVPB SCH (12:55)
[2019-01-06 14:06] VITALS: BP 120/55; PULSE 67; RESP 18
--- NOTE | 2019-01-06 15:31 | DS ---
Date/Time of Note Date/Time of Note DATE: 01/06/19 TIME: 15:29 Discharge Summary Admission/Discharge Info Admit Date/Time Dec 25, 2018 at 23:37 Discharge Date/Time Patient Condition: Stable Consults Ortho DR Duque Procedures ORIF Hx of Present Illness Admitted after fall hip fracture Hospital Course Hospitalist coverage/hospital course 1. Right hip fracture status post ORIF stable, dc to ARU/ SNF vs home w pt; continue Lovenox for DVT prophylaxis. 2. Debility transfer to ARU. updated daughter [phone] 3. DJD? 4. Chronic kidney disease stage III/ IV based on GFR stable, observe. Creatinine 2.47 5. Anemia likely of chronic disease/versus deficiency. On iron/Epogen. sp 1 prbc tx. check occult stool down the line. 6. Dm II 7. Essential hypertension 8. Tobacco abuse sp counseling offered patch 9. Emphysema COPD 10. Hypothyroidism 11. Mechanical fall 12. H/o intermittent dizzy spells? Nonfocal, no evidence of arrhythmias, or carotid bruits. Doubt symptomatic anemia, but will follow. May check carotids, orthostatics soon. 13. Hematuria? Reevaluate as an outpatient. Consider urine cytology down the line as he is a smoker. 14. History of stomach surgery/ulcers? 20 years ago S: 01/03: Positive BM. Nausea vomiting a little later. No abdominal pain fever. Participated with PT 01/04: ADDENDUM: patient to ARU today. 01/05: No events. 01/06: was unable to go to aru w hb 6.9. Sp 1 unit transfusion. Patient is stable and fit for discharge to ARU. O: Vital signs stable PE No pallor VD Regular m/ r /g Clear Benign No edema; hip intact Home Meds Reported Medications Patiromer Calcium Sorbitex (Veltassa) 16.8 Gm Powd.pack, 16.8 GM PO 12/26/18 Insulin Detemir (Levemir) 100 Unit/1 Ml Vial, for 20units at hs 12/26/18 Sertraline Hcl* (Sertraline Hcl*) 100 Mg Tablet, 100 MG PO DAILY, #30 TAB 12/26/18 Glimepiride* (Glimepiride*) 4 Mg Tablet, 4 MG PO WITH BREAKFAST DINNE, TAB 12/26/18 Omeprazole* (Omeprazole*) 40 Mg Capsule.dr, 40 MG PO DAILY, #30 CAP 12/26/18 Levothyroxine Sodium* (Levothyroxine Sodium*) 175 Mcg Tablet, 175 MCG PO BEFORE BREAKFAST, #30 TAB 12/26/18 Aspirin* ([place] Aspirin*) 81 Mg Tab.chew, 81 MG PO DAILY, TAB.CHEW 12/26/18 Amlodipine Besylate* (Amlodipine Besylate*) 10 Mg Tablet, 10 MG PO DAILY, #30 TAB 12/26/18 Discontinued Reported Medications Sitagliptin* (Januvia*) 50 Mg Tablet, 50 MG PO DAILY, #30 TAB 12/26/18 Follow-up Plan Dr Duque 1wk Primary Care Provider Care Physician No Primary Time spent on discharge: < 30 minutes Pending Labs Laboratory Tests Test 01/05/19 15:46 01/05/19 17:47 01/05/19 21:37 01/06/19 02:21 Hemoglobin 6.9 g/dl (14.0-18.0 ) Hematocrit 21.7 % (42.0-52.0) Bedside 187 240 110 Glucose mg/dL (70-220) mg/dL (70-220) mg/dL (70-220) Test 01/06/19 04:35 01/06/19 06:04 01/06/19 06:21 01/06/19 06:37 White Blood 12.0 Count 10^3/ul (4.8-10 .8) Red Blood 3.38 Count 10^6/ul (4.70-6 .10) Hemoglobin 8.8 g/dl (14.0-18.0 ) Hematocrit 27.5 % (42.0-52.0) Mean 81.4 Corpuscular fl (82.0-101.0) Volume Mean 26.0 Corpuscular pg (29.0-33.0) Hemoglobin Mean 32.0 Corpuscular g/dl (32.0-37.0 Hemoglobin Conc ) ent Red Cell 14.4 Distribution % (11.5-14.5) Width Platelet Count 608 10^3/UL (140-41 5) Mean Platelet 9.8 Volume fl (7.4-10.4) Immature 3.600 Granulocytes % % (0.001-0.429) Neutrophils % 65.4 % (39.0-77.0) Lymphocytes % 14.8 % (15.0-51.0) Monocytes % 12.6 % (0.0-11.0) Eosinophils % 2.8 % (0.0-7.0) Basophils % 0.8 % (0.0-2.0) Nucleated Red 0.0 Blood Cells % /100WBC (0.0-0. 0) Immature 0.430 Granulocytes # 10^3/ul (0.0-0. 031) Neutrophils # 7.8 10^3/ul (1.6-7. 5) Lymphocytes # 1.8 10^3/ul (0.8-2. 9) Monocytes # 1.5 10^3/ul (0.3-0. 9) Eosinophils # 0.3 10^3/ul (0.0-0. 5) Basophils # 0.1 10^3/ul (0.0-0. 1) Nucleated Red 0.0 Blood Cells # 10^3/ul (0.0-0. 0) Sodium Level 137 mmol/L (135-144 ) Potassium 5.2 Level mmol/L (3.5-5.1 ) Chloride Level 104 mmol/L (97-110) Carbon Dioxide 26 Level mmol/L (21-31) Anion Gap 7 (5-13) Blood Urea 52 mg/dl (7-20) Nitrogen Creatinine 2.43 mg/dl (0.61-1.2 4) Est Glomerular 27 mL/min (>60) Filtrat Rate mL/min Glucose Level 50 mg/dl (70-220) Calcium Level 8.2 mg/dl (8.4-10.2 ) Bedside 48 77 107 Glucose mg/dL (70-220) mg/dL (70-220) mg/dL (70-220) Test 01/06/19 06:58 01/06/19 07:19 01/06/19 08:00 01/06/19 12:44 Bedside 121 155 265 Glucose mg/dL (70-220) mg/dL (70-220) mg/dL (70-220) Lab Scanned BLOOD TRANSFUS Report ELIZABETH MATHIS MD January 06, 2019 15:31
[2019-01-06 17:38] VITALS: BP 150/68; PULSE 68; RESP 18
[2019-01-06 20:08] VITALS: BP 140/63; PULSE 66; RESP 20
[2019-01-06] MEDS: TAMSULOSIN (SR) 0.4 MG CAP PO SCH (21:51)
[2019-01-06] MEDS: INSULIN GLARGINE [LANTus] (100 UNITS/ML) SYG SC SCH (22:13)
[2019-01-07] MEDS: ACCU-CHEK XX SCH (02:00)
[2019-01-07 02:28] VITALS: BP 140/62; PULSE 65; RESP 18
[2019-01-07] MEDS: PANTOPRAZOLE (EC) 40 MG TAB PO SCH (06:11)
[2019-01-07] MEDS: LEVOTHYROXINE 175 MCG TAB PO SCH (06:11)
[2019-01-07 07:18] VITALS: BP 163/89; PULSE 77; RESP 16
[2019-01-07] MEDS: INSULIN ASPART [NOVOLOG] 3 ML PEN SC SCH ×4 (08:30→21:38)
[2019-01-07] MEDS: NICOTINE (21 MG/24 HR) PATCH TRANSDERM SCH (09:09)
[2019-01-07] MEDS: SERTRALINE 100 MG TAB PO SCH (09:09)
[2019-01-07] MEDS: ASPIRIN (EC) 81 MG TAB PO SCH (09:10)
[2019-01-07] MEDS: LACTOBACILLUS RHAMNOSUS CAP PO SCH ×2 (09:10→21:25)
[2019-01-07] MEDS: AMLODIPINE 10 MG TAB PO SCH (09:11)
[2019-01-07] MEDS: SENNA/DOCUSATE NA (8.6MG/50MG) TAB PO SCH (09:11)
[2019-01-07] MEDS: HEPARIN 5,000 UNIT/1 ML VIAL SC SCH ×2 (09:12→21:39)
--- NOTE | 2019-01-07 11:20 | CONS ---
Assessment/Plan Assessment/Plan Hospital Course (Demo Recall) 1. Nonoliguric acute kidney injury on top of chronic kidney disease stage III/IV, with a baseline creatinine between 2.2 to 2.7 mg/dL. Etiology of acute kidney injury is secondary to hemodynamics. Renal function appears to be improving. labs pending today. We will continue current treatment plan, supportive care, renally dose all meds. 2. Metabolic acidosis, resolved. 3. Hyperkalemia, resolved. Continue low-potassium diet. 4. Mineral bone disorder, monitor calcium and phosphorus levels. 5. Anemia with iron deficiency. The patient is completing course of IV Ferrlecit. Monitor hemoglobin and hematocrit levels. s/p prbc yesterday 6. Hypomagnesemia, improved. 7. Acute right femoral fracture, status post arthroplasty. Continue physical therapy. 8. Chronic obstructive pulmonary disease. Continue medical management. 9. Hypertension. Continue current blood pressure regimen. Defer an SALVADOR inhibitor or ARB due to episodes of hyperkalemia. Adjust blood pressure medications as needed. 10. DM with hypoglycemic episode: adjust lantus per PMD Consultation Date/Type/Reason Admit Date/Time Dec 25, 2018 at 23:37 Initial Consult Date 12/26/18 Requesting Provider: LIZZIE HAWK MD Date/Time of Note DATE: 01/07/19 TIME: 11:19 24 HR Interval Summary Free Text/Dictation s/p prbc yesterday denies shortness of breath gen nad cv rrr pulm ctab abd soft, nd, nt +bs ext: no edema Exam/Review of Systems Exam Vitals Vital Signs Date Temp Pulse Resp B/P (MAP) Pulse Ox O2 O2 Flow FiO2 Time Delivery Rate 01/07/19 98.3 77 16 163/89 98 Room Air 07:18 (113) 01/07/19 21 03:24 Intake and Output 01/06/19 01/06/19 01/07/19 1515:00 23:00 07:00 IntakeIntake Total 460 ml 240 ml 200 ml OutputOutput Total 200 ml BalanceBalance 460 ml 40 ml 200 ml Results Result Diagram: 01/06/19 0435 01/06/19 0435 Results 24hrs Laboratory Tests Test 01/06/19 12:44 01/06/19 17:48 01/06/19 21:56 01/07/19 02:00 Bedside Glucose 265 H 225 H 324 H 109 Test 01/07/19 08:22 Bedside Glucose 144 Medications Medication Current Medications Acetaminophen (Tylenol Tab) 650 mg Q6H PRN PO .PAIN 1-3 OR TEMP Last administered on 12/31/18 22:16; Admin Dose 650 MG; Start 12/26/18 at 00:00 Acetaminophen/ Hydrocodone Bitart ([place] (5/325)) 1 tab Q6H PRN PO .MOD PAIN 4- 6 Last administered on 01/02/19 09:02; Admin Dose 1 TAB; Start 12/26/18 at 00:00 Morphine Sulfate (morphine) 2 mg Q4H PRN IV .SEVERE PAIN 7-10 Last administered on 12/27/18 03:29; Admin Dose 2 MG; Start 12/26/18 at 00:00 Bisacodyl (Dulcolax) 5 mg DAILY PRN PO .CONSTIPATION Last administered on 01/02/19 21:20; Admin Dose 5 MG; Start 12/26/18 at 00:00 Amlodipine Besylate (Norvasc) 10 mg DAILY PO Last administered on 01/07/19 09:11; Admin Dose 10 MG; Start 12/26/18 at 09:00 Levothyroxine Sodium (Synthroid) 175 mcg BEFORE BREAKFAST PO Last administered on 01/07/19 06:11; Admin Dose 175 MCG; Start 12/26/18 at 07:00 Sertraline HCl (Zoloft) 100 mg DAILY PO Last administered on 01/07/19 09:09; Admin Dose 100 MG; Start 12/26/18 at 09:00 Diagnostic Test (Pha) (Accu-Chek) 1 ea 02 XX Last administered on 01/04/19 02:10; Admin Dose 1 EA; Start 12/26/18 at 02:00 Insulin Aspart (Novolog Insulin Pen) NOVOLOG *MILD* ALGORITHM WITH MEALS BEDTIME SC Last administered on 01/06/19 22:14; Admin Dose 4 UNIT; Start 12/26/18 at 07:50 Miscellaneous Information 1 ea NOTE XX ; Start 12/26/18 at 02:30 Glucose (Glutose) 15 gm Q15M PRN PO DECREASED GLUCOSE; Start 12/26/18 at 02:30 Glucose (Glutose) 22.5 gm Q15M PRN PO DECREASED GLUCOSE Last administered on 01/06/19 06:10; Admin Dose 22.5 GM; Start 12/26/18 at 02:30 Dextrose (D50w Syringe) 25 ml Q15M PRN IV DECREASED GLUCOSE; Start 12/26/18 at 02:30 Dextrose (D50w Syringe) 50 ml Q15M PRN IV DECREASED GLUCOSE; Start 12/26/18 at 02:30 Glucose (Glutose) 15 gm Q15M PRN BUCCAL DECREASED GLUCOSE; Start 12/26/18 at 02:30 Levalbuterol (Xopenex Neb) 1.25 mg Q4H RESP THERAPY PRN HHN SHORTNESS OF BREATH; Start 12/26/18 at 05:30 Nicotine (Nicoderm 21 Mg/ 24hr) 1 patch DAILY TRANSDERM Last administered on 01/07/19 09:09; Admin Dose 1 PATCH; Start 12/26/18 at 09:00 Nicotine Polacrilex (Nicorette) 2 mg Q2H PRN BUCCAL CONTROL WITHDRAWAL SYMPTOMS Last administered on 12/26/18 08:11; Admin Dose 2 MG; Start 12/26/18 at 06:30 Ondansetron HCl (Zofran Inj) 4 mg Q4H PRN IV NAUSEA AND/OR VOMITING Last administered on 12/29/18 09:26; Admin Dose 4 MG; Start 12/26/18 at 11:30 Hydralazine HCl (Apresoline) 10 mg Q4H PRN IV SBP >170 Last administered on 12/28/18 02:25; Admin Dose 10 MG; Start 12/26/18 at 16:30 Hydralazine HCl (Apresoline) 50 mg QID PO Last administered on 01/07/19 09:10; Admin Dose 50 MG; Start 12/28/18 at 09:00 Tamsulosin HCl (Flomax) 0.4 mg HS PO Last administered on 01/06/19 21:51; Admin Dose 0.4 MG; Start 12/31/18 at 21:00 Senna/Docusate Sodium (Senokot-S) 2 tab DAILY PO Last administered on 01/07/19 09:11; Admin Dose 2 TAB; Start 01/02/19 at 09:00 Aspirin (Halfprin) 81 mg DAILY PO Last administered on 01/07/19 09:10; Admin Dose 81 MG; Start 01/05/19 at 09:00 Lactobacillus Acidophilus/ Rhamnosus (Culturelle) 1 cap BID PO Last administered on 01/07/19at 09:10; Admin Dose 1 CAP; Start 01/04/19 at 09:00 Ferric Sodium Gluconate Complex 125 mg/Sodium Chloride 110 ml @ 110 mls/hr VERA LY@1300 IVPB Last administered on 01/06/19at 12:55; Admin Dose 110 MLS/HR; Start 01/04/19 at 13:00; Stop 01/08/19 at 13:59 Heparin Sodium (Porcine) (Heparin (5000 Units/1ml)) 5,000 unit BID SC Last a dministered on 01/07/19at 09:12; Admin Dose 5,000 UNIT; Start 01/04/19 at 11:00 Simethicone (Mylicon) 80 mg TID PRN PO .GAS; Start 01/04/19 at 11:30 Senna/Docusate Sodium (Senokot-S) 2 tab BID PRN PO .CONSTIPATION; Start 01/04/19 at 11:30 Bisacodyl (Dulcolax Supp) 10 mg DAILY PRN [place] .CONSTIPATION; Start 01/04/19 at 11:30 Sodium Biphosphate/ Sodium Phosphate (Fleet Enema) 133 ml DAILY PRN [place] .CONSTI PATION; Start 01/04/19 at 11:30 Diphenhydramine HCl (Benadryl) 25 mg Q4H PRN IV .ITCHING; Start 01/04/19 at 11:30 Naloxone HCl (Narcan) 0.2 mg Q2M PRN IV .RESP RATE; Start 01/04/19 at 11:30 IV Flush (NS 3 ml) 3 ml per protocol IV ; Start 01/04/19 at 11:30 Bethanechol Chloride (Urecholine) 25 mg URINARY CATH D/C PRN PO UNABLE TO VOID; Start 01/04/19 at 11:30 Pantoprazole (Protonix Tab) 40 mg DAILY@06 PO Last administered on 01/07/19at 06:11; Admin Dose 40 MG; Start 01/05/19 at 06:00 Carvedilol (Coreg) 6.25 mg BID PO Last administered on 01/07/19at 09:10; Admin Dose 6.25 MG; Start 01/05/19 at 21:00 Insulin Glargine (Lantus) 10 units QPM SC Last administered on 01/06/19at 22:13; Admin Dose 10 UNITS; Start 01/06/19 at 21:00 ABHILASH ONEILL MD January 07, 2019 11:20
--- NOTE | 2019-01-07 12:36 | CONS ---
Consult Date/Type/Reason Admit Date/Time Dec 25, 2018 at 23:37 Initial Consult Date 12/26/18 Type of Consultation: cv Requesting Provider: LIZZIE HAWK MD Date/Time of Note DATE: 01/07/19 TIME: 12:35 Subjective Cardiology follow-up progress note Subjective: Discussed with the staff d/w family at bedside Patient denies any left-sided chest pain or pressure to me. He denies any PND orthopnea or shortness of breath to me no active bleeding is reported he is more active with PT Awaiting transfer to rehab Objective: General: no acute distress HEENT: NC/AT. pupils are equal. round. NECK: NO JVD. no stridor. CV: RRR. systolic murmur; no gallop or rubs. PULM: no wheezing or rhonchi. GI: SOFT, NT, ND, no rebound or guarding Extremity: trace B/L LE edema. no clubbing. neuro: Awake and alert responds appropriately Psych: calm and pleasant rectal: deferred EKG was personally reviewed which are normal sinus rhythm no specific ST abnormality in the vertical conduction the Echocardiogram was personally reviewed which shows: Normal left ventricular systolic function. Normal left ventricular cavity size. Mild concentric left ventricular hypertrophy. Ejection fraction is visually estimated at 65-70 %. Tissue Doppler/Mitral Doppler indices are consistent with impaired relaxation (Stage I diastolic dysfunction). Upper limit of normal left atrial size. Mitral valve leaflets appear mildly thickened. Mild mitral annular calcification. Trace mitral regurgitation. Normal appearance of the aortic valve. No significant aortic stenosis or insufficiency. Normal appearance of the tricuspid valve. Estimated peak PA systolic pressure 41 mmHg. There is mild tricuspid regurgitation. Normal size and normal respiratory collapse consistent with normal right atrial pressure. Objective Vitals Vital Signs Date Temp Pulse Resp B/P (MAP) Pulse Ox O2 O2 Flow FiO2 Time Delivery Rate 01/07/19 98.3 77 16 163/89 98 Room Air 07:18 (113) 01/07/19 21 03:24 Intake and Output 01/06/19 01/06/19 01/07/19 1515:00 23:00 07:00 IntakeIntake Total 460 ml 240 ml 200 ml OutputOutput Total 200 ml BalanceBalance 460 ml 40 ml 200 ml Results/Medications Result Diagram: 01/06/19 0435 01/06/19 0435 Results 24 hrs Laboratory Tests Test 01/06/19:44 01/06/19 17:48 01/06/19 21:56 01/07/19 02:00 Bedside Glucose 265 H 225 H 324 H 109 Test 01/07/19 08:22 Bedside Glucose 144 Home Meds Reported Medications Patiromer Calcium Sorbitex (V[place]) 16.8 Gm Powd.pack, 16.8 GM PO 12/26/18 Insulin Detemir (Levemir) 100 Unit/1 Ml Vial, for 20units at hs 12/26/18 Sertraline Hcl* (Sertraline Hcl*) 100 Mg Tablet, 100 MG PO DAILY, #30 TAB 12/26/18 Glimepiride* (Glimepiride*) 4 Mg Tablet, 4 MG PO WITH BREAKFAST DINNE, TAB 12/26/18 Omeprazole* (Omeprazole*) 40 Mg Capsule.dr, 40 MG PO DAILY, #30 CAP 12/26/18 Levothyroxine Sodium* (Levothyroxine Sodium*) 175 Mcg Tablet, 175 MCG PO BEFORE BREAKFAST, #30 TAB 12/26/18 Aspirin* ([place] Aspirin*) 81 Mg Tab.chew, 81 MG PO DAILY, TAB.CHEW 12/26/18 Amlodipine Besylate* (Amlodipine Besylate*) 10 Mg Tablet, 10 MG PO DAILY, #30 TAB 12/26/18 Discontinued Reported Medications Sitagliptin* (Januvia*) 50 Mg Tablet, 50 MG PO DAILY, #30 TAB 12/26/18 Medications Current Medications Acetaminophen (Tylenol Tab) 650 mg Q6H PRN PO .PAIN 1-3 OR TEMP Last administered on 12/31/18at 22:16; Admin Dose 650 MG; Start 12/26/18 at 00:00 Acetaminophen/ Hydrocodone Bitart ([place] (5/325)) 1 tab Q6H PRN PO .MOD PAIN 4- 6 Last administered on 01/02/19at 09:02; Admin Dose 1 TAB; Start 12/26/18 at 00:00 Morphine Sulfate (morphine) 2 mg Q4H PRN IV .SEVERE PAIN 7-10 Last administered on 12/27/18at 03:29; Admin Dose 2 MG; Start 12/26/18 at 00:00 Bisacodyl (Dulcolax) 5 mg DAILY PRN PO .CONSTIPATION Last administered on 01/02/19 21:20; Admin Dose 5 MG; Start 12/26/18 at 00:00 Amlodipine Besylate (Norvasc) 10 mg DAILY PO Last administered on 01/07/19 09:11; Admin Dose 10 MG; Start 12/26/18 at 09:00 Levothyroxine Sodium (Synthroid) 175 mcg BEFORE BREAKFAST PO Last administered on 01/07/19 06:11; Admin Dose 175 MCG; Start 12/26/18 at 07:00 Sertraline HCl (Zoloft) 100 mg DAILY PO Last administered on 01/07/19 09:09; Admin Dose 100 MG; Start 12/26/18 at 09:00 Diagnostic Test (Pha) (Accu-Chek) 1 ea 02 XX Last administered on 01/04/19 02:10; Admin Dose 1 EA; Start 12/26/18 at 02:00 Insulin Aspart (Novolog Insulin Pen) NOVOLOG *MILD* ALGORITHM WITH MEALS BEDTIME SC Last administered on 01/06/19 22:14; Admin Dose 4 UNIT; Start 12/26/18 at 07:50 Miscellaneous Information 1 ea NOTE XX ; Start 12/26/18 at 02:30 Glucose (Glutose) 15 gm Q15M PRN PO DECREASED GLUCOSE; Start 12/26/18 at 02:30 Glucose (Glutose) 22.5 gm Q15M PRN PO DECREASED GLUCOSE Last administered on 01/06/19 06:10; Admin Dose 22.5 GM; Start 12/26/18 at 02:30 Dextrose (D50w Syringe) 25 ml Q15M PRN IV DECREASED GLUCOSE; Start 12/26/18 at 02:30 Dextrose (D50w Syringe) 50 ml Q15M PRN IV DECREASED GLUCOSE; Start 12/26/18 at 02:30 Glucose (Glutose) 15 gm Q15M PRN BUCCAL DECREASED GLUCOSE; Start 12/26/18 at 02:30 Levalbuterol (Xopenex Neb) 1.25 mg Q4H RESP THERAPY PRN HHN SHORTNESS OF BREATH; Start 12/26/18 at 05:30 Nicotine (Nicoderm 21 Mg/ 24hr) 1 patch DAILY TRANSDERM Last administered on 01/07/19 09:09; Admin Dose 1 PATCH; Start 12/26/18 at 09:00 Nicotine Polacrilex (Nicorette) 2 mg Q2H PRN BUCCAL CONTROL WITHDRAWAL SYMPTOMS Last administered on 12/26/18 08:11; Admin Dose 2 MG; Start 12/26/18 at 06:30 Ondansetron HCl (Zofran Inj) 4 mg Q4H PRN IV NAUSEA AND/OR VOMITING Last administered on 12/29/18 09:26; Admin Dose 4 MG; Start 12/26/18 at 11:30 Hydralazine HCl (Apresoline) 10 mg Q4H PRN IV SBP >170 Last administered on 12/28/18 02:25; Admin Dose 10 MG; Start 12/26/18 at 16:30 Hydralazine HCl (Apresoline) 50 mg QID PO Last administered on 01/07/19 09:10; Admin Dose 50 MG; Start 12/28/18 at 09:00 Tamsulosin HCl (Flomax) 0.4 mg HS PO Last administered on 01/06/19 21:51; Admin Dose 0.4 MG; Start 12/31/18 at 21:00 Senna/Docusate Sodium (Senokot-S) 2 tab DAILY PO Last administered on 01/07/19 09:11; Admin Dose 2 TAB; Start 01/02/19 at 09:00 Aspirin (Halfprin) 81 mg DAILY PO Last administered on 01/07/19 09:10; Admin Dose 81 MG; Start 01/05/19 at 09:00 Lactobacillus Acidophilus/ Rhamnosus (Culturelle) 1 cap BID PO Last administered on 01/07/19 09:10; Admin Dose 1 CAP; Start 01/04/19 at 09:00 Ferric Sodium Gluconate Complex 125 mg/Sodium Chloride 110 ml @ 110 mls/hr DAILY@1300 IVPB Last administered on 01/06/19 12:55; Admin Dose 110 MLS/HR; Start 01/04/19 at 13:00; Stop 01/08/19 at 13:59 Heparin Sodium (Porcine) (Heparin (5000 Units/1ml)) 5,000 unit BID SC Last administered on 01/07/19 09:12; Admin Dose 5,000 UNIT; Start 01/04/19 at 11:00 Simethicone (Mylicon) 80 mg TID PRN PO .GAS; Start 01/04/19 at 11:30 Senna/Docusate Sodium (Senokot-S) 2 tab BID PRN PO .CONSTIPATION; Start 01/04/19 at 11:30 Bisacodyl (Dulcolax Supp) 10 mg DAILY PRN [place] .CONSTIPATION; Start 01/04/19 at 1 1:30 Sodium Biphosphate/ Sodium Phosphate (Fleet Enema) 133 ml DAILY PRN [place] .CONSTIPATION; Start 01/04/19 at 11:30 Diphenhydramine HCl (Benadryl) 25 mg Q4H PRN IV .ITCHING; Start 01/04/19 at 11:30 Naloxone HCl (Narcan) 0.2 mg Q2M PRN IV .RESP RATE; Start 01/04/19 at 11:30 IV Flush (NS 3 ml) 3 ml per protocol IV ; Start 01/04/19 at 11:30 Bethanechol Chloride (Urecholine) 25 mg URINARY CATH D/C PRN PO UNABLE TO VOID; Start 01/04/19 at 11:30 Pantoprazole (Protonix Tab) 40 mg DAILY@06 PO Last administered on 01/07/19at 06:11; Admin Dose 40 MG; Start 01/05/19 at 06:00 Carvedilol (Coreg) 6.25 mg BID PO Last administered on 01/07/19at 09:10; Admin Dose 6.25 MG; Start 01/05/19 at 21:00 Insulin Glargine (Lantus) 10 units QPM SC Last administered on 01/06/19at 22:13; Admin Dose 10 UNITS; Start 01/06/19 at 21:00 Assessment/Plan Hospital Course (Demo Recall) 1. Cardiovascular preop evaluation 2 .Acute intertrochanteric fracture of the right femur,/hip fracture: Now status post surgery 3. Hypertension 4. COPD 5. Chronic kidney disease unclear acute versus chronic 6. Hyperkalemia 7. Anemia 8. Abnormal EKG 9. Smoker 10. Chronic dizziness: But no report of any actual syncope Recommendations: Continue with current cardiac care. will increase Coreg as needed PT as tolerated transfusion prn postop care and DVT prophylaxis as per internal medicine and surgical team awaiting transfer to acute rehab Thank you for this referral I will continue to follow along with you as needed basis now GODFREY TAVERAS MD [facility] GODFREY TAVERAS MD January 07, 2019 12:36
[2019-01-07] MEDS: SOD FERRIC GLUC COMPLX 125 MG in SOD CHLORIDE 0.9% 100 ML IVPB SCH (12:54)
[2019-01-07 12:57] VITALS: BP 142/62; PULSE 64; RESP 16
--- NOTE | 2019-01-07 14:06 | PN ---
Date/Time of Note Date/Time of Note DATE: 01/07/19 TIME: 14:03 Assessment/Plan VTE Prophylaxis Risk score (from Nsg)>0 risk: 4 SCD applied (from Nsg): Yes SCD contraindicated: low risk/ambulating Pharmacological prophylaxis: LMWH Lines/Catheters IV Catheter Type (from Nrsg): [place] Lock Urinary Cath still in place: No Assessment/Plan Hospital Course Hospitalist coverage/hospital course 1. Rt hip fracture sp ORIF. stable, dc to ARU/ SNF vs home w pt; cont Lovenox/ xarelto for DVT prophylaxis. 2. Debility transfer to ARU. daughter aware [phone]. if no bed, dc home w home care/pt/ dme 3. DJD? 4. 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 Anemia. s/p iron/ Epogen. sp 1 prbc tx. check occult stool down the line. 6. Dm II 7. Essential hypertension 8. Tobacco abuse sp counseling offered patch 9. Emphysema/ COPD 10. Hypothyroidism 11. Mechanical fall 12. H/o intermittent dizzy spells? Nonfocal, no evidence of arrhythmias, or carotid bruits. Doubt symptomatic anemia, but will follow. May check carotids, orthostatics soon. 13. Hematuria? Reevaluate as an outpatient. Consider urine cytology down the line as he is a smoker. 14. History of stomach surgery/ulcers? 20 years ago S: 01/03: Positive BM. Nausea vomiting a little later. No abdominal pain fever. Participated with PT 01/04: ADDENDUM: patient to ARU today. 01/05: No events. 01/06: was unable to go to aru w hb 6.9. Sp 1 unit transfusion. Patient is stable and fit for discharge to ARU. 01/07: no events O: Vital signs stable PE No pallor VD Regular m/ r /g Clear Benign No edema; hip intact Result Diagram: 01/06/19 0435 01/06/19 0435 Results 24hrs Laboratory Tests Test 01/06/19 17:48 01/06/19 21:56 01/07/19 02:00 01/07/19 08:22 Bedside Glucose 225 H 324 H 109 144 Test 01/07/19 12:42 Bedside Glucose 191 Exam/Review of Systems Exam Vitals Vital Signs Date Temp Pulse Resp B/P (MAP) Pulse Ox O2 O2 Flow FiO2 Time Delivery Rate 01/07/19 64 16 142/62 96 12:57 (88) 01/07/19 98.3 Room Air 07:18 01/07/19 21 03:24 Intake and Output 01/06/19 01/06/19 01/07/19 1515:00 23:00 07:00 IntakeIntake Total 460 ml 240 ml 200 ml OutputOutput Total 200 ml BalanceBalance 460 ml 40 ml 200 ml Results Results 24hrs Laboratory Tests Test 01/06/19 17:48 01/06/19 21:56 01/07/19 02:00 01/07/19 08:22 Bedside Glucose 225 H 324 H 109 144 Test 01/07/19 12:42 Bedside Glucose 191 Medications Medication Current Medications Acetaminophen (Tylenol Tab) 650 mg Q6H PRN PO .PAIN 1-3 OR TEMP Last administered on 12/31/18 22:16; Admin Dose 650 MG; Start 12/26/18 at 00:00 Acetaminophen/ Hydrocodone Bitart ([place] (5/325)) 1 tab Q6H PRN PO .MOD PAIN 4- 6 Last administered on 01/02/19 09:02; Admin Dose 1 TAB; Start 12/26/18 at 00:00 Morphine Sulfate (morphine) 2 mg Q4H PRN IV .SEVERE PAIN 7-10 Last administered on 12/27/18 03:29; Admin Dose 2 MG; Start 12/26/18 at 00:00 Bisacodyl (Dulcolax) 5 mg DAILY PRN PO .CONSTIPATION Last administered on 01/02/19 21:20; Admin Dose 5 MG; Start 12/26/18 at 00:00 Amlodipine Besylate (Norvasc) 10 mg DAILY PO Last administered on 01/07/19 09:11; Admin Dose 10 MG; Start 12/26/18 at 09:00 Levothyroxine Sodium (Synthroid) 175 mcg BEFORE BREAKFAST PO Last administered on 01/07/19 06:11; Admin Dose 175 MCG; Start 12/26/18 at 07:00 Sertraline HCl (Zoloft) 100 mg DAILY PO Last administered on 01/07/19 09:09; Admin Dose 100 MG; Start 12/26/18 at 09:00 Diagnostic Test (Pha) (Accu-Chek) 1 ea 02 XX Last administered on 01/04/19at 02:10; Admin Dose 1 EA; Start 12/26/18 at 02:00 Insulin Aspart (Novolog Insulin Pen) NOVOLOG *MILD* ALGORITHM WITH MEALS BEDTIME SC Last administered on 01/06/19at 22:14; Admin Dose 4 UNIT; Start 12/26/18 at 07:50 Miscellaneous Information 1 ea NOTE XX ; Start 12/26/18 at 02:30 Glucose (Glutose) 15 gm Q15M PRN PO DECREASED GLUCOSE; Start 12/26/18 at 02:30 Glucose (Glutose) 22.5 gm Q15M PRN PO DECREASED GLUCOSE Last administered on 01/06/19at 06:10; Admin Dose 22.5 GM; Start 12/26/18 at 02:30 Dextrose (D50w Syringe) 25 ml Q15M PRN IV DECREASED GLUCOSE; Start 12/26/18 at 02:30 Dextrose (D50w Syringe) 50 ml Q15M PRN IV DECREASED GLUCOSE; Start 12/26/18 at 02:30 Glucose (Glutose) 15 gm Q15M PRN BUCCAL DECREASED GLUCOSE; Start 12/26/18 at 02:30 Levalbuterol (Xopenex Neb) 1.25 mg Q4H RESP THERAPY PRN HHN SHORTNESS OF BREATH; Start 12/26/18 at 05:30 Nicotine (Nicoderm 21 Mg/ 24hr) 1 patch DAILY TRANSDERM Last administered on 01/07/19 09:09; Admin Dose 1 PATCH; Start 12/26/18 at 09:00 Nicotine Polacrilex (Nicorette) 2 mg Q2H PRN BUCCAL CONTROL WITHDRAWAL SYMPTOMS Last administered on 12/26/18at 08:11; Admin Dose 2 MG; Start 12/26/18 at 06:30 Ondansetron HCl (Zofran Inj) 4 mg Q4H PRN IV NAUSEA AND/OR VOMITING Last administered on 12/29/18 09:26; Admin Dose 4 MG; Start 12/26/18 at 11:30 Hydralazine HCl (Apresoline) 10 mg Q4H PRN IV SBP >170 Last administered on 12/28/18at 02:25; Admin Dose 10 MG; Start 12/26/18 at 16:30 Hydralazine HCl (Apresoline) 50 mg QID PO Last administered on 01/07/19 12:57; Admin Dose 50 MG; Start 12/28/18 at 09:00 Tamsulosin HCl (Flomax) 0.4 mg HS PO Last administered on 01/06/19 21:51; Admin Dose 0.4 MG; Start 12/31/18 at 21:00 Senna/Docusate Sodium (Senokot-S) 2 tab DAILY PO Last administered on 01/07/19 09:11; Admin Dose 2 TAB; Start 01/02/19 at 09:00 Aspirin (Halfprin) 81 mg DAILY PO Last administered on 01/07/19 09:10; Admin Dose 81 MG; Start 01/05/19 at 09:00 Lactobacillus Acidophilus/ Rhamnosus (Culturelle) 1 cap BID PO Last administered on 01/07/19 09:10; Admin Dose 1 CAP; Start 01/04/19 at 09:00 Ferric Sodium Gluconate Complex 125 mg/Sodium Chloride 110 ml @ 110 mls/hr DAILY@1300 IVPB Last administered on 01/07/19 12:54; Admin Dose 110 MLS/HR; Start 01/04/19 at 13:00; Stop 01/08/19 at 13:59 Heparin Sodium (Porcine) (Heparin (5000 Units/1ml)) 5,000 unit BID SC Last administered on 01/07/19 09:12; Admin Dose 5,000 UNIT; Start 01/04/19 at 11:00 Simethicone (Mylicon) 80 mg TID PRN PO .GAS; Start 01/04/19 at 11:30 Senna/Docusate Sodium (Senokot-S) 2 tab BID PRN PO .CONSTIPATION; Start 01/04/19 at 11:30 Bisacodyl (Dulcolax Supp) 10 mg DAILY PRN [place] .CONSTIPATION; Start 01/04/19 at 11:30 Sodium Biphosphate/ Sodium Phosphate (Fleet Enema) 133 ml DAILY PRN [place] .CONSTIPATION; Start 01/04/19 at 11:30 Diphenhydramine HCl (Benadryl) 25 mg Q4H PRN IV .ITCHING; Start 01/04/19 at 11:30 Naloxone HCl (Narcan) 0.2 mg Q2M PRN IV .RESP RATE; Start 01/04/19 at 11:30 IV Flush (NS 3 ml) 3 ml per protocol IV ; Start 01/04/19 at 11:30 Bethanechol Chloride (Urecholine) 25 mg URINARY CATH D/C PRN PO UNABLE TO VOID; Start 01/04/19 at 11:30 Pantoprazole (Protonix Tab) 40 mg DAILY@06 PO Last administered on 01/07/19at 06 :11; Admin Dose 40 MG; Start 01/05/19 at 06:00 Insulin Glargine (Lantus) 10 units QPM SC Last administered on 01/06/19at 22:13; Admin Dose 10 UNITS; Start 01/06/19 at 21:00 Carvedilol (Coreg) 12.5 mg BID PO ; Start 01/07/19 at 21:00 ELIZABETH LEMON MD January 07, 2019 14:06
[2019-01-07 14:51] VITALS: BP 155/69; PULSE 67
[2019-01-07 20:15] VITALS: BP 157/69; PULSE 73; RESP 17
[2019-01-07] MEDS: TAMSULOSIN (SR) 0.4 MG CAP PO SCH (21:26)
[2019-01-07] MEDS: INSULIN GLARGINE [LANTus] (100 UNITS/ML) SYG SC SCH (21:39)
[2019-01-08 02:10] VITALS: BP 143/66; PULSE 61; RESP 18
[2019-01-08] MEDS: ACCU-CHEK XX SCH (02:13)
[2019-01-08] MEDS: LEVOTHYROXINE 175 MCG TAB PO SCH (05:56)
[2019-01-08] MEDS: PANTOPRAZOLE (EC) 40 MG TAB PO SCH (05:56)
[2019-01-08 07:15] VITALS: BP 164/74; PULSE 66; RESP 18
--- NOTE | 2019-01-08 08:14 | PN ---
DATE: 01/08/2019 SUBJECTIVE: The patient is stable. No events overnight. OBJECTIVE: VITAL SIGNS: Blood pressure is 164/74, pulse 66, respirations 18, temperature 98.9. HEENT: Head is normocephalic. NECK: Supple. HEART: Regular rate. LUNGS: Show diminished breath sounds at the base. ABDOMEN: Soft, nontender to palpation without rebound or guarding. EXTREMITIES: Negative for clubbing, cyanosis, no edema. DERMATOLOGIC: No rashes. MUSCULOSKELETAL: No joint effusion. NEUROLOGIC: No change in exam. MEDICATIONS: Reviewed. LABORATORY DATA: From 01/08/2019 was reviewed. ASSESSMENT AND PLAN: 1. Nonoliguric acute kidney injury on top of chronic kidney disease stage IIIB/IV, with a baseline c reatinine of around 2.2 to 2.7 mg/dL. Etiology of acute kidney injury is secondary to hemodynamics. Renal function appears to be stabilizing. At this point, continue current treatment plans, supporti ve care, renally dose all medications. 2. Hyperkalemia, etiology is secondary to chronic kidney disease. The patient remains on low-potass ium diet. Plan is to repeat potassium levels, if it remains elevated, the patient will be given a co urse of Kayexalate. 3. Metabolic acidosis, resolved. 4. Mineral bone disorder, monitor calcium and phosphorus levels. 5. Anemia with iron deficiency. The patient is currently on IV Ferrlecit. We will continue. We wi ll give intermittent Epogen as needed. 6. Hypomagnesemia, improved. 7. Acute right femoral fracture, status post arthroplasty. Continue physical therapy, continue pain control. 8. Chronic obstructive pulmonary disease. Continue medical management. 9. Hypertension. Continue current blood pressure regimen. Defer any SALVADOR inhibitor or ARB secondary to hyperkalemia. 10. Diabetes. Continue current insulin regimen. Dictated By: SHIN OCHEN DO NR/NTS Conf#: [id number] DID#: [id number] CC: BRITTANY CASSIDY MD; SHIN COHEN DO; ELIZABETH LEMON MD;*EndCC*
[2019-01-08] MEDS: NICOTINE (21 MG/24 HR) PATCH TRANSDERM SCH (09:08)
[2019-01-08] MEDS: SERTRALINE 100 MG TAB PO SCH (09:10)
[2019-01-08] MEDS: SENNA/DOCUSATE NA (8.6MG/50MG) TAB PO SCH (09:10)
[2019-01-08] MEDS: LACTOBACILLUS RHAMNOSUS CAP PO SCH ×2 (09:10→20:34)
[2019-01-08] MEDS: AMLODIPINE 10 MG TAB PO SCH (09:10)
[2019-01-08] MEDS: ASPIRIN (EC) 81 MG TAB PO SCH (09:11)
[2019-01-08] MEDS: INSULIN ASPART [NOVOLOG] 3 ML PEN SC SCH ×4 (09:12→20:37)
[2019-01-08] MEDS: HEPARIN 5,000 UNIT/1 ML VIAL SC SCH ×2 (09:13→20:38)
[2019-01-08] MEDS ORDERED: NA POLYST SULFON 15 GM/60 ML BTL PO ONE (10:30)
--- NOTE | 2019-01-08 10:34 | PN ---
Date/Time of Note Date/Time of Note DATE: 01/08/19 TIME: 10:33 Assessment/Plan VTE Prophylaxis Risk score (from Nsg)>0 risk: 4 SCD applied (from Nsg): Yes Pharmacological prophylaxis: heparin Lines/Catheters IV Catheter Type (from Nrsg): Saline Lock Urinary Cath still in place: No Assessment/Plan Hospital Course SUBJECTIVE: Right hip pain well controlled. OBJECTIVE: Physical Exam General: Adequately build 68 year-old male lying in bed in no apparent distress. HEENT: Normocephalic, atraumatic. Eyes: Anicteric sclerae, conjunctivae clear. ENT: Nasal septum midline, oral mucosa moist. Neck supple, no JVD noticed. Respiratory: Bilaterally clear breath sounds. No use of accessory muscles of respiration. No adventitious breath sounds. Cardiovascular: S1, S2 heard. Regular rate and rhythm. Abdomen: Soft, nontender, and nondistended. Bowel sounds positive in all 4 quadrants. Genitourinary: Deferred. Extremities: No cyanosis, no clubbing, no edema. Peripheral pulses palpable. Neurologic: Cranial nerves II through XII grossly intact. The patient is awake, alert, and oriented. Skin: Normal skin turgor. No skin rashes. Labs & Vitals per chart ASSESSMENT & PLAN 68-year-old male with comorbidities including hypertension, diabetes mellitus, and chronic kidney disease who had a mechanical fall with right hip pain and was brought to the emergency room with x-ray showing comminuted right intertrochanteric fracture, and was admitted to inpatient setting for further treatment and condition. 1. Right intertrochanteric fracture of the femur. -Status post intramedullary nailing of right intertrochanteric hip fracture on 12/28/2018. -Continue physical therapy. -Anticoagulation as per orthopedic surgery. 2. Hypertension. -Continue antihypertensives. 3. Diabetes mellitus. -Hemoglobin A1c 7.2 -Continue sliding scale insulin along with basal insulin. 4. Acute on chronic kidney disease -Continue to monitor BUN/creatinine closely. -Being followed by nephrology. 5. Anemia of iron deficiency. -Continue iron replacement. 6. COPD. -Continue VIRGIL. -No evidence of any exacerbation. 7. Nicotine use. -Continue nicotine patch. 8. Hyperkalemia. -Probably secondary to worsening renal function -Treated with potassium exchange resin. 9. Hypothyroidism -Continue Synthroid. 10. Prostate hypertrophy. -Continue tamsulosin. 11. Fluids, electrolytes, and nutrition. -Carbohydrate controlled, low potassium diet. 12. DVT prophylaxis -Subcutaneous heparin. 13. Plan. -Continue physical therapy. -Await placement versus discharge home with home health. The patient was seen in collaboration with Dr. Albright. Result Diagram: 01/08/19 0501 01/08/19 0833 Results 24hrs Laboratory Tests Test 01/07/19 12:42 01/07/19 17:42 01/07/19 21:30 01/08/19 01:53 Bedside Glucose 191 151 294 H 205 Test 01/08/19 05:01 01/08/19 05:50 01/08/19 08:33 White Blood Count 13.1 H Red Blood Count 3.37 L Hemoglobin 8.6 L Hematocrit 27.6 L Mean Corpuscular 81.9 L Volume Mean Corpuscular 25.5 L Hemoglobin Mean Corpuscular 31.2 L Hemoglobin Concent Red Cell 15.0 H Distribution Width Platelet Count 696 H Mean Platelet Volume 9.9 Immature 2.200 H Granulocytes % Neutrophils % 70.0 Lymphocytes % 12.7 L Monocytes % 11.6 H Eosinophils % 2.9 Basophils % 0.6 Nucleated Red Blood 0.0 Cells % Immature 0.290 H Granulocytes # Neutrophils # 9.2 H Lymphocytes # 1.7 Monocytes # 1.5 H Eosinophils # 0.4 Basophils # 0.1 Nucleated Red Blood 0.0 Cells # Sodium Level 134 L Potassium Level 5.8 H 6.0 H Chloride Level 101 Carbon Dioxide Level 25 Anion Gap 8 Blood Urea Nitrogen 53 H Creatinine 2.42 H Est Glomerular 27 L Filtrat Rate mL/min Glucose Level 170 Calcium Level 8.7 Total Bilirubin 0.1 L Direct Bilirubin 0.00 Indirect Bilirubin 0.1 Aspartate Amino 20 Transf (AST/SGOT) Alanine 23 Aminotransferase (AL T/SGPT) Alkaline Phosphatase 95 Total Protein 6.1 Albumin 3.2 L Globulin 2.90 Albumin/Globulin 1.10 Ratio Stool Occult Blood NEGATIVE Bedside Glucose 165 Exam/Review of Systems Exam Vitals Vital Signs Date Temp Pulse Resp B/P (MAP) Pulse Ox O2 O2 Flow FiO2 Time Delivery Rate 01/08/19 98.9 66 18 164/74 97 07:15 (104) 01/07/19 Room Air 14:51 01/07/19 21 03:24 Intake and Output 01/07/19 01/07/19 01/08/19 1515:00 23:00 07:00 IntakeIntake Total 270 ml 370 ml BalanceBalance 270 ml 370 ml Results Results 24hrs Laboratory Tests Test 01/07/19 12:42 01/07/19 17:42 01/07/19 21:30 01/08/19 01:53 Bedside Glucose 191 151 294 H 205 Test 01/08/19 05:01 01/08/19 05:50 01/08/19 08:33 White Blood Count 13.1 H Red Blood Count 3.37 L Hemoglobin 8.6 L Hematocrit 27.6 L Mean Corpuscular 81.9 L Volume Mean Corpuscular 25.5 L Hemoglobin Mean Corpuscular 31.2 L Hemoglobin Concent Red Cell 15.0 H Distribution Width Platelet Count 696 H Mean Platelet Volume 9.9 Immature 2.200 H Granulocytes % Neutrophils % 70.0 Lymphocytes % 12.7 L Monocytes % 11.6 H Eosinophils % 2.9 Basophils % 0.6 Nucleated Red Blood 0.0 Cells % Immature 0.290 H Granulocytes # Neutrophils # 9.2 H Lymphocytes # 1.7 Monocytes # 1.5 H Eosinophils # 0.4 Basophils # 0.1 Nucleated Red Blood 0.0 Cells # Sodium Level 134 L Potassium Level 5.8 H 6.0 H Chloride Level 101 Carbon Dioxide Level 25 Anion Gap 8 Blood Urea Nitrogen 53 H Creatinine 2.42 H Est Glomerular 27 L Filtrat Rate mL/min Glucose Level 170 Calcium Level 8.7 Total Bilirubin 0.1 L Direct Bilirubin 0.00 Indirect Bilirubin 0.1 Aspartate Amino 20 Transf (AST/SGOT) Alanine 23 Aminotransferase (AL T/SGPT) Alkaline Phosphatase 95 Total Protein 6.1 Albumin 3.2 L Globulin 2.90 Albumin/Globulin 1.10 Ratio Stool Occult Blood NEGATIVE Bedside Glucose 165 Medications Medication Current Medications Acetaminophen (Tylenol Tab) 650 mg Q6H PRN PO .PAIN 1-3 OR TEMP Last administered on 12/31/18at 22:16; Admin Dose 650 MG; Start 12/26/18 at 00:00 Acetaminophen/ Hydrocodone Bitart ([place] (5/325)) 1 tab Q6H PRN PO .MOD PAIN 4- 6 Last administered on 01/02/19at 09:02; Admin Dose 1 TAB; Start 12/26/18 at 00:00 Morphine Sulfate (morphine) 2 mg Q4H PRN IV .SEVERE PAIN 7-10 Last administered on 12/27/18 03:29; Admin Dose 2 MG; Start 12/26/18 at 00:00 Bisacodyl (Dulcolax) 5 mg DAILY PRN PO .CONSTIPATION Last administered on 01/02/19 21:20; Admin Dose 5 MG; Start 12/26/18 at 00:00 Amlodipine Besylate (Norvasc) 10 mg DAILY PO Last administered on 01/08/19 09:10; Admin Dose 10 MG; Start 12/26/18 at 09:00 Levothyroxine Sodium (Synthroid) 175 mcg BEFORE BREAKFAST PO Last administered on 01/08/19 05:56; Admin Dose 175 MCG; Start 12/26/18 at 07:00 Sertraline HCl (Zoloft) 100 mg DAILY PO Last administered on 01/08/19 09:10; Admin Dose 100 MG; Start 12/26/18 at 09:00 Diagnostic Test (Pha) (Accu-Chek) 1 ea 02 XX Last administered on 01/08/19 02:13; Admin Dose 1 EA; Start 12/26/18 at 02:00 Insulin Aspart (Novolog Insulin Pen) NOVOLOG *MILD* ALGORITHM WITH MEALS BEDTIME SC Last administered on 01/08/19 09:12; Admin Dose 1 UNIT; Start 12/26/18 at 07:50 Miscellaneous Information 1 ea NOTE XX ; Start 12/26/18 at 02:30 Glucose (Glutose) 15 gm Q15M PRN PO DECREASED GLUCOSE; Start 12/26/18 at 02:30 Glucose (Glutose) 22.5 gm Q15M PRN PO DECREASED GLUCOSE Last administered on 01/06/19 06:10; Admin Dose 22.5 GM; Start 12/26/18 at 02:30 Dextrose (D50w Syringe) 25 ml Q15M PRN IV DECREASED GLUCOSE; Start 12/26/18 at 02:30 Dextrose (D50w Syringe) 50 ml Q15M PRN IV DECREASED GLUCOSE; Start 12/26/18 at 02:30 Glucose (Glutose) 15 gm Q15M PRN BUCCAL DECREASED GLUCOSE; Start 12/26/18 at 02:30 Levalbuterol (Xopenex Neb) 1.25 mg Q4H RESP THERAPY PRN HHN SHORTNESS OF ADDI ATH; Start 12/26/18 at 05:30 Nicotine (Nicoderm 21 Mg/ 24hr) 1 patch DAILY TRANSDERM Last administered on 01/08/19 09:08; Admin Dose 1 PATCH; Start 12/26/18 at 09:00 Nicotine Polacrilex (Nicorette) 2 mg Q2H PRN BUCCAL CONTROL WITHDRAWAL SYMPTOMS Last administered on 12/26/18 08:11; Admin Dose 2 MG; Start 12/26/18 at 06:30 Ondansetron HCl (Zofran Inj) 4 mg Q4H PRN IV NAUSEA AND/OR VOMITING Last administered on 12/29/18 09:26; Admin Dose 4 MG; Start 12/26/18 at 11:30 Hydralazine HCl (Apresoline) 10 mg Q4H PRN IV SBP >170 Last administered on 12/28/18 02:25; Admin Dose 10 MG; Start 12/26/18 at 16:30 Hydralazine HCl (Apresoline) 50 mg QID PO Last administered on 01/08/19 09:11; Admin Dose 50 MG; Start 12/28/18 at 09:00 Tamsulosin HCl (Flomax) 0.4 mg HS PO Last administered on 01/07/19 21:26; Admin Dose 0.4 MG; Start 12/31/18 at 21:00 Senna/Docusate Sodium (Senokot-S) 2 tab DAILY PO Last administered on 01/08/19 09:10; Admin Dose 2 TAB; Start 01/02/19 at 09:00 Aspirin (Halfprin) 81 mg DAILY PO Last administered on 01/08/19 09:11; Admin Dose 81 MG; Start 01/05/19 at 09:00 Lactobacillus Acidophilus/ Rhamnosus (Culturelle) 1 cap BID PO Last administered on 01/08/19 09:10; Admin Dose 1 CAP; Start 01/04/19 at 09:00 Ferric Sodium Gluconate Complex 125 mg/Sodium Chloride 110 ml @ 110 mls/hr DAILY@1300 IVPB Last administered on 01/07/19 12:54; Admin Dose 110 MLS/HR; Start 01/04/19 at 13:00; Stop 01/08/19 at 13:59 Heparin Sodium (Porcine) (Heparin (5000 Units/1ml)) 5,000 unit BID SC Last administered on 01/08/19at 09:13; Admin Dose 5,000 UNIT; Start 01/04/19 at 11:00 Simethicone (Mylicon) 80 mg TID PRN PO .GAS; Start 01/04/19 at 11:30 Senna/Docusate Sodium (Senokot-S) 2 tab BID PRN PO .CONSTIPATION; Start 01/04/19 at 11:30 Bisacodyl (Dulcolax Supp) 10 mg DAILY PRN OR .CONSTIPATION; Start 01/04/19 at 11:30 Sodium Biphosphate/ Sodium Phosphate (Fleet Enema) 133 ml DAILY PRN OR .CONSTIPATION; Start 01/04/19 at 11:30 Diphenhydramine HCl (Benadryl) 25 mg Q4H PRN IV .ITCHING; Start 01/04/19 at 11:30 Naloxone HCl (Narcan) 0.2 mg Q2M PRN IV .RESP RATE; Start 01/04/19 at 11:30 IV Flush (NS 3 ml) 3 ml per protocol IV ; Start 01/04/19 at 11:30 Bethanechol Chloride (Urecholine) 25 mg URINARY CATH D/C PRN PO UNABLE TO VOID; Start 01/04/19 at 11:30 Pantoprazole (Protonix Tab) 40 mg DAILY@06 PO Last administered on 01/08/19at 05:56; Admin Dose 40 MG; Start 01/05/19 at 06:00 Insulin Glargine (Lantus) 10 units QPM SC Last administered on 01/07/19at 21:39; Admin Dose 10 UNITS; Start 01/06/19 at 21:00 Carvedilol (Coreg) 12.5 mg BID PO Last administered on 01/08/19at 09:09; Admin Dose 12.5 MG; Start 01/07/19 at 21:00 VAHID MARTINEZ NP January 08, 2019 10:34
[2019-01-08] MEDS ORDERED: SODIUM POLYSTYRENE 15 GM KIT (POWDER + SORBITOL) PO ONE (11:30)
[2019-01-08] MEDS: SOD FERRIC GLUC COMPLX 125 MG in SOD CHLORIDE 0.9% 100 ML IVPB SCH (13:05)
[2019-01-08 13:37] VITALS: BP 150/67; PULSE 62; RESP 18
--- NOTE | 2019-01-08 18:28 | CONS ---
Consult Date/Type/Reason Admit Date/Time Dec 25, 2018 at 23:37 Initial Consult Date 12/26/18 Type of Consultation: cv Requesting Provider: LIZZIE HAWK MD Date/Time of Note DATE: 01/08/19 TIME: 18:27 Subjective Cardiology follow-up progress note Subjective: Discussed with the staff d/w family at bedside Patient denies any left-sided chest pain or pressure to me. He denies any PND orthopnea or shortness of breath to me Family reported the patient has had hematuria. Patient himself does not have any complaints Objective: General: no acute distress HEENT: NC/AT. pupils are equal. round. NECK: NO JVD. no stridor. CV: RRR. systolic murmur; no gallop or rubs. PULM: no wheezing or rhonchi. GI: SOFT, NT, ND, no rebound or guarding Extremity: trace B/L LE edema. no clubbing. neuro: Awake and alert responds appropriately Psych: calm and pleasant rectal: deferred EKG was personally reviewed which are normal sinus rhythm no specific ST abn ormality in the vertical conduction the Echocardiogram was personally reviewed which shows: Normal left ventricular systolic function. Normal left ventricular cavity size. Mild concentric left ventricular hypertrophy. Ejection fraction is visually estimated at 65-70 %. Tissue Doppler/Mitral Doppler indices are consistent with impaired relaxation (Stage I diastolic dysfunction). Upper limit of normal left atrial size. Mitral valve leaflets appear mildly thickened. Mild mitral annular calcification. Trace mitral regurgitation. Normal appearance of the aortic valve. No significant aortic stenosis or insufficiency. Normal appearance of the tricuspid valve. Estimated peak PA systolic pressure 41 mmHg. There is mild tricuspid regurgitation. Normal size and normal respiratory collapse consistent with normal right atrial pressure. Objective Vitals Vital Signs Date Temp Pulse Resp B/P (MAP) Pulse Ox O2 O2 Flow FiO2 Time Delivery Rate 01/08/19 98.7 62 18 150/67 95 13:37 (94) 01/07/19 Room Air 14:51 01/07/19 21 03:24 Intake and Output 01/07/19 01/07/19 01/08/19 1515:00 23:00 07:00 IntakeIntake Total 270 ml 370 ml BalanceBalance 270 ml 370 ml Results/Medications Result Diagram: 01/08/19 0501 01/08/19 0833 Results 24 hrs Laboratory Tests Test 01/07/19 21:30 01/08/19 01:53 01/08/19 05:01 01/08/19 05:50 Bedside Glucose 294 H 205 White Blood Count 13.1 H Red Blood Count 3.37 L Hemoglobin 8.6 L Hematocrit 27.6 L Mean Corpuscular 81.9 L Volume Mean Corpuscular 25.5 L Hemoglobin Mean Corpuscular 31.2 L Hemoglobin Concent Red Cell 15.0 H Distribution Width Platelet Count 696 H Mean Platelet Volume 9.9 Immature 2.200 H Granulocytes % Neutrophils % 70.0 Lymphocytes % 12.7 L Monocytes % 11.6 H Eosinophils % 2.9 Basophils % 0.6 Nucleated Red Blood 0.0 Cells % Immature 0.290 H Granulocytes # Neutrophils # 9.2 H Lymphocytes # 1.7 Monocytes # 1.5 H Eosinophils # 0.4 Basophils # 0.1 Nucleated Red Blood 0.0 Cells # Sodium Level 134 L Potassium Level 5.8 H Chloride Level 101 Carbon Dioxide Level 25 Anion Gap 8 Blood Urea Nitrogen 53 H Creatinine 2.42 H Est Glomerular 27 L Filtrat Rate mL/min Glucose Level 170 Calcium Level 8.7 Total Bilirubin 0.1 L Direct Bilirubin 0.00 Indirect Bilirubin 0.1 Aspartate Amino 20 Transf (AST/SGOT) Alanine 23 Aminotransferase (AL T/SGPT) Alkaline Phosphatase 95 Total Protein 6.1 Albumin 3.2 L Globulin 2.90 Albumin/Globulin 1.10 Ratio Stool Occult Blood NEGATIVE Test 01/08/19 08:33 01/08/19 12:41 01/08/19 17:39 Potassium Level 6.0 H Bedside Glucose 165 226 H 186 Home Meds Reported Medications Patiromer Calcium Sorbitex ([place]) 16.8 Gm Powd.pack, 16.8 GM PO 12/26/18 Insulin Detemir (Levemir) 100 Unit/1 Ml Vial, for 20units at hs 12/26/18 Sertraline Hcl* (Sertraline Hcl*) 100 Mg Tablet, 100 MG PO DAILY, #30 TAB 12/26/18 Glimepiride* (Glimepiride*) 4 Mg Tablet, 4 MG PO WITH BREAKFAST DINNE, TAB 12/26/18 Omeprazole* (Omeprazole*) 40 Mg Capsule.dr, 40 MG PO DAILY, #30 CAP 12/26/18 Levothyroxine Sodium* (Levothyroxine Sodium*) 175 Mcg Tablet, 175 MCG PO BEFORE BREAKFAST, #30 TAB 12/26/18 Aspirin* ([place] Aspirin*) 81 Mg Tab.chew, 81 MG PO DAILY, TAB.CHEW 12/26/18 Amlodipine Besylate* (Amlodipine Besylate*) 10 Mg Tablet, 10 MG PO DAILY, #30 TAB 12/26/18 Discontinued Reported Medications Sitagliptin* (Januvia*) 50 Mg Tablet, 50 MG PO DAILY, #30 TAB 12/26/18 Medications Current Medications Acetaminophen (Tylenol Tab) 650 mg Q6H PRN PO .PAIN 1-3 OR TEMP Last administered on 12/31/18 22:16; Admin Dose 650 MG; Start 12/26/18 at 00:00 Acetaminophen/ Hydrocodone Bitart ([place] (5/325)) 1 tab Q6H PRN PO .MOD PAIN 4- 6 Last administered on 01/02/19 09:02; Admin Dose 1 TAB; Start 12/26/18 at 00:00 Morphine Sulfate (morphine) 2 mg Q4H PRN IV .SEVERE PAIN 7-10 Last administered on 12/27/18 03:29; Admin Dose 2 MG; Start 12/26/18 at 00:00 Bisacodyl (Dulcolax) 5 mg DAILY PRN PO .CONSTIPATION Last administered on 01/02/19 21:20; Admin Dose 5 MG; Start 12/26/18 at 00:00 Amlodipine Besylate (Norvasc) 10 mg DAILY PO Last administered on 01/08/19 09:10; Admin Dose 10 MG; Start 12/26/18 at 09:00 Levothyroxine Sodium (Synthroid) 175 mcg BEFORE BREAKFAST PO Last administered on 01/08/19 05:56; Admin Dose 175 MCG; Start 12/26/18 at 07:00 Sertraline HCl (Zoloft) 100 mg DAILY PO Last administered on 01/08/19 09:10; Admin Dose 100 MG; Start 12/26/18 at 09:00 Diagnostic Test (Pha) (Accu-Chek) 1 ea 02 XX Last administered on 01/08/19 02:13; Admin Dose 1 EA; Start 12/26/18 at 02:00 Insulin Aspart (Novolog Insulin Pen) NOVOLOG *MILD* ALGORITHM WITH MEALS BEDTIME SC Last administered on 01/08/19 18:02; Admin Dose 2 UNIT; Start 12/26/18 at 07:50 Miscellaneous Information 1 ea NOTE XX ; Start 12/26/18 at 02:30 Glucose (Glutose) 15 gm Q15M PRN PO DECREASED GLUCOSE; Start 12/26/18 at 02:30 Glucose (Glutose) 22.5 gm Q15M PRN PO DECREASED GLUCOSE Last administered on 07/17at 06:10; Admin Dose 22.5 GM; Start 12/26/18 at 02:30 Dextrose (D50w Syringe) 25 ml Q15M PRN IV DECREASED GLUCOSE; Start 12/26/18 at 02:30 Dextrose (D50w Syringe) 50 ml Q15M PRN IV DECREASED GLUCOSE; Start 12/26/18 at 02:30 Glucose (Glutose) 15 gm Q15M PRN BUCCAL DECREASED GLUCOSE; Start 12/26/18 at 02:30 Levalbuterol (Xopenex Neb) 1.25 mg Q4H RESP THERAPY PRN HHN SHORTNESS OF BREATH; Start 12/26/18 at 05:30 Nicotine (Nicoderm 21 Mg/ 24hr) 1 patch DAILY TRANSDERM Last administered on 09:08; Admin Dose 1 PATCH; Start 12/26/18 at 09:00 Nicotine Polacrilex (Nicorette) 2 mg Q2H PRN BUCCAL CONTROL WITHDRAWAL SYMPTOMS Last administered on 12/26/18 08:11; Admin Dose 2 MG; Start 12/26/18 at 06:30 Ondansetron HCl (Zofran Inj) 4 mg Q4H PRN IV NAUSEA AND/OR VOMITING Last admini stered on 12/29/18 09:26; Admin Dose 4 MG; Start 12/26/18 at 11:30 Hydralazine HCl (Apresoline) 10 mg Q4H PRN IV SBP >170 Last administered on 12/28/18 02:25; Admin Dose 10 MG; Start 12/26/18 at 16:30 Hydralazine HCl (Apresoline) 50 mg QID PO Last administered on 01/08/19 18:00; Admin Dose 50 MG; Start 12/28/18 at 09:00 Tamsulosin HCl (Flomax) 0.4 mg HS PO Last administered on 01/07/19at 21:26; Admin Dose 0.4 MG; Start 12/31/18 at 21:00 Senna/Docusate Sodium (Senokot-S) 2 tab DAILY PO Last administered on 01/08/19at 09:10; Admin Dose 2 TAB; Start 01/02/19 at 09:00 Aspirin (Halfprin) 81 mg DAILY PO Last administered on 01/08/19 09:11; Admin Dose 81 MG; Start 01/05/19 at 09:00 Lactobacillus Acidophilus/ Rhamnosus (Culturelle) 1 cap BID PO Last administered on 01/08/19 09:10; Admin Dose 1 CAP; Start 01/04/19 at 09:00 Heparin Sodium (Porcine) (Heparin (5000 Units/1ml)) 5,000 unit BID SC Last administered on 01/08/19 09:13; Admin Dose 5,000 UNIT; Start 01/04/19 at 11:00 Simethicone (Mylicon) 80 mg TID PRN PO .GAS; Start 01/04/19 at 11:30 Senna/Docusate Sodium (Senokot-S) 2 tab BID PRN PO .CONSTIPATION; Start 01/04/19 at 11:30 Bisacodyl (Dulcolax Supp) [address] .CONSTIPATION; Start 01/04/19 at 11:30 Sodium Biphosphate/ Sodium Phosphate (Fleet Enema) [address] .CONSTIPATION; Start 01/04/19 at 11:30 Diphenhydramine HCl (Benadryl) 25 mg Q4H PRN IV .ITCHING; Start 01/04/19 at 11:30 Naloxone HCl (Narcan) 0.2 mg Q2M PRN IV .RESP RATE; Start 01/04/19 at 11:30 IV Flush (NS 3 ml) 3 ml per protocol IV ; Start 01/04/19 at 11:30 Bethanechol Chloride (Urecholine) 25 mg URINARY CATH D/C PRN PO UNABLE TO VOID; Start 01/04/19 at 11:30 Pantoprazole (Protonix Tab) 40 mg DAILY@06 PO Last administered on 01/08/19at 05:56; Admin Dose 40 MG; Start 01/05/19 at 06:00 Insulin Glargine (Lantus) 10 units QPM SC Last administered on 01/07/19at 21:39; Admin Dose 10 UNITS; Start 01/06/19 at 21:00 Carvedilol (Coreg) 12.5 mg BID PO Last administered on 01/08/19at 09:09; Admin Dose 12.5 MG; Start 01/07/19 at 21:00 Assessment/Plan Hospital Course (Demo Recall) 1. Cardiovascular preop evaluation 2 .Acute intertrochanteric fracture of the right femur,/hip fracture: Now status post surgery 3. Hypertension 4. COPD 5. Chronic kidney disease unclear acute versus chronic 6. Hyperkalemia 7. Anemia 8. Abnormal EKG 9. Smoker 10. Chronic dizziness: But no report of any actual syncope 11. Hyperkalemia Recommendations: Electrolyte to be corrected as per internal medicine renal recommendations Continue with current cardiac care. Continue with Coreg PT as tolerated transfusion prn postop care and DVT prophylaxis as per internal medicine and surgical team Thank you for this referral I will continue to follow along with you as needed b asis now GODFREY TAVERAS MD [facility] GODFREY TAVERAS MD January 08, 2019 18:28
[2019-01-08 20:15] VITALS: BP 145/65; PULSE 64
[2019-01-08] MEDS: TAMSULOSIN (SR) 0.4 MG CAP PO SCH (20:34)
[2019-01-08] MEDS: INSULIN GLARGINE [LANTus] (100 UNITS/ML) SYG SC SCH (20:38)
[2019-01-09] MEDS: ACCU-CHEK XX SCH (02:17)
[2019-01-09 02:19] VITALS: BP 132/60; PULSE 62; RESP 16
[2019-01-09] MEDS: PANTOPRAZOLE (EC) 40 MG TAB PO SCH (05:39)
[2019-01-09] MEDS: LEVOTHYROXINE 175 MCG TAB PO SCH (05:41)
[2019-01-09 07:35] VITALS: BP 157/70; PULSE 62; RESP 18
[2019-01-09] MEDS: INSULIN ASPART [NOVOLOG] 3 ML PEN SC SCH ×3 (07:50→17:52)
--- NOTE | 2019-01-09 08:38 | PN ---
DATE: 01/09/2019 SUBJECTIVE: The patient is stable. The patient works intermittently with physical therapy. No other acute events noted. OBJECTIVE: VITAL SIGNS: Blood pressure is 157/70, respirations 18, pulse 62, temperature 97.9. HEENT: Head is normocephalic. NECK: Supple. HEART: Regular rate. LUNGS: Show diminished breath sounds at the base. ABDOMEN: Soft, nontender to palpation without rebound or guarding. EXTREMITIES: Negative for clubbing, cyanosis, no edema. DERMATOLOGIC: No rashes. MUSCULOSKELETAL: No joint effusion. NEUROLOGIC: No change in exam. MEDICATIONS: Reviewed. LABORATORY DATA: From 01/09/2019 has been reviewed. ASSESSMENT AND PLAN: 1. Nonoliguric acute kidney injury on top of chronic kidney disease stage IIIB/IV, with a baseline creatinine around 2.2 to 2.7 mg/dL. Etiology of acute kidney injury is secondary to hemodynamics. Renal function is stabilizing. Continue current treatment plan, supportive care, renally dose all medications. 2. Hyperkalemia. s/p kayexalate. Potassium levels have normalized. Continue to monitor. Continue low-potassium diet. 3. Metabolic acidosis, resolved. 4. Mineral bone disorder, monitor calcium and phosphorus levels. 5. Anemia with iron deficiency. The patient is completing course of IV Ferrlecit. 6. Hypomagnesemia, replete with magnesium sulfate. 7. Acute right femoral fracture, status post arthroplasty. Continue physical therapy, continue pain control. 8. Chronic obstructive pulmonary disease. Continue medical management. 9. Hypertension. Continue current pressure regimen. Defer any SALVADOR inhibitor or ARB due to hypokalemia. 10. Diabetes. Continue current insulin regimen. Dictated By: SHIN COHEN DO NR/NTS Conf#: [id number] DID#: [id number] CC: BRITTANY CASSIDY MD; ELIZABETH LEMON MD; SHIN COHEN DO;*EndCC* MTDD
[2019-01-09] MEDS: SERTRALINE 100 MG TAB PO SCH (08:49)
[2019-01-09] MEDS: LACTOBACILLUS RHAMNOSUS CAP PO SCH (08:49)
[2019-01-09] MEDS: ASPIRIN (EC) 81 MG TAB PO SCH (08:49)
[2019-01-09] MEDS: AMLODIPINE 10 MG TAB PO SCH (08:50)
[2019-01-09] MEDS: HEPARIN 5,000 UNIT/1 ML VIAL SC SCH (08:52)
[2019-01-09] MEDS: NICOTINE (21 MG/24 HR) PATCH TRANSDERM SCH (08:52)
--- NOTE | 2019-01-09 08:52 | CONS ---
Consult Date/Type/Reason Admit Date/Time Dec 25, 2018 at 23:37 Initial Consult Date 12/26/18 Type of Consultation: cv Requesting Provider: LIZZIE HAWK MD Date/Time of Note DATE: 01/09/19 TIME: 08:50 Subjective Cardiology follow-up progress note Subjective: Discussed with the staff and family at bedside no new cardiac compliants. Patient with a slow progress in physical therapy per staff Objective: General: no acute distress HEENT: NC/AT. pupils are equal. round. NECK: NO JVD. no stridor. CV: RRR. systolic murmur; no gallop or rubs. PULM: no wheezing or rhonchi. GI: SOFT, NT, ND, no rebound or guarding Extremity: trace B/L LE edema. no clubbing. neuro: Sleeping comfortably Psych: calm and pleasant rectal: deferred EKG was personally reviewed which are normal sinus rhythm no specific ST abnormality in the vertical conduction the Echocardiogram was personally reviewed which shows: Normal left ventricular systolic function. Normal left ventricular cavity size. Mild concentric left ventricular hypertrophy. Ejection fraction is visually estimated at 65-70 %. Tissue Doppler/Mitral Doppler indices are consistent with impaired relaxation (Stage I diastolic dysfunction). Upper limit of normal left atrial size. Mitral valve leaflets appear mildly thickened. Mild mitral annular calcification. Trace mitral regurgitation. Normal appearance of the aortic valve. No significant aortic stenosis or insufficiency. Normal appearance of the tricuspid valve. Estimated peak PA systolic pressure 41 mmHg. There is mild tricuspid regurgitation. Normal size and normal respiratory collapse consistent with normal right atrial pressure. Objective Vitals Vital Signs Date Temp Pulse Resp B/P (MAP) Pulse Ox O2 O2 Flow FiO2 Time Delivery Rate 01/09/19 97.9 62 18 157/70 97 07:35 (99) 01/07/19 Room Air 14:51 01/07/19 21 03:24 Intake and Output 01/08/19 01/08/19 01/09/19 1414:59 22:59 06:59 IntakeIntake Total 110 ml BalanceBalance 110 ml Results/Medications Result Diagram: 01/09/19 0443 01/09/19 0443 Results 24 hrs Laboratory Tests Test 01/08/19 12:41 01/08/19 17:39 01/08/19 20:32 01/09/19 02:02 Bedside Glucose 226 H 186 241 H 133 Test 01/09/19 04:43 01/09/19 08:47 White Blood Count 14.0 H Red Blood Count 3.15 L Hemoglobin 8.2 L Hematocrit 26.4 L Mean Corpuscular 83.8 Volume Mean Corpuscular 26.0 L Hemoglobin Mean Corpuscular 31.1 L Hemoglobin Concent Red Cell 15.0 H Distribution Width Platelet Count 667 H Mean Platelet Volume 9.8 Immature 2.100 H Granulocytes % Neutrophils % 69.1 Lymphocytes % 13.7 L Monocytes % 11.3 H Eosinophils % 3.2 Basophils % 0.6 Nucleated Red Blood 0.0 Cells % Immature 0.300 H Granulocytes # Neutrophils # 9.6 H Lymphocytes # 1.9 Monocytes # 1.6 H Eosinophils # 0.5 Basophils # 0.1 Nucleated Red Blood 0.0 Cells # Sodium Level 135 Potassium Level 4.9 Chloride Level 102 Carbon Dioxide Level 25 Anion Gap 8 Blood Urea Nitrogen 51 H Creatinine 2.52 H Est Glomerular 25 L Filtrat Rate mL/min Glucose Level 109 # Calcium Level 8.6 Phosphorus Level 5.4 H Magnesium Level 1.6 L Bedside Glucose 131 Home Meds Reported Medications Patiromer Calcium Sorbitex (Veltassa) 16.8 Gm Powd.pack, 16.8 GM PO 12/26/18 Insulin Detemir (Levemir) 100 Unit/1 Ml Vial, for 20units at hs 12/26/18 Sertraline Hcl* (Sertraline Hcl*) 100 Mg Tablet, 100 MG PO DAILY, #30 TAB 12/26/18 Glimepiride* (Glimepiride*) 4 Mg Tablet, 4 MG PO WITH BREAKFAST DINNE, TAB 12/26/18 Omeprazole* (Omeprazole*) 40 Mg Capsule.dr, 40 MG PO DAILY, #30 CAP 12/26/18 Levothyroxine Sodium* (Levothyroxine Sodium*) 175 Mcg Tablet, 175 MCG PO BEFORE BREAKFAST, #30 TAB 12/26/18 Aspirin* ([place] Aspirin*) 81 Mg Tab.chew, 81 MG PO DAILY, TAB.CHEW 12/26/18 Amlodipine Besylate* (Amlodipine Besylate*) 10 Mg Tablet, 10 MG PO DAILY, #30 TAB 12/26/18 Discontinued Reported Medications Sitagliptin* (Januvia*) 50 Mg Tablet, 50 MG PO DAILY, #30 TAB 12/26/18 Medications Current Medications Acetaminophen (Tylenol Tab) 650 mg Q6H PRN PO .PAIN 1-3 OR TEMP Last administe red on 12/31/18 22:16; Admin Dose 650 MG; Start 12/26/18 at 00:00 Acetaminophen/ Hydrocodone Bitart ([place] (5/325)) 1 tab Q6H PRN PO .MOD PAIN 4- 6 Last administered on 01/02/19 09:02; Admin Dose 1 TAB; Start 12/26/18 at 00:00 Morphine Sulfate (morphine) 2 mg Q4H PRN IV .SEVERE PAIN 7-10 Last administered on 12/27/18 03:29; Admin Dose 2 MG; Start 12/26/18 at 00:00 Bisacodyl (Dulcolax) 5 mg DAILY PRN PO .CONSTIPATION Last administered on 01/02/19 21:20; Admin Dose 5 MG; Start 12/26/18 at 00:00 Amlodipine Besylate (Norvasc) 10 mg DAILY PO Last administered on 01/08/19 09:10; Admin Dose 10 MG; Start 12/26/18 at 09:00 Levothyroxine Sodium (Synthroid) 175 mcg BEFORE BREAKFAST PO Last administered on 01/09/19 05:41; Admin Dose 175 MCG; Start 12/26/18 at 07:00 Sertraline HCl (Zoloft) 100 mg DAILY PO Last administered on 01/08/19 09:10; Admin Dose 100 MG; Start 12/26/18 at 09:00 Diagnostic Test (Pha) (Accu-Chek) 1 ea 02 XX Last administered on 01/09/19 02:17; Admin Dose 1 EA; Start 12/26/18 at 02:00 Insulin Aspart (Novolog Insulin Pen) NOVOLOG *MILD* ALGORITHM WITH MEALS BEDTIME SC Last administered on 01/08/19 20:37; Admin Dose 2 UNIT; Start 12/26/18 at 07:50 Miscellaneous Information 1 ea NOTE XX ; Start 12/26/18 at 02:30 Glucose (Glutose) 15 gm Q15M PRN PO DECREASED GLUCOSE; Start 12/26/18 at 02:30 Glucose (Glutose) 22.5 gm Q15M PRN PO DECREASED GLUCOSE Last administered on 5/11/19at 06:10; Admin Dose 22.5 GM; Start 12/26/18 at 02:30 Dextrose (D50w Syringe) 25 ml Q15M PRN IV DECREASED GLUCOSE; Start 12/26/18 at 02:30 Dextrose (D50w Syringe) 50 ml Q15M PRN IV DECREASED GLUCOSE; Start 12/26/18 at 02:30 Glucose (Glutose) 15 gm Q15M PRN BUCCAL DECREASED GLUCOSE; Start 12/26/18 at 02:30 Levalbuterol (Xopenex Neb) 1.25 mg Q4H RESP THERAPY PRN HHN SHORTNESS OF B REATH; Start 12/26/18 at 05:30 Nicotine (Nicoderm 21 Mg/ 24hr) 1 patch DAILY TRANSDERM Last administered on 01/08/19 09:08; Admin Dose 1 PATCH; Start 12/26/18 at 09:00 Nicotine Polacrilex (Nicorette) 2 mg Q2H PRN BUCCAL CONTROL WITHDRAWAL SYMPTOMS Last administered on 12/26/18 08:11; Admin Dose 2 MG; Start 12/26/18 at 06:30 Ondansetron HCl (Zofran Inj) 4 mg Q4H PRN IV NAUSEA AND/OR VOMITING Last administered on 12/29/18 09:26; Admin Dose 4 MG; Start 12/26/18 at 11:30 Hydralazine HCl (Apresoline) 10 mg Q4H PRN IV SBP >170 Last administered on 12/28/18 02:25; Admin Dose 10 MG; Start 12/26/18 at 16:30 Hydralazine HCl (Apresoline) 50 mg QID PO Last administered on 01/08/19 20:34; Admin Dose 50 MG; Start 12/28/18 at 09:00 Tamsulosin HCl (Flomax) 0.4 mg HS PO Last administered on 01/08/19 20:34; Admin Dose 0.4 MG; Start 12/31/18 at 21:00 Senna/Docusate Sodium (Senokot-S) 2 tab DAILY PO Last administered on 01/08/19 09:10; Admin Dose 2 TAB; Start 01/02/19 at 09:00 Aspirin (Halfprin) 81 mg DAILY PO Last administered on 01/08/19 09:11; Admin Dose 81 MG; Start 01/05/19 at 09:00 Lactobacillus Acidophilus/ Rhamnosus (Culturelle) 1 cap BID PO Last administered on 01/08/19 20:34; Admin Dose 1 CAP; Start 01/04/19 at 09:00 Heparin Sodium (Porcine) (Heparin (5000 Units/1ml)) 5,000 unit BID SC Last administered on 01/08/19 20:38; Admin Dose 5,000 UNIT; Start 01/04/19 at 11:00 Simethicone (Mylicon) 80 mg TID PRN PO .GAS; Start 01/04/19 at 11:30 Senna/Docusate Sodium (Senokot-S) 2 tab BID PRN PO .CONSTIPATION; Start 01/04/19 at 11:30 Bisacodyl (Dulcolax Supp) 10 mg DAILY PRN GA .CONSTIPATION; Start 01/04/19 at 11:30 Sodium Biphosphate/ Sodium Phosphate (Fleet Enema) 133 ml DAILY PRN GA .CONSTIPATION; Start 01/04/19 at 11:30 Diphenhydramine HCl (Benadryl) 25 mg Q4H PRN IV .ITCHING; Start 01/04/19 at 11:30 Naloxone HCl (Narcan) 0.2 mg Q2M PRN IV .RESP RATE; Start 01/04/19 at 11:30 IV Flush (NS 3 ml) 3 ml per protocol IV ; Start 01/04/19 at 11:30 Bethanechol Chloride (Urecholine) 25 mg URINARY CATH D/C PRN PO UNABLE TO VOID; Start 01/04/19 at 11:30 Pantoprazole (Protonix Tab) 40 mg DAILY@06 PO Last administered on 01/09/19at 05:39; Admin Dose 40 MG; Start 01/05/19 at 06:00 Insulin Glargine (Lantus) 10 units QPM SC Last administered on 01/08/19at 20:38; Admin Dose 10 UNITS; Start 01/06/19 at 21:00 Carvedilol (Coreg) 12.5 mg BID PO Last administered on 01/08/19 20:34; Admin Dose 12.5 MG; Start 01/07/19 at 21:00 Magnesium Sulfate/ Dextrose 100 ml @ 100 mls/hr ONCE ONCE IVPB ; Start 01/09/19 at 09:00; Stop 01/09/19 at 09:59 Assessment/Plan Hospital Course (Demo Recall) 1. Cardiovascular preop evaluation 2 .Acute intertrochanteric fracture of the right femur,/hip fracture: Now status post surgery 3. Hypertension 4. COPD 5. Chronic kidney disease unclear acute versus chronic 6. Hyperkalemia 7. Anemia 8. Abnormal EKG 9. Smoker 10. Chronic dizziness: But no report of any actual syncope 11. Hyperkalemia Recommendations: Electrolyte to be corrected as per internal medicine renal recommendations Continue with current cardiac care. Continue with Coreg PT as tolerated transfusion prn postop care and DVT prophylaxis as per internal medicine and surgical team Awaiting transfer to physical therapy acute rehab Thank you for this referral I will continue to follow along with you as needed basis now GODFREY TAVERAS MD [facility] GODFREY TAVERAS MD January 09, 2019 08:52
[2019-01-09] MEDS ORDERED: MAGNESIUM SULFATE 1 GM/D5W 100 ML IVPB ONE (09:00)
[2019-01-09] MEDS: SENNA/DOCUSATE NA (8.6MG/50MG) TAB PO SCH (09:52)
--- NOTE | 2019-01-09 11:22 | DS ---
Date/Time of Note Date/Time of Note DATE: 01/09/19 TIME: 11:21 Discharge Summary Admission/Discharge Info Admit Date/Time Dec 25, 2018 at 23:37 Discharge Date/Time Discharge Diagnosis 1. Right intertrochanteric fracture of the femur. Status post intramedullary nailing of right intertrochanteric hip fracture on 12/28/2018. 2. Hypertension. 3. Diabetes mellitus. Hemoglobin A1c 7.2 4. Acute on chronic kidney disease 5. Anemia of iron deficiency. 6. COPD. 7. Nicotine use. 8. Pulmonary hypertension. PA systolic pressure of 41 mm Hg. 9. Hypothyroidism 10. Prostate hypertrophy. Patient Condition: Stable Consults 1. Tanner Sanchez MD, Cardiology. 2. Manuelito Duque MD, Orthopedic Surgery. 3. Anton Aldridge DO, Nephrology. 4. John Keller MD, Pulmonary. Procedures Operative Report Procedure Date: December 28, 2018 Preoperative Diagnosis Right IT fracture Postoperative Diagnosis Right IT fracture Operation/Procedure Performed Intramedullary nail of right intertrochanteric hip fracture right Surgeon see signature line Internet Site Designer None Anesthesia Type: general, spinal Estimated Blood Loss: 100 - 150 ml's 2D Echocardiogram Conclusions: Normal left ventricular systolic function. Normal left ventricular cavity size. Mild concentric left ventricular hypertrophy. Ejection fraction is visually estimated at 65-70 %. Tissue Doppler/Mitral Doppler indices are consistent with impaired relaxation (Stage I diastolic dysfunction). Upper limit of normal left atrial size. Mitral valve leaflets appear mildly thickened. Mild mitral annular calcification. Trace mitral regurgitation. Normal appearance of the aortic valve. No significant aortic stenosis or insufficiency. Normal appearance of the tricuspid valve. Estimated peak PA systolic pressure 41 mmHg. There is mild tricuspid regurgitation. Normal size and normal respiratory collapse consistent with normal right atrial pressure. Hx of Present Illness This is a 68-year-old male with comorbidities including hypertension, diabetes mellitus, and chronic kidney disease who had a mechanical fall with right hip pain and was brought to the emergency room with x-ray showing comminuted right intertrochanteric fracture, and was admitted to inpatient setting for further treatment. Hospital Course An orthopedic surgery consult was obtained. A cardiology consult was obtained for cardiac clearance. The patient was cleared by cardiology for orthopedic procedure. The patient underwent intramedullary nailing of the right intertrochanteric hip fracture on 12/28/2018. The patient was maintained on appropriate anticoagulation as per orthopedic surgery. Physical therapy has been working with the patient. The patient progressed relatively slowly with physical therapy. The patient had discharge orders on 01/06/2019 to be discharged to acute rehabilitation unit. However, because of lack of bed availability, the patient's discharge was delayed until 01/09/2019. The patient's chronic problems include hypertension. The patient was maintained on antihypertensives for the same. The patient has underlying diabetes mellitus. The patient's hemoglobin A1c was found to be 7.2. He was maintained on sliding scale insulin along with basal insulin with well-controlled blood sugars. He has been followed by nephrology for his underlying chronic kidney disease. The patient had episodes of hyperkalemia during hospitalization that was treated as per nephrology recommendations. The patient also has a history of COPD. The patient had no evidence of any COPD exacerbation. The patient was maintained on PRN short acting inhaled bronchodilators. He had underlying anemia and received 1 unit of PRBC. The patient also received 5 bags of IV iron during the hospital course. The patient is a nicotine user. The patient was maintained on a nicotine patch. The patient has underlying hypothyroidism. The patient has been on Synthroid. He has a history of prostate hypertrophy. The patient was continued on tamsulosin. The patient had a stable hospital course. The patient is stable to be discharged to acute rehabilitation facility for further rehabilitation. At this time I would like to thank all the consultants for seeing the patient, doing the necessary procedures, and providing clinical recommendations. The patient was seen in collaboration with Dr. Albright. Home Meds Reported Medications Patiromer Calcium Sorbitex (Veltassa) 16.8 Gm Powd.pack, 16.8 GM PO 12/26/18 Insulin Detemir (Levemir) 100 Unit/1 Ml Vial, for 20units at hs 12/26/18 Sertraline Hcl* (Sertraline Hcl*) 100 Mg Tablet, 100 MG PO DAILY, #30 TAB 12/26/18 Glimepiride* (Glimepiride*) 4 Mg Tablet, 4 MG PO WITH BREAKFAST DINNE, TAB 12/26/18 Omeprazole* (Omeprazole*) 40 Mg Capsule.dr, 40 MG PO DAILY, #30 CAP 12/26/18 Levothyroxine Sodium* (Levothyroxine Sodium*) 175 Mcg Tablet, 175 MCG PO BEFORE BREAKFAST, #30 TAB 12/26/18 Aspirin* ([place] Aspirin*) 81 Mg Tab.chew, 81 MG PO DAILY, TAB.CHEW 12/26/18 Amlodipine Besylate* (Amlodipine Besylate*) 10 Mg Tablet, 10 MG PO DAILY, #30 TAB 12/26/18 Follow-up Plan Dr Duque 1wk Primary Care Provider Care Physician No Primary Time spent on discharge: > 30 minutes Pending Labs Laboratory Tests Test 01/08/19 12:41 01/08/19 17:39 01/08/19 20:32 01/09/19 02:02 Bedside 226 186 241 133 Glucose mg/dL (70-220) mg/dL (70-220) mg/dL (70-220) mg/dL (70-220) Test 01/09/19 04:43 01/09/19 08:47 White Blood 14.0 Count 10^3/ul (4.8-10 .8) Red Blood 3.15 Count 10^6/ul (4.70-6 .10) Hemoglobin 8.2 g/dl (14.0-18.0 ) Hematocrit 26.4 % (42.0-52.0) Mean 83.8 Corpuscular fl (82.0-101.0) Volume Mean 26.0 Corpuscular pg (29.0-33.0) Hemoglobin Mean 31.1 Corpuscular g/dl (32.0-37.0 Hemoglobin Conc ) ent Red Cell 15.0 Distribution % (11.5-14.5) Width Platelet Count 667 10^3/UL (140-41 5) Mean Platelet 9.8 Volume fl (7.4-10.4) Immature 2.100 Granulocytes % % (0.001-0.429) Neutrophils % 69.1 % (39.0-77.0) Lymphocytes % 13.7 % (15.0-51.0) Monocytes % 11.3 % (0.0-11.0) Eosinophils % 3.2 % (0.0-7.0) Basophils % 0.6 % (0.0-2.0) Nucleated Red 0.0 Blood Cells % /100WBC (0.0-0. 0) Immature 0.300 Granulocytes # 10^3/ul (0.0-0. 031) Neutrophils # 9.6 10^3/ul (1.6-7. 5) Lymphocytes # 1.9 10^3/ul (0.8-2. 9) Monocytes # 1.6 10^3/ul (0.3-0. 9) Eosinophils # 0.5 10^3/ul (0.0-0. 5) Basophils # 0.1 10^3/ul (0.0-0. 1) Nucleated Red 0.0 Blood Cells # 10^3/ul (0.0-0. 0) Sodium Level 135 mmol/L (135-144 ) Potassium 4.9 Level mmol/L (3.5-5.1 ) Chloride Level 102 mmol/L (97-110) Carbon Dioxide 25 Level mmol/L (21-31) Anion Gap 8 (5-13) Blood Urea 51 mg/dl (7-20) Nitrogen Creatinine 2.52 mg/dl (0.61-1.2 4) Est Glomerular 25 mL/min (>60) Filtrat Rate mL/min Glucose Level 109 mg/dl (70-220) Calcium Level 8.6 mg/dl (8.4-10.2 ) Phosphorus 5.4 Level mg/dl (2.5-4.9) Magnesium 1.6 Level mg/dl (1.7-2.5) Bedside 131 Glucose mg/dL (70-220) VAHID MARTINEZ NP January 09, 2019 11:21
[2019-01-09 13:44] VITALS: BP 113/55; PULSE 66; RESP 18
== END 2019-01-09 20:04 | DRG 481 ==
LOC: E/R 21:36 → MS1 23:37
PROVIDERS: ADMIT Family Medicine; ATTEND Internal Medicine
PROC: 0QS606Z Reposition Right Upper Femur with Intramedullary Internal Fixation Device, Open Approach (ICD-10-PCS; principal; 2018-12-28 15:00)
PROC: 30233N1 Transfusion of Nonautologous Red Blood Cells into Peripheral Vein, Percutaneous Approach (ICD-10-PCS; 2019-01-05)
DX: S72.141A Displaced intertrochanteric fracture of right femur, initial encounter for closed fracture (principal); N17.9 Acute kidney failure, unspecified; N18.4 Chronic kidney disease, stage 4 (severe); E87.4 Mixed disorder of acid-base balance; I12.9 Hypertensive chronic kidney disease with stage 1 through stage 4 chronic kidney disease, or unspecified chronic kidney disease; E83.42 Hypomagnesemia; R09.02 Hypoxemia; D50.9 Iron deficiency anemia, unspecified; J43.9 Emphysema, unspecified; I27.20 Pulmonary hypertension, unspecified; R31.9 Hematuria, unspecified; E11.649 Type 2 diabetes mellitus with hypoglycemia without coma; E03.9 Hypothyroidism, unspecified; N40.0 Benign prostatic hyperplasia without lower urinary tract symptoms; E87.5 Hyperkalemia; F17.210 Nicotine dependence, cigarettes, uncomplicated; R42 Dizziness and giddiness; V48.4XXA Person boarding or alighting a car injured in noncollision transport accident, initial encounter
CPT/HCPCS: 36430; 36600; 71045; 71250; 72170; 73530; 73550; 76775; 78582; 80048; 80053; 80061; 80069; 81001; 82270; 82550; 82553; 82728; 82803; 82962; 83036; 83540; 83735; 84100; 84132; 84300; 84443; 84484; 85014; 85018; 85025; 85610; 85730; 86850; 86900; 86901; 86920; 87086; 93005; 93306; 93880; 94664; 96374; 97110; 97116; 97163; 97530; A9540; C1713; J0360; J0690; J0696; J1644; J1815; J1940; J2175; J2250; J2270; J2274; J2405; J2765; J2795; J2916; J3010; J3475; J7030; J7040; J7042; P9016; Q5106

== ENCOUNTER 2019-01-09 15:30 | Inpatient (IN) | payer MEDICARE, OTHER ==
[~2019-01-09] VITALS: Ht 170.2 cm; Wt 67.3 kg
[~2019-01-09 15:30] MED LIST: AMLO-147 PO; ASPI-805 PO; GLIM4TAB PO; LEVEM; LEVO175T6 PO; OMEP40CA6 PO; PATI16.8 PO; SERT-165 PO
[2019-01-09 20:54] VITALS: Ht 170.2 cm; Wt 67.3 kg
[2019-01-09 21:00] VITALS: BP 150/65; PULSE 67; RESP 18
[2019-01-09] MEDS ORDERED: INSULIN GLARGINE [LANTus] (100 UNITS/ML) SYG SC SCH (22:35)
[2019-01-09] MEDS ORDERED: LEVALBUTEROL (NEB) 1.25 MG/0.5 ML AMP HHN PRN (22:35)
[2019-01-09] MEDS ORDERED: INSULIN ASPART [NOVOLOG] 3 ML PEN SC SCH (22:35)
[2019-01-09] MEDS ORDERED: GLUCOSE GEL 15 GRAM TUBE BUCCAL PRN (22:35)
[2019-01-09] MEDS ORDERED: BISACODYL (EC) 5 MG TAB PO PRN (22:35)
[2019-01-09] MEDS ORDERED: TAMSULOSIN (SR) 0.4 MG CAP PO SCH (22:35)
[2019-01-09] MEDS ORDERED: NA PHOSPHATE/BIPHOS 133 ML ENEMA PR PRN (22:35)
[2019-01-09] MEDS ORDERED: HEPARIN 5,000 UNIT/1 ML VIAL SC SCH (22:35)
[2019-01-09] MEDS ORDERED: DEXTROSE 50% 50 ML SYRINGE IV PRN ×2 (22:35)
[2019-01-09] MEDS ORDERED: NICOTINE POLACRILEX 2 MG GUM BUCCAL PRN (22:35)
[2019-01-09] MEDS ORDERED: BETHANECHOL 25 MG TAB PO PRN (22:35)
[2019-01-09] MEDS ORDERED: ACETAMINOPHEN 325 MG TAB PO PRN (22:35)
[2019-01-09] MEDS ORDERED: GLUCOSE GEL 15 GRAM TUBE PO PRN ×2 (22:35)
[2019-01-09] MEDS ORDERED: NALOXONE (0.4 MG/ML) INJ IV PRN (22:36)
[2019-01-09] MEDS: TAMSULOSIN (SR) 0.4 MG CAP PO SCH (23:16)
[2019-01-09] MEDS: HEPARIN 5,000 UNIT/1 ML VIAL SC SCH (23:18)
[2019-01-09] MEDS: INSULIN GLARGINE [LANTus] (100 UNITS/ML) SYG SC SCH (23:20)
[2019-01-09] MEDS: INSULIN ASPART [NOVOLOG] 3 ML PEN SC SCH (23:22)
[2019-01-10] MEDS ORDERED: LACTULOSE 30ML CUP PO PRN
[2019-01-10] MEDS ORDERED: BISACODYL 10 MG SUPP PR PRN
[2019-01-10] MEDS ORDERED: MAGNESIUM HYDROXIDE 30ML CUP PO PRN
[2019-01-10 02:27] VITALS: BP 142/67; PULSE 64; RESP 18
[2019-01-10] MEDS: LEVOTHYROXINE 175 MCG TAB PO SCH (06:31)
[2019-01-10] MEDS: PANTOPRAZOLE (EC) 40 MG TAB PO SCH (06:31)
[2019-01-10 07:30] VITALS: BP 118/58; PULSE 64; RESP 18
[2019-01-10] MEDS: INSULIN ASPART [NOVOLOG] 3 ML PEN SC SCH ×4 (07:35→20:50)
[2019-01-10] MEDS: SERTRALINE 100 MG TAB PO SCH (08:47)
[2019-01-10] MEDS: HEPARIN 5,000 UNIT/1 ML VIAL SC SCH ×2 (08:47→20:51)
[2019-01-10] MEDS: ASPIRIN (EC) 81 MG TAB PO SCH (08:47)
[2019-01-10] MEDS: DOCUSATE SODIUM 100 MG CAP PO SCH ×2 (08:47→20:44)
[2019-01-10] MEDS: LACTOBACILLUS RHAMNOSUS CAP PO SCH ×2 (08:48→20:44)
[2019-01-10] MEDS: AMLODIPINE 10 MG TAB PO SCH (08:48)
--- NOTE | 2019-01-10 10:37 | PN ---
DATE: 01/10/2019 SUBJECTIVE: The patient was transferred from med/surg to acute rehabilitation. No other events note d. OBJECTIVE: VITAL SIGNS: Blood pressure is 118/58, pulse 64, respirations 18, temperature 98.6. HEENT: Head is normocephalic. NECK: Supple. HEART: Regular rate. LUNGS: Show diminished breath sounds at the base. ABDOMEN: Soft, nontender to palpation without rebound or guarding. EXTREMITIES: Negative for clubbing, cyanosis, no edema. DERMATOLOGIC: No rashes. MUSCULOSKELETAL: No joint effusion. NEUROLOGIC: No change in exam. MEDICATIONS: Reviewed. LABORATORY DATA: Reviewed. ASSESSMENT AND PLAN: 1. Nonoliguric acute kidney injury on top of chronic kidney disease stage IIIB/IV with a baseline cr eatinine of 2.2 to 2.7 mg/dL. Etiology of acute kidney injury is secondary to hemodynamics. Renal f unction stabilized. Continue current treatment plans, supportive care, renally dose all medications. 2. Hypokalemia, improved status post Kayexalate. Continue to monitor potassium levels. 3. Metabolic acidosis, resolved. 4. Mineral bone disorder, monitor calcium and phosphorus levels. 5. Anemia with iron deficiency. The patient is completing course of IV Ferrlecit, monitor hemoglobi n and hematocrit levels. 6. Hypomagnesemia. Continue to monitor and replete. 7. Acute right femoral fracture, status post arthroplasty. Continue physical therapy, continue pain control. 8. History of chronic obstructive pulmonary disease. Continue medical management. 9. Hypertension. Continue current blood pressure regimen. Defer any SALVADOR inhibitor or ARB. 10. Diabetes. Continue current insulin regimen. Dictated By: SHIN COHEN DO NR/NTS Conf#: [id number] DID#: [id number] CC: STUART MCCANN MD; NIKIA POE MD;*EndCC*
[2019-01-10] MEDS: BETAMETHASONE/CLOTRIMAZOLE 15 GM CR TOP SCH (12:24)
[2019-01-10 14:00] VITALS: BP 129/62; PULSE 56; RESP 18
--- NOTE | 2019-01-10 14:06 | HP ---
Date/Time of Note Date/Time of Note DATE: 01/10/19 TIME: 14:04 Assessment/Plan VTE Prophylaxis Risk score (from Nsg)>0 risk: 11 SCD applied (from Ns): Yes Pharmacological prophylaxis: heparin Lines/Catheters IV Catheter Type (from Nrsg): Peripheral IV Urinary Cath still in place: No Assessment/Plan Hospital Course SUBJECTIVE: Lying in bed, no acute distress. OBJECTIVE: Vital signs-see below PHYSICAL EXAM: Constitutional: Adequately built,not in acute distress. HEENT: Head atraumatic and normocephalic. Eyes: Extraocular muscles intact. Anicteric sclerae. Pupils equal bilaterally, reactive to light. NECK: Supple without lymph node. CHEST: Clear and good breath sounds equally. No wheezing. No rhonchi. HEART: S1, S2. Regular rate and rhythm. ABDOMEN: Soft/non tender with no rebound tenderness. Bowel sounds were present. EXTREMITIES: Right hip surgical site c/d/i No cyanosis, clubbing or edema. NEUROLOGIC: Alert and oriented x3. No focal deficit. No sensory deficit. PSYCHOSOCIAL: No signs of depression. INTEGUMENTARY: No open wounds. ASSESSMENT AND PLAN: 68 yo M w/htn,dm2,CKD, here for rehabilitation for right hip fx/IM nailing... Right intertrochanteric fracture of the femur. -Status post intramedullary nailing of right intertrochanteric hip fracture on 12/28/2018. -dvt ppx,pain control,pt/rehba -f/u ortho in 2wks Hypertension -Stable. -Continue bb/hydralazine -Not a candidate for acei 2/2 hyperkalemia Diabetes mellitus 2. -basal/bolus insulin CKD stage IIIB/IV with a baseline creatinine of 2.2 to 2.7 mg/dL -mgmt per nephro -creat fairly stable at baseline chronic anemia -on iron COPD. -stable Nicotine use. -nicotine patch. Hypothyroidism -on Synthroid. Prostate hypertrophy. -on tamsulosin. DVT prophylaxis -Subcutaneous heparin. The patient was seen in collaboration with Result Diagram: 01/10/19 0726 01/10/19 07 Results 24hrs Laboratory Tests Test 01/09/19 21:30 01/09/19 23:02 01/10/19 02:28 01/10/19 07:26 Urine Color STRAW Urine Clarity CLEAR Urine pH 6.0 Urine Specific 1.005 [place] Urine Ketones NEGATIVE Urine Nitrite NEGATIVE Urine Bilirubin NEGATIVE Urine Urobilinogen NEGATIVE Urine Leukocyte NEGATIVE Esterase Urine Microscopic 29 H RBC Urine Microscopic 2 WBC Urine Hemoglobin 3+ H Urine Glucose 1+ H Urine Total Protein 2+ H Bedside Glucose 281 H 173 White Blood Count 12.3 H Red Blood Count 3.46 L Hemoglobin 9.0 L Hematocrit 29.1 L Mean Corpuscular 84.1 Volume Mean Corpuscular 26.0 L Hemoglobin Mean Corpuscular 30.9 L Hemoglobin Concent Red Cell 15.1 H Distribution Width Platelet Count 678 H Mean Platelet Volume 9.9 Immature 1.600 H Granulocytes % Neutrophils % 72.1 Lymphocytes % 12.9 L Monocytes % 10.1 Eosinophils % 2.7 Basophils % 0.6 Nucleated Red Blood 0.0 Cells % Immature 0.200 H Granulocytes # Neutrophils # 8.9 H Lymphocytes # 1.6 Monocytes # 1.3 H Eosinophils # 0.3 Basophils # 0.1 Nucleated Red Blood 0.0 Cells # Sodium Level 136 Potassium Level 4.9 Chloride Level 104 Carbon Dioxide Level 23 Anion Gap 9 Blood Urea Nitrogen 54 H Creatinine 2.53 H Est Glomerular 25 L Filtrat Rate mL/min Glucose Level 133 Calcium Level 8.6 Total Bilirubin 0.3 Direct Bilirubin 0.00 Indirect Bilirubin 0.3 Aspartate Amino 22 Transf (AST/SGOT) Alanine 29 Aminotransferase (AL T/SGPT) Alkaline Phosphatase 105 Total Protein 6.5 Albumin 3.4 Globulin 3.10 Albumin/Globulin 1.09 Ratio Test 01/10/19 07:31 01/10/19 12:20 Bedside Glucose 136 236 H HPI/ROS Admit Date/Time Admit Date/Time January 09, 2019 at 20:20 Hx of Present Illness This is a 68-year-old male with a history of hypertension, type 2 diabetes, chronic kidney disease, who was admitted at [facility] on 12/28/2018 with mechanical fall/right intertrochanteric fracture. Patient underwent IM nailing of the right intertrochanteric hip fracture on 12/28/2018. Postoperative course was uneventful. Patient was evaluated by physical therapy who recommended acute rehabilitation for further physical therapy and patient was accepted. At my encounter with the patient, he denies chest pain, palpitation, shortness of breath, nausea, vomiting, abdominal pain, loss of consciousness, dizziness, numbness, tingling, fever, chills, diarrhea or other constitutional symptoms. Labs showed BUN 54, creatinine 2.53, blood glucose 281, WBC 12,300, hemoglobin 9.0, hematocrit 29.1 and platelets 678. Vital signs stable. ROS 12 point review of system was assessed and is negative other than what is mentioned in this patient PMH/Family/Social Past Medical History See HPI Medications Current Medications Acetaminophen (Tylenol Tab) 650 mg Q6H PRN PO .PAIN 1-3 OR TEMP; Start 01/09/19 at 22:35 Acetaminophen/ Hydrocodone Bitart ([place] (5/325)) 1 tab Q6H PRN PO .MOD PAIN 4- 6; Start 01/09/19 at 22:35 Bisacodyl (Dulcolax) 5 mg DAILY PRN PO .CONSTIPATION Last administered on 01/10/19at 08:48; Admin Dose 5 MG; Start 01/09/19 at 22:35 Amlodipine Besylate (Norvasc) 10 mg DAILY PO Last administered on 01/10/19at 08: 48; Admin Dose 10 MG; Start 01/09/19 at 22:35 Levothyroxine Sodium (Synthroid) 175 mcg BEFORE BREAKFAST PO Last administered on 01/10/19at 06:31; Admin Dose 175 MCG; Start 01/09/19 at 22:35 Sertraline HCl (Zoloft) 100 mg DAILY PO Last administered on 01/10/19at 08:47; Admin Dose 100 MG; Start 01/09/19 at 22:35 Miscellaneous Information 1 ea NOTE XX ; Start 01/09/19 at 22:35 Glucose (Glutose) 15 gm Q15M PRN PO DECREASED GLUCOSE; Start 01/09/19 at 22:35 Glucose (Glutose) 22.5 gm Q15M PRN PO DECREASED GLUCOSE; Start 01/09/19 at 22:35 Dextrose (D50w Syringe) 25 ml Q15M PRN IV DECREASED GLUCOSE; Start 01/09/19 at 22:35 Dextrose (D50w Syringe) 50 ml Q15M PRN IV DECREASED GLUCOSE; Start 01/09/19 at 22:35 Glucose (Glutose) 15 gm Q15M PRN BUCCAL DECREASED GLUCOSE; Start 01/09/19 at 22:35 Levalbuterol (Xopenex Neb) 1.25 mg Q4H RESP THERAPY PRN HHN SHORTNESS OF BREATH; Start 01/09/19 at 22:35 Nicotine Polacrilex (Nicorette) 2 mg Q2H PRN BUCCAL CONTROL WITHDRAWAL SYMPTOMS; Start 01/09/19 at 22:35 Aspirin (Halfprin) 81 mg DAILY PO Last administered on 01/10/19 08:47; Admin Dose 81 MG; Start 01/09/19 at 22:35 Lactobacillus Acidophilus/ Rhamnosus (Culturelle) 1 cap BID PO Last administ ered on 01/10/19at 08:48; Admin Dose 1 CAP; Start 01/09/19 at 22:35 Simethicone (Mylicon) 80 mg TID PRN PO .GAS; Start 01/09/19 at 22:35 Sodium Biphosphate/ Sodium Phosphate (Fleet Enema) 133 ml DAILY PRN [place] .CONSTIPATION; Start 01/09/19 at 22:35 Bethanechol Chloride (Urecholine) 25 mg URINARY CATH D/C PRN PO UNABLE TO VOID; Start 01/09/19 at 22:35 Pantoprazole (Protonix Tab) 40 mg DAILY@06 PO Last administered on 01/10/19at 06:31; Admin Dose 40 MG; Start 01/09/19 at 22:35 Naloxone HCl (Narcan) 0.2 mg Q2M PRN IV .RESP RATE; Start 01/09/19 at 22:36 Insulin Aspart (Novolog Insulin Pen) NOVOLOG *MILD* ALGORITHM WITH MEALS BEDTIME SC Last administered on 01/10/19at 12:23; Admin Dose 3 UNIT; Start 01/09/19 at 22:59 Hydralazine HCl (Apresoline) 50 mg QID PO Last administered on 01/09/19at 23:14; Admin Dose 50 MG; Start 01/09/19 at 23:00 Tamsulosin HCl (Flomax) 0.4 mg HS PO Last administered on 01/09/19at 23:16; Admin Dose 0.4 MG; Start 01/09/19 at 23:00 Heparin Sodium (Porcine) (Heparin (5000 Units/1ml)) 5,000 unit BID SC Last administered on 01/10/19 08:47; Admin Dose 5,000 UNIT; Start 01/09/19 at 23:00 Insulin Glargine (Lantus) 10 units QPM SC Last administered on 01/09/19at 23:20; Admin Dose 10 UNITS; Start 01/09/19 at 23:01 Carvedilol (Coreg) 12.5 mg BID PO Last administered on 01/10/19at 08:48; Admin Dose 12.5 MG; Start 01/09/19 at 23:01 Docusate Sodium (Colace) 100 mg BID PO Last administered on 01/10/19at 08:47; Admin Dose 100 MG; Start 01/10/19 at 09:00 Senna (Senokot) 1 tab HS PO ; Start 01/10/19 at 21:00 Magnesium Hydroxide (Milk Of Mag) 30 ml BID PRN PO CONSTIPATION; Start 01/10/19 at 00:00 Lactulose (Enulose) 20 gm DAILY PRN PO CONSTIPATION; Start 01/10/19 at 00:00 Bisacodyl (Dulcolax Supp) 10 mg DAILY PRN [place] CONSTIPATION; Start 01/10/19 at 00:00 Multivitamins Therapeutic (Theragran) 1 tab DAILY PO ; Start 01/11/19 at 09:00 Ascorbic Acid (Vitamin C) 500 mg DAILY PO ; Start 01/11/19 at 09:00 Folic Acid (Folic Acid) 1 mg DAILY PO ; Start 01/11/19 at 09:00 Zinc Sulfate (Zinc Sulfate) 220 mg DAILY PO ; Start 01/11/19 at 09:00 Betamethasone/ Clotrimazole (Lotrisone Cr) 1 applic DAILY TOP ; Start 01/10/19 at 13:00 Coded Allergies: No Known Allergy (Unverified , 12/25/18) Past Surgical History See HPI Past Surgical Hx: noncontributory Family History Significant Family History: no pertinent family hx Social History Smoking Status: Heavy tobacco smoker Exam/Review of Systems Vital Signs Vitals Vital Signs Date Temp Pulse Resp B/P (MAP) Pulse Ox O2 O2 Flow FiO2 Time Delivery Rate 01/10/19 98.6 64 18 118/58 97 Room Air 07:30 (78) Intake and Output 01/09/19 01/09/19 01/10/19 1515:00 23:00 07:00 OutputOutput Total 200 ml 350 ml BalanceBalance -200 ml -350 ml BARNEY HILL NP January 10, 2019 14:06
--- NOTE | 2019-01-10 16:36 | CONS ---
DATE OF ADMISSION: 01/09/2019 DATE OF CONSULTATION: 01/10/2019 Rehabilitation Post Admission Physician Evaluation REHABILITATION IMPAIRMENT CATEGORY: Right intertrochanteric hip fracture status post intramedullary nailing. ACTIVE COMORBIDITIES: 1. Acute pain syndrome. 2. Hypertension. 3. Diabetes mellitus type 2. 4. Acute on chronic injury. 5. Anemia. 6. COPD. 7. Hypothyroidism. 8. Prostate hypertrophy. 9. Right heel DTI. 10. Impairments in self-care and mobility. HISTORY OF PRESENT ILLNESS: The patient is a pleasant 68-year-old gentleman with a history of multiple medical comorbidities who is status post a mechanical fall with resultant right intertrochanteric hip fracture. The patient apparently had felt a bit dizzy and fell down onto the curb while walking. Workup did reveal right intertrochanteric hip fracture. The patient underwent intramedullary nailing. The patient's hospital course also notable for significant pain, acute on chronic kidney disease, hypertension, and significant impairments in self-care and mobility as compared to baseline. The patient has been cleared to transfer to the rehabilitation unit for comprehensive interdisciplinary rehab care. FUNCTIONAL HISTORY PRIOR TO RECENT EVENTS: He was independent in self-care tasks and mobility. Currently, he requires moderate to maximal assist for self- care and mobility tasks. I have reviewed the preadmission screen and patient's current functional status is consistent with the preadmission screen. FAMILY AND SOCIAL HISTORY: The patient lives at home in a single dul[place] home with his and hopes to return there upon discharge. PAST MEDICAL HISTORY: 1. Diabetes mellitus type 2. 2. Hypertension. 3. Chronic kidney disease. 4. COPD. 5. Hypothyroidism. 6. BPH. CURRENT MEDICATIONS: 1. Norvasc 10 mg p.o. daily. 2. Aspirin 81 mg p.o. daily. 3. Urecholine 25 mg p.r.n. 4. Coreg 12.5 mg p.o. b.i.d. 5. Insulin sliding scale. 6. Heparin subq b.i.d. 7. [place] p.r.n. 8. Apresoline 50 mg p.o. q.i.d. 9. Lantus 10 units subcu at bedtime. 10. Levalbuterol nebulizer. 11. Synthroid 175 mcg p.o. q.a.m. 12. Nicorette. 13. Protonix 40 mg p.o. daily. 14. Zoloft 100 mg p.o. daily. 15. Flomax 0.4 mg p.o. at bedtime. DRUG ALLERGIES. THE PATIENT WITH NO KNOWN DRUG ALLERGIES. PHYSICAL EXAMINATION: VITAL SIGNS: The patient is afebrile with stable vital signs. HEENT: Extraocular motion intact. Oropharynx clear. NECK: Supple. LUNGS: Clear anteriorly. CARDIAC: S1, S2. ABDOMEN: Soft, nontender, positive bowel sounds. INTEGUMENT: Does reveal right heel DTI. NEUROLOGIC: He is awake and alert and oriented x3, can follow simple 1-step commands. Cranial nerves appear grossly intact. He has good strength in bilateral upper extremity and left lower extremity. Dorsiflexion and plantar flexion intact on the right. PLAN: The patient has been admitted for comprehensive interdisciplinary acute rehab and is anticipated to tolerate 3 hours of daily therapy in divided doses for at least 5/7 days a week. Treatment plan will include: 1. Physical therapy to focus on bed mobility, transfers, and household ambulation with the goal of having patient reach standby assist level. 2. Occupational therapy to focus on hygiene, grooming, dressing, bathing, and toileting activities with goal of having patient reach a standby assist level. 3. Rehabilitation nursing for carryover of therapeutic interventions, the goal of continent of bowel and bladder, and the goal of pain adequately managed on oral medications. ESTIMATED LENGTH OF STAY: 14 days. DISPOSITION GOAL: Home with family. REHABILITATION BARRIER: Pain. INTERVENTION FOR BARRIER: Interdisciplinary approach. As a board certified physician who specializes in physical medicine and rehabilitation medicine, I attest that this patient qualifies for an interdisciplinary acute rehabilitation unit stay and is best managed at this level of care. The patient has potential to make improvement. After thorough review of the patient's medical records in addition of complete physical examination, I believe that this patient does meet criteria for acute rehabilitation unit and is anticipated to make reasonable goals in a reasonable period of time as outlined above. Dictated By: NIKIA ADEN/RAE Conf#: [id number] DID#: [id number] CC: STUART MCCANN MD;*EndCC* MTDD
[2019-01-10 19:10] VITALS: BP 129/59; PULSE 62; RESP 18
[2019-01-10] MEDS: BALSAM PERU/CASTOR OIL 60 GM TUBE TOP SCH (20:43)
[2019-01-10] MEDS: TAMSULOSIN (SR) 0.4 MG CAP PO SCH (20:44)
[2019-01-10] MEDS: SENNA TAB PO SCH (20:44)
[2019-01-10] MEDS: INSULIN GLARGINE [LANTus] (100 UNITS/ML) SYG SC SCH (20:50)
[2019-01-11 02:00] VITALS: BP 125/63; PULSE 65; RESP 18
[2019-01-11] MEDS: LEVOTHYROXINE 175 MCG TAB PO SCH (06:25)
[2019-01-11] MEDS: PANTOPRAZOLE (EC) 40 MG TAB PO SCH (06:25)
[2019-01-11] MEDS: INSULIN ASPART [NOVOLOG] 3 ML PEN SC SCH ×4 (07:35→20:20)
[2019-01-11] MEDS: ZINC SULFATE 220 MG CAP PO SCH (08:13)
[2019-01-11] MEDS: LACTOBACILLUS RHAMNOSUS CAP PO SCH ×2 (08:14→22:26)
[2019-01-11] MEDS: SERTRALINE 100 MG TAB PO SCH (08:14)
[2019-01-11] MEDS: DOCUSATE SODIUM 100 MG CAP PO SCH ×2 (08:14→22:26)
[2019-01-11] MEDS: ASCORBIC ACID 500 MG TAB PO SCH (08:16)
[2019-01-11] MEDS: MULTIVITAMINS THERAPEUTIC TAB PO SCH (08:18)
[2019-01-11] MEDS: FOLIC ACID 1 MG TAB PO SCH (08:18)
[2019-01-11] MEDS: AMLODIPINE 10 MG TAB PO SCH (08:20)
[2019-01-11] MEDS: HEPARIN 5,000 UNIT/1 ML VIAL SC SCH ×2 (08:27→22:34)
[2019-01-11] MEDS: BETAMETHASONE/CLOTRIMAZOLE 15 GM CR TOP SCH (08:27)
[2019-01-11] MEDS: BALSAM PERU/CASTOR OIL 60 GM TUBE TOP SCH ×2 (08:29→22:38)
[2019-01-11] MEDS: ASPIRIN (EC) 81 MG TAB PO SCH (08:30)
--- NOTE | 2019-01-11 10:02 | PN ---
DATE: 01/11/2019 SUBJECTIVE: The patient is stable. No events overnight. No fevers, chills, nausea or vomiting. OBJECTIVE: VITAL SIGNS: Blood pressure is 125/63, respirations 18, pulse 65, temperature 97.8. HEENT: Head is normocephalic. NECK: Supple. HEART: Regular rate. LUNGS: Show diminished breath sounds at the base. ABDOMEN: Soft, nontender to palpation without rebound or guarding. EXTREMITIES: Negative for clubbing, cyanosis, no edema. DERMATOLOGIC: No rashes. MUSCULOSKELETAL: No joint effusion. NEUROLOGIC: No change in exam. MEDICATIONS: Reviewed. LABORATORY DATA: Reviewed. ASSESSMENT AND PLAN: 1. Nonoliguric acute kidney injury on top of chronic kidney disease stage IIIB/IV with a baseline cr eatinine of 2.2 to 2.7 mg/dL. Etiology of acute kidney injury is secondary to hemodynamics. Renal f unction stabilized. Continue current treatment plan, supportive care, renally dose all medications. 2. Hyperkalemia, improved. Continue to monitor. Continue low-potassium diet. 3. Metabolic acidosis, resolved. 4. Mineral bone disorder, monitor calcium and phosphorus levels. 5. Anemia with iron deficiency. The patient is status post IV Ferrlecit. Continue to monitor hemog lobin and hematocrit levels. 6. Hypomagnesemia. Continue to monitor and replete. 7. Acute right femoral fracture, status post arthroplasty. Continue physical therapy. 8. History of chronic obstructive pulmonary disease. Continue medical management. 9. Hypertension. Continue current blood pressure regimen. Defer any SALVADOR inhibitor or ARB due to hy perkalemia. 10. Diabetes. Continue current insulin regimen. Dictated By: SHIN COHEN DO NR/NTS Conf#: [id number] DID#: [id number] CC: SIVA NGUYNE; STUART MCCANN MD; NIKIA POE MD;*EndCC*
[2019-01-11 10:24] VITALS: BP 161/71; PULSE 65; RESP 18
--- NOTE | 2019-01-11 11:52 | PN ---
Date/Time of Note Date/Time of Note DATE: 01/11/19 TIME: 11:52 Assessment/Plan VTE Prophylaxis Risk score (from Ns)>0 risk: 11 SCD applied (from Ns): Yes Pharmacological prophylaxis: heparin Lines/Catheters IV Catheter Type (from Nrsg): Peripheral IV Urinary Cath still in place: No Assessment/Plan Hospital Course SUBJECTIVE: Lying in bed, no acute distress. OBJECTIVE: Vital signs-see below PHYSICAL EXAM: Constitutional: Adequately built,not in acute distress. HEENT: Head atraumatic and normocephalic. Eyes: Extraocular muscles intact. Anicteric sclerae. Pupils equal bilaterally, reactive to light. NECK: Supple without lymph node. CHEST: Clear and good breath sounds equally. No wheezing. No rhonchi. HEART: S1, S2. Regular rate and rhythm. ABDOMEN: Soft/non tender with no rebound tenderness. Bowel sounds were present. EXTREMITIES: Right hip surgical site c/d/i No cyanosis, clubbing or edema. NEUROLOGIC: Alert and oriented x3. No focal deficit. No sensory deficit. PSYCHOSOCIAL: No signs of depression. INTEGUMENTARY: No open wounds. ASSESSMENT AND PLAN: 68 yo M w/htn,dm2,CKD, here for rehabilitation for right hip fx/IM nailing... Right intertrochanteric fracture of the femur. -Status post intramedullary nailing of right intertrochanteric hip fracture on 12/28/2018. -dvt ppx,pain control,pt/rehba -f/u ortho in 2wks Hypertension -Stable. -Continue bb/hydralazine -Not a candidate for acei 2/2 hyperkalemia Diabetes mellitus 2. -basal/bolus insulin CKD stage IIIB/IV with a baseline creatinine of 2.2 to 2.7 mg/dL -mgmt per nephro -creat fairly stable at baseline chronic anemia -on iron COPD. -stable Nicotine use. -nicotine patch. Hypothyroidism -on Synthroid. Prostate hypertrophy. -on tamsulosin. DVT prophylaxis -Subcutaneous heparin. The patient was seen in collaboration with Result Diagram: 01/10/19 0726 01/10/19 0726 Results 24hrs Laboratory Tests Test 01/10/19 12:20 01/10/19 17:27 01/10/19 20:46 01/11/19 02:21 Bedside Glucose 236 H 270 H 203 139 Test 01/11/19 07:47 Bedside Glucose 115 Exam/Review of Systems Exam Vitals Vital Signs Date Temp Pulse Resp B/P (MAP) Pulse Ox O2 O2 Flow FiO2 Time Delivery Rate 01/11/19 98.5 65 18 161/71 93 Room Air 10:24 (101) Intake and Output 01/10/19 01/10/19 01/11/19 1515:00 23:00 07:00 IntakeIntake Total 200 ml 1220 ml OutputOutput Total 1130 ml BalanceBalance 200 ml 90 ml Results Results 24hrs Laboratory Tests Test 01/10/19 12:20 01/10/19 17:27 01/10/19 20:46 01/11/19 02:21 Bedside Glucose 236 H 270 H 203 139 Test 01/11/19 07:47 Bedside Glucose 115 Medications Medication Current Medications Acetaminophen (Tylenol Tab) 650 mg Q6H PRN PO .PAIN 1-3 OR TEMP; Start 01/09/19 at 22:35 Acetaminophen/ Hydrocodone Bitart ([place] (5/325)) 1 tab Q6H PRN PO .MOD PAIN 4- 6; Start 01/09/19 at 22:35 Bisacodyl (Dulcolax) 5 mg DAILY PRN PO .CONSTIPATION Last administered on at 08:48; Admin Dose 5 MG; Start 01/09/19 at 22:35 Amlodipine Besylate (Norvasc) 10 mg DAILY PO Last administered on 01/11/19at 08:20; Admin Dose 10 MG; Start 01/09/19 at 22:35 Levothyroxine Sodium (Synthroid) 175 mcg BEFORE BREAKFAST PO Last administered on 01/11/19at 06:25; Admin Dose 175 MCG; Start 01/09/19 at 22:35 Sertraline HCl (Zoloft) 100 mg DAILY PO Last administered on 01/11/19at 08:14; Admin Dose 100 MG; Start 01/09/19 at 22:35 Miscellaneous Information 1 ea NOTE XX ; Start 01/09/19 at 22:35 Glucose (Glutose) 15 gm Q15M PRN PO DECREASED GLUCOSE; Start 01/09/19 at 22:35 Glucose (Glutose) 22.5 gm Q15M PRN PO DECREASED GLUCOSE; Start 01/09/19 at 22:35 Dextrose (D50w Syringe) 25 ml Q15M PRN IV DECREASED GLUCOSE; Start 01/09/19 at 22:35 Dextrose (D50w Syringe) 50 ml Q15M PRN IV DECREASED GLUCOSE; Start 01/09/19 at 22:35 Glucose (Glutose) 15 gm Q15M PRN BUCCAL DECREASED GLUCOSE; Start 01/09/19 at 22:35 Levalbuterol (Xopenex Neb) 1.25 mg Q4H RESP THERAPY PRN HHN SHORTNESS OF BREATH; Start 01/09/19 at 22:35 Nicotine Polacrilex (Nicorette) 2 mg Q2H PRN BUCCAL CONTROL WITHDRAWAL SYMPTOMS; Start 01/09/19 at 22:35 Aspirin (Halfprin) 81 mg DAILY PO Last administered on 01/10/19at 08:47; Admin Dose 81 MG; Start 01/09/19 at 22:35 Lactobacillus Acidophilus/ Rhamnosus (Culturelle) 1 cap BID PO Last administered on 01/11/19at 08:14; Admin Dose 1 CAP; Start 01/09/19 at 22:35 Simethicone (Mylicon) 80 mg TID PRN PO .GAS; Start 01/09/19 at 22:35 Sodium Biphosphate/ Sodium Phosphate (Fleet Enema) 133 ml DAILY PRN [place] .CONSTIPATION; Start 01/09/19 at 22:35 Bethanechol Chloride (Urecholine) 25 mg URINARY CATH D/C PRN PO UNABLE TO VOID; Start 01/09/19 at 22:35 Pantoprazole (Protonix Tab) 40 mg DAILY@06 PO Last administered on 01/11/19at 06:25; Admin Dose 40 MG; Start 01/09/19 at 22:35 Naloxone HCl (Narcan) 0.2 mg Q2M PRN IV .RESP RATE; Start 01/09/19 at 22:36 Insulin Aspart (Novolog Insulin Pen) NOVOLOG *MILD* ALGORITHM WITH MEALS BEDTIME SC Last administered on 01/10/19at 20:50; Admin Dose 1 UNIT; Start 01/09/19 at 22:59 Hydralazine HCl (Apresoline) 50 mg QID PO Last administered on 01/11/19at 08:19; Admin Dose 50 MG; Start 01/09/19 at 23:00 Tamsulosin HCl (Flomax) 0.4 mg HS PO Last administered on 01/10/19 20:44; Admin Dose 0.4 MG; Start 01/09/19 at 23:00 Heparin Sodium (Porcine) (Heparin (5000 Units/1ml)) 5,000 unit BID SC Last administered on 01/11/19 08:27; Admin Dose 5,000 UNIT; Start 01/09/19 at 23:00 Insulin Glargine (Lantus) 10 units QPM SC Last administered on 01/10/19 20:50; Admin Dose 10 UNITS; Start 01/09/19 at 23:01 Carvedilol (Coreg) 12.5 mg BID PO Last administered on 01/11/19 08:20; Admin Dose 12.5 MG; Start 01/09/19 at 23:01 Docusate Sodium (Colace) 100 mg BID PO Last administered on 01/11/19 08:14; Admin Dose 100 MG; Start 01/10/19 at 09:00 Senna (Senokot) 1 tab HS PO Last administered on 01/10/19 20:44; Admin Dose 1 TAB; Start 01/10/19 at 21:00 Magnesium Hydroxide (Milk Of Mag) 30 ml BID PRN PO CONSTIPATION; Start 01/10/19 at 00:00 Lactulose (Enulose) 20 gm DAILY PRN PO CONSTIPATION; Start 01/10/19 at 00:00 Bisacodyl (Dulcolax Supp) 10 mg DAILY PRN [place] CONSTIPATION; Start 01/10/19 at 00:00 Multivitamins Therapeutic (Theragran) 1 tab DAILY PO Last administered on 01/11/19 08:18; Admin Dose 1 TAB; Start 01/11/19 at 09:00 Ascorbic Acid (Vitamin C) 500 mg DAILY PO Last administered on 01/11/19 08:16; Admin Dose 500 MG; Start 01/11/19 at 09:00 Folic Acid (Folic Acid) 1 mg DAILY PO Last administered on 01/11/19 08:18; Admin Dose 1 MG; Start 01/11/19 at 09:00 Zinc Sulfate (Zinc Sulfate) 220 mg DAILY PO Last administered on 01/11/19 08:13; Admin Dose 220 MG; Start 01/11/19 at 09:00 Betamethasone/ Clotrimazole (Lotrisone Cr) 1 applic DAILY TOP Last administered on 01/11/19at 08:27; Admin Dose 1 APPLIC; Start 01/10/19 at 13:00 BARNEY HILL NP January 11, 2019 11:52
--- NOTE | 2019-01-11 12:56 | PN ---
Date/Time of Note Date/Time of Note DATE: 01/11/19 TIME: 12:54 Subjective Comfortable Objective Vital Signs Date Temp Pulse Resp B/P (MAP) Pulse Ox O2 O2 Flow FiO2 Time Delivery Rate 01/11/19 98.5 65 18 161/71 93 Room Air 10:24 (101) Intake and Output 01/10/19 01/10/19 01/11/19 1515:00 23:00 07:00 IntakeIntake Total 200 ml 1220 ml OutputOutput Total 1130 ml BalanceBalance 200 ml 90 ml Exam pulm-cta integ- incision C/D/I- paul removed mod assist Results/Medications Result Diagram: 01/10/1972501/10/19725 Results 24 hrs Laboratory Tests Test 01/10/19 17:27 01/10/19 20:46 01/11/19 02:21 01/11/19 07:47 Bedside Glucose 270 H 203 139 115 Test 01/11/19 11:59 Bedside Glucose 240 H Medications Current Medications Acetaminophen (Tylenol Tab) 650 mg Q6H PRN PO .PAIN 1-3 OR TEMP; Start 01/09/19 at 22:35 Acetaminophen/ Hydrocodone Bitart ([place] (5/325)) 1 tab Q6H PRN PO .MOD PAIN 4- 6; Start 01/09/19 at 22:35 Bisacodyl (Dulcolax) 5 mg DAILY PRN PO .CONSTIPATION Last administered on 01/10/19at 08:48; Admin Dose 5 MG; Start 01/09/19 at 22:35 Amlodipine Besylate (Norvasc) 10 mg DAILY PO Last administered on 01/11/19at 08:20; Admin Dose 10 MG; Start 01/09/19 at 22:35 Levothyroxine Sodium (Synthroid) 175 mcg BEFORE BREAKFAST PO Last administered on 01/11/19at 06:25; Admin Dose 175 MCG; Start 01/09/19 at 22:35 Sertraline HCl (Zoloft) 100 mg DAILY PO Last administered on 01/11/19at 08:14; Admin Dose 100 MG; Start 01/09/19 at 22:35 Miscellaneous Information 1 ea NOTE XX ; Start 01/09/19 at 22:35 Glucose (Glutose) 15 gm Q15M PRN PO DECREASED GLUCOSE; Start 01/09/19 at 22:35 Glucose (Glutose) 22.5 gm Q15M PRN PO DECREASED GLUCOSE; Start 01/09/19 at 22:35 Dextrose (D50w Syringe) 25 ml Q15M PRN IV DECREASED GLUCOSE; Start 01/09/19 at 22:35 Dextrose (D50w Syringe) 50 ml Q15M PRN IV DECREASED GLUCOSE; Start 01/09/19 at 22:35 Glucose (Glutose) 15 gm Q15M PRN BUCCAL DECREASED GLUCOSE; Start 01/09/19 at 22:35 Levalbuterol (Xopenex Neb) 1.25 mg Q4H RESP THERAPY PRN HHN SHORTNESS OF BREATH; Start 01/09/19 at 22:35 Nicotine Polacrilex (Nicorette) 2 mg Q2H PRN BUCCAL CONTROL WITHDRAWAL SYMPTOMS; Start 01/09/19 at 22:35 Aspirin (Halfprin) 81 mg DAILY PO Last administered on 01/10/19at 08:47; Admin Dose 81 MG; Start 01/09/19 at 22:35 Lactobacillus Acidophilus/ Rhamnosus (Culturelle) 1 cap BID PO Last administered on 01/11/19at 08:14; Admin Dose 1 CAP; Start 01/09/19 at 22:35 Simethicone (Mylicon) 80 mg TID PRN PO .GAS; Start 01/09/19 at 22:35 Sodium Biphosphate/ Sodium Phosphate (Fleet Enema) 133 ml DAILY PRN [place] .CONSTIPATION; Start 01/09/19 at 22:35 Bethanechol Chloride (Urecholine) 25 mg URINARY CATH D/C PRN PO UNABLE TO VOID; Start 01/09/19 at 22:35 Pantoprazole (Protonix Tab) 40 mg DAILY@06 PO Last administered on 01/11/19at 06:25; Admin Dose 40 MG; Start 01/09/19 at 22:35 Naloxone HCl (Narcan) 0.2 mg Q2M PRN IV .RESP RATE; Start 01/09/19 at 22:36 Insulin Aspart (Novolog Insulin Pen) NOVOLOG *MILD* ALGORITHM WITH MEALS BEDTIME SC Last administered on 01/11/19at 12:09; Admin Dose 3 UNIT; Start 01/09/19 at 22:59 Hydralazine HCl (Apresoline) 50 mg QID PO Last administered on 01/11/19at 08:19; Admin Dose 50 MG; Start 01/09/19 at 23:00 Tamsulosin HCl (Flomax) 0.4 mg HS PO Last administered on 01/10/19 20:44; Admin Dose 0.4 MG; Start 01/09/19 at 23:00 Heparin Sodium (Porcine) (Heparin (5000 Units/1ml)) 5,000 unit BID SC Last administered on 01/11/19 08:27; Admin Dose 5,000 UNIT; Start 01/09/19 at 23:00 Insulin Glargine (Lantus) 10 units QPM SC Last administered on 01/10/19 20:50; Admin Dose 10 UNITS; Start 01/09/19 at 23:01 Carvedilol (Coreg) 12.5 mg BID PO Last administered on 01/11/19 08:20; Admin Dose 12.5 MG; Start 01/09/19 at 23:01 Docusate Sodium (Colace) 100 mg BID PO Last administered on 01/11/19 08:14; Admin Dose 100 MG; Start 01/10/19 at 09:00 Senna (Senokot) 1 tab HS PO Last administered on 01/10/19 20:44; Admin Dose 1 TAB; Start 01/10/19 at 21:00 Magnesium Hydroxide (Milk Of Mag) 30 ml BID PRN PO CONSTIPATION; Start 01/10/19 at 00:00 Lactulose (Enulose) 20 gm DAILY PRN PO CONSTIPATION; Start 01/10/19 at 00:00 Bisacodyl (Dulcolax Supp) 10 mg DAILY PRN [place] CONSTIPATION; Start 01/10/19 at 00:00 Multivitamins Therapeutic (Theragran) 1 tab DAILY PO Last administered on 01/11/19 08:18; Admin Dose 1 TAB; Start 01/11/19 at 09:00 Ascorbic Acid (Vitamin C) 500 mg DAILY PO Last administered on 01/11/19 08:16; Admin Dose 500 MG; Start 01/11/19 at 09:00 Folic Acid (Folic Acid) 1 mg DAILY PO Last administered on 01/11/19 08:18; Admin Dose 1 MG; Start 01/11/19 at 09:00 Zinc Sulfate (Zinc Sulfate) 220 mg DAILY PO Last administered on 01/11/19 08:13; Admin Dose 220 MG; Start 01/11/19 at 09:00 Betamethasone/ Clotrimazole (Lotrisone Cr) 1 applic DAILY TOP Last administered on 01/11/19at 08:27; Admin Dose 1 APPLIC; Start 01/10/19 at 13:00 Assessment/Plan Additional Assessment/Plan Rehab-Right intertrochanteric hip fracture status post intramedullary nailing. Continue current treatment plan Acute pain syndrome. Hypertension. Diabetes mellitus type 2. Acute on chronic injury. Anemia. COPD. Hypothyroidism. Prostate hypertrophy. Right heel DTI- offload, improve nutrition, increase mobility NIKIA POE MD January 11, 2019 12:56
[2019-01-11] MEDS: HYDROCODONE/APAP (5/325) TAB PO PRN (14:18)
[2019-01-11 14:53] VITALS: BP 148/67; PULSE 57; RESP 18
[2019-01-11 19:15] VITALS: BP 128/70; PULSE 67; RESP 18
[2019-01-11] MEDS: INSULIN GLARGINE [LANTus] (100 UNITS/ML) SYG SC SCH (20:19)
[2019-01-11] MEDS: SENNA TAB PO SCH (22:26)
[2019-01-11] MEDS: TAMSULOSIN (SR) 0.4 MG CAP PO SCH (22:26)
[2019-01-12 02:00] VITALS: BP 132/64; PULSE 62; RESP 18
[2019-01-12] MEDS: LEVOTHYROXINE 175 MCG TAB PO SCH (06:06)
[2019-01-12] MEDS: PANTOPRAZOLE (EC) 40 MG TAB PO SCH (06:06)
[2019-01-12 07:00] VITALS: BP 149/73; PULSE 63; RESP 18
[2019-01-12] MEDS ORDERED: INSULIN ASPART [NOVOLOG] 3 ML PEN SC SCH (07:35)
[2019-01-12] MEDS: INSULIN ASPART [NOVOLOG] 3 ML PEN SC SCH ×3 (08:15→20:40)
[2019-01-12] MEDS: ASPIRIN (EC) 81 MG TAB PO SCH (09:00)
[2019-01-12] MEDS ORDERED: SODIUM POLYSTYRENE 15 GM KIT (POWDER + SORBITOL) PO SCH (09:00)
--- NOTE | 2019-01-12 09:00 | PN ---
DATE: 01/12/2019 SUBJECTIVE: The patient is stable, no events overnight. OBJECTIVE: VITAL SIGNS: Blood pressure is 132/64, respirations 18, pulse 62, temperature 98.5. HEENT: Head is normocephalic. NECK: Supple. HEART: Regular rate. LUNGS: Show diminished breath sounds at the base. ABDOMEN: Soft, nontender to palpation without rebound or guarding. EXTREMITIES: Negative for clubbing, cyanosis, no edema. DERMATOLOGIC: No rashes. MUSCULOSKELETAL: No joint effusion. NEUROLOGIC: No change in exam. MEDICATIONS: The patient's medications have been reviewed. LABORATORY DATA: From 01/12/2019 was reviewed. ASSESSMENT AND PLAN: 1. Nonoliguric acute kidney injury on top of CKD stage IIIB/IV, with baseline creatinine 2.2 to 2.7 mg/dL. Etiology of acute kidney injury is secondary to hemodynamics. Renal function is overall stab le, continue to monitor. Continue current treatment plans, supportive care, renally dose all meds. 2. Hyperkalemia. The patient's potassium levels are elevated. We will give Kayexalate. The patien t will be placed on a low potassium diet and monitor closely. 3. Metabolic acidosis, resolved. 4. Mineral bone disorder, monitor calcium and phosphorus levels. 5. Anemia with iron deficiency. The patient is status post IV Ferrlecit. Continue to monitor hemog lobin and hematocrit levels. 6. Hypomagnesemia. Continue to monitor and replete. 7. Acute right femoral fracture, status post arthroplasty. Continue physical therapy. 8. History of chronic obstructive pulmonary disease. Continue medical management. 9. Hypertension. Continue current blood pressure regimen. Defer any SALVADOR inhibitor or ARB. 10. Diabetes. Continue current insulin regimen. Dictated By: SHIN COHEN DO NR/NTS Conf#: [id number] DID#: [id number] CC: NIKIA POE MD;*End*
[2019-01-12] MEDS: ASCORBIC ACID 500 MG TAB PO SCH (09:18)
[2019-01-12] MEDS: LACTOBACILLUS RHAMNOSUS CAP PO SCH ×2 (09:18→20:30)
[2019-01-12] MEDS: FOLIC ACID 1 MG TAB PO SCH (09:18)
[2019-01-12] MEDS: ZINC SULFATE 220 MG CAP PO SCH (09:18)
[2019-01-12] MEDS: MULTIVITAMINS THERAPEUTIC TAB PO SCH (09:18)
[2019-01-12] MEDS: SERTRALINE 100 MG TAB PO SCH (09:18)
[2019-01-12] MEDS: DOCUSATE SODIUM 100 MG CAP PO SCH ×2 (09:18→20:30)
[2019-01-12] MEDS: AMLODIPINE 10 MG TAB PO SCH (09:19)
[2019-01-12] MEDS: HEPARIN 5,000 UNIT/1 ML VIAL SC SCH ×2 (09:27→20:40)
[2019-01-12] MEDS: BALSAM PERU/CASTOR OIL 60 GM TUBE TOP SCH ×2 (09:58→20:43)
[2019-01-12] MEDS: BETAMETHASONE/CLOTRIMAZOLE 15 GM CR TOP SCH (10:22)
--- NOTE | 2019-01-12 13:35 | PN ---
Date/Time of Note Date/Time of Note DATE: 01/12/19 TIME: 13:34 Assessment/Plan VTE Prophylaxis Risk score (from Nsg)>0 risk: 9 SCD applied (from Ns): Yes Pharmacological prophylaxis: heparin Lines/Catheters IV Catheter Type (from Nrsg): Peripheral IV Urinary Cath still in place: No Assessment/Plan Hospital Course SUBJECTIVE: pt had hyperglycemia and he was not on a carb controlled diet. he received bolus insulin and today w/hypoglycemia. He also reports some dizziness. OBJECTIVE: Vital signs-see below PHYSICAL EXAM: Constitutional: Adequately built,not in acute distress. HEENT: Head atraumatic and normocephalic. Eyes: Extraocular muscles intact. Anicteric sclerae. Pupils equal bilaterally, reactive to light. NECK: Supple without lymph node. CHEST: Clear and good breath sounds equally. No wheezing. No rhonchi. HEART: S1, S2. Regular rate and rhythm. ABDOMEN: Soft/non tender with no rebound tenderness. Bowel sounds were present. EXTREMITIES: Right hip surgical site c/d/i No cyanosis, clubbing or edema. NEUROLOGIC: Alert and oriented x3. Forgetful. No focal deficit. No sensory deficit. PSYCHOSOCIAL: No signs of depression. INTEGUMENTARY: No open wounds. ASSESSMENT AND PLAN: 68 yo M w/htn,dm2,CKD, here for rehabilitation for right hip fx/IM nailing... Right intertrochanteric fracture of the femur. -Status post intramedullary nailing of right intertrochanteric hip fracture on 12/28/2018. -dvt ppx,pain control,pt/rehba -f/u ortho in 2wks Hypertension -Stable. -Continue bb/hydralazine -Not a candidate for acei 2/2 hyperkalemia Diabetes mellitus 2. -needs control -pt not on a carb controlled diet which we will change now -adjust Lantus 20 -accuchecks/ISS (mild algorithm) CKD stage IIIB/IV with a baseline creatinine of 2.2 to 2.7 mg/dL -mgmt per nephro -creat fairly stable at baseline chronic anemia -on iron COPD. -stable Nicotine use. -nicotine patch. Hypothyroidism -on Synthroid. Prostate hypertrophy. -on tamsulosin. Hyperkalemia -s/p kayexalate -nephro managing Urinary tract infection -Treat with [id number] Dizziness -Obtain CT brain DVT prophylaxis -Subcutaneous heparin. The patient was seen in collaboration with Result Diagram: 01/12/19 0555 01/12/19 0555 Results 24hrs Laboratory Tests Test 01/11/19 17:52 01/11/19 20:13 01/12/19 02:35 01/12/19 05:55 Bedside Glucose 361 H 278 H 170 White Blood Count 12.5 H Red Blood Count 3.28 L Hemoglobin 8.4 L Hematocrit 27.2 L Mean Corpuscular 82.9 Volume Mean Corpuscular 25.6 L Hemoglobin Mean Corpuscular 30.9 L Hemoglobin Concent Red Cell 15.8 H Distribution Width Platelet Count 637 H Mean Platelet Volume 9.9 Immature 0.900 H Granulocytes % Neutrophils % 76.2 Lymphocytes % 10.8 L Monocytes % 9.5 Eosinophils % 2.0 Basophils % 0.6 Nucleated Red Blood 0.0 Cells % Immature 0.110 H Granulocytes # Neutrophils # 9.6 H Lymphocytes # 1.4 Monocytes # 1.2 H Eosinophils # 0.3 Basophils # 0.1 Nucleated Red Blood 0.0 Cells # Sodium Level 135 Potassium Level 5.8 H Chloride Level 104 Carbon Dioxide Level 23 Anion Gap 8 Blood Urea Nitrogen 70 H Creatinine 2.56 H Est Glomerular 25 L Filtrat Rate mL/min Glucose Level 155 Calcium Level 8.9 Phosphorus Level 5.6 H Magnesium Level 1.9 Test 01/12/19 08:08 01/12/19 11:34 01/12/19 11:50 Bedside Glucose 155 57 L 103 Exam/Review of Systems Exam Vitals Vital Signs Date Temp Pulse Resp B/P (MAP) Pulse Ox O2 O2 Flow FiO2 Time Delivery Rate 01/12/19 98.2 63 18 149/73 95 Room Air 07:00 (98) Intake and Output 01/11/19 01/11/19 01/12/19 1515:00 23:00 07:00 IntakeIntake Total 1650 ml 240 ml 550 ml OutputOutput Total 650 ml BalanceBalance 1650 ml -410 ml 550 ml Results Results 24hrs Laboratory Tests Test 01/11/19 17:52 01/11/19 20:13 01/12/19 02:35 01/12/19 05:55 Bedside Glucose 361 H 278 H 170 White Blood Count 12.5 H Red Blood Count 3.28 L Hemoglobin 8.4 L Hematocrit 27.2 L Mean Corpuscular 82.9 Volume Mean Corpuscular 25.6 L Hemoglobin Mean Corpuscular 30.9 L Hemoglobin Concent Red Cell 15.8 H Distribution Width Platelet Count 637 H Mean Platelet Volume 9.9 Immature 0.900 H Granulocytes % Neutrophils % 76.2 Lymphocytes % 10.8 L Monocytes % 9.5 Eosinophils % 2.0 Basophils % 0.6 Nucleated Red Blood 0.0 Cells % Immature 0.110 H Granulocytes # Neutrophils # 9.6 H Lymphocytes # 1.4 Monocytes # 1.2 H Eosinophils # 0.3 Basophils # 0.1 Nucleated Red Blood 0.0 Cells # Sodium Level 135 Potassium Level 5.8 H Chloride Level 104 Carbon Dioxide Level 23 Anion Gap 8 Blood Urea Nitrogen 70 H Creatinine 2.56 H Est Glomerular 25 L Filtrat Rate mL/min Glucose Level 155 Calcium Level 8.9 Phosphorus Level 5.6 H Magnesium Level 1.9 Test 01/12/19 08:08 01/12/19 11:34 01/12/19 11:50 Bedside Glucose 155 57 L 103 Medications Medication Current Medications Acetaminophen (Tylenol Tab) 650 mg Q6H PRN PO .PAIN 1-3 OR TEMP; Start 01/09/19 at 22:35 Acetaminophen/ Hydrocodone Bitart ([place] (5/325)) 1 tab Q6H PRN PO .MOD PAIN 4- 6 Last administered on 01/11/19at 14:18; Admin Dose 1 TAB; Start 01/09/19 at 22:35 Bisacodyl (Dulcolax) 5 mg DAILY PRN PO .CONSTIPATION Last administered on 01/10/19at 08:48; Admin Dose 5 MG; Start 01/09/19 at 22:35 Amlodipine Besylate (Norvasc) 10 mg DAILY PO Last administered on 01/12/19 09:19; Admin Dose 10 MG; Start 01/09/19 at 22:35 Levothyroxine Sodium (Synthroid) 175 mcg BEFORE BREAKFAST PO Last administered on 01/12/19at 06:06; Admin Dose 175 MCG; Start 01/09/19 at 22:35 Sertraline HCl (Zoloft) 100 mg DAILY PO Last administered on 01/12/19at 09:18; Admin Dose 100 MG; Start 01/09/19 at 22:35 Miscellaneous Information 1 ea NOTE XX ; Start 01/09/19 at 22:35 Glucose (Glutose) 15 gm Q15M PRN PO DECREASED GLUCOSE; Start 01/09/19 at 22:35 Glucose (Glutose) 22.5 gm Q15M PRN PO DECREASED GLUCOSE; Start 01/09/19 at 22:35 Dextrose (D50w Syringe) 25 ml Q15M PRN IV DECREASED GLUCOSE; Start 01/09/19 at 22:35 Dextrose (D50w Syringe) 50 ml Q15M PRN IV DECREASED GLUCOSE; Start 01/09/19 at 22:35 Glucose (Glutose) 15 gm Q15M PRN BUCCAL DECREASED GLUCOSE; Start 01/09/19 at 22:35 Levalbuterol (Xopenex Neb) 1.25 mg Q4H RESP THERAPY PRN HHN SHORTNESS OF BREATH; Start 01/09/19 at 22:35 Nicotine Polacrilex (Nicorette) 2 mg Q2H PRN BUCCAL CONTROL WITHDRAWAL SYMPTOMS; Start 01/09/19 at 22:35 Aspirin (Halfprin) 81 mg DAILY PO Last administered on 01/10/19at 08:47; Admin Dose 81 MG; Start 01/09/19 at 22:35 Lactobacillus Acidophilus/ Rhamnosus (Culturelle) 1 cap BID PO Last administered on 01/12/19at 09:18; Admin Dose 1 CAP; Start 01/09/19 at 22:35 Simethicone (Mylicon) 80 mg TID PRN PO .GAS; Start 01/09/19 at 22:35 Sodium Biphosphate/ Sodium Phosphate (Fleet Enema) 133 ml DAILY PRN [place] .CONSTIPATION; Start 01/09/19 at 22:35 Bethanechol Chloride (Urecholine) 25 mg URINARY CATH D/C PRN PO UNABLE TO VOID; Start 01/09/19 at 22:35 Pantoprazole (Protonix Tab) 40 mg DAILY@06 PO Last administered on 01/12/19at 06 :06; Admin Dose 40 MG; Start 01/09/19 at 22:35 Naloxone HCl (Narcan) 0.2 mg Q2M PRN IV .RESP RATE; Start 01/09/19 at 22:36 Hydralazine HCl (Apresoline) 50 mg QID PO Last administered on 01/11/19at 22:27; Admin Dose 50 MG; Start 01/09/19 at 23:00 Tamsulosin HCl (Flomax) 0.4 mg HS PO Last administered on 01/11/19 22:26; Admin Dose 0.4 MG; Start 01/09/19 at 23:00 Heparin Sodium (Porcine) (Heparin (5000 Units/1ml)) 5,000 unit BID SC Last administered on 01/12/19 09:27; Admin Dose 5,000 UNIT; Start 01/09/19 at 23:00 Insulin Glargine (Lantus) 10 units QPM SC Last administered on 01/11/19 20:19; Admin Dose 10 UNITS; Start 01/09/19 at 23:01 Carvedilol (Coreg) 12.5 mg BID PO Last administered on 01/12/19 09:20; Admin Dose 12.5 MG; Start 01/09/19 at 23:01 Docusate Sodium (Colace) 100 mg BID PO Last administered on 01/12/19 09:18; Admin Dose 100 MG; Start 01/10/19 at 09:00 Senna (Senokot) 1 tab HS PO Last administered on 01/11/19 22:26; Admin Dose 1 TAB; Start 01/10/19 at 21:00 Magnesium Hydroxide (Milk Of Mag) 30 ml BID PRN PO CONSTIPATION; Start 01/10/19 at 00:00 Lactulose (Enulose) 20 gm DAILY PRN PO CONSTIPATION; Start 01/10/19 at 00:00 Bisacodyl (Dulcolax Supp) 10 mg DAILY PRN [place] CONSTIPATION; Start 01/10/19 at 00:00 Multivitamins Therapeutic (Theragran) 1 tab DAILY PO Last administered on 01/12/19 09:18; Admin Dose 1 TAB; Start 01/11/19 at 09:00 Ascorbic Acid (Vitamin C) 500 mg DAILY PO Last administered on 01/12/19 09:18; Admin Dose 500 MG; Start 01/11/19 at 09:00 Folic Acid (Folic Acid) 1 mg DAILY PO Last administered on 01/12/19 09:18; Admin Dose 1 MG; Start 01/11/19 at 09:00 Zinc Sulfate (Zinc Sulfate) 220 mg DAILY PO Last administered on 01/12/19 0 9:18; Admin Dose 220 MG; Start 01/11/19 at 09:00 Betamethasone/ Clotrimazole (Lotrisone Cr) 1 applic DAILY TOP Last administered on 01/12/19at 10:22; Admin Dose 1 APPLIC; Start 01/10/19 at 13:00 Insulin Aspart (Novolog Insulin Pen) 5 unit WITH MEALS SC Last administered on 01/12/19at 08:14; Admin Dose 5 UNIT; Start 01/12/19 at 07:35 Insulin Aspart (Novolog Insulin Pen) NOVOLOG *MODERATE* ALGORITHM WITH MEALS BEDTIME SC Last administered on 01/12/19at 08:15; Admin Dose 2 UNIT; Start 01/11/19 at 21:00 Sodium Polystyrene Sulfonate (Kayexelate 15 Gm Kit (Powder+Sorbitol)) 15 gm ONCE PO Last administered on 01/12/19at 09:28; Admin Dose 15 GM; Start 01/12/19 at 09:00; Stop 01/12/19 at 16:00 BARNEY HILL NP January 12, 2019 13:34
[2019-01-12 14:00] VITALS: BP 141/65; PULSE 61; RESP 18
[2019-01-12] MEDS ORDERED: NITROFURANTOIN (SR) 100 MG CAP PO SCH (14:00)
--- NOTE | 2019-01-12 14:04 | PN ---
Date/Time of Note Date/Time of Note DATE: 01/12/19 TIME: 14:02 Subjective Feels tired/dizzy Objective Vital Signs Date Temp Pulse Resp B/P (MAP) Pulse Ox O2 O2 Flow FiO2 Time Delivery Rate 01/12/19 98.2 63 18 149/73 95 Room Air 07:00 (98) Intake and Output 01/11/19 01/11/19 01/12/19 1515:00 23:00 07:00 IntakeIntake Total 1650 ml 240 ml 550 ml OutputOutput Total 650 ml BalanceBalance 1650 ml -410 ml 550 ml Exam pulm-cta abd-soft min ambulation Results/Medications Result Diagram: 01/12/19 0555 01/12/19 0555 Results 24 hrs Laboratory Tests Test 01/11/19 17:52 01/11/19 20:13 01/12/19 02:35 01/12/19 05:55 Bedside Glucose 361 H 278 H 170 White Blood Count 12.5 H Red Blood Count 3.28 L Hemoglobin 8.4 L Hematocrit 27.2 L Mean Corpuscular 82.9 Volume Mean Corpuscular 25.6 L Hemoglobin Mean Corpuscular 30.9 L Hemoglobin Concent Red Cell 15.8 H Distribution Width Platelet Count 637 H Mean Platelet Volume 9.9 Immature 0.900 H Granulocytes % Neutrophils % 76.2 Lymphocytes % 10.8 L Monocytes % 9.5 Eosinophils % 2.0 Basophils % 0.6 Nucleated Red Blood 0.0 Cells % Immature 0.110 H Granulocytes # Neutrophils # 9.6 H Lymphocytes # 1.4 Monocytes # 1.2 H Eosinophils # 0.3 Basophils # 0.1 Nucleated Red Blood 0.0 Cells # Sodium Level 135 Potassium Level 5.8 H Chloride Level 104 Carbon Dioxide Level 23 Anion Gap 8 Blood Urea Nitrogen 70 H Creatinine 2.56 H Est Glomerular 25 L Filtrat Rate mL/min Glucose Level 155 Calcium Level 8.9 Phosphorus Level 5.6 H Magnesium Level 1.9 Test 01/12/19 08:08 01/12/19 11:34 01/12/19 11:50 Bedside Glucose 155 57 L 103 Medications Current Medications Acetaminophen (Tylenol Tab) 650 mg Q6H PRN PO .PAIN 1-3 OR TEMP; Start 01/09/19 at 22:35 Acetaminophen/ Hydrocodone Bitart ([place] (5/325)) 1 tab Q6H PRN PO .MOD PAIN 4- 6 Last administered on 01/11/19 14:18; Admin Dose 1 TAB; Start 01/09/19 at 22:35 Bisacodyl (Dulcolax) 5 mg DAILY PRN PO .CONSTIPATION Last administered on 01/10/19 08:48; Admin Dose 5 MG; Start 01/09/19 at 22:35 Amlodipine Besylate (Norvasc) 10 mg DAILY PO Last administered on 01/12/19 09:19; Admin Dose 10 MG; Start 01/09/19 at 22:35 Levothyroxine Sodium (Synthroid) 175 mcg BEFORE BREAKFAST PO Last administered on 01/12/19 06:06; Admin Dose 175 MCG; Start 01/09/19 at 22:35 Sertraline HCl (Zoloft) 100 mg DAILY PO Last administered on 01/12/19 09:18; Admin Dose 100 MG; Start 01/09/19 at 22:35 Miscellaneous Information 1 ea NOTE XX ; Start 01/09/19 at 22:35 Glucose (Glutose) 15 gm Q15M PRN PO DECREASED GLUCOSE; Start 01/09/19 at 22:35 Glucose (Glutose) 22.5 gm Q15M PRN PO DECREASED GLUCOSE; Start 01/09/19 at 22:35 Dextrose (D50w Syringe) 25 ml Q15M PRN IV DECREASED GLUCOSE; Start 01/09/19 at 22:35 Dextrose (D50w Syringe) 50 ml Q15M PRN IV DECREASED GLUCOSE; Start 01/09/19 at 22:35 Glucose (Glutose) 15 gm Q15M PRN BUCCAL DECREASED GLUCOSE; Start 01/09/19 at 22:35 Levalbuterol (Xopenex Neb) 1.25 mg Q4H RESP THERAPY PRN HHN SHORTNESS OF BREATH; Start 01/09/19 at 22:35 Nicotine Polacrilex (Nicorette) 2 mg Q2H PRN BUCCAL CONTROL WITHDRAWAL SYMPTOMS; Start 01/09/19 at 22:35 Aspirin (Halfprin) 81 mg DAILY PO Last administered on 01/10/19at 08:47; Admin Dose 81 MG; Start 01/09/19 at 22:35 Lactobacillus Acidophilus/ Rhamnosus (Culturelle) 1 cap BID PO Last administered on 5/17/19at 09:18; Admin Dose 1 CAP; Start 01/09/19 at 22:35 Simethicone (Mylicon) 80 mg TID PRN PO .GAS; Start 01/09/19 at 22:35 Sodium Biphosphate/ Sodium Phosphate (Fleet Enema) 133 ml DAILY PRN [place] .CONSTIPATION; Start 01/09/19 at 22:35 Bethanechol Chloride (Urecholine) 25 mg URINARY CATH D/C PRN PO UNABLE TO VOID; Start 01/09/19 at 22:35 Pantoprazole (Protonix Tab) 40 mg DAILY@06 PO Last administered on 01/12/19 06:06; Admin Dose 40 MG; Start 01/09/19 at 22:35 Naloxone HCl (Narcan) 0.2 mg Q2M PRN IV .RESP RATE; Start 01/09/19 at 22:36 Hydralazine HCl (Apresoline) 50 mg QID PO Last administered on 01/11/19 22:27; Admin Dose 50 MG; Start 01/09/19 at 23:00 Tamsulosin HCl (Flomax) 0.4 mg HS PO Last administered on 01/11/19 22:26; Admin Dose 0.4 MG; Start 01/09/19 at 23:00 Heparin Sodium (Porcine) (Heparin (5000 Units/1ml)) 5,000 unit BID SC Last administered on 01/12/19 09:27; Admin Dose 5,000 UNIT; Start 01/09/19 at 23:00 Carvedilol (Coreg) 12.5 mg BID PO Last administered on 01/12/19 09:20; Admin Dose 12.5 MG; Start 01/09/19 at 23:01 Docusate Sodium (Colace) 100 mg BID PO Last administered on 01/12/19 09:18; Admin Dose 100 MG; Start 01/10/19 at 09:00 Senna (Senokot) 1 tab HS PO Last administered on 01/11/19 22:26; Admin Dose 1 TAB; Start 01/10/19 at 21:00 Magnesium Hydroxide (Milk Of Mag) 30 ml BID PRN PO CONSTIPATION; Start 01/10/19 at 00:00 Lactulose (Enulose) 20 gm DAILY PRN PO CONSTIPATION; Start 01/10/19 at 00:00 Bisacodyl (Dulcolax Supp) 10 mg DAILY PRN [place] CONSTIPATION; Start 01/10/19 at 00:00 Multivitamins Therapeutic (Theragran) 1 tab DAILY PO Last administered on at 09:18; Admin Dose 1 TAB; Start 01/11/19 at 09:00 Ascorbic Acid (Vitamin C) 500 mg DAILY PO Last administered on 01/12/19at 09:18; Admin Dose 500 MG; Start 01/11/19 at 09:00 Folic Acid (Folic Acid) 1 mg DAILY PO Last administered on 01/12/19at 09:18; Admin Dose 1 MG; Start 01/11/19 at 09:00 Zinc Sulfate (Zinc Sulfate) 220 mg DAILY PO Last administered on 01/12/19 09:18; Admin Dose 220 MG; Start 01/11/19 at 09:00 Betamethasone/ Clotrimazole (Lotrisone Cr) 1 applic DAILY TOP Last administered on 01/12/19at 10:22; Admin Dose 1 APPLIC; Start 01/10/19 at 13:00 Sodium Polystyrene Sulfonate (Kayexelate 15 Gm Kit (Powder+Sorbitol)) 15 gm ONCE PO Last administered on 01/12/19at 09:28; Admin Dose 15 GM; Start 01/12/19 at 09:00; Stop 01/12/19 at 16:00 Insulin Glargine (Lantus) 20 units QPM SC ; Start 01/12/19 at 21:00 Nystatin (Nystatin Oint) 1 applic BID TOP ; Start 01/12/19 at 14:00; Status UNV Nitrofurantoin Macrocrystals (Macrobid) 100 mg BID PO ; Start 01/12/19 at 14:00; Stop 01/19/19 at 13:59; Status UNV Assessment/Plan Additional Assessment/Plan Rehab-Right intertrochanteric hip fracture status post intramedullary nailing. Continue activities as tolerated ID- slight leukocytosis. Case d/w Med [employer], will start abx for UTI Acute pain syndrome. Hypertension. Diabetes mellitus type 2. Acute on chronic injury. Anemia. COPD. Hypothyroidism. Prostate hypertrophy. Right heel DTI- offload, improve nutrition, increase mobility NIKIA POE MD January 12, 2019 14:04
[2019-01-12] MEDS ORDERED: AMOXICILLIN 500 MG CAP PO SCH (14:30)
[2019-01-12] MEDS: NYSTATIN 15 GM OINT TOP SCH ×2 (16:24→20:44)
[2019-01-12] MEDS: AMPICILLIN 500 MG CAP PO SCH ×2 (18:40→20:31)
[2019-01-12 20:00] VITALS: BP 135/63; PULSE 65; RESP 18
[2019-01-12] MEDS: SENNA TAB PO SCH (20:30)
[2019-01-12] MEDS: TAMSULOSIN (SR) 0.4 MG CAP PO SCH (20:30)
[2019-01-12] MEDS: INSULIN GLARGINE [LANTus] (100 UNITS/ML) SYG SC SCH (20:41)
[2019-01-13 02:00] VITALS: BP 145/59; PULSE 66; RESP 17
[2019-01-13] MEDS: PANTOPRAZOLE (EC) 40 MG TAB PO SCH (07:01)
[2019-01-13] MEDS: LEVOTHYROXINE 175 MCG TAB PO SCH (07:01)
[2019-01-13 07:30] VITALS: BP 146/65; PULSE 68; RESP 18
[2019-01-13] MEDS: INSULIN ASPART [NOVOLOG] 3 ML PEN SC SCH ×4 (07:35→21:12)
--- NOTE | 2019-01-13 08:19 | PN ---
Date/Time of Note Date/Time of Note DATE: 01/13/19 TIME: 08:17 Subjective Feels tired Objective Vital Signs Date Temp Pulse Resp B/P (MAP) Pulse Ox O2 O2 Flow FiO2 Time Delivery Rate 01/13/19 98.1 66 17 145/59 96 Room Air 02:00 (87) Intake and Output 01/12/19 01/12/19 01/13/19 1515:00 23:00 07:00 IntakeIntake Total 260 ml 740 ml 320 ml OutputOutput Total 500 ml 700 ml BalanceBalance 260 ml 240 ml -380 ml Exam pulm-cta abd-soft min/mod Results/Medications Result Diagram: 01/13/1937 01/13/1937 Results 24 hrs Laboratory Tests Test 01/12/19 11:34 01/12/19 11:50 01/12/19 17:46 01/12/19 18:34 Bedside Glucose 57 L 103 204 208 Test 01/12/19 20:29 01/13/19 06:37 01/13/19 07:34 Bedside Glucose 248 H 151 White Blood Count 12.2 H Red Blood Count 3.43 L Hemoglobin 9.0 L Hematocrit 28.7 L Mean Corpuscular 83.7 Volume Mean Corpuscular 26.2 L Hemoglobin Mean Corpuscular 31.4 L Hemoglobin Concent Red Cell 15.8 H Distribution Width Platelet Count 623 H Mean Platelet Volume 10.2 Immature 0.800 H Granulocytes % Neutrophils % 77.2 H Lymphocytes % 10.5 L Monocytes % 9.0 Eosinophils % 1.8 Basophils % 0.7 Nucleated Red Blood 0.0 Cells % Immature 0.100 H Granulocytes # Neutrophils # 9.4 H Lymphocytes # 1.3 Monocytes # 1.1 H Eosinophils # 0.2 Basophils # 0.1 Nucleated Red Blood 0.0 Cells # Sodium Level 135 Potassium Level 6.3 *H Chloride Level 105 Carbon Dioxide Level 22 Anion Gap 8 Blood Urea Nitrogen 72 H Creatinine 2.35 H Est Glomerular 28 L Filtrat Rate mL/min Glucose Level 127 Calcium Level 9.0 Phosphorus Level 6.0 H Magnesium Level 1.9 Medications Current Medications Acetaminophen (Tylenol Tab) 650 mg Q6H PRN PO .PAIN 1-3 OR TEMP; Start 01/09/19 at 22:35 Acetaminophen/ Hydrocodone Bitart ([place] (5/325)) 1 tab Q6H PRN PO .MOD PAIN 4- 6 Last administered on 01/11/19at 14:18; Admin Dose 1 TAB; Start 01/09/19 at 22:35 Bisacodyl (Dulcolax) 5 mg DAILY PRN PO .CONSTIPATION Last administered on 01/10/19 08:48; Admin Dose 5 MG; Start 01/09/19 at 22:35 Amlodipine Besylate (Norvasc) 10 mg DAILY PO Last administered on 01/12/19 09:19; Admin Dose 10 MG; Start 01/09/19 at 22:35 Levothyroxine Sodium (Synthroid) 175 mcg BEFORE BREAKFAST PO Last administered on 01/13/19 07:01; Admin Dose 175 MCG; Start 01/09/19 at 22:35 Sertraline HCl (Zoloft) 100 mg DAILY PO Last administered on 01/12/19 09:18; Admin Dose 100 MG; Start 01/09/19 at 22:35 Miscellaneous Information 1 ea NOTE XX ; Start 01/09/19 at 22:35 Glucose (Glutose) 15 gm Q15M PRN PO DECREASED GLUCOSE; Start 01/09/19 at 22:35 Glucose (Glutose) 22.5 gm Q15M PRN PO DECREASED GLUCOSE; Start 01/09/19 at 22:35 Dextrose (D50w Syringe) 25 ml Q15M PRN IV DECREASED GLUCOSE; Start 01/09/19 at 22:35 Dextrose (D50w Syringe) 50 ml Q15M PRN IV DECREASED GLUCOSE; Start 01/09/19 at 22:35 Glucose (Glutose) 15 gm Q15M PRN BUCCAL DECREASED GLUCOSE; Start 01/09/19 at 22:35 Levalbuterol (Xopenex Neb) 1.25 mg Q4H RESP THERAPY PRN HHN SHORTNESS OF BREATH; Start 01/09/19 at 22:35 Nicotine Polacrilex (Nicorette) 2 mg Q2H PRN BUCCAL CONTROL WITHDRAWAL SYMPTOMS; Start 01/09/19 at 22:35 Aspirin (Halfprin) 81 mg DAILY PO Last administered on 01/10/19at 08:47; Admin Dose 81 MG; Start 01/09/19 at 22:35 Lactobacillus Acidophilus/ Rhamnosus (Culturelle) 1 cap BID PO Last administered on 01/12/19at 20:30; Admin Dose 1 CAP; Start 01/09/19 at 22:35 Simethicone (Mylicon) 80 mg TID PRN PO .GAS; Start 01/09/19 at 22:35 Sodium Biphosphate/ Sodium Phosphate (Fleet Enema) 133 ml DAILY PRN [place] .CONSTIPATION; Start 01/09/19 at 22:35 Bethanechol Chloride (Urecholine) 25 mg URINARY CATH D/C PRN PO UNABLE TO VOID; Start 01/09/19 at 22:35 Pantoprazole (Protonix Tab) 40 mg DAILY@06 PO Last administered on 01/13/19at 07:01; Admin Dose 40 MG; Start 01/09/19 at 22:35 Naloxone HCl (Narcan) 0.2 mg Q2M PRN IV .RESP RATE; Start 01/09/19 at 22:36 Hydralazine HCl (Apresoline) 50 mg QID PO Last administered on 01/12/19 20:31; Admin Dose 50 MG; Start 01/09/19 at 23:00 Tamsulosin HCl (Flomax) 0.4 mg HS PO Last administered on 01/12/19 20:30; Admin Dose 0.4 MG; Start 01/09/19 at 23:00 Heparin Sodium (Porcine) (Heparin (5000 Units/1ml)) 5,000 unit BID SC Last administered on 01/12/19 20:40; Admin Dose 5,000 UNIT; Start 01/09/19 at 23:00 Carvedilol (Coreg) 12.5 mg BID PO Last administered on 01/12/19 20:31; Admin Dose 12.5 MG; Start 01/09/19 at 23:01 Docusate Sodium (Colace) 100 mg BID PO Last administered on 01/12/19 20:30; Admin Dose 100 MG; Start 01/10/19 at 09:00 Senna (Senokot) 1 tab HS PO Last administered on 01/12/19 20:30; Admin Dose 1 TAB; Start 01/10/19 at 21:00 Magnesium Hydroxide (Milk Of Mag) 30 ml BID PRN PO CONSTIPATION; Start 01/10/19 at 00:00 Lactulose (Enulose) 20 gm DAILY PRN PO CONSTIPATION; Start 01/10/19 at 00:00 Bisacodyl (Dulcolax Supp) 10 mg DAILY PRN [place] CONSTIPATION; Start 01/10/19 at 00:00 Multivitamins Therapeutic (Theragran) 1 tab DAILY PO Last administered on 01/12/19at 09:18; Admin Dose 1 TAB; Start 01/11/19 at 09:00 Ascorbic Acid (Vitamin C) 500 mg DAILY PO Last administered on 01/12/19 09:18; Admin Dose 500 MG; Start 01/11/19 at 09:00 Folic Acid (Folic Acid) 1 mg DAILY PO Last administered on 01/12/19at 09:18; Admin Dose 1 MG; Start 01/11/19 at 09:00 Zinc Sulfate (Zinc Sulfate) 220 mg DAILY PO Last administered on 01/12/19 09:18; Admin Dose 220 MG; Start 01/11/19 at 09:00 Betamethasone/ Clotrimazole (Lotrisone Cr) 1 applic DAILY TOP Last administered on 01/12/19at 10:22; Admin Dose 1 APPLIC; Start 01/10/19 at 13:00 Insulin Glargine (Lantus) 20 units QPM SC ; Start 01/12/19 at 21:00 Nystatin (Nystatin Oint) 1 applic BID TOP Last administered on 01/12/19at 16:24; Admin Dose 1 APPLIC; Start 01/12/19 at 14:00 Ampicillin (Ampicillin) 500 mg BID PO Last administered on 01/12/19at 20:31; Admin Dose 500 MG; Start 01/12/19 at 14:30; Stop 01/22/19 at 14:29 Insulin Aspart (Novolog Insulin Pen) NOVOLOG *MILD* ALGORITHM WITH MEALS BEDTIME SC Last administered on 01/12/19at 18:50; Admin Dose 2 UNIT; Start 01/12/19 at 17:35 Sodium Polystyrene Sulfonate (Kayexelate 15 Gm Kit (Powder+Sorbitol)) 30 gm ONCE ONCE PO ; Start 01/13/19 at 09:00; Stop 01/13/19 at 09:01 Assessment/Plan Additional Assessment/Plan Rehab-Right intertrochanteric hip fracture status post intramedullary nailing. Continue activities as tolerated Acute on chronic kidney injury.- per im/renal FEN- hyperkalemia-kayexelate per im ID- slight leukocytosis. Case d/w Med [employer], will start abx for UTI Acute pain syndrome. Hypertension. Diabetes mellitus type 2. Anemia. COPD. Hypothyroidism. Prostate hypertrophy. Right heel DTI- offload, improve nutrition, increase mobility NIKIA POE MD January 13, 2019 08:19
[2019-01-13] MEDS: HEPARIN 5,000 UNIT/1 ML VIAL SC SCH ×2 (08:21→21:10)
[2019-01-13] MEDS: FOLIC ACID 1 MG TAB PO SCH (08:22)
[2019-01-13] MEDS: ZINC SULFATE 220 MG CAP PO SCH (08:22)
[2019-01-13] MEDS: SERTRALINE 100 MG TAB PO SCH (08:22)
[2019-01-13] MEDS: AMPICILLIN 500 MG CAP PO SCH ×2 (08:22→20:59)
[2019-01-13] MEDS: DOCUSATE SODIUM 100 MG CAP PO SCH ×2 (08:22→20:58)
[2019-01-13] MEDS: AMLODIPINE 10 MG TAB PO SCH (08:22)
[2019-01-13] MEDS: ASCORBIC ACID 500 MG TAB PO SCH (08:22)
[2019-01-13] MEDS: LACTOBACILLUS RHAMNOSUS CAP PO SCH ×2 (08:22→20:59)
[2019-01-13] MEDS: NYSTATIN 15 GM OINT TOP SCH ×2 (08:23→21:12)
[2019-01-13] MEDS: ASPIRIN (EC) 81 MG TAB PO SCH (08:23)
[2019-01-13] MEDS: BETAMETHASONE/CLOTRIMAZOLE 15 GM CR TOP SCH (08:23)
[2019-01-13] MEDS: MULTIVITAMINS THERAPEUTIC TAB PO SCH (08:23)
[2019-01-13] MEDS: BALSAM PERU/CASTOR OIL 60 GM TUBE TOP SCH ×2 (08:24→21:13)
[2019-01-13] MEDS ORDERED: SOD CHLORIDE 0.9% 1,000 ML IV ONE (08:30)
[2019-01-13] MEDS ORDERED: SODIUM POLYSTYRENE 15 GM KIT (POWDER + SORBITOL) PO ONE (09:00)
--- NOTE | 2019-01-13 10:11 | PN ---
DATE: 01/13/2019 SUBJECTIVE: The patient overnight was stable, no acute events noted. No hemoptysis, hematemesis or hematochezia. OBJECTIVE: VITAL SIGNS: Blood pressure is 145/59, respirations 17, pulse 66, temperature 98.1. HEENT: Head is normocephalic. NECK: Supple. HEART: Regular rate. LUNGS: Show diminished breath sounds at base. ABDOMEN: Soft, nontender to palpation without rebound or guarding. EXTREMITIES: Negative for clubbing, cyanosis, no edema. DERMATOLOGIC: No rashes. MUSCULOSKELETAL: No joint effusions. NEUROLOGIC: No change in exam. MEDICATIONS: The patient's medications have been reviewed. LABORATORY DATA: From 01/13/2019 was reviewed, showed a sodium 135, potassium 6.3, BUN 72, creatinin e 2.35. White count 12.2, hemoglobin 9.0, platelet count 623. ASSESSMENT AND PLAN: 1. Nonoliguric acute kidney injury on top of chronic kidney disease stage IIIB/IV. Previous baselin e creatinine 2.2-2.7 mg/dL. Etiology of acute kidney injury is secondary to hemodynamics. Renal fun ction has stabilized. Continue current treatment plans, supportive care, renally dose all meds. 2. Hyperkalemia. The patient's potassium levels remain elevated. Increased to 6.2 mg/dL. The reji ent was given Kayexalate yesterday with no significant bowel movement. Plan is to give another dose of Kayexalate. Will start patient on IV fluids, give the patient a course of diuretic therapy. We w ill repeat potassium level. The patient has also been advised to be compliant with a low potassium d iet. Will monitor closely. If potassium levels cannot be improved medically, the patient may requi re renal replacement therapy. 3. Metabolic acidosis, resolved. 4. Mineral bone disorder, monitor calcium and phosphorus levels. 5. Anemia, iron deficiency, status post IV iron. Continue to monitor hemoglobin and hematocrit leve ls. 6. Hypomagnesemia. Continue to monitor and replete as needed. 7. Acute right femoral fracture, status post arthroplasty. Continue physical therapy. 8. History of chronic obstructive pulmonary disease. Continue medical management. 9. Hypertension. Continue current blood pressure regimen. 10. Diabetes. Continue current insulin regimen. Dictated By: SHIN METCALF/NTS Conf#: [id number] DID#: [id number] CC: NIKIA POE MD;*End*
--- NOTE | 2019-01-13 12:30 | PN ---
Date/Time of Note Date/Time of Note DATE: 01/13/19 TIME: 12:27 Assessment/Plan VTE Prophylaxis Risk score (from Ns)>0 risk: 9 SCD applied (from Ns): Yes Pharmacological prophylaxis: heparin Lines/Catheters IV Catheter Type (from Nrs): Peripheral IV Urinary Cath still in place: No Assessment/Plan Hospital Course SUBJECTIVE: No further dizziness reported. Patient has been refusing pre-meal insulin. OBJECTIVE: Vital signs-see below PHYSICAL EXAM: Constitutional: Adequately built,not in acute distress. HEENT: Head atraumatic and normocephalic. Eyes: Extraocular muscles intact. Anicteric sclerae. Pupils equal bilaterally, reactive to light. NECK: Supple without lymph node. CHEST: Clear and good breath sounds equally. No wheezing. No rhonchi. HEART: S1, S2. Regular rate and rhythm. ABDOMEN: Soft/non tender with no rebound tenderness. Bowel sounds were present. EXTREMITIES: Right hip surgical site c/d/i No cyanosis, clubbing or edema. NEUROLOGIC: Alert and oriented x3. Forgetful. No focal deficit. No sensory deficit. PSYCHOSOCIAL: No signs of depression. INTEGUMENTARY: No open wounds. ASSESSMENT AND PLAN: 68 yo M w/htn,dm2,CKD, here for rehabilitation for right hip fx/IM nailing... Right intertrochanteric fracture of the femur. -Status post intramedullary nailing of right intertrochanteric hip fracture on 12/28/2018. -dvt ppx,pain control,pt/rehba -f/u ortho in 2wks Hypertension -Stable. -Continue bb/hydralazine -Not a candidate for acei 2/2 hyperkalemia Diabetes mellitus 2. -Blood sugar fluctuate, part of it secondary to patient refusing pre-meal in sulin. -Continue basal/bolus insulin CKD stage IIIB/IV with a baseline creatinine of 2.2 to 2.7 mg/dL -mgmt per nephro -creat fairly stable at baseline Acute hyperkalemia -Managed per nephrology. Status post Kayexalate/diuretics/IV fluids -Monitor closely. chronic anemia -on iron COPD. -stable Nicotine use. -nicotine patch. Hypothyroidism -on Synthroid. Prostate hypertrophy. -on tamsulosin. 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 Go ahead with MRI brain. DVT prophylaxis -Subcutaneous heparin. The patient was seen in collaboration with Result Diagram: 01/13/1937 01/13/19 0637 Results 24hrs Laboratory Tests Test 01/12/19 17:46 01/12/19 18:34 01/12/19 20:29 01/13/19 06:37 Bedside Glucose 204 208 248 H White Blood Count 12.2 H Red Blood Count 3.43 L Hemoglobin 9.0 L Hematocrit 28.7 L Mean Corpuscular 83.7 Volume Mean Corpuscular 26.2 L Hemoglobin Mean Corpuscular 31.4 L Hemoglobin Concent Red Cell 15.8 H Distribution Width Platelet Count 623 H Mean Platelet Volume 10.2 Immature 0.800 H Granulocytes % Neutrophils % 77.2 H Lymphocytes % 10.5 L Monocytes % 9.0 Eosinophils % 1.8 Basophils % 0.7 Nucleated Red Blood 0.0 Cells % Immature 0.100 H Granulocytes # Neutrophils # 9.4 H Lymphocytes # 1.3 Monocytes # 1.1 H Eosinophils # 0.2 Basophils # 0.1 Nucleated Red Blood 0.0 Cells # Sodium Level 135 Potassium Level 6.3 *H Chloride Level 105 Carbon Dioxide Level 22 Anion Gap 8 Blood Urea Nitrogen 72 H Creatinine 2.35 H Est Glomerular 28 L Filtrat Rate mL/min Glucose Level 127 Calcium Level 9.0 Phosphorus Level 6.0 H Magnesium Level 1.9 Test 01/13/19 07:34 01/13/19 11:45 Bedside Glucose 151 224 H Exam/Review of Systems Exam Vitals Vital Signs Date Temp Pulse Resp B/P (MAP) Pulse Ox O2 O2 Flow FiO2 Time Delivery Rate 01/13/19 98.0 68 18 146/65 94 Room Air 07:30 (92) Intake and Output 01/12/19 01/12/19 01/13/19 1515:00 23:00 07:00 IntakeIntake Total 260 ml 740 ml 320 ml OutputOutput Total 500 ml 700 ml BalanceBalance 260 ml 240 ml -380 ml Results Results 24hrs Laboratory Tests Test 01/12/19 17:46 01/12/19 18:34 01/12/19 20:29 01/13/19 06:37 Bedside Glucose 204 208 248 H White Blood Count 12.2 H Red Blood Count 3.43 L Hemoglobin 9.0 L Hematocrit 28.7 L Mean Corpuscular 83.7 Volume Mean Corpuscular 26.2 L Hemoglobin Mean Corpuscular 31.4 L Hemoglobin Concent Red Cell 15.8 H Distribution Width Platelet Count 623 H Mean Platelet Volume 10.2 Immature 0.800 H Granulocytes % Neutrophils % 77.2 H Lymphocytes % 10.5 L Monocytes % 9.0 Eosinophils % 1.8 Basophils % 0.7 Nucleated Red Blood 0.0 Cells % Immature 0.100 H Granulocytes # Neutrophils # 9.4 H Lymphocytes # 1.3 Monocytes # 1.1 H Eosinophils # 0.2 Basophils # 0.1 Nucleated Red Blood 0.0 Cells # Sodium Level 135 Potassium Level 6.3 *H Chloride Level 105 Carbon Dioxide Level 22 Anion Gap 8 Blood Urea Nitrogen 72 H Creatinine 2.35 H Est Glomerular 28 L Filtrat Rate mL/min Glucose Level 127 Calcium Level 9.0 Phosphorus Level 6.0 H Magnesium Level 1.9 Test 01/13/19 07:34 01/13/19 11:45 Bedside Glucose 151 224 H Medications Medication Current Medications Acetaminophen (Tylenol Tab) 650 mg Q6H PRN PO .PAIN 1-3 OR TEMP; Start 01/09/19 at 22:35 Acetaminophen/ Hydrocodone Bitart ([place] (5/325)) 1 tab Q6H PRN PO .MOD PAIN 4- 6 Last administered on 01/11/19 14:18; Admin Dose 1 TAB; Start 01/09/19 at 22:35 Bisacodyl (Dulcolax) 5 mg DAILY PRN PO .CONSTIPATION Last administered on 01/10/19 08:48; Admin Dose 5 MG; Start 01/09/19 at 22:35 Amlodipine Besylate (Norvasc) 10 mg DAILY PO Last administered on 01/13/19 08:22; Admin Dose 10 MG; Start 01/09/19 at 22:35 Levothyroxine Sodium (Synthroid) 175 mcg BEFORE BREAKFAST PO Last administered on 01/13/19 07:01; Admin Dose 175 MCG; Start 01/09/19 at 22:35 Sertraline HCl (Zoloft) 100 mg DAILY PO Last administered on 01/13/19 08:22; Admin Dose 100 MG; Start 01/09/19 at 22:35 Miscellaneous Information 1 ea NOTE XX ; Start 01/09/19 at 22:35 Glucose (Glutose) 15 gm Q15M PRN PO DECREASED GLUCOSE; Start 01/09/19 at 22:35 Glucose (Glutose) 22.5 gm Q15M PRN PO DECREASED GLUCOSE; Start 01/09/19 at 22:35 Dextrose (D50w Syringe) 25 ml Q15M PRN IV DECREASED GLUCOSE; Start 01/09/19 at 22:35 Dextrose (D50w Syringe) 50 ml Q15M PRN IV DECREASED GLUCOSE; Start 01/09/19 at 22:35 Glucose (Glutose) 15 gm Q15M PRN BUCCAL DECREASED GLUCOSE; Start 01/09/19 at 22:35 Levalbuterol (Xopenex Neb) 1.25 mg Q4H RESP THERAPY PRN HHN SHORTNESS OF BREATH; Start 01/09/19 at 22:35 Nicotine Polacrilex (Nicorette) 2 mg Q2H PRN BUCCAL CONTROL WITHDRAWAL SYMPTOMS; Start 01/09/19 at 22:35 Aspirin (Halfprin) 81 mg DAILY PO Last administered on 01/13/19at 08:23; Admin Dose 81 MG; Start 01/09/19 at 22:35 Lactobacillus Acidophilus/ Rhamnosus (Culturelle) 1 cap BID PO Last administered on 01/13/19at 08:22; Admin Dose 1 CAP; Start 01/09/19 at 22:35 Simethicone (Mylicon) 80 mg TID PRN PO .GAS; Start 01/09/19 at 22:35 Sodium Biphosphate/ Sodium Phosphate (Fleet Enema) 133 ml DAILY PRN [place] .CONSTIPATION; Start 01/09/19 at 22:35 Bethanechol Chloride (Urecholine) 25 mg URINARY CATH D/C PRN PO UNABLE TO VOID; Start 01/09/19 at 22:35 Pantoprazole (Protonix Tab) 40 mg DAILY@06 PO Last administered on 01/13/19at 07:01; Admin Dose 40 MG; Start 01/09/19 at 22:35 Naloxone HCl (Narcan) 0.2 mg Q2M PRN IV .RESP RATE; Start 01/09/19 at 22:36 Hydralazine HCl (Apresoline) 50 mg QID PO Last administered on 01/13/19at 12:08; Admin Dose 50 MG; Start 01/09/19 at 23:00 Tamsulosin HCl (Flomax) 0.4 mg HS PO Last administered on 01/12/19 20:30; Admin Dose 0.4 MG; Start 01/09/19 at 23:00 Heparin Sodium (Porcine) (Heparin (5000 Units/1ml)) 5,000 unit BID SC Last administered on 01/13/19 08:21; Admin Dose 5,000 UNIT; Start 01/09/19 at 23:00 Carvedilol (Coreg) 12.5 mg BID PO Last administered on 01/13/19 08:31; Admin Dose 12.5 MG; Start 01/09/19 at 23:01 Docusate Sodium (Colace) 100 mg BID PO Last administered on 01/13/19 08:22; Admin Dose 100 MG; Start 01/10/19 at 09:00 Senna (Senokot) 1 tab HS PO Last administered on 01/12/19 20:30; Admin Dose 1 TAB; Start 01/10/19 at 21:00 Magnesium Hydroxide (Milk Of Mag) 30 ml BID PRN PO CONSTIPATION; Start 01/10/19 at 00:00 Lactulose (Enulose) 20 gm DAILY PRN PO CONSTIPATION; Start 01/10/19 at 00:00 Bisacodyl (Dulcolax Supp) 10 mg DAILY PRN [place] CONSTIPATION; Start 01/10/19 at 00:00 Multivitamins Therapeutic (Theragran) 1 tab DAILY PO Last administered on 01/13/19 08:23; Admin Dose 1 TAB; Start 01/11/19 at 09:00 Ascorbic Acid (Vitamin C) 500 mg DAILY PO Last administered on 01/13/19 08:22; Admin Dose 500 MG; Start 01/11/19 at 09:00 Folic Acid (Folic Acid) 1 mg DAILY PO Last administered on 01/13/19 08:22; Admin Dose 1 MG; Start 01/11/19 at 09:00 Zinc Sulfate (Zinc Sulfate) 220 mg DAILY PO Last administered on 01/13/19 08: 22; Admin Dose 220 MG; Start 01/11/19 at 09:00 Betamethasone/ Clotrimazole (Lotrisone Cr) 1 applic DAILY TOP Last administered on 01/13/19 08:23; Admin Dose 1 APPLIC; Start 01/10/19 at 13:00 Insulin Glargine (Lantus) 20 units QPM SC ; Start 01/12/19 at 21:00 Nystatin (Nystatin Oint) 1 applic BID TOP Last administered on 01/13/19at 08:23; Admin Dose 1 APPLIC; Start 01/12/19 at 14:00 Ampicillin (Ampicillin) 500 mg BID PO Last administered on 01/13/19at 08:22; Admin Dose 500 MG; Start 01/12/19 at 14:30; Stop 01/22/19 at 14:29 Insulin Aspart (Novolog Insulin Pen) NOVOLOG *MILD* ALGORITHM WITH MEALS BEDTIME SC Last administered on 01/13/19at 11:50; Admin Dose 3 UNIT; Start 01/12/19 at 17:35 Sodium Chloride 1,000 ml @ 50 mls/hr Q20H ONCE IV Last administered on 01/13/19at 10:05; Admin Dose 50 MLS/HR; Start 01/13/19 at 08:30; Stop 01/14/19 at 04:29 BARNEY HILL NP January 13, 2019 12:30
[2019-01-13 14:00] VITALS: BP 150/67; PULSE 70; RESP 18
[2019-01-13 20:00] VITALS: BP 151/67; PULSE 67; RESP 18
[2019-01-13] MEDS: ATORVASTATIN 20 MG TAB PO SCH (20:58)
[2019-01-13] MEDS: SENNA TAB PO SCH (20:58)
[2019-01-13] MEDS: TAMSULOSIN (SR) 0.4 MG CAP PO SCH (20:58)
[2019-01-13] MEDS: INSULIN GLARGINE [LANTus] (100 UNITS/ML) SYG SC SCH (21:11)
[2019-01-14 02:00] VITALS: BP 143/65; PULSE 68; RESP 18
[2019-01-14] MEDS: PANTOPRAZOLE (EC) 40 MG TAB PO SCH (06:49)
[2019-01-14] MEDS: LEVOTHYROXINE 175 MCG TAB PO SCH (06:49)
[2019-01-14] MEDS: INSULIN ASPART [NOVOLOG] 3 ML PEN SC SCH ×4 (07:35→20:33)
[2019-01-14 08:00] VITALS: BP 136/48; PULSE 66; RESP 18
[2019-01-14] MEDS: AMPICILLIN 500 MG CAP PO SCH ×2 (08:54→20:29)
[2019-01-14] MEDS: AMLODIPINE 10 MG TAB PO SCH (08:55)
[2019-01-14] MEDS: ZINC SULFATE 220 MG CAP PO SCH (08:55)
[2019-01-14] MEDS: LACTOBACILLUS RHAMNOSUS CAP PO SCH ×2 (08:55→20:30)
[2019-01-14] MEDS: DOCUSATE SODIUM 100 MG CAP PO SCH ×2 (08:55→20:28)
[2019-01-14] MEDS: FOLIC ACID 1 MG TAB PO SCH (08:56)
[2019-01-14] MEDS: ASPIRIN (EC) 81 MG TAB PO SCH (08:56)
[2019-01-14] MEDS: MULTIVITAMINS THERAPEUTIC TAB PO SCH (08:56)
[2019-01-14] MEDS: SERTRALINE 100 MG TAB PO SCH (08:57)
[2019-01-14] MEDS: BALSAM PERU/CASTOR OIL 60 GM TUBE TOP SCH ×2 (08:58→20:35)
[2019-01-14] MEDS: NYSTATIN 15 GM OINT TOP SCH ×2 (08:59→21:19)
[2019-01-14] MEDS: BETAMETHASONE/CLOTRIMAZOLE 15 GM CR TOP SCH (08:59)
[2019-01-14] MEDS: ASCORBIC ACID 500 MG TAB PO SCH (09:05)
[2019-01-14] MEDS: HEPARIN 5,000 UNIT/1 ML VIAL SC SCH ×2 (09:24→20:31)
[2019-01-14] MEDS: SEVELAMER CARBONATE 800 MG TABLET PO SCH ×2 (11:56→17:22)
--- NOTE | 2019-01-14 12:38 | PN ---
DATE: 01/14/2019 SUBJECTIVE: The patient is stable, no events overnight. The patient had a bowel movement yesterday. No other events noted. OBJECTIVE: VITAL SIGNS: Blood pressure is 143/65, respiration 18, pulse 68, temperature 98.1. HEENT: Head is normocephalic. NECK: Supple. HEART: Regular rate. LUNGS: Show diminished breath sounds at the base. ABDOMEN: Soft, nontender to palpation without rebound or guarding. EXTREMITIES: Negative for clubbing, cyanosis, no edema. DERMATOLOGIC: No rashes. MUSCULOSKELETAL: No joint effusions. NEUROLOGIC: No change in exam. MEDICATIONS: The patient's medications have been reviewed. LABORATORY DATA: Has been reviewed. ASSESSMENT AND PLAN: 1. Nonoliguric acute kidney injury on top of chronic kidney disease stage IIIB/IV with previous base line creatinine 2.2 to 2.7 mg/dL. Etiology of LEONEL is secondary to hemodynamics. Renal function is c urrently stable. Continue current treatment plans, supportive care, renally dose all meds. 2. Hyperkalemia, improved. Continue the patient on low-potassium diet. Monitor closely. 3. Metabolic acidosis, resolved. 4. Mineral bone disorder, the patient is hypophosphatemic. Will start the patient on phosphorus bin ders. 5. Anemia with iron deficiency. The patient is status post IV iron. Continue to monitor H and H le vels. 6. Hypomagnesemia, improved. 7. Acute right femoral fracture. The patient is status post arthroplasty. Continue physical therap y. 8. History of chronic obstructive pulmonary disease. Continue medical management. 9. Hypertension. Continue current blood pressure regimen. 10. Diabetes. Continue current insulin regimen. Dictated By: SHIN COHEN DO NR/NTS Conf#: [id number] DID#: [id number] CC: STUART MCCANN MD; Manuelito Duque; NIKIA POE MD;*EndCC*
[2019-01-14 14:00] VITALS: BP 147/58; PULSE 60; RESP 18
--- NOTE | 2019-01-14 14:52 | PN ---
Date/Time of Note Date/Time of Note DATE: 01/14/19 TIME: 14:49 Assessment/Plan VTE Prophylaxis Risk score (from Ns)>0 risk: 11 SCD applied (from [facility] [place] No SCD contraindicated: other Pharmacological prophylaxis: heparin Lines/Catheters IV Catheter Type (from [facility]): Peripheral IV Urinary Cath still in place: No Assessment/Plan Hospital Course SUBJECTIVE:BS sugar dropped today. OBJECTIVE: Vital signs-see below PHYSICAL EXAM: Constitutional: Adequately built,not in acute distress. HEENT: Head atraumatic and normocephalic. Eyes: Extraocular muscles intact. An icteric sclerae. Pupils equal bilaterally, reactive to light. NECK: Supple without lymph node. CHEST: Clear and good breath sounds equally. No wheezing. No rhonchi. HEART: S1, S2. Regular rate and rhythm. ABDOMEN: Soft/non tender with no rebound tenderness. Bowel sounds were present. EXTREMITIES: Right hip surgical site c/d/i No cyanosis, clubbing or edema. NEUROLOGIC: Alert and oriented x3. Forgetful. No focal deficit. No sensory deficit. PSYCHOSOCIAL: No signs of depression. INTEGUMENTARY: No open wounds. ASSESSMENT AND PLAN: 68 yo M w/htn,dm2,CKD, here for rehabilitation for right hip fx/IM nailing... Right intertrochanteric fracture of the femur. -Status post intramedullary nailing of right intertrochanteric hip fracture on 12/28/2018. -dvt ppx,pain control,pt/rehba -f/u ortho in 2wks Hypertension -Stable. -Continue bb/hydralazine -Not a candidate for acei 2/2 hyperkalemia Diabetes mellitus 2. -Blood sugar fluctuate, today had hypoglycemia early this morning. -descalate lantus. 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 -stable -Monitor closely. chronic anemia -on iron COPD. -stable Nicotine use. -nicotine patch. Hypothyroidism -on Synthroid. Prostate hypertrophy. -on tamsulosin. Urinary tract infection -Treat with [id number] Dizziness -stable -ct/mri unremarkable DVT prophylaxis -Subcutaneous heparin. The patient was seen in collaboration with Result Diagram: 01/14/19 0634 01/14/19 0634 Results 24hrs Laboratory Tests Test 01/13/19 17:18 01/13/19 21:02 01/14/19 01:46 01/14/19 06:34 Bedside Glucose 181 279 H 97 White Blood Count 9.9 Red Blood Count 3.40 L Hemoglobin 8.8 L Hematocrit 28.4 L Mean Corpuscular 83.5 Volume Mean Corpuscular 25.9 L Hemoglobin Mean Corpuscular 31.0 L Hemoglobin Concent Red Cell 15.9 H Distribution Width Platelet Count 644 H Mean Platelet Volume 10.3 Immature 0.500 H Granulocytes % Neutrophils % 70.5 Lymphocytes % 15.0 Monocytes % 11.0 Eosinophils % 2.1 Basophils % 0.9 Nucleated Red Blood 0.0 Cells % Immature 0.050 H Granulocytes # Neutrophils # 7.0 Lymphocytes # 1.5 Monocytes # 1.1 H Eosinophils # 0.2 Basophils # 0.1 Nucleated Red Blood 0.0 Cells # Sodium Level 137 Potassium Level 5.1 Chloride Level 107 Carbon Dioxide Level 23 Anion Gap 7 Blood Urea Nitrogen 65 H Creatinine 2.40 H Est Glomerular 27 L Filtrat Rate mL/min Glucose Level 38 #*L Calcium Level 8.6 Phosphorus Level 5.9 H Magnesium Level 1.8 Test 01/14/19 07:37 01/14/19 07:53 01/14/19 08:14 01/14/19 11:44 Bedside Glucose 50 L 98 148 139 Exam/Review of Systems Exam Vitals Vital Signs Date Temp Pulse Resp B/P (MAP) Pulse Ox O2 O2 Flow FiO2 Time Delivery Rate 01/14/19 97.9 60 18 147/58 95 Room Air 14:00 (87) Intake and Output 01/13/19 01/13/19 01/14/19 1515:00 23:00 07:00 IntakeIntake Total 590 ml 650 ml OutputOutput Total 320 ml BalanceBalance -320 ml 590 ml 650 ml Results Results 24hrs Laboratory Tests Test 01/13/19 17:18 01/13/19 21:02 01/14/19 01:46 01/14/19 06:34 Bedside Glucose 181 279 H 97 White Blood Count 9.9 Red Blood Count 3.40 L Hemoglobin 8.8 L Hematocrit 28.4 L Mean Corpuscular 83.5 Volume Mean Corpuscular 25.9 L Hemoglobin Mean Corpuscular 31.0 L Hemoglobin Concent Red Cell 15.9 H Distribution Width Platelet Count 644 H Mean Platelet Volume 10.3 Immature 0.500 H Granulocytes % Neutrophils % 70.5 Lymphocytes % 15.0 Monocytes % 11.0 Eosinophils % 2.1 Basophils % 0.9 Nucleated Red Blood 0.0 Cells % Immature 0.050 H Granulocytes # Neutrophils # 7.0 Lymphocytes # 1.5 Monocytes # 1.1 H Eosinophils # 0.2 Basophils # 0.1 Nucleated Red Blood 0.0 Cells # Sodium Level 137 Potassium Level 5.1 Chloride Level 107 Carbon Dioxide Level 23 Anion Gap 7 Blood Urea Nitrogen 65 H Creatinine 2.40 H Est Glomerular 27 L Filtrat Rate mL/min Glucose Level 38 #*L Calcium Level 8.6 Phosphorus Level 5.9 H Magnesium Level 1.8 Test 01/14/19 07:37 01/14/19 07:53 01/14/19 08:14 01/14/19 11:44 Bedside Glucose 50 L 98 148 139 Medications Medication Current Medications Acetaminophen (Tylenol Tab) 650 mg Q6H PRN PO .PAIN 1-3 OR TEMP; Start 01/09/19 at 22:35 Acetaminophen/ Hydrocodone Bitart ([place] (5/325)) 1 tab Q6H PRN PO .MOD PAIN 4- 6 Last administered on 01/11/19 14:18; Admin Dose 1 TAB; Start 01/09/19 at 22:35 Bisacodyl (Dulcolax) 5 mg DAILY PRN PO .CONSTIPATION Last administered on 01/10/19 08:48; Admin Dose 5 MG; Start 01/09/19 at 22:35 Amlodipine Besylate (Norvasc) 10 mg DAILY PO Last administered on 01/14/19 08:55; Admin Dose 10 MG; Start 01/09/19 at 22:35 Levothyroxine Sodium (Synthroid) 175 mcg BEFORE BREAKFAST PO Last administered on 01/14/19 06:49; Admin Dose 175 MCG; Start 01/09/19 at 22:35 Sertraline HCl (Zoloft) 100 mg DAILY PO Last administered on 01/14/19 08:57; Admin Dose 100 MG; Start 01/09/19 at 22:35 Miscellaneous Information 1 ea NOTE XX ; Start 01/09/19 at 22:35 Glucose (Glutose) 15 gm Q15M PRN PO DECREASED GLUCOSE; Start 01/09/19 at 22:35 Glucose (Glutose) 22.5 gm Q15M PRN PO DECREASED GLUCOSE; Start 01/09/19 at 2 2:35 Dextrose (D50w Syringe) 25 ml Q15M PRN IV DECREASED GLUCOSE; Start 01/09/19 at 22:35 Dextrose (D50w Syringe) 50 ml Q15M PRN IV DECREASED GLUCOSE; Start 01/09/19 at 22:35 Glucose (Glutose) 15 gm Q15M PRN BUCCAL DECREASED GLUCOSE; Start 01/09/19 at 22:35 Levalbuterol (Xopenex Neb) 1.25 mg Q4H RESP THERAPY PRN HHN SHORTNESS OF BREATH; Start 01/09/19 at 22:35 Nicotine Polacrilex (Nicorette) 2 mg Q2H PRN BUCCAL CONTROL WITHDRAWAL SYMPTOMS; Start 01/09/19 at 22:35 Aspirin (Halfprin) 81 mg DAILY PO Last administered on 01/14/19at 08:56; Admin Dose 81 MG; Start 01/09/19 at 22:35 Lactobacillus Acidophilus/ Rhamnosus (Culturelle) 1 cap BID PO Last administered on 01/14/19at 08:55; Admin Dose 1 CAP; Start 01/09/19 at 22:35 Simethicone (Mylicon) 80 mg TID PRN PO .GAS; Start 01/09/19 at 22:35 Sodium Biphosphate/ Sodium Phosphate (Fleet Enema) 133 ml DAILY PRN [place] .CONSTIPATION; Start 01/09/19 at 22:35 Bethanechol Chloride (Urecholine) 25 mg URINARY CATH D/C PRN PO UNABLE TO VOID; Start 01/09/19 at 22:35 Pantoprazole (Protonix Tab) 40 mg DAILY@06 PO Last administered on 01/14/19at 06:49; Admin Dose 40 MG; Start 01/09/19 at 22:35 Naloxone HCl (Narcan) 0.2 mg Q2M PRN IV .RESP RATE; Start 01/09/19 at 22:36 Hydralazine HCl (Apresoline) 50 mg QID PO Last administered on 01/14/19at 14:17; Admin Dose 50 MG; Start 01/09/19 at 23:00 Tamsulosin HCl (Flomax) 0.4 mg HS PO Last administered on 01/13/19 20:58; Admin Dose 0.4 MG; Start 01/09/19 at 23:00 Heparin Sodium (Porcine) (Heparin (5000 Units/1ml)) 5,000 unit BID SC Last administered on 01/14/19 09:24; Admin Dose 5,000 UNIT; Start 01/09/19 at 23:00 Carvedilol (Coreg) 12.5 mg BID PO Last administered on 01/14/19 08:57; Admin Dose 12.5 MG; Start 01/09/19 at 23:01 Docusate Sodium (Colace) 100 mg BID PO Last administered on 01/14/19 08:55; Admin Dose 100 MG; Start 01/10/19 at 09:00 Senna (Senokot) 1 tab HS PO Last administered on 01/13/19 20:58; Admin Dose 1 TAB; Start 01/10/19 at 21:00 Magnesium Hydroxide (Milk Of Mag) 30 ml BID PRN PO CONSTIPATION; Start 01/10/19 at 00:00 Lactulose (Enulose) 20 gm DAILY PRN PO CONSTIPATION; Start 01/10/19 at 00:00 Bisacodyl (Dulcolax Supp) 10 mg DAILY PRN [place] CONSTIPATION; Start 01/10/19 at 00:00 Multivitamins Therapeutic (Theragran) 1 tab DAILY PO Last administered on 01/14/19 08:56; Admin Dose 1 TAB; Start 01/11/19 at 09:00 Ascorbic Acid (Vitamin C) 500 mg DAILY PO Last administered on 01/14/19 09:05; Admin Dose 500 MG; Start 01/11/19 at 09:00 Folic Acid (Folic Acid) 1 mg DAILY PO Last administered on 01/14/19 08:56; Admin Dose 1 MG; Start 01/11/19 at 09:00 Zinc Sulfate (Zinc Sulfate) 220 mg DAILY PO Last administered on 01/14/19 08:55; Admin Dose 220 MG; Start 01/11/19 at 09:00 Betamethasone/ Clotrimazole (Lotrisone Cr) 1 applic DAILY TOP Last administered on 01/14/19 08:59; Admin Dose 1 APPLIC; Start 01/10/19 at 13:00 Insulin Glargine (Lantus) 20 units QPM SC Last administered on 01/13/19 21:11; Admin Dose 20 UNITS; Start 01/12/19 at 21:00 Nystatin (Nystatin Oint) 1 applic BID TOP Last administered on 01/14/19 08:59; Admin Dose 1 APPLIC; Start 01/12/19 at 14:00 Ampicillin (Ampicillin) 500 mg BID PO Last administered on 01/14/19 08:54; Admin Dose 500 MG; Start 01/12/19 at 14:30; Stop 01/22/19 at 14:29 Insulin Aspart (Novolog Insulin Pen) NOVOLOG *MILD* ALGORITHM WITH MEALS BEDTIME SC Last administered on 01/13/19 21:12; Admin Dose 3 UNIT; Start 01/12/19 at 17:35 Atorvastatin Calcium (Lipitor) 40 mg HS PO Last administered on 01/13/19 20:58; Admin Dose 40 MG; Start 01/13/19 at 21:00 Sevelamer Carbonate (Renvela) 800 mg WITH MEALS PO Last administered on 01/14/19 11:56; Admin Dose 800 MG; Start 01/14/19 at 12:00 BARNEY HILL NP January 14, 2019 14:52
[2019-01-14] MEDS: LINAGLIPTIN 5 MG TABLET PO SCH (15:00)
[2019-01-14] MEDS ORDERED: REPAGLINIDE 1 MG TAB PO SCH (16:45)
[2019-01-14 20:00] VITALS: BP 163/70; PULSE 66; RESP 18
[2019-01-14] MEDS: TAMSULOSIN (SR) 0.4 MG CAP PO SCH (20:28)
[2019-01-14] MEDS: SENNA TAB PO SCH (20:28)
[2019-01-14] MEDS: ATORVASTATIN 20 MG TAB PO SCH (20:29)
[2019-01-14] MEDS ORDERED: INSULIN GLARGINE [LANTus] (100 UNITS/ML) SYG SC SCH (21:00)
[2019-01-15 02:00] VITALS: BP 168/72; PULSE 64; RESP 19
[2019-01-15] MEDS: PANTOPRAZOLE (EC) 40 MG TAB PO SCH (06:11)
[2019-01-15] MEDS: LEVOTHYROXINE 175 MCG TAB PO SCH (06:11)
[2019-01-15] MEDS: INSULIN ASPART [NOVOLOG] 3 ML PEN SC SCH ×2 (07:35→11:59)
[2019-01-15 08:00] VITALS: BP 165/62; PULSE 70; RESP 18
[2019-01-15] MEDS: SEVELAMER CARBONATE 800 MG TABLET PO SCH ×3 (08:16→17:43)
[2019-01-15 08:45] VITALS: BP 138/65
[2019-01-15] MEDS ORDERED: REPAGLINIDE 1 MG TAB PO SCH (09:00)
[2019-01-15] MEDS: HEPARIN 5,000 UNIT/1 ML VIAL SC SCH ×2 (09:00→21:02)
[2019-01-15] MEDS ORDERED: NA POLYST SULFON 15 GM/60 ML BTL PO ONE (09:00)
[2019-01-15] MEDS: DOCUSATE SODIUM 100 MG CAP PO SCH ×2 (09:12→20:59)
[2019-01-15] MEDS: ZINC SULFATE 220 MG CAP PO SCH (09:12)
[2019-01-15] MEDS: AMPICILLIN 500 MG CAP PO SCH ×2 (09:12→20:59)
[2019-01-15] MEDS: MULTIVITAMINS THERAPEUTIC TAB PO SCH (09:12)
[2019-01-15] MEDS: LINAGLIPTIN 5 MG TABLET PO SCH (09:13)
[2019-01-15] MEDS: FOLIC ACID 1 MG TAB PO SCH (09:13)
[2019-01-15] MEDS: ASPIRIN (EC) 81 MG TAB PO SCH (09:13)
[2019-01-15] MEDS: LACTOBACILLUS RHAMNOSUS CAP PO SCH ×2 (09:13→20:59)
[2019-01-15] MEDS: SERTRALINE 100 MG TAB PO SCH (09:13)
[2019-01-15] MEDS: AMLODIPINE 10 MG TAB PO SCH (09:14)
[2019-01-15] MEDS: ASCORBIC ACID 500 MG TAB PO SCH (09:14)
[2019-01-15] MEDS: BETAMETHASONE/CLOTRIMAZOLE 15 GM CR TOP SCH (09:16)
[2019-01-15] MEDS: NYSTATIN 15 GM OINT TOP SCH ×2 (09:16→21:05)
[2019-01-15] MEDS: BALSAM PERU/CASTOR OIL 60 GM TUBE TOP SCH ×2 (09:16→21:05)
--- NOTE | 2019-01-15 09:48 | PN ---
DATE: 01/15/2019 SUBJECTIVE: The patient is stable, no events overnight, no fevers, chills, nausea or vomiting. OBJECTIVE: VITAL SIGNS: Blood pressure is 168/72, respiration 19, pulse 64, temperature 97.5. HEENT: Head is normocephalic. NECK: Supple. HEART: Regular rate. LUNGS: Show diminished breath sounds at base. ABDOMEN: Soft, nontender to palpation. No rebound or guarding. EXTREMITIES: Negative for clubbing, cyanosis, no edema. DERMATOLOGIC: No rashes. MUSCULOSKELETAL: No joint effusion. NEUROLOGIC: No change in exam. MEDICATIONS: Have been reviewed. LABORATORY DATA: Has been reviewed. ASSESSMENT AND PLAN: 1. Nonoliguric acute kidney on top of chronic kidney disease stage IIIB/V with previous baseline cre atinine 2.2-2.7 mg/dL. Etiology of acute kidney injury is secondary to hemodynamics. Renal function is stable. Continue current treatment plan, supportive care, renally dose all medications. 2. Hyperkalemia, elevated. We will continue low-potassium diet. The patient will be given Kayex[place] te. 3. Metabolic acidosis, resolved. 4. Mineral bone disorder. Patient is hypophosphatemic. Continue phosphatase binders, up titrate. 5. Anemia with iron deficiency. The patient is status post IV iron, continue to monitor hemoglobin and hematocrit levels. 6. Hypomagnesemia, improved. 7. Acute right femoral fracture, status post arthroplasty. Continue physical therapy. 8. History of chronic obstructive pulmonary disease. Continue medical management. 9. Hypertension. Continue current blood pressure regimen. 10. Diabetes. Continue current insulin regimen. Dictated By: SHIN COHEN DO NR/NTS Conf#: [id number] DID#: [id number] CC: NIKIA POE MD;*EndCC*
[2019-01-15] MEDS ORDERED: SODIUM POLYSTYRENE 15 GM KIT (POWDER + SORBITOL) PO SCH (10:00)
--- NOTE | 2019-01-15 11:20 | PN ---
Date/Time of Note Date/Time of Note DATE: 01/15/19 TIME: 11:18 Assessment/Plan VTE Prophylaxis Risk score (from Ns)>0 risk: 9 SCD applied (from [facility] [place]): No SCD contraindicated: other Pharmacological prophylaxis: heparin Lines/Catheters IV Catheter Type (from [facility]): Peripheral IV Urinary Cath still in place: No Assessment/Plan Hospital Course SUBJECTIVE:BS fluctuates..c/o dizziness.. OBJECTIVE: Vital signs-see below PHYSICAL EXAM: Constitutional: Adequately built,not in acute distress. HEENT: Head atraumatic and normocephalic. Eyes: Extraocular muscles intact. Anicteric sclerae. Pupils equal bilaterally, reactive to light. NECK: Supple without lymph node. CHEST: Clear and good breath sounds equally. No wheezing. No rhonchi. HEART: S1, S2. Regular rate and rhythm. ABDOMEN: Soft/non tender with no rebound tenderness. Bowel sounds were present. EXTREMITIES: Right hip surgical site c/d/i No cyanosis, clubbing or edema. NEUROLOGIC: Alert and oriented x3. Forgetful. No focal deficit. No sensory deficit. PSYCHOSOCIAL: No signs of depression. INTEGUMENTARY: No open wounds. ASSESSMENT AND PLAN: 68 yo M w/htn,dm2,CKD, here for rehabilitation for right hip fx/IM nailing... Right intertrochanteric fracture of the femur. -Status post intramedullary nailing of right intertrochanteric hip fracture on 12/28/2018. -dvt ppx,pain control,pt/rehba -f/u ortho in 2wks Hypertension -Sridhar stable. -Continue bb/hydralazine -Not a candidate for acei 2/2 hyperkalemia Diabetes mellitus 2. -Blood sugar fluctuate still -stop all insulin including prandin -Tradjenta/accuchecks/ISS -dm education CKD stage IIIB/IV with a baseline creatinine of 2.2 to 2.7 mg/dL -mgmt per nephro -creat fairly stable at baseline Acute hyperkalemia -Managed per nephrology. -Monitor closely. chronic anemia -on iron COPD. -stable Nicotine use. -nicotine patch. Hypothyroidism -on Synthroid. Prostate hypertrophy. -on tamsulosin. Urinary tract infection -on [id number] Dizziness,likely attributed by subtle hypoglycemia. -fairely stable -ct/mri unremarkable DVT prophylaxis -Subcutaneous heparin. The patient was seen in collaboration with Result Diagram: 01/15/19 0548 01/15/19 0548 Results 24hrs Laboratory Tests Test 01/14/19 11:44 01/14/19 17:21 01/14/19 20:26 01/15/19 02:37 Bedside Glucose 139 129 260 H 60 L Test 01/15/19 02:56 01/15/19 05:48 01/15/19 08:14 Bedside Glucose 91 94 White Blood Count 9.9 Red Blood Count 3.22 L Hemoglobin 8.5 L Hematocrit 27.3 L Mean Corpuscular 84.8 Volume Mean Corpuscular 26.4 L Hemoglobin Mean Corpuscular 31.1 L Hemoglobin Concent Red Cell 15.7 H Distribution Width Platelet Count 574 H Mean Platelet Volume 10.4 Immature 0.400 Granulocytes % Neutrophils % 73.0 Lymphocytes % 14.4 L Monocytes % 9.5 Eosinophils % 2.3 Basophils % 0.4 Nucleated Red Blood 0.0 Cells % Immature 0.040 H Granulocytes # Neutrophils # 7.2 Lymphocytes # 1.4 Monocytes # 0.9 Eosinophils # 0.2 Basophils # 0.0 Nucleated Red Blood 0.0 Cells # Sodium Level 138 Potassium Level 5.4 H Chloride Level 106 Carbon Dioxide Level 25 Anion Gap 7 Blood Urea Nitrogen 66 H Creatinine 2.46 H Est Glomerular 26 L Filtrat Rate mL/min Glucose Level 80 # Calcium Level 8.9 Phosphorus Level 5.8 H Magnesium Level 1.7 Exam/Review of Systems Exam Vitals Vital Signs Date Temp Pulse Resp B/P (MAP) Pulse Ox O2 O2 Flow FiO2 Time Delivery Rate 01/15/19 138/65 08:45 (89) 01/15/19 98.1 70 18 95 Room Air 08:00 Intake and Output 01/14/19 01/14/19 01/15/19 1515:00 23:00 07:00 IntakeIntake Total 400 ml 440 ml 280 ml OutputOutput Total 1020 ml 800 ml BalanceBalance 400 ml -580 ml -520 ml Results Results 24hrs Laboratory Tests Test 01/14/19 11:44 01/14/19 17:21 01/14/19 20:26 01/15/19 02:37 Bedside Glucose 139 129 260 H 60 L Test 01/15/19 02:56 01/15/19 05:48 01/15/19 08:14 Bedside Glucose 91 94 White Blood Count 9.9 Red Blood Count 3.22 L Hemoglobin 8.5 L Hematocrit 27.3 L Mean Corpuscular 84.8 Volume Mean Corpuscular 26.4 L Hemoglobin Mean Corpuscular 31.1 L Hemoglobin Concent Red Cell 15.7 H Distribution Width Platelet Count 574 H Mean Platelet Volume 10.4 Immature 0.400 Granulocytes % Neutrophils % 73.0 Lymphocytes % 14.4 L Monocytes % 9.5 Eosinophils % 2.3 Basophils % 0.4 Nucleated Red Blood 0.0 Cells % Immature 0.040 H Granulocytes # Neutrophils # 7.2 Lymphocytes # 1.4 Monocytes # 0.9 Eosinophils # 0.2 Basophils # 0.0 Nucleated Red Blood 0.0 Cells # Sodium Level 138 Potassium Level 5.4 H Chloride Level 106 Carbon Dioxide Level 25 Anion Gap 7 Blood Urea Nitrogen 66 H Creatinine 2.46 H Est Glomerular 26 L Filtrat Rate mL/min Glucose Level 80 # Calcium Level 8.9 Phosphorus Level 5.8 H Magnesium Level 1.7 Medications Medication Current Medications Acetaminophen (Tylenol Tab) 650 mg Q6H PRN PO .PAIN 1-3 OR TEMP; Start 01/09/19 at 22:35 Acetaminophen/ Hydrocodone Bitart ([place] (5/325)) 1 tab Q6H PRN PO .MOD PAIN 4- 6 Last administered on 01/11/19 14:18; Admin Dose 1 TAB; Start 01/09/19 at 22:35 Bisacodyl (Dulcolax) 5 mg DAILY PRN PO .CONSTIPATION Last administered on 01/10/19 08:48; Admin Dose 5 MG; Start 01/09/19 at 22:35 Amlodipine Besylate (Norvasc) 10 mg DAILY PO Last administered on 01/15/19 09:14; Admin Dose 10 MG; Start 01/09/19 at 22:35 Levothyroxine Sodium (Synthroid) 175 mcg BEFORE BREAKFAST PO Last administered on 01/15/19 06:11; Admin Dose 175 MCG; Start 01/09/19 at 22:35 Sertraline HCl (Zoloft) 100 mg DAILY PO Last administered on 01/15/19 09:13; Admin Dose 100 MG; Start 01/09/19 at 22:35 Miscellaneous Information 1 ea NOTE XX ; Start 01/09/19 at 22:35 Glucose (Glutose) 15 gm Q15M PRN PO DECREASED GLUCOSE; Start 01/09/19 at 22:35 Glucose (Glutose) 22.5 gm Q15M PRN PO DECREASED GLUCOSE; Start 01/09/19 at 22:35 Dextrose (D50w Syringe) 25 ml Q15M PRN IV DECREASED GLUCOSE; Start 01/09/19 at 22:35 Dextrose (D50w Syringe) 50 ml Q15M PRN IV DECREASED GLUCOSE; Start 01/09/19 at 22:35 Glucose (Glutose) 15 gm Q15M PRN BUCCAL DECREASED GLUCOSE; Start 01/09/19 at 22:35 Levalbuterol (Xopenex Neb) 1.25 mg Q4H RESP THERAPY PRN HHN SHORTNESS OF BREATH; Start 01/09/19 at 22:35 Nicotine Polacrilex (Nicorette) 2 mg Q2H PRN BUCCAL CONTROL WITHDRAWAL SYMPTOMS; Start 01/09/19 at 22:35 Aspirin (Halfprin) 81 mg DAILY PO Last administered on 01/15/19at 09:13; Admin Dose 81 MG; Start 01/09/19 at 22:35 Lactobacillus Acidophilus/ Rhamnosus (Culturelle) 1 cap BID PO Last administered on 01/15/19at 09:13; Admin Dose 1 CAP; Start 01/09/19 at 22:35 Simethicone (Mylicon) 80 mg TID PRN PO .GAS; Start 01/09/19 at 22:35 Sodium Biphosphate/ Sodium Phosphate (Fleet Enema) 133 ml DAILY PRN [place] .CONSTIPATION; Start 01/09/19 at 22:35 Bethanechol Chloride (Urecholine) 25 mg URINARY CATH D/C PRN PO UNABLE TO VOID; Start 01/09/19 at 22:35 Pantoprazole (Protonix Tab) 40 mg DAILY@06 PO Last administered on 01/15/19at 06:11; Admin Dose 40 MG; Start 01/09/19 at 22:35 Naloxone HCl (Narcan) 0.2 mg Q2M PRN IV .RESP RATE; Start 01/09/19 at 22:36 Hydralazine HCl (Apresoline) 50 mg QID PO Last administered on 01/15/19at 09:15; Admin Dose 50 MG; Start 01/09/19 at 23:00 Tamsulosin HCl (Flomax) 0.4 mg HS PO Last administered on 01/14/19 20:28; Admin Dose 0.4 MG; Start 01/09/19 at 23:00 Heparin Sodium (Porcine) (Heparin (5000 Units/1ml)) 5,000 unit BID SC Last administered on 01/14/19 20:31; Admin Dose 5,000 UNIT; Start 01/09/19 at 23:00 Carvedilol (Coreg) 12.5 mg BID PO Last administered on 01/15/19 09:14; Admin Dose 12.5 MG; Start 01/09/19 at 23:01 Docusate Sodium (Colace) 100 mg BID PO Last administered on 01/15/19 09:12; Admin Dose 100 MG; Start 01/10/19 at 09:00 Senna (Senokot) 1 tab HS PO Last administered on 01/14/19 20:28; Admin Dose 1 TAB; Start 01/10/19 at 21:00 Magnesium Hydroxide (Milk Of Mag) 30 ml BID PRN PO CONSTIPATION; Start 01/10/19 at 00:00 Lactulose (Enulose) 20 gm DAILY PRN PO CONSTIPATION; Start 01/10/19 at 00:00 Bisacodyl (Dulcolax Supp) 10 mg DAILY PRN [place] CONSTIPATION; Start 01/10/19 at 00:00 Multivitamins Therapeutic (Theragran) 1 tab DAILY PO Last administered on 09:12; Admin Dose 1 TAB; Start 01/11/19 at 09:00 Ascorbic Acid (Vitamin C) 500 mg DAILY PO Last administered on 01/15/19 09:14; Admin Dose 500 MG; Start 01/11/19 at 09:00 Folic Acid (Folic Acid) 1 mg DAILY PO Last administered on 01/15/19 09:13; Admin Dose 1 MG; Start 01/11/19 at 09:00 Zinc Sulfate (Zinc Sulfate) 220 mg DAILY PO Last administered on 01/15/19 09:12; Admin Dose 220 MG; Start 01/11/19 at 09:00 Betamethasone/ Clotrimazole (Lotrisone Cr) 1 applic DAILY TOP Last administered on 01/15/19 09:16; Admin Dose 1 APPLIC; Start 01/10/19 at 13:00 Nystatin (Nystatin Oint) 1 applic BID TOP Last administered on 01/15/19 09:16; Admin Dose 1 APPLIC; Start 01/12/19 at 14:00 Ampicillin (Ampicillin) 500 mg BID PO Last administered on 01/15/19 09:12; Admin Dose 500 MG; Start 01/12/19 at 14:30; Stop 01/22/19 at 14:29 Insulin Aspart (Novolog Insulin Pen) NOVOLOG *MILD* ALGORITHM WITH MEALS BEDTIME SC Last administered on 01/14/19 20:33; Admin Dose 2 UNIT; Start 01/12/19 at 17:35 Atorvastatin Calcium (Lipitor) 40 mg HS PO Last administered on 01/14/19 20:29; Admin Dose 40 MG; Start 01/13/19 at 21:00 Insulin Glargine (Lantus) 10 units QPM SC Last administered on 01/14/19 20:32; Admin Dose 10 UNITS; Start 01/14/19 at 21:00 Linagliptin (Tradjenta) 5 mg DAILY PO Last administered on 01/15/19at 09:13; Admin Dose 5 MG; Start 01/14/19 at 15:00 Repaglinide (Prandin) 1 mg TID MEALS PO ; Start 01/15/19 at 09:00 Sevelamer Carbonate (Renvela) 1,600 mg WITH MEALS PO ; Start 01/15/19 at 12:00 Sodium Polystyrene Sulfonate (Kayexelate 15 Gm Kit (Powder+Sorbitol)) 15 gm O NCE PO Last administered on 01/15/19at 10:44; Admin Dose 15 GM; Start 01/15/19 at 10:00; Stop 01/15/19 at 23:59 Meclizine HCl (Antivert) 25 mg TID PRN PO NAUSEA AND/OR VOMITING/DIZZINE; Start 01/15/19 at 10:30 BARNEY HILL NP January 15, 2019 11:20
--- NOTE | 2019-01-15 12:13 | PN ---
Date/Time of Note Date/Time of Note DATE: 01/15/19 TIME: 12:13 Objective Vital Signs Date Temp Pulse Resp B/P (MAP) Pulse Ox O2 O2 Flow FiO2 Time Delivery Rate 01/15/19 138/65 08:45 (89) 01/15/19 98.1 70 18 95 Room Air 08:00 Intake and Output 01/14/19 01/14/19 01/15/19 1515:00 23:00 07:00 IntakeIntake Total 400 ml 440 ml 280 ml OutputOutput Total 1020 ml 800 ml BalanceBalance 400 ml -580 ml -520 ml Exam INTERDISCIPLINARY TEAM CONFERENCE Attended by PT, OT, ST, Spare Hand Carding, Social Work, Rehabilitation Nursing, Switch Engineer and Caddy MasterStreet Roller Engineer Exam: Pulm-cta Abd-soft BOWEL- Cont BLADDER-Cont SKIN- improving heel DTI OT- DRESSING-min BATHING-min TOILETING-min PT- BED MOBILITY-cga TRANSFERS-min/cga AMBULATION-min/cga ambulation 40 feet A/P- Interdisciplinary team conference held today. Please see interdisciplinary sheet. Working toward d.c. on 01/22 with post discharge follow up of physical therapy, occupational therapy. Results/Medications Result Diagram: 01/15/19 0548 01/15/19 0548 Results 24 hrs Laboratory Tests Test 01/14/19 17:21 01/14/19 20:26 01/15/19 02:37 01/15/19 02:56 Bedside Glucose 129 260 H 60 L 91 Test 01/15/19 05:48 01/15/19 08:14 01/15/19 11:56 White Blood Count 9.9 Red Blood Count 3.22 L Hemoglobin 8.5 L Hematocrit 27.3 L Mean Corpuscular 84.8 Volume Mean Corpuscular 26.4 L Hemoglobin Mean Corpuscular 31.1 L Hemoglobin Concent Red Cell 15.7 H Distribution Width Platelet Count 574 H Mean Platelet Volume 10.4 Immature 0.400 Granulocytes % Neutrophils % 73.0 Lymphocytes % 14.4 L Monocytes % 9.5 Eosinophils % 2.3 Basophils % 0.4 Nucleated Red Blood 0.0 Cells % Immature 0.040 H Granulocytes # Neutrophils # 7.2 Lymphocytes # 1.4 Monocytes # 0.9 Eosinophils # 0.2 Basophils # 0.0 Nucleated Red Blood 0.0 Cells # Sodium Level 138 Potassium Level 5.4 H Chloride Level 106 Carbon Dioxide Level 25 Anion Gap 7 Blood Urea Nitrogen 66 H Creatinine 2.46 H Est Glomerular 26 L Filtrat Rate mL/min Glucose Level 80 # Calcium Level 8.9 Phosphorus Level 5.8 H Magnesium Level 1.7 Bedside Glucose 94 124 Medications Current Medications Acetaminophen (Tylenol Tab) 650 mg Q6H PRN PO .PAIN 1-3 OR TEMP; Start 01/09/19 at 22:35 Acetaminophen/ Hydrocodone Bitart ([place] (5/325)) 1 tab Q6H PRN PO .MOD PAIN 4- 6 Last administered on 01/11/19at 14:18; Admin Dose 1 TAB; Start 01/09/19 at 22:35 Bisacodyl (Dulcolax) 5 mg DAILY PRN PO .CONSTIPATION Last administered on 01/10/19at 08:48; Admin Dose 5 MG; Start 01/09/19 at 22:35 Amlodipine Besylate (Norvasc) 10 mg DAILY PO Last administered on 01/15/19at 09:14; Admin Dose 10 MG; Start 01/09/19 at 22:35 Levothyroxine Sodium (Synthroid) 175 mcg BEFORE BREAKFAST PO Last administered on 01/15/19at 06:11; Admin Dose 175 MCG; Start 01/09/19 at 22:35 Miscellaneous Information 1 ea NOTE XX ; Start 01/09/19 at 22:35 Glucose (Glutose) 15 gm Q15M PRN PO DECREASED GLUCOSE; Start 01/09/19 at 22:35 Glucose (Glutose) 22.5 gm Q15M PRN PO DECREASED GLUCOSE; Start 01/09/19 at 22:35 Dextrose (D50w Syringe) 25 ml Q15M PRN IV DECREASED GLUCOSE; Start 01/09/19 at 22:35 Dextrose (D50w Syringe) 50 ml Q15M PRN IV DECREASED GLUCOSE; Start 01/09/19 at 22:35 Glucose (Glutose) 15 gm Q15M PRN BUCCAL DECREASED GLUCOSE; Start 01/09/19 at 22:35 Levalbuterol (Xopenex Neb) 1.25 mg Q4H RESP THERAPY PRN HHN SHORTNESS OF BREATH; Start 01/09/19 at 22:35 Nicotine Polacrilex (Nicorette) 2 mg Q2H PRN BUCCAL CONTROL WITHDRAWAL SYMPTOMS; Start 01/09/19 at 22:35 Aspirin (Halfprin) 81 mg DAILY PO Last administered on 01/15/19 09:13; Admin Dose 81 MG; Start 01/09/19 at 22:35 Lactobacillus Acidophilus/ Rhamnosus (Culturelle) 1 cap BID PO Last administered on 01/15/19 09:13; Admin Dose 1 CAP; Start 01/09/19 at 22:35 Simethicone (Mylicon) 80 mg TID PRN PO .GAS; Start 01/09/19 at 22:35 Sodium Biphosphate/ Sodium Phosphate (Fleet Enema) 133 ml DAILY PRN [place] .CONSTIPATION; Start 01/09/19 at 22:35 Bethanechol Chloride (Urecholine) 25 mg URINARY CATH D/C PRN PO UNABLE TO VOID; Start 01/09/19 at 22:35 Pantoprazole (Protonix Tab) 40 mg DAILY@06 PO Last administered on 01/15/19 06:11; Admin Dose 40 MG; Start 01/09/19 at 22:35 Naloxone HCl (Narcan) 0.2 mg Q2M PRN IV .RESP RATE; Start 01/09/19 at 22:36 Hydralazine HCl (Apresoline) 50 mg QID PO Last administered on 01/15/19 09:15; Admin Dose 50 MG; Start 01/09/19 at 23:00 Tamsulosin HCl (Flomax) 0.4 mg HS PO Last administered on 01/14/19 20:28; Adm in Dose 0.4 MG; Start 01/09/19 at 23:00 Heparin Sodium (Porcine) (Heparin (5000 Units/1ml)) 5,000 unit BID SC Last administered on 01/14/19 20:31; Admin Dose 5,000 UNIT; Start 01/09/19 at 23:00 Carvedilol (Coreg) 12.5 mg BID PO Last administered on 01/15/19 09:14; Admin Dose 12.5 MG; Start 01/09/19 at 23:01 Docusate Sodium (Colace) 100 mg BID PO Last administered on 01/15/19 09:12; Admin Dose 100 MG; Start 01/10/19 at 09:00 Senna (Senokot) 1 tab HS PO Last administered on 01/14/19 20:28; Admin Dose 1 TAB; Start 01/10/19 at 21:00 Magnesium Hydroxide (Milk Of Mag) 30 ml BID PRN PO CONSTIPATION; Start 01/10/19 at 00:00 Lactulose (Enulose) 20 gm DAILY PRN PO CONSTIPATION; Start 01/10/19 at 00:00 Bisacodyl (Dulcolax Supp) 10 mg DAILY PRN [place] CONSTIPATION; Start 01/10/19 at 00:00 Multivitamins Therapeutic (Theragran) 1 tab DAILY PO Last administered on 01/15/19 09:12; Admin Dose 1 TAB; Start 01/11/19 at 09:00 Ascorbic Acid (Vitamin C) 500 mg DAILY PO Last administered on 01/15/19 09:14; Admin Dose 500 MG; Start 01/11/19 at 09:00 Folic Acid (Folic Acid) 1 mg DAILY PO Last administered on 01/15/19 09:13; Admin Dose 1 MG; Start 01/11/19 at 09:00 Zinc Sulfate (Zinc Sulfate) 220 mg DAILY PO Last administered on 01/15/19 09:12; Admin Dose 220 MG; Start 01/11/19 at 09:00 Betamethasone/ Clotrimazole (Lotrisone Cr) 1 applic DAILY TOP Last administered on 01/15/19 09:16; Admin Dose 1 APPLIC; Start 01/10/19 at 13:00 Nystatin (Nystatin Oint) 1 applic BID TOP Last administered on 01/15/19 09:16; Admin Dose 1 APPLIC; Start 01/12/19 at 14:00 Ampicillin (Ampicillin) 500 mg BID PO Last administered on 01/15/19 09:12; Admin Dose 500 MG; Start 01/12/19 at 14:30; Stop 01/22/19 at 14:29 Insulin Aspart (Novolog Insulin Pen) NOVOLOG *MILD* ALGORITHM WITH MEALS BEDTIME SC Last administered on 01/14/19 20:33; Admin Dose 2 UNIT; Start 01/12/19 at 17:35 Atorvastatin Calcium (Lipitor) 40 mg HS PO Last administered on 01/14/19 20:29; Admin Dose 40 MG; Start 01/13/19 at 21:00 Insulin Glargine (Lantus) 10 units QPM SC Last administered on 01/14/19 20:32; Admin Dose 10 UNITS; Start 01/14/19 at 21:00 Linagliptin (Tradjenta) 5 mg DAILY PO Last administered on 01/15/19at 09:13; Admin Dose 5 MG; Start 01/14/19 at 15:00 Sevelamer Carbonate (Renvela) 1,600 mg WITH MEALS PO Last administered on 01/15/19at 11:58; Admin Dose 1,600 MG; Start 01/15/19 at 12:00 Sodium Polystyrene Sulfonate (Kayexelate 15 Gm Kit (Powder+Sorbitol)) 15 gm ONCE PO Last administered on 01/15/19at 10:44; Admin Dose 15 GM; Start 01/15/19 at 10:00; Stop 01/15/19 at 23:59 Meclizine HCl (Antivert) 25 mg TID PRN PO NAUSEA AND/OR VOMITING/DIZZINE; Start 01/15/19 at 10:30 Sertraline HCl (Zoloft) 100 mg Q12H PO ; Start 01/15/19 at 22:35 NIKIA POE MD January 15, 2019 12:13
[2019-01-15 13:28] VITALS: BP 137/62; PULSE 68; RESP 18
[2019-01-15] MEDS: ACCU-CHEK XX SCH ×2 (17:05→21:00)
[2019-01-15 20:00] VITALS: BP 147/65; PULSE 63; RESP 18
[2019-01-15] MEDS: SENNA TAB PO SCH (20:59)
[2019-01-15] MEDS: TAMSULOSIN (SR) 0.4 MG CAP PO SCH (21:00)
[2019-01-15] MEDS: ATORVASTATIN 20 MG TAB PO SCH (21:00)
[2019-01-15] MEDS ORDERED: SERTRALINE 100 MG TAB PO SCH (22:35)
[2019-01-16] MEDS: ACCU-CHEK XX SCH ×2 (02:00→08:30)
[2019-01-16 02:15] VITALS: BP 158/103; PULSE 69; RESP 16
[2019-01-16] MEDS: LEVOTHYROXINE 175 MCG TAB PO SCH (06:00)
[2019-01-16] MEDS: PANTOPRAZOLE (EC) 40 MG TAB PO SCH (06:00)
[2019-01-16 08:00] VITALS: BP 174/77; PULSE 69; RESP 18
--- NOTE | 2019-01-16 08:17 | PN ---
Date/Time of Note Date/Time of Note DATE: 01/16/19 TIME: 08:17 Subjective Feeling better Objective Vital Signs Date Temp Pulse Resp B/P (MAP) Pulse Ox O2 O2 Flow FiO2 Time Delivery Rate 01/16/19 97.8 69 16 158/103 95 Room Air 02:15 (121) Intake and Output 01/15/19 01/15/19 01/16/19 1515:00 23:00 07:00 IntakeIntake Total 280 ml 240 ml OutputOutput Total 500 ml BalanceBalance 280 ml -260 ml Exam pulm-cta cga ambulation Results/Medications Result Diagram: 01/15/19 0548 01/15/19 0548 Results 24 hrs Laboratory Tests Test 01/15/19 11:56 01/15/19 17:40 01/15/19 20:56 01/16/19 07:43 Bedside Glucose 124 158 214 163 Medications Current Medications Acetaminophen (Tylenol Tab) 650 mg Q6H PRN PO .PAIN 1-3 OR TEMP; Start 01/09/19 at 22:35 Acetaminophen/ Hydrocodone Bitart ([place] (5/325)) 1 tab Q6H PRN PO .MOD PAIN 4- 6 Last administered on 01/11/19at 14:18; Admin Dose 1 TAB; Start 01/09/19 at 22:35 Bisacodyl (Dulcolax) 5 mg DAILY PRN PO .CONSTIPATION Last administered on 01/10/19at 08:48; Admin Dose 5 MG; Start 01/09/19 at 22:35 Amlodipine Besylate (Norvasc) 10 mg DAILY PO Last administered on 01/15/19at 09:14; Admin Dose 10 MG; Start 01/09/19 at 22:35 Levothyroxine Sodium (Synthroid) 175 mcg BEFORE BREAKFAST PO Last administered on 01/16/19at 06:00; Admin Dose 175 MCG; Start 01/09/19 at 22:35 Miscellaneous Information 1 ea NOTE XX ; Start 01/09/19 at 22:35 Glucose (Glutose) 15 gm Q15M PRN PO DECREASED GLUCOSE; Start 01/09/19 at 22:35 Glucose (Glutose) 22.5 gm Q15M PRN PO DECREASED GLUCOSE; Start 01/09/19 at 22:35 Dextrose (D50w Syringe) 25 ml Q15M PRN IV DECREASED GLUCOSE; Start 01/09/19 at 22:35 Dextrose (D50w Syringe) 50 ml Q15M PRN IV DECREASED GLUCOSE; Start 01/09/19 at 22:35 Glucose (Glutose) 15 gm Q15M PRN BUCCAL DECREASED GLUCOSE; Start 01/09/19 at 22:35 Levalbuterol (Xopenex Neb) 1.25 mg Q4H RESP THERAPY PRN HHN SHORTNESS OF BREATH; Start 01/09/19 at 22:35 Nicotine Polacrilex (Nicorette) 2 mg Q2H PRN BUCCAL CONTROL WITHDRAWAL SYMPTOMS; Start 01/09/19 at 22:35 Aspirin (Halfprin) 81 mg DAILY PO Last administered on 01/15/19at 09:13; Admin Dose 81 MG; Start 01/09/19 at 22:35 Lactobacillus Acidophilus/ Rhamnosus (Culturelle) 1 cap BID PO Last administered on 01/15/19at 20:59; Admin Dose 1 CAP; Start 01/09/19 at 22:35 Simethicone (Mylicon) 80 mg TID PRN PO .GAS; Start 01/09/19 at 22:35 Sodium Biphosphate/ Sodium Phosphate (Fleet Enema) 133 ml DAILY PRN [place] .CONSTIPATION; Start 01/09/19 at 22:35 Bethanechol Chloride (Urecholine) 25 mg URINARY CATH D/C PRN PO UNABLE TO VOID; Start 01/09/19 at 22:35 Pantoprazole (Protonix Tab) 40 mg DAILY@06 PO Last administered on 01/16/19at 06:00; Admin Dose 40 MG; Start 01/09/19 at 22:35 Naloxone HCl (Narcan) 0.2 mg Q2M PRN IV .RESP RATE; Start 01/09/19 at 22:36 Hydralazine HCl (Apresoline) 50 mg QID PO Last administered on 01/15/19at 20:59; Admin Dose 50 MG; Start 01/09/19 at 23:00 Tamsulosin HCl (Flomax) 0.4 mg HS PO Last administered on 01/15/19at 21:00; Admin Dose 0.4 MG; Start 01/09/19 at 23:00 Heparin Sodium (Porcine) (Heparin (5000 Units/1ml)) 5,000 unit BID SC Last administered on 01/15/19at 21:02; Admin Dose 5,000 UNIT; Start 01/09/19 at 23:00 Carvedilol (Coreg) 12.5 mg BID PO Last administered on 01/15/19 21:00; Admin Dose 12.5 MG; Start 01/09/19 at 23:01 Docusate Sodium (Colace) 100 mg BID PO Last administered on 01/15/19 20:59; Admin Dose 100 MG; Start 01/10/19 at 09:00 Senna (Senokot) 1 tab HS PO Last administered on 01/15/19 20:59; Admin Dose 1 TAB; Start 01/10/19 at 21:00 Magnesium Hydroxide (Milk Of Mag) 30 ml BID PRN PO CONSTIPATION; Start 01/10/19 at 00:00 Lactulose (Enulose) 20 gm DAILY PRN PO CONSTIPATION; Start 01/10/19 at 00:00 Bisacodyl (Dulcolax Supp) 10 mg DAILY PRN [place] CONSTIPATION; Start 01/10/19 at 00:00 Multivitamins Therapeutic (Theragran) 1 tab DAILY PO Last administered on 01/15/19 09:12; Admin Dose 1 TAB; Start 01/11/19 at 09:00 Ascorbic Acid (Vitamin C) 500 mg DAILY PO Last administered on 01/15/19 09:14; Admin Dose 500 MG; Start 01/11/19 at 09:00 Folic Acid (Folic Acid) 1 mg DAILY PO Last administered on 01/15/19 09:13; Admin Dose 1 MG; Start 01/11/19 at 09:00 Zinc Sulfate (Zinc Sulfate) 220 mg DAILY PO Last administered on 01/15/19 09:12; Admin Dose 220 MG; Start 01/11/19 at 09:00 Betamethasone/ Clotrimazole (Lotrisone Cr) 1 applic DAILY TOP Last administered on 01/15/19 09:16; Admin Dose 1 APPLIC; Start 01/10/19 at 13:00 Nystatin (Nystatin Oint) 1 applic BID TOP Last administered on 01/15/19 21:05; Admin Dose 1 APPLIC; Start 01/12/19 at 14:00 Ampicillin (Ampicillin) 500 mg BID PO Last administered on 01/15/19 20:59; Admin Dose 500 MG; Start 01/12/19 at 14:30; Stop 01/22/19 at 14:29 Atorvastatin Calcium (Lipitor) 40 mg HS PO Last administered on 01/15/19at 21:00; Admin Dose 40 MG; Start 01/13/19 at 21:00 Linagliptin (Tradjenta) 5 mg DAILY PO Last administered on 01/15/19at 09:13; Admin Dose 5 MG; Start 01/14/19 at 15:00 Sevelamer Carbonate (Renvela) 1,600 mg WITH MEALS PO Last administered on 01/15/19at 17:43; Admin Dose 1,600 MG; Start 01/15/19 at 12:00 Meclizine HCl (Antivert) 25 mg TID PRN PO NAUSEA AND/OR VOMITING/DIZZINE; Start 01/15/19 at 10:30 Sertraline HCl (Zoloft) 100 mg Q12H PO Last administered on 01/15/19at 23:39; Admin Dose 100 MG; Start 01/15/19 at 22:35 Insulin Glargine (Lantus) 10 units 0800 SC ; Start 01/16/19 at 08:00 Diagnostic Test (Pha) (Accu-Chek) 1 ea AC MEALS AND BEDTIME XX Last administered on 01/15/19at 21:00; Admin Dose 1 EA; Start 01/15/19 at 17:05 Diagnostic Test (Pha) (Accu-Chek) 1 ea 02 XX ; Start 01/16/19 at 02:00 Assessment/Plan Additional Assessment/Plan Rehab-Right intertrochanteric hip fracture status post intramedullary nailing. Improving with rehab Acute on chronic kidney injury.- per im/renal FEN- hyperkalemia-kayexelate per im ID- abx for UTI Acute pain syndrome. Hypertension. Diabetes mellitus type 2. Anemia. COPD. Hypothyroidism. Prostate hypertrophy. Right heel DTI-improving NIKIA POE MD January 16, 2019 08:17
--- NOTE | 2019-01-16 08:36 | PN ---
DATE: 01/16/2019 SUBJECTIVE: The patient is stable. No events overnight. OBJECTIVE: VITAL SIGNS: Blood pressure is 158/103, respirations 16, pulse 69, temperature 97.8. HEENT: Head is normocephalic. NECK: Supple. HEART: Regular rate. LUNGS: Show diminished breath sounds at the base. ABDOMEN: Soft, nontender to palpation without rebound or guarding. EXTREMITIES: Negative for clubbing, cyanosis, no edema. DERMATOLOGIC: No rashes. MUSCULOSKELETAL: No joint effusion. NEUROLOGIC: No change in exam. MEDICATIONS: Reviewed. LABORATORY DATA: Reviewed. ASSESSMENT AND PLAN: 1. Nonoliguric acute kidney injury on top of chronic kidney disease stage IIIB/IV with previous base line creatinine of 2.2 to 2.7 mg/dL. Etiology of acute kidney injury is secondary to hemodynamics. Renal function is stable. Continue to monitor. 2. Hypokalemia. Continue low-potassium diet. Continue intermittent Kayexalate as needed. 3. Mineral bone disorder. Continue phosphate binders, monitor calcium and phosphorus levels. 4. Anemia with iron deficiency. The patient is status post IV iron. We will give Epogen as needed. 5. Hypomagnesemia, improved. 6. Acute right femoral fracture, status post arthroplasty. Continue physical therapy. 7. History of chronic obstructive pulmonary disease. Continue medical management. 8. Hypertension. Continue current blood pressure regimen. 9. Diabetes. Continue current insulin regimen. Dictated By: SHIN COHEN DO NR/NTS Conf#: [id number] DID#: [id number] CC: SIVA NGUYEN; NIKIA POE MD; STUART MCCANN MD;*EndCC*
[2019-01-16] MEDS: SEVELAMER CARBONATE 800 MG TABLET PO SCH ×3 (08:38→17:15)
[2019-01-16] MEDS: FOLIC ACID 1 MG TAB PO SCH (08:38)
[2019-01-16] MEDS: LINAGLIPTIN 5 MG TABLET PO SCH (08:39)
[2019-01-16] MEDS: ASCORBIC ACID 500 MG TAB PO SCH (08:39)
[2019-01-16] MEDS: ZINC SULFATE 220 MG CAP PO SCH (08:40)
[2019-01-16] MEDS: AMPICILLIN 500 MG CAP PO SCH ×2 (08:40→21:37)
[2019-01-16] MEDS: MULTIVITAMINS THERAPEUTIC TAB PO SCH (08:40)
[2019-01-16] MEDS: LACTOBACILLUS RHAMNOSUS CAP PO SCH ×2 (08:41→21:37)
[2019-01-16] MEDS: ASPIRIN (EC) 81 MG TAB PO SCH (08:41)
[2019-01-16] MEDS: AMLODIPINE 10 MG TAB PO SCH (08:42)
[2019-01-16] MEDS: HEPARIN 5,000 UNIT/1 ML VIAL SC SCH ×2 (08:43→21:42)
[2019-01-16] MEDS: HYDROCODONE/APAP (5/325) TAB PO PRN (08:45)
[2019-01-16] MEDS: DOCUSATE SODIUM 100 MG CAP PO SCH ×2 (08:54→21:00)
[2019-01-16] MEDS: BETAMETHASONE/CLOTRIMAZOLE 15 GM CR TOP SCH (09:05)
[2019-01-16] MEDS: INSULIN GLARGINE [LANTus] (100 UNITS/ML) SYG SC SCH (09:05)
[2019-01-16] MEDS: NYSTATIN 15 GM OINT TOP SCH ×2 (09:05→21:39)
[2019-01-16] MEDS: BALSAM PERU/CASTOR OIL 60 GM TUBE TOP SCH ×2 (09:05→21:38)
[2019-01-16] MEDS ORDERED: NA POLYST SULFON 15 GM/60 ML BTL PO ONE (09:30)
[2019-01-16] MEDS ORDERED: INSULIN ASPART [NOVOLOG] 3 ML PEN SC SCH (12:00)
[2019-01-16] MEDS ORDERED: SEVELAMER CARBONATE 800 MG TABLET PO SCH (12:00)
[2019-01-16] MEDS: INSULIN ASPART [NOVOLOG] 3 ML PEN SC SCH ×2 (12:00→17:05)
--- NOTE | 2019-01-16 12:00 | PN ---
Date/Time of Note Date/Time of Note DATE: 01/16/19 TIME: 11:54 Assessment/Plan VTE Prophylaxis Risk score (from Ns)>0 risk: 10 SCD applied (from Ns): No SCD contraindicated: other Pharmacological prophylaxis: heparin Lines/Catheters IV [facility] [place] Urinary Cath still in place: No Assessment/Plan Hospital Course SUBJECTIVE:no acute events OBJECTIVE: Vital signs-see below PHYSICAL EXAM: Constitutional: Adequately built,not in acute distress. HEENT: Head atraumatic and normocephalic. Eyes: Extraocular muscles intact. Anicteric sclerae. Pupils equal bilaterally, reactive to light. NECK: Supple without lymph node. CHEST: Clear and good breath sounds equally. No wheezing. No rhonchi. HEART: S1, S2. Regular rate and rhythm. ABDOMEN: Soft/non tender with no rebound tenderness. Bowel sounds were present. EXTREMITIES: Right hip surgical site c/d/i No cyanosis, clubbing or edema. NEUROLOGIC: Alert and oriented x3. Forgetful. No focal deficit. No sensory deficit. PSYCHOSOCIAL: No signs of depression. INTEGUMENTARY: No open wounds. ASSESSMENT AND PLAN: 68 yo M w/htn,dm2,CKD, here for rehabilitation for right hip fx/IM nailing... Right intertrochanteric fracture of the femur. -Status post intramedullary nailing of right intertrochanteric hip fracture on 12/28/2018. -dvt ppx,pain control,pt/rehba -f/u ortho in 2wks Hypertension -Sridhar stable. -Continue bb/hydralazine -Not a candidate for acei 2/2 hyperkalemia Diabetes mellitus 2. -pt's family not compliant with insulin regimen-this makes it difficult to manage -Sridhar stable but still w/hypoglycemia in AM -DC HS Sliding scale. -Lantus/ISS/Tradjenta -dm education CKD stage IIIB/IV with a baseline creatinine of 2.2 to 2.7 mg/dL -mgmt per nephro -creat fairly stable at baseline Acute hyperkalemia -Managed per nephrology. -Monitor closely. chronic anemia -on iron COPD. -stable Nicotine use. -nicotine patch. Hypothyroidism -on Synthroid. Prostate hypertrophy. -on tamsulosin. Urinary tract infection -on [id number] DVT prophylaxis -Subcutaneous heparin. The patient was seen in collaboration with Result Diagram: 01/15/19 0548 01/16/19 0721 Results 24hrs Laboratory Tests Test 01/15/19 11:56 01/15/19 17:40 01/15/19 20:56 01/16/19 07:21 Bedside Glucose 124 158 214 Sodium Level 138 Potassium Level 5.7 H Chloride Level 104 Carbon Dioxide Level 26 Anion Gap 8 Blood Urea Nitrogen 66 H Creatinine 2.55 H Est Glomerular 25 L Filtrat Rate mL/min Glucose Level 159 Calcium Level 9.0 Phosphorus Level 5.3 H Magnesium Level 1.7 Test 01/16/19 07:43 Bedside Glucose 163 Exam/Review of Systems Exam Vitals Vital Signs Date Temp Pulse Resp B/P (MAP) Pulse Ox O2 O2 Flow FiO2 Time Delivery Rate 01/16/19 97.8 69 18 174/77 95 Room Air 08:00 (109) Intake and Output 01/15/19 01/15/19 01/16/19 1515:00 23:00 07:00 IntakeIntake Total 280 ml 240 ml OutputOutput Total 500 ml BalanceBalance 280 ml -260 ml Results Results 24hrs Laboratory Tests Test 01/15/19 11:56 01/15/19 17:40 01/15/19 20:56 01/16/19 07:21 Bedside Glucose 124 158 214 Sodium Level 138 Potassium Level 5.7 H Chloride Level 104 Carbon Dioxide Level 26 Anion Gap 8 Blood Urea Nitrogen 66 H Creatinine 2.55 H Est Glomerular 25 L Filtrat Rate mL/min Glucose Level 159 Calcium Level 9.0 Phosphorus Level 5.3 H Magnesium Level 1.7 Test 01/16/19 07:43 Bedside Glucose 163 Medications Medication Current Medications Acetaminophen (Tylenol Tab) 650 mg Q6H PRN PO .PAIN 1-3 OR TEMP; Start 01/09/19 at 22:35 Acetaminophen/ Hydrocodone Bitart ([place] (5/325)) 1 tab Q6H PRN PO .MOD PAIN 4- 6 Last administered on 01/16/19at 08:45; Admin Dose 1 TAB; Start 01/09/19 at 22:35 Bisacodyl (Dulcolax) 5 mg DAILY PRN PO .CONSTIPATION Last administered on 01/10/19at 08:48; Admin Dose 5 MG; Start 01/09/19 at 22:35 Amlodipine Besylate (Norvasc) 10 mg DAILY PO Last administered on 01/16/19at 08:42; Admin Dose 10 MG; Start 01/09/19 at 22:35 Levothyroxine Sodium (Synthroid) 175 mcg BEFORE BREAKFAST PO Last administered on 01/16/19at 06:00; Admin Dose 175 MCG; Start 01/09/19 at 22:35 Miscellaneous Information 1 ea NOTE XX ; Start 01/09/19 at 22:35 Glucose (Glutose) 15 gm Q15M PRN PO DECREASED GLUCOSE; Start 01/09/19 at 22:35 Glucose (Glutose) 22.5 gm Q15M PRN PO DECREASED GLUCOSE; Start 01/09/19 at 22:35 Dextrose (D50w Syringe) 25 ml Q15M PRN IV DECREASED GLUCOSE; Start 01/09/19 at 22:35 Dextrose (D50w Syringe) 50 ml Q15M PRN IV DECREASED GLUCOSE; Start 01/09/19 at 22:35 Glucose (Glutose) 15 gm Q15M PRN BUCCAL DECREASED GLUCOSE; Start 01/09/19 at 22:35 Levalbuterol (Xopenex Neb) 1.25 mg Q4H RESP THERAPY PRN HHN SHORTNESS OF BREATH; Start 01/09/19 at 22:35 Nicotine Polacrilex (Nicorette) 2 mg Q2H PRN BUCCAL CONTROL WITHDRAWAL SYMPTOMS; Start 01/09/19 at 22:35 Aspirin (Halfprin) 81 mg DAILY PO Last administered on 01/16/19at 08:41; Admin Dose 81 MG; Start 01/09/19 at 22:35 Lactobacillus Acidophilus/ Rhamnosus (Culturelle) 1 cap BID PO Last administered on 01/16/19at 08:41; Admin Dose 1 CAP; Start 01/09/19 at 22:35 Simethicone (Mylicon) 80 mg TID PRN PO .GAS; Start 01/09/19 at 22:35 Sodium Biphosphate/ Sodium Phosphate (Fleet Enema) 133 ml DAILY PRN [place] .CONSTIPATION; Start 01/09/19 at 22:35 Bethanechol Chloride (Urecholine) 25 mg URINARY CATH D/C PRN PO UNABLE TO VOID; Start 01/09/19 at 22:35 Pantoprazole (Protonix Tab) 40 mg DAILY@06 PO Last administered on 01/16/19 06:00; Admin Dose 40 MG; Start 01/09/19 at 22:35 Naloxone HCl (Narcan) 0.2 mg Q2M PRN IV .RESP RATE; Start 01/09/19 at 22:36 Hydralazine HCl (Apresoline) 50 mg QID PO Last administered on 01/16/19 08:40; Admin Dose 50 MG; Start 01/09/19 at 23:00 Tamsulosin HCl (Flomax) 0.4 mg HS PO Last administered on 01/15/19 21:00; Admin Dose 0.4 MG; Start 01/09/19 at 23:00 Heparin Sodium (Porcine) (Heparin (5000 Units/1ml)) 5,000 unit BID SC Last administered on 01/16/19 08:43; Admin Dose 5,000 UNIT; Start 01/09/19 at 23:00 Carvedilol (Coreg) 12.5 mg BID PO Last administered on 01/16/19 08:40; Admin Dose 12.5 MG; Start 01/09/19 at 23:01 Docusate Sodium (Colace) 100 mg BID PO Last administered on 01/15/19 20:59; Ad min Dose 100 MG; Start 01/10/19 at 09:00 Senna (Senokot) 1 tab HS PO Last administered on 01/15/19 20:59; Admin Dose 1 TAB; Start 01/10/19 at 21:00 Magnesium Hydroxide (Milk Of Mag) 30 ml BID PRN PO CONSTIPATION; Start 01/10/19 at 00:00 Lactulose (Enulose) 20 gm DAILY PRN PO CONSTIPATION; Start 01/10/19 at 00:00 Bisacodyl (Dulcolax Supp) 10 mg DAILY PRN [place] CONSTIPATION; Start 01/10/19 at 00:00 Multivitamins Therapeutic (Theragran) 1 tab DAILY PO Last administered on 01/16/19 08:40; Admin Dose 1 TAB; Start 01/11/19 at 09:00 Ascorbic Acid (Vitamin C) 500 mg DAILY PO Last administered on 01/16/19 08:39; Admin Dose 500 MG; Start 01/11/19 at 09:00 Folic Acid (Folic Acid) 1 mg DAILY PO Last administered on 01/16/19 08:38; Admin Dose 1 MG; Start 01/11/19 at 09:00 Zinc Sulfate (Zinc Sulfate) 220 mg DAILY PO Last administered on 01/16/19 08:40; Admin Dose 220 MG; Start 01/11/19 at 09:00 Betamethasone/ Clotrimazole (Lotrisone Cr) 1 applic DAILY TOP Last administered on 01/16/19 09:05; Admin Dose 1 APPLIC; Start 01/10/19 at 13:00 Nystatin (Nystatin Oint) 1 applic BID TOP Last administered on 01/16/19 09:05; Admin Dose 1 APPLIC; Start 01/12/19 at 14:00 Ampicillin (Ampicillin) 500 mg BID PO Last administered on 01/16/19 08:40; Admin Dose 500 MG; Start 01/12/19 at 14:30; Stop 01/22/19 at 14:29 Atorvastatin Calcium (Lipitor) 40 mg HS PO Last administered on 01/15/19at 21:00 ; Admin Dose 40 MG; Start 01/13/19 at 21:00 Linagliptin (Tradjenta) 5 mg DAILY PO Last administered on 01/16/19at 08:39; Admin Dose 5 MG; Start 01/14/19 at 15:00 Meclizine HCl (Antivert) 25 mg TID PRN PO NAUSEA AND/OR VOMITING/DIZZINE; Start 01/15/19 at 10:30 Sertraline HCl (Zoloft) 100 mg Q12H PO Last administered on 01/15/19at 23:39; Admin Dose 100 MG; Start 01/15/19 at 22:35 Insulin Glargine (Lantus) 10 units 0800 SC Last administered on 01/16/19at 09:05; Admin Dose 10 UNITS; Start 01/16/19 at 08:00 Diagnostic Test (Pha) (Accu-Chek) 1 ea 02 XX ; Start 01/16/19 at 02:00 Sevelamer Carbonate (Renvela) 2,400 mg WITH MEALS PO ; Start 01/16/19 at 12:00 Insulin Aspart (Novolog Insulin Pen) NOVOLOG *MILD* ALGORITHM WITH MEALS BEDTIME SC ; Start 01/16/19 at 12:00 BARNEY HILL NP January 16, 2019 12:00
[2019-01-16] MEDS: NICOTINE (14 MG/24 HR) PATCH TRANSDERM SCH (12:36)
[2019-01-16 20:00] VITALS: BP 130/50; PULSE 64; RESP 16
[2019-01-16] MEDS: SENNA TAB PO SCH (21:00)
[2019-01-16] MEDS: ATORVASTATIN 20 MG TAB PO SCH (21:37)
[2019-01-16] MEDS: TAMSULOSIN (SR) 0.4 MG CAP PO SCH (21:38)
[2019-01-17] VITALS (7 sets, daily range): BP systolic 140–160; BP diastolic 55–67; PULSE 64–77; RESP 16–18
[2019-01-17] MEDS: ACCU-CHEK XX SCH (02:00)
[2019-01-17] MEDS: LEVOTHYROXINE 175 MCG TAB PO SCH (06:20)
[2019-01-17] MEDS: PANTOPRAZOLE (EC) 40 MG TAB PO SCH (06:20)
[2019-01-17] MEDS: INSULIN ASPART [NOVOLOG] 3 ML PEN SC SCH ×3 (07:05→17:05)
[2019-01-17] MEDS: INSULIN GLARGINE [LANTus] (100 UNITS/ML) SYG SC SCH (08:00)
[2019-01-17] MEDS: SEVELAMER CARBONATE 800 MG TABLET PO SCH ×3 (08:03→17:31)
[2019-01-17] MEDS: AMLODIPINE 10 MG TAB PO SCH (08:53)
[2019-01-17] MEDS: LINAGLIPTIN 5 MG TABLET PO SCH (08:54)
[2019-01-17] MEDS: LACTOBACILLUS RHAMNOSUS CAP PO SCH ×2 (08:54→21:58)
[2019-01-17] MEDS: AMPICILLIN 500 MG CAP PO SCH ×2 (08:54→21:59)
[2019-01-17] MEDS: MULTIVITAMINS THERAPEUTIC TAB PO SCH (08:54)
[2019-01-17] MEDS: ZINC SULFATE 220 MG CAP PO SCH (08:54)
[2019-01-17] MEDS: DOCUSATE SODIUM 100 MG CAP PO SCH ×2 (08:54→21:00)
[2019-01-17] MEDS: ASCORBIC ACID 500 MG TAB PO SCH (08:54)
[2019-01-17] MEDS: SERTRALINE 100 MG TAB PO SCH (08:54)
[2019-01-17] MEDS: FOLIC ACID 1 MG TAB PO SCH (08:54)
[2019-01-17] MEDS: ASPIRIN (EC) 81 MG TAB PO SCH (08:54)
[2019-01-17] MEDS: NICOTINE (14 MG/24 HR) PATCH TRANSDERM SCH (08:56)
[2019-01-17] MEDS: MECLIZINE 25 MG TAB PO PRN (08:58)
[2019-01-17] MEDS: HEPARIN 5,000 UNIT/1 ML VIAL SC SCH ×2 (09:00→21:00)
[2019-01-17] MEDS: BALSAM PERU/CASTOR OIL 60 GM TUBE TOP SCH ×2 (09:01→21:59)
[2019-01-17] MEDS: BETAMETHASONE/CLOTRIMAZOLE 15 GM CR TOP SCH (09:01)
[2019-01-17] MEDS: NYSTATIN 15 GM OINT TOP SCH ×2 (09:01→21:59)
[2019-01-17] MEDS ORDERED: SOD CHLORIDE 0.9% 1,000 ML IV SCH (09:30)
[2019-01-17] MEDS ORDERED: SODIUM POLYSTYRENE 15 GM KIT (POWDER + SORBITOL) PO ONE (10:00)
--- NOTE | 2019-01-17 10:01 | PN ---
DATE: 01/17/2019 SUBJECTIVE: The patient is stable, no events overnight. No fevers, chills, nausea or vomiting. OBJECTIVE: VITAL SIGNS: Blood pressure is 140/56, respirations 16, pulse 64, temperature 97.6. HEENT: Head is normocephalic. NECK: Supple. HEART: Regular rate. LUNGS: Show diminished breath sounds at the base. ABDOMEN: Soft, nontender to palpation without rebound or guarding. EXTREMITIES: Negative for clubbing, cyanosis, no edema. DERMATOLOGIC: No rashes. MUSCULOSKELETAL: No joint effusion. NEUROLOGIC: No change in exam. MEDICATIONS: Reviewed. LABORATORY DATA: Shows sodium 138, potassium 6.0, BUN 67, creatinine 2.50, magnesium 1.6. ASSESSMENT AND PLAN: 1. Chronic kidney disease, stage IIIB/IV with a baseline creatinine around 2.2 and 2.7 mg/dL. The p atient's renal function appears to be stable. We would continue current treatment plan, supportive c are, renally dose all medications. 2. Hyperkalemia, etiology is secondary to chronic kidney disease with possible dietary indiscretion. The patient is advised to stay on a low potassium diet. We will continue Kayexalate and monitor po tassium levels closely. If potassium levels cannot be medically managed, we would consider a course of renal replacement therapy. 3. Anemia. Monitor hemoglobin and hematocrit levels. 4. Mineral bone disorder, monitor calcium and phosphorus levels. 5. Hypertension. Blood pressure controlled. Continue current blood pressure regimen. 6. Hypomagnesemia. We will replete with magnesium sulfate. 7. Acute right femoral fracture, status post arthroplasty. Continue physical therapy. 8. History of chronic obstructive pulmonary disease. Continue to monitor. 9. Diabetes. Continue current insulin regimen. Dictated By: SHIN COHEN DO NR/NTS Conf#: [id number] DID#: [id number] CC: SIVA NGUYEN; NIKIA POE MD; STUART MCCANN MD;*EndCC*
--- NOTE | 2019-01-17 13:54 | PN ---
Date/Time of Note Date/Time of Note DATE: 01/17/19 TIME: 13:51 Assessment/Plan VTE Prophylaxis Risk score (from Ns)>0 risk: 9 [place] [facility] [place] SCD contraindicated: other Pharmacological prophylaxis: heparin Lines/Catheters IV Catheter Type (from [facility] [place] Urinary Cath still in place: No Assessment/Plan Hospital Course SUBJECTIVE:no acute events OBJECTIVE: Vital signs-see below PHYSICAL EXAM: Constitutional: Adequately built,not in acute distress. HEENT: Head atraumatic and normocephalic. Eyes: Extraocular muscles intact. Anicteric sclerae. Pupils equal bilaterally, reactive to light. NECK: Supple without lymph node. CHEST: Clear and good breath sounds equally. No wheezing. No rhonchi. HEART: S1, S2. Regular rate and rhythm. ABDOMEN: Soft/non tender with no rebound tenderness. Bowel sounds were present. EXTREMITIES: Right hip surgical site c/d/i No cyanosis, clubbing or edema. NEUROLOGIC: Alert and oriented x3. Forgetful. No focal deficit. No sensory deficit. PSYCHOSOCIAL: No signs of depression. INTEGUMENTARY: No open wounds. ASSESSMENT AND PLAN: 68 yo M w/htn,dm2,CKD, here for rehabilitation for right hip fx/IM nailing... Right intertrochanteric fracture of the femur. -Status post intramedullary nailing of right intertrochanteric hip fracture on 12/28/2018. -dvt ppx,pain control,pt/rehba -f/u ortho in 2wks Hypertension -Sridhar stable. -Continue bb/hydralazine -Not a candidate for acei 2/2 hyperkalemia Diabetes mellitus 2. -pt's family not compliant with insulin regimen-this makes it difficult to manage -Sridhar stable but still w/hypoglycemia in AM -DC HS Sliding scale. -Lantus/ISS/Tradjenta -dm education CKD stage IIIB/IV with a baseline creatinine of 2.2 to 2.7 mg/dL -mgmt per nephro -creat fairly stable at baseline Acute hyperkalemia -K went up today -Managed per nephrology. -Monitor closely. chronic anemia -on iron COPD. -stable Nicotine use. -nicotine patch. Hypothyroidism -on Synthroid. Prostate hypertrophy. -on tamsulosin. Urinary tract infection -on [id number] DVT prophylaxis -Subcutaneous heparin. The patient was seen in collaboration with Result Diagram: 01/15/19 0548 01/17/19 0604 Results 24hrs Laboratory Tests Test 01/16/19 17:10 01/17/19 06:04 01/17/19 07:55 01/17/19 12:15 Bedside Glucose 196 214 167 Sodium Level 138 Potassium Level 6.0 H Chloride Level 106 Carbon Dioxide Level 23 Anion Gap 9 Blood Urea Nitrogen 67 H Creatinine 2.50 H Est Glomerular 26 L Filtrat Rate mL/min Glucose Level 129 Calcium Level 8.7 Phosphorus Level 5.5 H Magnesium Level 1.6 L Exam/Review of Systems Exam Vitals Vital Signs Date Temp Pulse Resp B/P (MAP) Pulse Ox O2 O2 Flow FiO2 Time Delivery Rate 01/17/19 98.9 68 18 141/67 95 Room Air 07:50 (91) Intake and Output 01/16/19 01/16/19 01/17/19 1515:00 23:00 07:00 IntakeIntake Total 680 ml 300 ml OutputOutput Total 550 ml 700 ml BalanceBalance 130 ml -400 ml Results Results 24hrs Laboratory Tests Test 01/16/19 17:10 01/17/19 06:04 01/17/19 07:55 01/17/19 12:15 Bedside Glucose 196 214 167 Sodium Level 138 Potassium Level 6.0 H Chloride Level 106 Carbon Dioxide Level 23 Anion Gap 9 Blood Urea Nitrogen 67 H Creatinine 2.50 H Est Glomerular 26 L Filtrat Rate mL/min Glucose Level 129 Calcium Level 8.7 Phosphorus Level 5.5 H Magnesium Level 1.6 L Medications Medication Current Medications Acetaminophen (Tylenol Tab) 650 mg Q6H PRN PO .PAIN 1-3 OR TEMP; Start 01/09/19 at 22:35 Acetaminophen/ Hydrocodone Bitart ([place] (5/325)) 1 tab Q6H PRN PO .MOD PAIN 4- 6 Last administered on 01/16/19at 08:45; Admin Dose 1 TAB; Start 01/09/19 at 22:35 Bisacodyl (Dulcolax) 5 mg DAILY PRN PO .CONSTIPATION Last administered on 01/10/19at 08:48; Admin Dose 5 MG; Start 01/09/19 at 22:35 Amlodipine Besylate (Norvasc) 10 mg DAILY PO Last administered on 01/17/19at 08:53; Admin Dose 10 MG; Start 01/09/19 at 22:35 Levothyroxine Sodium (Synthroid) 175 mcg BEFORE BREAKFAST PO Last administered on 01/17/19at 06:20; Admin Dose 175 MCG; Start 01/09/19 at 22:35 Miscellaneous Information 1 ea NOTE XX ; Start 01/09/19 at 22:35 Glucose (Glutose) 15 gm Q15M PRN PO DECREASED GLUCOSE; Start 01/09/19 at 22:35 Glucose (Glutose) 22.5 gm Q15M PRN PO DECREASED GLUCOSE; Start 01/09/19 at 22:3 5 Dextrose (D50w Syringe) 25 ml Q15M PRN IV DECREASED GLUCOSE; Start 01/09/19 at 22:35 Dextrose (D50w Syringe) 50 ml Q15M PRN IV DECREASED GLUCOSE; Start 01/09/19 at 22:35 Glucose (Glutose) 15 gm Q15M PRN BUCCAL DECREASED GLUCOSE; Start 01/09/19 at 22:35 Levalbuterol (Xopenex Neb) 1.25 mg Q4H RESP THERAPY PRN HHN SHORTNESS OF BREATH; Start 01/09/19 at 22:35 Nicotine Polacrilex (Nicorette) 2 mg Q2H PRN BUCCAL CONTROL WITHDRAWAL SYMPTOMS; Start 01/09/19 at 22:35 Aspirin (Halfprin) 81 mg DAILY PO Last administered on 01/17/19at 08:54; Admin Dose 81 MG; Start 01/09/19 at 22:35 Lactobacillus Acidophilus/ Rhamnosus (Culturelle) 1 cap BID PO Last administered on 01/17/19at 08:54; Admin Dose 1 CAP; Start 01/09/19 at 22:35 Simethicone (Mylicon) 80 mg TID PRN PO .GAS; Start 01/09/19 at 22:35 Sodium Biphosphate/ Sodium Phosphate (Fleet Enema) 133 ml DAILY PRN [place] .CONSTIPATION; Start 01/09/19 at 22:35 Bethanechol Chloride (Urecholine) 25 mg URINARY CATH D/C PRN PO UNABLE TO VOID; Start 01/09/19 at 22:35 Pantoprazole (Protonix Tab) 40 mg DAILY@06 PO Last administered on 01/17/19at 06:20; Admin Dose 40 MG; Start 01/09/19 at 22:35 Naloxone HCl (Narcan) 0.2 mg Q2M PRN IV .RESP RATE; Start 01/09/19 at 22:36 Hydralazine HCl (Apresoline) 50 mg QID PO Last administered on 01/17/19 12:21; Admin Dose 50 MG; Start 01/09/19 at 23:00 Tamsulosin HCl (Flomax) 0.4 mg HS PO Last administered on 01/16/19at 21:38; Admin Dose 0.4 MG; Start 01/09/19 at 23:00 Heparin Sodium (Porcine) (Heparin (5000 Units/1ml)) 5,000 unit BID SC Last administered on 01/16/19 21:42; Admin Dose 5,000 UNIT; Start 01/09/19 at 23:00 Carvedilol (Coreg) 12.5 mg BID PO Last administered on 01/17/19 08:55; Admin Dose 12.5 MG; Start 01/09/19 at 23:01 Docusate Sodium (Colace) 100 mg BID PO Last administered on 01/17/19 08:54; Admin Dose 100 MG; Start 01/10/19 at 09:00 Senna (Senokot) 1 tab HS PO Last administered on 01/15/19 20:59; Admin Dose 1 TAB; Start 01/10/19 at 21:00 Magnesium Hydroxide (Milk Of Mag) 30 ml BID PRN PO CONSTIPATION; Start 01/10/19 at 00:00 Lactulose (Enulose) 20 gm DAILY PRN PO CONSTIPATION; Start 01/10/19 at 00:00 Bisacodyl (Dulcolax Supp) 10 mg DAILY PRN [place] CONSTIPATION; Start 01/10/19 at 00:00 Multivitamins Therapeutic (Theragran) 1 tab DAILY PO Last administered on 01/17/19 08:54; Admin Dose 1 TAB; Start 01/11/19 at 09:00 Ascorbic Acid (Vitamin C) 500 mg DAILY PO Last administered on 01/17/19 08:54; Admin Dose 500 MG; Start 01/11/19 at 09:00 Folic Acid (Folic Acid) 1 mg DAILY PO Last administered on 01/17/19 08:54; Admin Dose 1 MG; Start 01/11/19 at 09:00 Zinc Sulfate (Zinc Sulfate) 220 mg DAILY PO Last administered on 01/17/19 08:54; Admin Dose 220 MG; Start 01/11/19 at 09:00 Betamethasone/ Clotrimazole (Lotrisone Cr) 1 applic DAILY TOP Last administered on 01/17/19 09:01; Admin Dose 1 APPLIC; Start 01/10/19 at 13:00 Nystatin (Nystatin Oint) 1 applic BID TOP Last administered on 01/17/19 09:01; Admin Dose 1 APPLIC; Start 01/12/19 at 14:00 Ampicillin (Ampicillin) 500 mg BID PO Last administered on 01/17/19 08:54; Admin Dose 500 MG; Start 01/12/19 at 14:30; Stop 01/22/19 at 14:29 Atorvastatin Calcium (Lipitor) 40 mg HS PO Last administered on 01/16/19 21:37; Admin Dose 40 MG; Start 01/13/19 at 21:00 Linagliptin (Tradjenta) 5 mg DAILY PO Last administered on 01/17/19 08:54; Admin Dose 5 MG; Start 01/14/19 at 15:00 Meclizine HCl (Antivert) 25 mg TID PRN PO NAUSEA AND/OR VOMITING/DIZZINE Last administered on 01/17/19 08:58; Admin Dose 25 MG; Start 01/15/19 at 10:30 Insulin Glargine (Lantus) 10 units 0800 SC Last administered on 01/16/19 09:05; Admin Dose 10 UNITS; Start 01/16/19 at 08:00 Diagnostic Test (Pha) (Accu-Chek) 1 ea 02 XX ; Start 01/16/19 at 02:00 Sevelamer Carbonate (Renvela) 2,400 mg WITH MEALS PO Last administered on 01/17/19at 12:16; Admin Dose 2,400 MG; Start 01/16/19 at 12:00 Insulin Aspart (Novolog Insulin Pen) NOVOLOG *MILD* ALGORITHM AC MEALS SC ; Start 01/16/19 at 12:00 Sertraline HCl (Zoloft) 100 mg DAILY PO Last administered on 01/17/19 08:54; Admin Dose 100 MG; Start 01/17/19 at 09:00 Nicotine (Nicoderm 14 Mg/ 24hr) 1 patch DAILY TRANSDERM Last administered on 01/17/19at 08:56; Admin Dose 1 PATCH; Start 01/16/19 at 12:30 Sodium Chloride 1,000 ml @ 75 mls/hr [id number] IV ; Start 01/17/19 at 09:30 BARNEY HILL NP January 17, 2019 13:53
[2019-01-17] MEDS: SOD CHLORIDE 0.9% 1,000 ML IV SCH (14:02)
[2019-01-17] MEDS: SENNA TAB PO SCH (21:00)
[2019-01-17] MEDS: ATORVASTATIN 20 MG TAB PO SCH (21:59)
[2019-01-17] MEDS: TAMSULOSIN (SR) 0.4 MG CAP PO SCH (21:59)
[2019-01-18 02:00] VITALS: BP 144/62; PULSE 68; RESP 16
[2019-01-18] MEDS: ACCU-CHEK XX SCH (02:00)
[2019-01-18] MEDS: SOD CHLORIDE 0.9% 1,000 ML IV SCH (02:59)
[2019-01-18] MEDS: PANTOPRAZOLE (EC) 40 MG TAB PO SCH (06:28)
[2019-01-18] MEDS: LEVOTHYROXINE 175 MCG TAB PO SCH (06:29)
[2019-01-18] MEDS: INSULIN ASPART [NOVOLOG] 3 ML PEN SC SCH ×3 (07:05→17:05)
[2019-01-18] MEDS: SEVELAMER CARBONATE 800 MG TABLET PO SCH ×3 (07:54→17:17)
[2019-01-18] MEDS: INSULIN GLARGINE [LANTus] (100 UNITS/ML) SYG SC SCH ×2 (07:57→12:08)
[2019-01-18] MEDS: SERTRALINE 100 MG TAB PO SCH (08:02)
[2019-01-18] MEDS: MULTIVITAMINS THERAPEUTIC TAB PO SCH (08:02)
[2019-01-18] MEDS: ZINC SULFATE 220 MG CAP PO SCH (08:02)
[2019-01-18] MEDS: LACTOBACILLUS RHAMNOSUS CAP PO SCH ×2 (08:02→20:17)
[2019-01-18] MEDS: LINAGLIPTIN 5 MG TABLET PO SCH (08:03)
[2019-01-18] MEDS: HEPARIN 5,000 UNIT/1 ML VIAL SC SCH ×2 (08:05→20:25)
[2019-01-18] MEDS: FOLIC ACID 1 MG TAB PO SCH (08:06)
[2019-01-18] MEDS: ASPIRIN (EC) 81 MG TAB PO SCH (08:06)
[2019-01-18] MEDS: DOCUSATE SODIUM 100 MG CAP PO SCH ×2 (08:06→20:16)
[2019-01-18] MEDS: ASCORBIC ACID 500 MG TAB PO SCH (08:06)
[2019-01-18] MEDS: AMPICILLIN 500 MG CAP PO SCH ×2 (08:06→20:16)
[2019-01-18] MEDS: NICOTINE (14 MG/24 HR) PATCH TRANSDERM SCH (08:09)
[2019-01-18] MEDS: AMLODIPINE 10 MG TAB PO SCH (09:00)
--- NOTE | 2019-01-18 09:11 | PN ---
DATE: 01/18/2019 SUBJECTIVE: The patient is stable, no acute events noted overnight. The patient has been started on IV fluids, was given Kayexalate. OBJECTIVE: VITAL SIGNS: Blood pressure is 144/62, respirations 16, pulse 68, temperature 98.1. HEENT: Head is normocephalic. NECK: Supple. LUNGS: Regular rate. Lungs showed diminished breath sounds at the base. ABDOMEN: Soft, nontender to palpation without rebound or guarding. EXTREMITIES: Negative for clubbing, cyanosis, no edema. DERMATOLOGIC: No rashes. MUSCULOSKELETAL: No joint effusion. NEUROLOGIC: No focal deficits. MEDICATIONS: Reviewed. LABORATORY DATA: Reviewed. ASSESSMENT AND PLAN: 1. Chronic kidney disease, stage IIIB/IV with a baseline creatinine around 2.2 to 2.7 mg/dL. Bunny oquendo's renal function is overall stable. Continue current treatment plans, supportive care, renally dos e all meds. 2. Hyperkalemia. Etiology secondary to chronic kidney disease in conjunction with dietary indiscret ion. The patient is status post Kayexalate was started on IV fluids. Potassium levels are slowly im proving. Will continue. Will continue another 24 hours IV hydration. Continue to encourage low-pot assium diet. We will give another dose of Kayexalate. 3. Anemia. Monitor hemoglobin and hematocrit levels. 4. Mineral bone disorder. Monitor calcium and phosphorus levels. 5. Hypertension. Continue current blood pressure regimen. Monitor closely on IV fluids. 6. Hypomagnesemia. Continue to monitor and replete. 7. Acute right femoral fracture, status post arthroplasty. Continue physical therapy. 8. History of chronic obstructive pulmonary disease. 9. Diabetes. Continue current insulin regimen. Dictated By: SHIN COHEN DO NR/NTS Conf#: [id number] DID#: [id number] CC: NIKIA POE MD;*EndCC*
[2019-01-18] MEDS: MECLIZINE 25 MG TAB PO PRN (10:07)
[2019-01-18] MEDS: BETAMETHASONE/CLOTRIMAZOLE 15 GM CR TOP SCH (10:11)
[2019-01-18] MEDS: BALSAM PERU/CASTOR OIL 60 GM TUBE TOP SCH ×2 (10:11→20:24)
[2019-01-18] MEDS: NYSTATIN 15 GM OINT TOP SCH ×2 (10:11→20:23)
[2019-01-18] MEDS ORDERED: MAGNESIUM SULFATE 1 GM/D5W 100 ML IVPB ONE (10:30)
[2019-01-18 12:53] VITALS: BP 150/62; PULSE 75; RESP 18
--- NOTE | 2019-01-18 13:25 | PN ---
Date/Time of Note Date/Time of Note DATE: 01/18/19 TIME: 13:24 Objective Vital Signs Date Temp Pulse Resp B/P (MAP) Pulse Ox O2 O2 Flow FiO2 Time Delivery Rate 01/18/19 98.1 68 16 144/62 96 Room Air 02:00 (89) Intake and Output 01/17/19 01/17/19 01/18/19 1515:00 23:00 07:00 IntakeIntake Total 375 ml 1090 ml OutputOutput Total 200 ml 450 ml 600 ml BalanceBalance -200 ml -75 ml 490 ml Exam INTERDISCIPLINARY TEAM CONFERENCE Attended by PT, OT, ST, Critical Care Transport Nurse, Social Work, Rehabilitation Nursing, Coil Cutter and Carton Filling Machine OperatorAnchor Operator Exam: Pulm- cta Abd- soft BOWEL- Cont BLADDER-Cont SKIN- improving OT- DRESSING-cga BATHING-cga TOILETING-cga PT- BED MOBILITY-sba TRANSFERS-cga AMBULATION-cga 75 feet A/P- Interdisciplinary team conference held today. Please see interdisciplinary sheet. Working toward d.c. on 01/22 with post discharge follow up of physical therapy, occupational therapy. Results/Medications Result Diagram: 01/15/19 0548 01/18/19 0629 Results 24 hrs Laboratory Tests Test 01/17/19 17:23 01/18/19 06:29 01/18/19 07:53 01/18/19 11:45 Bedside Glucose 132 185 206 Sodium Level 138 Potassium Level 5.3 H Chloride Level 108 Carbon Dioxide Level 23 Anion Gap 7 Blood Urea Nitrogen 65 H Creatinine 2.32 H Est Glomerular 28 L Filtrat Rate mL/min Glucose Level 171 Calcium Level 8.5 Phosphorus Level 5.0 H Magnesium Level 1.5 L Medications Current Medications Acetaminophen (Tylenol Tab) 650 mg Q6H PRN PO .PAIN 1-3 OR TEMP; Start 01/09/19 at 22:35 Acetaminophen/ Hydrocodone Bitart ([place] (5/325)) 1 tab Q6H PRN PO .MOD PAIN 4- 6 Last administered on 01/16/19at 08:45; Admin Dose 1 TAB; Start 01/09/19 at 22:35 Bisacodyl (Dulcolax) 5 mg DAILY PRN PO .CONSTIPATION Last administered on 01/10/19at 08:48; Admin Dose 5 MG; Start 01/09/19 at 22:35 Amlodipine Besylate (Norvasc) 10 mg DAILY PO Last administered on 01/17/19at 08:53; Admin Dose 10 MG; Start 01/09/19 at 22:35 Levothyroxine Sodium (Synthroid) 175 mcg BEFORE BREAKFAST PO Last administered on 01/18/19at 06:29; Admin Dose 175 MCG; Start 01/09/19 at 22:35 Miscellaneous Information 1 ea NOTE XX ; Start 01/09/19 at 22:35 Glucose (Glutose) 15 gm Q15M PRN PO DECREASED GLUCOSE; Start 01/09/19 at 22:35 Glucose (Glutose) 22.5 gm Q15M PRN PO DECREASED GLUCOSE; Start 01/09/19 at 22:35 Dextrose (D50w Syringe) 25 ml Q15M PRN IV DECREASED GLUCOSE; Start 01/09/19 at 22:35 Dextrose (D50w Syringe) 50 ml Q15M PRN IV DECREASED GLUCOSE; Start 01/09/19 at 22:35 Glucose (Glutose) 15 gm Q15M PRN BUCCAL DECREASED GLUCOSE; Start 01/09/19 at 22:35 Levalbuterol (Xopenex Neb) 1.25 mg Q4H RESP THERAPY PRN HHN SHORTNESS OF BREATH; Start 01/09/19 at 22:35 Nicotine Polacrilex (Nicorette) 2 mg Q2H PRN BUCCAL CONTROL WITHDRAWAL SYMPTOMS; Start 01/09/19 at 22:35 Aspirin (Halfprin) 81 mg DAILY PO Last administered on 01/18/19at 08:06; Admin Dose 81 MG; Start 01/09/19 at 22:35 Lactobacillus Acidophilus/ Rhamnosus (Culturelle) 1 cap BID PO Last administered on 01/18/19at 08:02; Admin Dose 1 CAP; Start 01/09/19 at 22:35 Simethicone (Mylicon) 80 mg TID PRN PO .GAS; Start 01/09/19 at 22:35 Sodium Biphosphate/ Sodium Phosphate (Fleet Enema) 133 ml DAILY PRN [place] .CONSTIPATION; Start 01/09/19 at 22:35 Bethanechol Chloride (Urecholine) 25 mg URINARY CATH D/C PRN PO UNABLE TO VOID; Start 01/09/19 at 22:35 Pantoprazole (Protonix Tab) 40 mg DAILY@06 PO Last administered on 01/18/19at 0 6:28; Admin Dose 40 MG; Start 01/09/19 at 22:35 Naloxone HCl (Narcan) 0.2 mg Q2M PRN IV .RESP RATE; Start 01/09/19 at 22:36 Hydralazine HCl (Apresoline) 50 mg QID PO Last administered on 01/18/19 12:12; Admin Dose 50 MG; Start 01/09/19 at 23:00 Tamsulosin HCl (Flomax) 0.4 mg HS PO Last administered on 01/17/19 21:59; Admin Dose 0.4 MG; Start 01/09/19 at 23:00 Heparin Sodium (Porcine) (Heparin (5000 Units/1ml)) 5,000 unit BID SC Last administered on 01/18/19 08:05; Admin Dose 5,000 UNIT; Start 01/09/19 at 23:00 Carvedilol (Coreg) 12.5 mg BID PO Last administered on 01/18/19 08:07; Admin Dose 12.5 MG; Start 01/09/19 at 23:01 Docusate Sodium (Colace) 100 mg BID PO Last administered on 01/18/19 08:06; Admin Dose 100 MG; Start 01/10/19 at 09:00 Senna (Senokot) 1 tab HS PO Last administered on 01/15/19 20:59; Admin Dose 1 TAB; Start 01/10/19 at 21:00 Magnesium Hydroxide (Milk Of Mag) 30 ml BID PRN PO CONSTIPATION; Start 01/10/19 at 00:00 Lactulose (Enulose) 20 gm DAILY PRN PO CONSTIPATION; Start 01/10/19 at 00:00 Bisacodyl (Dulcolax Supp) 10 mg DAILY PRN [place] CONSTIPATION; Start 01/10/19 at 00:00 Multivitamins Therapeutic (Theragran) 1 tab DAILY PO Last administered on 12/28 08:02; Admin Dose 1 TAB; Start 01/11/19 at 09:00 Ascorbic Acid (Vitamin C) 500 mg DAILY PO Last administered on 01/18/19 08:06; Admin Dose 500 MG; Start 01/11/19 at 09:00 Folic Acid (Folic Acid) 1 mg DAILY PO Last administered on 01/18/19 08:06; Admin Dose 1 MG; Start 01/11/19 at 09:00 Zinc Sulfate (Zinc Sulfate) 220 mg DAILY PO Last administered on 01/18/19 08:02; Admin Dose 220 MG; Start 01/11/19 at 09:00 Betamethasone/ Clotrimazole (Lotrisone Cr) 1 applic DAILY TOP Last administered on 01/18/19 10:11; Admin Dose 1 APPLIC; Start 01/10/19 at 13:00 Nystatin (Nystatin Oint) 1 applic BID TOP Last administered on 01/18/19 10:11; Admin Dose 1 APPLIC; Start 01/12/19 at 14:00 Ampicillin (Ampicillin) 500 mg BID PO Last administered on 01/18/19 08:06; Admin Dose 500 MG; Start 01/12/19 at 14:30; Stop 01/22/19 at 14:29 Atorvastatin Calcium (Lipitor) 40 mg HS PO Last administered on 01/17/19 21:59; Admin Dose 40 MG; Start 01/13/19 at 21:00 Linagliptin (Tradjenta) 5 mg DAILY PO Last administered on 01/18/19 08:03; Admin Dose 5 MG; Start 01/14/19 at 15:00 Meclizine HCl (Antivert) 25 mg TID PRN PO NAUSEA AND/OR VOMITING/DIZZINE Last administered on 01/18/19 10:07; Admin Dose 25 MG; Start 01/15/19 at 10:30 Insulin Glargine (Lantus) 10 units 0800 SC Last administered on 01/18/19 12:08; Admin Dose 10 UNITS; Start 01/16/19 at 08:00 Diagnostic Test (Pha) (Accu-Chek) 1 ea 02 XX ; Start 01/16/19 at 02:00 Sevelamer Carbonate (Renvela) 2,400 mg WITH MEALS PO Last administered on 01/18/19 11:53; Admin Dose 2,400 MG; Start 01/16/19 at 12:00 Insulin Aspart (Novolog Insulin Pen) NOVOLOG *MILD* ALGORITHM AC MEALS SC Last administered on 01/18/19 12:04; Admin Dose 2 UNIT; Start 01/16/19 at 12:00 Sertraline HCl (Zoloft) 100 mg DAILY PO Last administered on 01/18/19 08:02; Admin Dose 100 MG; Start 01/17/19 at 09:00 Nicotine (Nicoderm 14 Mg/ 24hr) 1 patch DAILY TRANSDERM Last administered on 01/18/19at 08:09; Admin Dose 1 PATCH; Start 01/16/19 at 12:30 NIKIA POE MD January 18, 2019 13:25
--- NOTE | 2019-01-18 13:53 | PN ---
Date/Time of Note Date/Time of Note DATE: 01/18/19 TIME: 13:51 Assessment/Plan VTE Prophylaxis Risk score (from Ns)>0 risk: 9 SCD applied (from [facility] [place]): No SCD contraindicated: other Pharmacological prophylaxis: heparin Lines/Catheters IV Catheter Type (from [facility]): [place] Urinary Cath still in place: No Assessment/Plan Hospital Course SUBJECTIVE:no acute events OBJECTIVE: Vital signs-see below PHYSICAL EXAM: Constitutional: Adequately built,not in acute distress. HEENT: Head atraumatic and normocephalic. Eyes: Extraocular muscles intact. Anicteric sclerae. Pupils equal bilaterally, reactive to light. NECK: Supple without lymph node. CHEST: Clear and good breath sounds equally. No wheezing. No rhonchi. HEART: S1, S2. Regular rate and rhythm. ABDOMEN: Soft/non tender with no rebound tenderness. Bowel sounds were present. EXTREMITIES: Right hip surgical site c/d/i No cyanosis, clubbing or edema. NEUROLOGIC: Alert and oriented x3. Forgetful. No focal deficit. No sensory deficit. PSYCHOSOCIAL: No signs of depression. INTEGUMENTARY: No open wounds. ASSESSMENT AND PLAN: 68 yo M w/htn,dm2,CKD, here for rehabilitation for right hip fx/IM nailing... Right intertrochanteric fracture of the femur. -Status post intramedullary nailing of right intertrochanteric hip fracture on 12/28/2018. -dvt ppx,pain control,pt/rehba -f/u ortho in 2wks Hypertension -Sridhar stable. -Continue bb/hydralazine -Not a candidate for acei 2/2 hyperkalemia Diabetes mellitus 2. - stable -Lantus/ISS/Tradjenta -dm education CKD stage IIIB/IV with a baseline creatinine of 2.2 to 2.7 mg/dL -mgmt per nephro -creat fairly stable at baseline Acute hyperkalemia -Managed per nephrology. -Monitor closely. chronic anemia -on iron COPD. -stable Nicotine use. -nicotine patch. Hypothyroidism -on Synthroid. Prostate hypertrophy. -on tamsulosin. Urinary tract infection -on [id number] DVT prophylaxis -Subcutaneous heparin. The patient was seen in collaboration with Result Diagram: 01/15/19 0548 01/18/19 0629 Results 24hrs Laboratory Tests Test 01/17/19 17:23 01/18/19 06:29 01/18/19 07:53 01/18/19 11:45 Bedside Glucose 132 185 206 Sodium Level 138 Potassium Level 5.3 H Chloride Level 108 Carbon Dioxide Level 23 Anion Gap 7 Blood Urea Nitrogen 65 H Creatinine 2.32 H Est Glomerular 28 L Filtrat Rate mL/min Glucose Level 171 Calcium Level 8.5 Phosphorus Level 5.0 H Magnesium Level 1.5 L Exam/Review of Systems Exam Vitals Vital Signs Date Temp Pulse Resp B/P (MAP) Pulse Ox O2 O2 Flow FiO2 Time Delivery Rate 01/18/19 98.5 75 18 150/62 96 Room Air 12:53 (91) Intake and Output 01/17/19 01/17/19 01/18/19 1515:00 23:00 07:00 IntakeIntake Total 375 ml 1090 ml OutputOutput Total 200 ml 450 ml 600 ml BalanceBalance -200 ml -75 ml 490 ml Results Results 24hrs Laboratory Tests Test 01/17/19 17:23 01/18/19 06:29 01/18/19 07:53 01/18/19 11:45 Bedside Glucose 132 185 206 Sodium Level 138 Potassium Level 5.3 H Chloride Level 108 Carbon Dioxide Level 23 Anion Gap 7 Blood Urea Nitrogen 65 H Creatinine 2.32 H Est Glomerular 28 L Filtrat Rate mL/min Glucose Level 171 Calcium Level 8.5 Phosphorus Level 5.0 H Magnesium Level 1.5 L Medications Medication Current Medications Acetaminophen (Tylenol Tab) 650 mg Q6H PRN PO .PAIN 1-3 OR TEMP; Start 01/09/19 at 22:35 Acetaminophen/ Hydrocodone Bitart ([place] (5/325)) 1 tab Q6H PRN PO .MOD PAIN 4- 6 Last administered on 01/16/19at 08:45; Admin Dose 1 TAB; Start 01/09/19 at 22:35 Bisacodyl (Dulcolax) 5 mg DAILY PRN PO .CONSTIPATION Last administered on at 08:48; Admin Dose 5 MG; Start 01/09/19 at 22:35 Amlodipine Besylate (Norvasc) 10 mg DAILY PO Last administered on 01/17/19at 08:53; Admin Dose 10 MG; Start 01/09/19 at 22:35 Levothyroxine Sodium (Synthroid) 175 mcg BEFORE BREAKFAST PO Last administered on 01/18/19at 06:29; Admin Dose 175 MCG; Start 01/09/19 at 22:35 Miscellaneous Information 1 ea NOTE XX ; Start 01/09/19 at 22:35 Glucose (Glutose) 15 gm Q15M PRN PO DECREASED GLUCOSE; Start 01/09/19 at 22:35 Glucose (Glutose) 22.5 gm Q15M PRN PO DECREASED GLUCOSE; Start 01/09/19 at 22:35 Dextrose (D50w Syringe) 25 ml Q15M PRN IV DECREASED GLUCOSE; Start 01/09/19 at 22:35 Dextrose (D50w Syringe) 50 ml Q15M PRN IV DECREASED GLUCOSE; Start 01/09/19 at 22:35 Glucose (Glutose) 15 gm Q15M PRN BUCCAL DECREASED GLUCOSE; Start 01/09/19 at 22:35 Levalbuterol (Xopenex Neb) 1.25 mg Q4H RESP THERAPY PRN HHN SHORTNESS OF BREATH; Start 01/09/19 at 22:35 Nicotine Polacrilex (Nicorette) 2 mg Q2H PRN BUCCAL CONTROL WITHDRAWAL SYMPTOMS; Start 01/09/19 at 22:35 Aspirin (Halfprin) 81 mg DAILY PO Last administered on 01/18/19at 08:06; Admin Dose 81 MG; Start 01/09/19 at 22:35 Lactobacillus Acidophilus/ Rhamnosus (Culturelle) 1 cap BID PO Last administered on 01/18/19at 08:02; Admin Dose 1 CAP; Start 01/09/19 at 22:35 Simethicone (Mylicon) 80 mg TID PRN PO .GAS; Start 01/09/19 at 22:35 Sodium Biphosphate/ Sodium Phosphate (Fleet Enema) 133 ml DAILY PRN [place] .CONSTIPATION; Start 01/09/19 at 22:35 Bethanechol Chloride (Urecholine) 25 mg URINARY CATH D/C PRN PO UNABLE TO VOID; Start 01/09/19 at 22:35 Pantoprazole (Protonix Tab) 40 mg DAILY@06 PO Last administered on 01/18/19at 06:28; Admin Dose 40 MG; Start 01/09/19 at 22:35 Naloxone HCl (Narcan) 0.2 mg Q2M PRN IV .RESP RATE; Start 01/09/19 at 22:36 Hydralazine HCl (Apresoline) 50 mg QID PO Last administered on 01/18/19 12:12; Admin Dose 50 MG; Start 01/09/19 at 23:00 Tamsulosin HCl (Flomax) 0.4 mg HS PO Last administered on 01/17/19 21:59; Admin Dose 0.4 MG; Start 01/09/19 at 23:00 Heparin Sodium (Porcine) (Heparin (5000 Units/1ml)) 5,000 unit BID SC Last administered on 01/18/19 08:05; Admin Dose 5,000 UNIT; Start 01/09/19 at 23:00 Carvedilol (Coreg) 12.5 mg BID PO Last administered on 01/18/19 08:07; Admin Dose 12.5 MG; Start 01/09/19 at 23:01 Docusate Sodium (Colace) 100 mg BID PO Last administered on 01/18/19 08:06; Admin Dose 100 MG; Start 01/10/19 at 09:00 Senna (Senokot) 1 tab HS PO Last administered on 01/15/19 20:59; Admin Dose 1 TAB; Start 01/10/19 at 21:00 Magnesium Hydroxide (Milk Of Mag) 30 ml BID PRN PO CONSTIPATION; Start 01/10/19 at 00:00 Lactulose (Enulose) 20 gm DAILY PRN PO CONSTIPATION; Start 01/10/19 at 00:00 Bisacodyl (Dulcolax Supp) 10 mg DAILY PRN [place] CONSTIPATION; Start 01/10/19 at 00:00 Multivitamins Therapeutic (Theragran) 1 tab DAILY PO Last administered on 01/18/19 08:02; Admin Dose 1 TAB; Start 01/11/19 at 09:00 Ascorbic Acid (Vitamin C) 500 mg DAILY PO Last administered on 01/18/19 08:06; Admin Dose 500 MG; Start 01/11/19 at 09:00 Folic Acid (Folic Acid) 1 mg DAILY PO Last administered on 01/18/19 08:06; Admin Dose 1 MG; Start 01/11/19 at 09:00 Zinc Sulfate (Zinc Sulfate) 220 mg DAILY PO Last administered on 01/18/19 08:02; Admin Dose 220 MG; Start 01/11/19 at 09:00 Betamethasone/ Clotrimazole (Lotrisone Cr) 1 applic DAILY TOP Last administered on 01/18/19 10:11; Admin Dose 1 APPLIC; Start 01/10/19 at 13:00 Nystatin (Nystatin Oint) 1 applic BID TOP Last administered on 01/18/19 10:11; Admin Dose 1 APPLIC; Start 01/12/19 at 14:00 Ampicillin (Ampicillin) 500 mg BID PO Last administered on 01/18/19 08:06; Admin Dose 500 MG; Start 01/12/19 at 14:30; Stop 01/22/19 at 14:29 Atorvastatin Calcium (Lipitor) 40 mg HS PO Last administered on 01/17/19 21:59; Admin Dose 40 MG; Start 01/13/19 at 21:00 Linagliptin (Tradjenta) 5 mg DAILY PO Last administered on 01/18/19 08:03; Admin Dose 5 MG; Start 01/14/19 at 15:00 Meclizine HCl (Antivert) 25 mg TID PRN PO NAUSEA AND/OR VOMITING/DIZZINE Last administered on 01/18/19 10:07; Admin Dose 25 MG; Start 01/15/19 at 10:30 Insulin Glargine (Lantus) 10 units 0800 SC Last administered on 01/18/19 12:08; Admin Dose 10 UNITS; Start 01/16/19 at 08:00 Diagnostic Test (Pha) (Accu-Chek) 1 ea 02 XX ; Start 01/16/19 at 02:00 Sevelamer Carbonate (Renvela) 2,400 mg WITH MEALS PO Last administered on 01/18/19 11:53; Admin Dose 2,400 MG; Start 01/16/19 at 12:00 Insulin Aspart (Novolog Insulin Pen) NOVOLOG *MILD* ALGORITHM AC MEALS SC Last administered on 01/18/19 12:04; Admin Dose 2 UNIT; Start 01/16/19 at 12:00 Sertraline HCl (Zoloft) 100 mg DAILY PO Last administered on 01/18/19 08:02; Admin Dose 100 MG; Start 01/17/19 at 09:00 Nicotine (Nicoderm 14 Mg/ 24hr) 1 patch DAILY TRANSDERM Last administered on 01/18/19 08:09; Admin Dose 1 PATCH; Start 01/16/19 at 12:30 BARNEY HILL NP January 18, 2019 13:53
[2019-01-18 20:00] VITALS: BP 153/66; PULSE 73; RESP 19
[2019-01-18] MEDS: TAMSULOSIN (SR) 0.4 MG CAP PO SCH (20:16)
[2019-01-18] MEDS: SENNA TAB PO SCH (20:16)
[2019-01-18] MEDS: ATORVASTATIN 20 MG TAB PO SCH (20:16)
[2019-01-19] MEDS: ACCU-CHEK XX SCH (02:00)
[2019-01-19] MEDS: LEVOTHYROXINE 175 MCG TAB PO SCH (06:06)
[2019-01-19] MEDS: PANTOPRAZOLE (EC) 40 MG TAB PO SCH (06:06)
[2019-01-19 07:00] VITALS: BP 184/87; PULSE 67; RESP 18
[2019-01-19] MEDS: INSULIN ASPART [NOVOLOG] 3 ML PEN SC SCH ×3 (07:05→17:05)
[2019-01-19] MEDS: SEVELAMER CARBONATE 800 MG TABLET PO SCH ×3 (07:55→17:18)
[2019-01-19] MEDS: INSULIN GLARGINE [LANTus] (100 UNITS/ML) SYG SC SCH (07:59)
[2019-01-19] MEDS ORDERED: SODIUM POLYSTYRENE 15 GM KIT (POWDER + SORBITOL) PO ONE (09:00)
[2019-01-19] MEDS: HEPARIN 5,000 UNIT/1 ML VIAL SC SCH ×2 (09:00→20:15)
--- NOTE | 2019-01-19 09:24 | PN ---
DATE: 01/19/2019 SUBJECTIVE: The patient is stable, no events overnight. No fevers, chills, nausea, or vomiting. OBJECTIVE: VITAL SIGNS: Blood pressure is 184/87, respirations 18, pulse 67, temperature 98.0. HEENT: Head is normocephalic. NECK: Supple. HEART: Regular rate. LUNGS: Show diminished breath sounds at the base. ABDOMEN: Soft, nontender to palpation. No rebound or guarding. EXTREMITIES: Negative for clubbing, cyanosis, no edema. DERMATOLOGIC: No rashes. MUSCULOSKELETAL: No joint effusion. NEUROLOGIC: No change in exam. MEDICATIONS: The patient's medications have been reviewed. LABORATORY DATA: Reviewed. ASSESSMENT AND PLAN: 1. Chronic kidney disease, stage IIIB/IV with baseline creatinine around 2.2 to 2.7 mg/dL. The reji ent's renal function is stable. Continue current treatment plans, supportive care, renally dose all medications. 2. Hyperkalemia, mild. Etiology is likely due to chronic kidney disease in conjunction with dietary indiscretion. We will continue to monitor. Continue to give intermittent Kayexalate as needed. Co nsider starting the patient on low-dose diuretic therapy, monitor closely. 3. Anemia. Continue to monitor hemoglobin and hematocrit levels. 4. Mineral bone disorder, monitor calcium and phosphorus levels. 5. Hypertension. Continue current blood pressure regimen. 6. Hypomagnesemia. Continue to monitor and replete. 7. Acute right femoral fracture, status post arthroplasty. Continue to monitor. 8. History of chronic obstructive pulmonary disease. 9. Diabetes. Continue current insulin regimen. Dictated By: SHIN COHEN DO NR/NTS Conf#: [id number] DID#: [id number] CC: STUART MCCANN MD; NIKIA POE MD; SIVA NGUYEN;*EndCC*
[2019-01-19] MEDS: SERTRALINE 100 MG TAB PO SCH (09:51)
[2019-01-19] MEDS: MULTIVITAMINS THERAPEUTIC TAB PO SCH (09:52)
[2019-01-19] MEDS: ASPIRIN (EC) 81 MG TAB PO SCH (09:52)
[2019-01-19] MEDS: LINAGLIPTIN 5 MG TABLET PO SCH (09:52)
[2019-01-19] MEDS: AMPICILLIN 500 MG CAP PO SCH ×2 (09:52→20:14)
[2019-01-19] MEDS: DOCUSATE SODIUM 100 MG CAP PO SCH ×2 (09:52→20:14)
[2019-01-19] MEDS: ASCORBIC ACID 500 MG TAB PO SCH (09:52)
[2019-01-19] MEDS: ZINC SULFATE 220 MG CAP PO SCH (09:52)
[2019-01-19] MEDS: FOLIC ACID 1 MG TAB PO SCH (09:53)
[2019-01-19] MEDS: AMLODIPINE 10 MG TAB PO SCH (09:55)
[2019-01-19] MEDS: BETAMETHASONE/CLOTRIMAZOLE 15 GM CR TOP SCH (09:59)
[2019-01-19] MEDS: NYSTATIN 15 GM OINT TOP SCH ×2 (09:59→20:17)
[2019-01-19] MEDS: BALSAM PERU/CASTOR OIL 60 GM TUBE TOP SCH ×2 (09:59→20:17)
[2019-01-19] MEDS: NICOTINE (14 MG/24 HR) PATCH TRANSDERM SCH (10:00)
--- NOTE | 2019-01-19 13:13 | PN ---
Date/Time of Note Date/Time of Note DATE: 01/19/19 TIME: 13:13 Subjective Feeling better Objective Vital Signs Date Temp Pulse Resp B/P (MAP) Pulse Ox O2 O2 Flow FiO2 Time Delivery Rate 01/19/19 98.0 67 18 184/87 97 Room Air 07:00 (119) Intake and Output 01/18/19 01/18/19 01/19/19 1515:00 23:00 07:00 IntakeIntake Total 350 ml 400 ml 280 ml OutputOutput Total 200 ml 800 ml BalanceBalance 350 ml 200 ml -520 ml Exam pulm-cta sba ambulation Results/Medications Result Diagram: 01/15/19 0548 01/19/19 0705 Results 24 hrs Laboratory Tests Test 01/18/19 17:14 01/19/19 07:05 01/19/19 07:32 01/19/19 12:13 Bedside Glucose 138 138 126 Sodium Level 138 Potassium Level 5.6 H Chloride Level 107 Carbon Dioxide Level 24 Anion Gap 7 Blood Urea Nitrogen 68 H Creatinine 2.25 H Est Glomerular 29 L Filtrat Rate mL/min Glucose Level 131 # Calcium Level 8.9 Phosphorus Level 4.5 Magnesium Level 1.8 Medications Current Medications Acetaminophen (Tylenol Tab) 650 mg Q6H PRN PO .PAIN 1-3 OR TEMP; Start 01/09/19 at 22:35 Acetaminophen/ Hydrocodone Bitart ([place] (5/325)) 1 tab Q6H PRN PO .MOD PAIN 4- 6 Last administered on 01/16/19at 08:45; Admin Dose 1 TAB; Start 01/09/19 at 22:35 Bisacodyl (Dulcolax) 5 mg DAILY PRN PO .CONSTIPATION Last administered on 01/10/19at 08:48; Admin Dose 5 MG; Start 01/09/19 at 22:35 Amlodipine Besylate (Norvasc) 10 mg DAILY PO Last administered on 01/19/19at 09:55; Admin Dose 10 MG; Start 01/09/19 at 22:35 Levothyroxine Sodium (Synthroid) 175 mcg BEFORE BREAKFAST PO Last administered on 01/19/19at 06:06; Admin Dose 175 MCG; Start 01/09/19 at 22:35 Miscellaneous Information 1 ea NOTE XX ; Start 01/09/19 at 22:35 Glucose (Glutose) 15 gm Q15M PRN PO DECREASED GLUCOSE; Start 01/09/19 at 22:35 Glucose (Glutose) 22.5 gm Q15M PRN PO DECREASED GLUCOSE; Start 01/09/19 at 22:35 Dextrose (D50w Syringe) 25 ml Q15M PRN IV DECREASED GLUCOSE; Start 01/09/19 at 22:35 Dextrose (D50w Syringe) 50 ml Q15M PRN IV DECREASED GLUCOSE; Start 01/09/19 at 22:35 Glucose (Glutose) 15 gm Q15M PRN BUCCAL DECREASED GLUCOSE; Start 01/09/19 at 2 2:35 Levalbuterol (Xopenex Neb) 1.25 mg Q4H RESP THERAPY PRN HHN SHORTNESS OF BREATH; Start 01/09/19 at 22:35 Nicotine Polacrilex (Nicorette) 2 mg Q2H PRN BUCCAL CONTROL WITHDRAWAL SYMPTOMS; Start 01/09/19 at 22:35 Aspirin (Halfprin) 81 mg DAILY PO Last administered on 01/19/19at 09:52; Admin Dose 81 MG; Start 01/09/19 at 22:35 Lactobacillus Acidophilus/ Rhamnosus (Culturelle) 1 cap BID PO Last administered on 01/18/19at 20:17; Admin Dose 1 CAP; Start 01/09/19 at 22:35 Simethicone (Mylicon) 80 mg TID PRN PO .GAS; Start 01/09/19 at 22:35 Sodium Biphosphate/ Sodium Phosphate (Fleet Enema) 133 ml DAILY PRN [place] .CONSTIPATION; Start 01/09/19 at 22:35 Bethanechol Chloride (Urecholine) 25 mg URINARY CATH D/C PRN PO UNABLE TO VOID; Start 01/09/19 at 22:35 Pantoprazole (Protonix Tab) 40 mg DAILY@06 PO Last administered on 01/19/19at 06:06; Admin Dose 40 MG; Start 01/09/19 at 22:35 Naloxone HCl (Narcan) 0.2 mg Q2M PRN IV .RESP RATE; Start 01/09/19 at 22:36 Hydralazine HCl (Apresoline) 50 mg QID PO Last administered on 01/19/19at 13:11; Admin Dose 50 MG; Start 01/09/19 at 23:00 Tamsulosin HCl (Flomax) 0.4 mg HS PO Last administered on 01/18/19 20:16; Admin Dose 0.4 MG; Start 01/09/19 at 23:00 Heparin Sodium (Porcine) (Heparin (5000 Units/1ml)) 5,000 unit BID SC Last administered on 01/18/19 08:05; Admin Dose 5,000 UNIT; Start 01/09/19 at 23:00 Carvedilol (Coreg) 12.5 mg BID PO Last administered on 01/19/19 09:53; Admin Dose 12.5 MG; Start 01/09/19 at 23:01 Docusate Sodium (Colace) 100 mg BID PO Last administered on 01/19/19 09:52; Admin Dose 100 MG; Start 01/10/19 at 09:00 Senna (Senokot) 1 tab HS PO Last administered on 01/18/19 20:16; Admin Dose 1 TAB; Start 01/10/19 at 21:00 Magnesium Hydroxide (Milk Of Mag) 30 ml BID PRN PO CONSTIPATION; Start 01/10/19 at 00:00 Lactulose (Enulose) 20 gm DAILY PRN PO CONSTIPATION; Start 01/10/19 at 00:00 Bisacodyl (Dulcolax Supp) 10 mg DAILY PRN [place] CONSTIPATION; Start 01/10/19 at 00:00 Multivitamins Therapeutic (Theragran) 1 tab DAILY PO Last administered on 01/19/19 09:52; Admin Dose 1 TAB; Start 01/11/19 at 09:00 Ascorbic Acid (Vitamin C) 500 mg DAILY PO Last administered on 01/19/19 09:52; Admin Dose 500 MG; Start 01/11/19 at 09:00 Folic Acid (Folic Acid) 1 mg DAILY PO Last administered on 01/19/19 09:53; Adm in Dose 1 MG; Start 01/11/19 at 09:00 Zinc Sulfate (Zinc Sulfate) 220 mg DAILY PO Last administered on 01/19/19 09:52; Admin Dose 220 MG; Start 01/11/19 at 09:00 Betamethasone/ Clotrimazole (Lotrisone Cr) 1 applic DAILY TOP Last administered on 01/19/19 09:59; Admin Dose 1 APPLIC; Start 01/10/19 at 13:00 Nystatin (Nystatin Oint) 1 applic BID TOP Last administered on 01/19/19 09:59; Admin Dose 1 APPLIC; Start 01/12/19 at 14:00 Ampicillin (Ampicillin) 500 mg BID PO Last administered on 01/19/19 09:52; Admin Dose 500 MG; Start 01/12/19 at 14:30; Stop 01/22/19 at 14:29 Atorvastatin Calcium (Lipitor) 40 mg HS PO Last administered on 01/18/19 20:16; Admin Dose 40 MG; Start 01/13/19 at 21:00 Linagliptin (Tradjenta) 5 mg DAILY PO Last administered on 01/19/19 09:52; Admin Dose 5 MG; Start 01/14/19 at 15:00 Meclizine HCl (Antivert) 25 mg TID PRN PO NAUSEA AND/OR VOMITING/DIZZINE Last administered on 01/18/19 10:07; Admin Dose 25 MG; Start 01/15/19 at 10:30 Insulin Glargine (Lantus) 10 units 0800 SC Last administered on 01/19/19 07:59; Admin Dose 10 UNITS; Start 01/16/19 at 08:00 Diagnostic Test (Pha) (Accu-Chek) 1 ea 02 XX ; Start 01/16/19 at 02:00 Sevelamer Carbonate (Renvela) 2,400 mg WITH MEALS PO Last administered on 01/19/19 13:11; Admin Dose 2,400 MG; Start 01/16/19 at 12:00 Insulin Aspart (Novolog Insulin Pen) NOVOLOG *MILD* ALGORITHM AC MEALS SC Last administered on 01/18/19 12:04; Admin Dose 2 UNIT; Start 01/16/19 at 12:00 Sertraline HCl (Zoloft) 100 mg DAILY PO Last administered on 01/19/19 09:51; Admin Dose 100 MG; Start 01/17/19 at 09:00 Nicotine (Nicoderm 14 Mg/ 24hr) 1 patch DAILY TRANSDERM Last administered on 01/19/19 10:00; Admin Dose 1 PATCH; Start 01/16/19 at 12:30 Assessment/Plan Additional Assessment/Plan Rehab-Right intertrochanteric hip fracture status post intramedullary nailing. Continue rehab Acute on chronic kidney injury.- per im/renal FEN- hyperkalemia, followed by IM ID- UTI Acute pain syndrome. Hypertension. Diabetes mellitus type 2. Anemia. COPD. Hypothyroidism. Prostate hypertrophy. Right heel DTI-improving NIKIA POE MD January 19, 2019 13:13
[2019-01-19] MEDS: LACTOBACILLUS RHAMNOSUS CAP PO SCH ×2 (13:14→20:14)
[2019-01-19 14:00] VITALS: BP 149/66; PULSE 74; RESP 18
--- NOTE | 2019-01-19 14:53 | PN ---
Date/Time of Note Date/Time of Note DATE: 01/19/19 TIME: 14:50 Assessment/Plan VTE Prophylaxis Risk score (from Ns)>0 risk: 11 SCD applied (from [facility]): No SCD contraindicated: other Pharmacological prophylaxis: heparin Lines/Catheters IV Catheter Type (from [facility]): Saline Lock Urinary Cath still in place: No Assessment/Plan Hospital Course SUBJECTIVE:no acute events OBJECTIVE: Vital signs-see below PHYSICAL EXAM: Constitutional: Adequately built,not in acute distress. HEENT: Head atraumatic and normocephalic. Eyes: Extraocular muscles intact. Anicteric sclerae. Pupils equal bilaterally, reactive to light. NECK: Supple without lymph node. CHEST: Clear and good breath sounds equally. No wheezing. No rhonchi. HEART: S1, S2. Regular rate and rhythm. ABDOMEN: Soft/non tender with no rebound tenderness. Bowel sounds were present. EXTREMITIES: Right hip surgical site c/d/i No cyanosis, clubbing or edema. NEUROLOGIC: Alert and oriented x3. Forgetful. No focal deficit. No sensory deficit. PSYCHOSOCIAL: No signs of depression. INTEGUMENTARY: No open wounds. ASSESSMENT AND PLAN: 68 yo M w/htn,dm2,CKD, here for rehabilitation for right hip fx/IM nailing... Right intertrochanteric fracture of the femur. -Status post intramedullary nailing of right intertrochanteric hip fracture on 12/28/2018. -dvt ppx,pain control,pt/rehba -f/u ortho in 2wks Hypertension -Sridhar stable. -Continue bb/hydralazine -Not a candidate for acei 2/2 hyperkalemia Diabetes mellitus 2. - stable -Lantus/ISS/Tradjenta -dm education CKD stage IIIB/IV with a baseline creatinine of 2.2 to 2.7 mg/dL -mgmt per nephro -creat fairly stable at baseline Acute hyperkalemia -Managed per nephrology. -Monitor closely. chronic anemia -on iron COPD. -stable Nicotine use. -nicotine patch. Hypothyroidism -on Synthroid. Prostate hypertrophy. -on tamsulosin. Urinary tract infection -on [id number] DVT prophylaxis -Subcutaneous heparin. The patient was seen in collaboration with Result Diagram: 01/15/19 0548 01/19/19 0705 Results 24hrs Laboratory Tests Test 01/18/19 17:14 01/19/19 07:05 01/19/19 07:32 01/19/19 12:13 Bedside Glucose 138 138 126 Sodium Level 138 Potassium Level 5.6 H Chloride Level 107 Carbon Dioxide Level 24 Anion Gap 7 Blood Urea Nitrogen 68 H Creatinine 2.25 H Est Glomerular 29 L Filtrat Rate mL/min Glucose Level 131 # Calcium Level 8.9 Phosphorus Level 4.5 Magnesium Level 1.8 Exam/Review of Systems Exam Vitals Vital Signs Date Temp Pulse Resp B/P (MAP) Pulse Ox O2 O2 Flow FiO2 Time Delivery Rate 01/19/19 98.0 67 18 184/87 97 Room Air 07:00 (119) Intake and Output 01/18/19 01/18/19 01/19/19 1515:00 23:00 07:00 IntakeIntake Total 350 ml 400 ml 280 ml OutputOutput Total 200 ml 800 ml BalanceBalance 350 ml 200 ml -520 ml Results Results 24hrs Laboratory Tests Test 01/18/19 17:14 01/19/19 07:05 01/19/19 07:32 01/19/19 12:13 Bedside Glucose 138 138 126 Sodium Level 138 Potassium Level 5.6 H Chloride Level 107 Carbon Dioxide Level 24 Anion Gap 7 Blood Urea Nitrogen 68 H Creatinine 2.25 H Est Glomerular 29 L Filtrat Rate mL/min Glucose Level 131 # Calcium Level 8.9 Phosphorus Level 4.5 Magnesium Level 1.8 Medications Medication Current Medications Acetaminophen (Tylenol Tab) 650 mg Q6H PRN PO .PAIN 1-3 OR TEMP; Start 01/09/19 at 22:35 Acetaminophen/ Hydrocodone Bitart (Ru[place] (5/325)) 1 tab Q6H PRN PO .MOD PAIN 4- 6 Last administered on 01/16/19at 08:45; Admin Dose 1 TAB; Start 01/09/19 at 22:35 Bisacodyl (Dulcolax) 5 mg DAILY PRN PO .CONSTIPATION Last administered on 12/27 01/14at 08:48; Admin Dose 5 MG; Start 01/09/19 at 22:35 Amlodipine Besylate (Norvasc) 10 mg DAILY PO Last administered on 01/19/19at 09:55; Admin Dose 10 MG; Start 01/09/19 at 22:35 Levothyroxine Sodium (Synthroid) 175 mcg BEFORE BREAKFAST PO Last administered on 01/19/19at 06:06; Admin Dose 175 MCG; Start 01/09/19 at 22:35 Miscellaneous Information 1 ea NOTE XX ; Start 01/09/19 at 22:35 Glucose (Glutose) 15 gm Q15M PRN PO DECREASED GLUCOSE; Start 01/09/19 at 22:35 Glucose (Glutose) 22.5 gm Q15M PRN PO DECREASED GLUCOSE; Start 01/09/19 at 22:35 Dextrose (D50w Syringe) 25 ml Q15M PRN IV DECREASED GLUCOSE; Start 01/09/19 at 22:35 Dextrose (D50w Syringe) 50 ml Q15M PRN IV DECREASED GLUCOSE; Start 01/09/19 at 22:35 Glucose (Glutose) 15 gm Q15M PRN BUCCAL DECREASED GLUCOSE; Start 01/09/19 at 22:35 Levalbuterol (Xopenex Neb) 1.25 mg Q4H RESP THERAPY PRN HHN SHORTNESS OF BREATH; Start 01/09/19 at 22:35 Nicotine Polacrilex (Nicorette) 2 mg Q2H PRN BUCCAL CONTROL WITHDRAWAL SYMPTOMS; Start 01/09/19 at 22:35 Aspirin (Halfprin) 81 mg DAILY PO Last administered on 01/19/19at 09:52; Admin Dose 81 MG; Start 01/09/19 at 22:35 Lactobacillus Acidophilus/ Rhamnosus (Culturelle) 1 cap BID PO Last administered on 01/19/19at 13:14; Admin Dose 1 CAP; Start 01/09/19 at 22:35 Simethicone (Mylicon) 80 mg TID PRN PO .GAS; Start 01/09/19 at 22:35 Sodium Biphosphate/ Sodium Phosphate (Fleet Enema) 133 ml DAILY PRN [place] .CONSTIPATION; Start 01/09/19 at 22:35 Bethanechol Chloride (Urecholine) 25 mg URINARY CATH D/C PRN PO UNABLE TO VOID; Start 01/09/19 at 22:35 Pantoprazole (Protonix Tab) 40 mg DAILY@06 PO Last administered on 01/19/19at 06:06; Admin Dose 40 MG; Start 01/09/19 at 22:35 Naloxone HCl (Narcan) 0.2 mg Q2M PRN IV .RESP RATE; Start 01/09/19 at 22:36 Hydralazine HCl (Apresoline) 50 mg QID PO Last administered on 01/19/19 13:11; Admin Dose 50 MG; Start 01/09/19 at 23:00 Tamsulosin HCl (Flomax) 0.4 mg HS PO Last administered on 01/18/19 20:16; Admin Dose 0.4 MG; Start 01/09/19 at 23:00 Heparin Sodium (Porcine) (Heparin (5000 Units/1ml)) 5,000 unit BID SC Last administered on 01/18/19 08:05; Admin Dose 5,000 UNIT; Start 01/09/19 at 23:00 Carvedilol (Coreg) 12.5 mg BID PO Last administered on 01/19/19 09:53; Admin Dose 12.5 MG; Start 01/09/19 at 23:01 Docusate Sodium (Colace) 100 mg BID PO Last administered on 01/19/19 09:52; Admin Dose 100 MG; Start 01/10/19 at 09:00 Senna (Senokot) 1 tab HS PO Last administered on 01/18/19 20:16; Admin Dose 1 TAB; Start 01/10/19 at 21:00 Magnesium Hydroxide (Milk Of Mag) 30 ml BID PRN PO CONSTIPATION; Start 01/10/19 at 00:00 Lactulose (Enulose) 20 gm DAILY PRN PO CONSTIPATION; Start 01/10/19 at 00:00 Bisacodyl (Dulcolax Supp) 10 mg DAILY PRN [place] CONSTIPATION; Start 01/10/19 at 00:00 Multivitamins Therapeutic (Theragran) 1 tab DAILY PO Last administered on 01/19/19 09:52; Admin Dose 1 TAB; Start 01/11/19 at 09:00 Ascorbic Acid (Vitamin C) 500 mg DAILY PO Last administered on 01/19/19 09:52; Admin Dose 500 MG; Start 01/11/19 at 09:00 Folic Acid (Folic Acid) 1 mg DAILY PO Last administered on 01/19/19 09:53; Admin Dose 1 MG; Start 01/11/19 at 09:00 Zinc Sulfate (Zinc Sulfate) 220 mg DAILY PO Last administered on 01/19/19 09:52; Admin Dose 220 MG; Start 01/11/19 at 09:00 Betamethasone/ Clotrimazole (Lotrisone Cr) 1 applic DAILY TOP Last administered on 01/19/19 09:59; Admin Dose 1 APPLIC; Start 01/10/19 at 13:00 Nystatin (Nystatin Oint) 1 applic BID TOP Last administered on 01/19/19 09:59; Admin Dose 1 APPLIC; Start 01/12/19 at 14:00 Ampicillin (Ampicillin) 500 mg BID PO Last administered on 01/19/19 09:52; Admin Dose 500 MG; Start 01/12/19 at 14:30; Stop 01/22/19 at 14:29 Atorvastatin Calcium (Lipitor) 40 mg HS PO Last administered on 01/18/19 20:16; Admin Dose 40 MG; Start 01/13/19 at 21:00 Linagliptin (Tradjenta) 5 mg DAILY PO Last administered on 01/19/19 09:52; Admin Dose 5 MG; Start 01/14/19 at 15:00 Meclizine HCl (Antivert) 25 mg TID PRN PO NAUSEA AND/OR VOMITING/DIZZINE Last administered on 01/18/19 10:07; Admin Dose 25 MG; Start 01/15/19 at 10:30 Insulin Glargine (Lantus) 10 units 0800 SC Last administered on 01/19/19 07:59; Admin Dose 10 UNITS; Start 01/16/19 at 08:00 Diagnostic Test (Pha) (Accu-Chek) 1 ea 02 XX ; Start 01/16/19 at 02:00 Sevelamer Carbonate (Renvela) 2,400 mg WITH MEALS PO Last administered on 01/19/19 13:11; Admin Dose 2,400 MG; Start 01/16/19 at 12:00 Insulin Aspart (Novolog Insulin Pen) NOVOLOG *MILD* ALGORITHM AC MEALS SC Last administered on 01/18/19 12:04; Admin Dose 2 UNIT; Start 01/16/19 at 12:00 Sertraline HCl (Zoloft) 100 mg DAILY PO Last administered on 01/19/19 09:51; Admin Dose 100 MG; Start 01/17/19 at 09:00 Nicotine (Nicoderm 14 Mg/ 24hr) 1 patch DAILY TRANSDERM Last administered on 01/19/19 10:00; Admin Dose 1 PATCH; Start 01/16/19 at 12:30 BARNEY HILL NP January 19, 2019 14:53
[2019-01-19 19:41] VITALS: BP 152/65; PULSE 72; RESP 18
[2019-01-19] MEDS: ATORVASTATIN 20 MG TAB PO SCH (20:14)
[2019-01-19] MEDS: TAMSULOSIN (SR) 0.4 MG CAP PO SCH (20:15)
[2019-01-19] MEDS: SENNA TAB PO SCH (20:15)
[2019-01-20 02:00] VITALS: BP 140/60; PULSE 70; RESP 18
[2019-01-20] MEDS: ACCU-CHEK XX SCH (02:00)
[2019-01-20] MEDS: LEVOTHYROXINE 175 MCG TAB PO SCH (06:26)
[2019-01-20] MEDS: PANTOPRAZOLE (EC) 40 MG TAB PO SCH (06:26)
[2019-01-20 07:00] VITALS: BP 150/66; PULSE 65; RESP 18
[2019-01-20] MEDS: INSULIN ASPART [NOVOLOG] 3 ML PEN SC SCH ×3 (07:05→17:05)
[2019-01-20] MEDS: INSULIN GLARGINE [LANTus] (100 UNITS/ML) SYG SC SCH (08:00)
[2019-01-20] MEDS: DOCUSATE SODIUM 100 MG CAP PO SCH ×2 (08:02→20:09)
[2019-01-20] MEDS: SEVELAMER CARBONATE 800 MG TABLET PO SCH ×3 (08:06→17:56)
[2019-01-20] MEDS: ASCORBIC ACID 500 MG TAB PO SCH (08:09)
[2019-01-20] MEDS: SERTRALINE 100 MG TAB PO SCH (08:09)
[2019-01-20] MEDS: AMPICILLIN 500 MG CAP PO SCH ×2 (08:09→20:08)
[2019-01-20] MEDS: ZINC SULFATE 220 MG CAP PO SCH (08:09)
[2019-01-20] MEDS: LACTOBACILLUS RHAMNOSUS CAP PO SCH ×2 (08:09→20:08)
[2019-01-20] MEDS: ASPIRIN (EC) 81 MG TAB PO SCH (08:09)
[2019-01-20] MEDS: LINAGLIPTIN 5 MG TABLET PO SCH (08:09)
[2019-01-20] MEDS: MULTIVITAMINS THERAPEUTIC TAB PO SCH (08:09)
[2019-01-20] MEDS: AMLODIPINE 10 MG TAB PO SCH (08:14)
[2019-01-20] MEDS: FOLIC ACID 1 MG TAB PO SCH (08:17)
[2019-01-20] MEDS: BETAMETHASONE/CLOTRIMAZOLE 15 GM CR TOP SCH (08:21)
[2019-01-20] MEDS: NYSTATIN 15 GM OINT TOP SCH ×2 (08:21→20:10)
[2019-01-20] MEDS: BALSAM PERU/CASTOR OIL 60 GM TUBE TOP SCH ×2 (08:21→20:10)
[2019-01-20] MEDS: HEPARIN 5,000 UNIT/1 ML VIAL SC SCH ×2 (08:23→20:09)
[2019-01-20] MEDS: NICOTINE (14 MG/24 HR) PATCH TRANSDERM SCH (08:26)
--- NOTE | 2019-01-20 08:53 | PN ---
DATE: 01/20/2019 SUBJECTIVE: The patient is stable. No events overnight. OBJECTIVE: VITAL SIGNS: Blood pressure is 140/60, respirations 18, pulse 70, temperature 98.2. HEENT: Head is normocephalic. NECK: Supple. HEART: Regular rate. LUNGS: Show diminished breath sounds at the base. ABDOMEN: Soft, nontender to palpation without rebound or guarding. EXTREMITIES: Negative for clubbing, cyanosis, no edema. DERMATOLOGIC: No rashes. MUSCULOSKELETAL: No joint effusion. NEUROLOGIC: No change in exam. MEDICATIONS: The patient's medications have been reviewed. LABORATORY DATA: From 01/19/2019 was reviewed. ASSESSMENT AND PLAN: 1. Chronic kidney disease, stage IIIB/IV with previous baseline creatinine around 2.2 to 2.7 mg/dL. The patient's renal function is stable. Continue current treatment plans, supportive care, renally dose all medications. 2. Hyperkalemia, etiology is secondary to chronic kidney disease in conjunction with possible dietar y indiscretion. Continue to monitor. Continue low-potassium diet. Continue intermittent Kayexalate as tolerated. We will consider starting diuretic therapy. 3. Anemia. Monitor hemoglobin and hematocrit levels. We will give Epogen as needed. 4. Mineral bone disorder, monitor calcium and phosphorus levels. 5. Hypertension. Continue current blood pressure regimen. 6. Hypomagnesemia. Continue to monitor. 7. Acute right femoral fracture status post hip arthroplasty. Continue to monitor. 8. History of chronic obstructive pulmonary disease. 9. Diabetes. Continue current insulin regimen. Dictated By: SHIN COHEN DO NR/NTS Conf#: [id number] DID#: [id number] CC: STUART MCCANN MD; SIVA NGUYEN; NIKIA POE MD;*EndCC*
--- NOTE | 2019-01-20 10:04 | PN ---
Date/Time of Note Date/Time of Note DATE: 01/20/19 TIME: 10:04 Subjective No new complaints Objective Vital Signs Date Temp Pulse Resp B/P (MAP) Pulse Ox O2 O2 Flow FiO2 Time Delivery Rate 01/20/19 97.7 65 18 150/66 97 Room Air 07:00 (94) Intake and Output 01/19/19 01/19/19 01/20/19 1515:00 23:00 07:00 IntakeIntake Total 1200 ml 750 ml OutputOutput Total 700 ml BalanceBalance 500 ml 750 ml Exam [id number] Results/Medications Result Diagram: 01/20/19 0857 Results 24 hrs Laboratory Tests Test 01/19/19 12:13 01/19/19 17:17 01/20/19 07:53 01/20/19 08:57 Bedside Glucose 126 187 152 Sodium Level 136 Potassium Level 5.5 H Chloride Level 103 Carbon Dioxide Level 22 Anion Gap 11 Blood Urea Nitrogen 76 H Creatinine 2.23 H Est Glomerular 29 L Filtrat Rate mL/min Glucose Level 207 Calcium Level 8.9 Phosphorus Level 4.9 Magnesium Level 1.7 Medications Current Medications Acetaminophen (Tylenol Tab) 650 mg Q6H PRN PO .PAIN 1-3 OR TEMP; Start 01/09/19 at 22:35 Acetaminophen/ Hydrocodone Bitart ([place] (5/325)) 1 tab Q6H PRN PO .MOD PAIN 4- 6 Last administered on 01/16/19at 08:45; Admin Dose 1 TAB; Start 01/09/19 at 22:35 Bisacodyl (Dulcolax) 5 mg DAILY PRN PO .CONSTIPATION Last administered on 01/10/19at 08:48; Admin Dose 5 MG; Start 01/09/19 at 22:35 Amlodipine Besylate (Norvasc) 10 mg DAILY PO Last administered on 01/20/19 08:14; Admin Dose 10 MG; Start 01/09/19 at 22:35 Levothyroxine Sodium (Synthroid) 175 mcg BEFORE BREAKFAST PO Last administered on 01/20/19 06:26; Admin Dose 175 MCG; Start 01/09/19 at 22:35 Miscellaneous Information 1 ea NOTE XX ; Start 01/09/19 at 22:35 Glucose (Glutose) 15 gm Q15M PRN PO DECREASED GLUCOSE; Start 01/09/19 at 22:35 Glucose (Glutose) 22.5 gm Q15M PRN PO DECREASED GLUCOSE; Start 01/09/19 at 22:35 Dextrose (D50w Syringe) 25 ml Q15M PRN IV DECREASED GLUCOSE; Start 01/09/19 at 22:35 Dextrose (D50w Syringe) 50 ml Q15M PRN IV DECREASED GLUCOSE; Start 01/09/19 at 22:35 Glucose (Glutose) 15 gm Q15M PRN BUCCAL DECREASED GLUCOSE; Start 01/09/19 at 22:35 Levalbuterol (Xopenex Neb) 1.25 mg Q4H RESP THERAPY PRN HHN SHORTNESS OF BREATH; Start 01/09/19 at 22:35 Nicotine Polacrilex (Nicorette) 2 mg Q2H PRN BUCCAL CONTROL WITHDRAWAL SYMPTOMS; Start 01/09/19 at 22:35 Aspirin (Halfprin) 81 mg DAILY PO Last administered on 01/20/19at 08:09; Admin Dose 81 MG; Start 01/09/19 at 22:35 Lactobacillus Acidophilus/ Rhamnosus (Culturelle) 1 cap BID PO Last administered on 01/20/19at 08:09; Admin Dose 1 CAP; Start 01/09/19 at 22:35 Simethicone (Mylicon) 80 mg TID PRN PO .GAS; Start 01/09/19 at 22:35 Sodium Biphosphate/ Sodium Phosphate (Fleet Enema) 133 ml DAILY PRN [place] . CONSTIPATION; Start 01/09/19 at 22:35 Bethanechol Chloride (Urecholine) 25 mg URINARY CATH D/C PRN PO UNABLE TO VOID; Start 01/09/19 at 22:35 Pantoprazole (Protonix Tab) 40 mg DAILY@06 PO Last administered on 01/20/19at 06:26; Admin Dose 40 MG; Start 01/09/19 at 22:35 Naloxone HCl (Narcan) 0.2 mg Q2M PRN IV .RESP RATE; Start 01/09/19 at 22:36 Hydralazine HCl (Apresoline) 50 mg QID PO Last administered on 01/20/19at 08:14; Admin Dose 50 MG; Start 01/09/19 at 23:00 Tamsulosin HCl (Flomax) 0.4 mg HS PO Last administered on 01/19/19at 20:15; Admin Dose 0.4 MG; Start 01/09/19 at 23:00 Heparin Sodium (Porcine) (Heparin (5000 Units/1ml)) 5,000 unit BID SC Last administered on 01/18/19 08:05; Admin Dose 5,000 UNIT; Start 01/09/19 at 23:00 Carvedilol (Coreg) 12.5 mg BID PO Last administered on 01/20/19 08:15; Admin Dose 12.5 MG; Start 01/09/19 at 23:01 Docusate Sodium (Colace) 100 mg BID PO Last administered on 01/19/19 09:52; Admin Dose 100 MG; Start 01/10/19 at 09:00 Senna (Senokot) 1 tab HS PO Last administered on 01/18/19 20:16; Admin Dose 1 TAB; Start 01/10/19 at 21:00 Magnesium Hydroxide (Milk Of Mag) 30 ml BID PRN PO CONSTIPATION; Start 01/10/19 at 00:00 Lactulose (Enulose) 20 gm DAILY PRN PO CONSTIPATION; Start 01/10/19 at 00:00 Bisacodyl (Dulcolax Supp) 10 mg DAILY PRN [place] CONSTIPATION; Start 01/10/19 at 00:00 Multivitamins Therapeutic (Theragran) 1 tab DAILY PO Last administered on 01/20/19 08:09; Admin Dose 1 TAB; Start 01/11/19 at 09:00 Ascorbic Acid (Vitamin C) 500 mg DAILY PO Last administered on 01/20/19 08:09; Admin Dose 500 MG; Start 01/11/19 at 09:00 Folic Acid (Folic Acid) 1 mg DAILY PO Last administered on 01/20/19 08:17; Admin Dose 1 MG; Start 01/11/19 at 09:00 Zinc Sulfate (Zinc Sulfate) 220 mg DAILY PO Last administered on 01/20/19 08:09; Admin Dose 220 MG; Start 01/11/19 at 09:00 Betamethasone/ Clotrimazole (Lotrisone Cr) 1 applic DAILY TOP Last administered on 01/20/19 08:21; Admin Dose 1 APPLIC; Start 01/10/19 at 13:00 Nystatin (Nystatin Oint) 1 applic BID TOP Last administered on 01/20/19 08:21; Admin Dose 1 APPLIC; Start 01/12/19 at 14:00 Ampicillin (Ampicillin) 500 mg BID PO Last administered on 01/20/19 08:09; Admin Dose 500 MG; Start 01/12/19 at 14:30; Stop 01/22/19 at 14:29 Atorvastatin Calcium (Lipitor) 40 mg HS PO Last administered on 01/19/19 20:14; Admin Dose 40 MG; Start 01/13/19 at 21:00 Linagliptin (Tradjenta) 5 mg DAILY PO Last administered on 01/20/19 08:09; Admin Dose 5 MG; Start 01/14/19 at 15:00 Meclizine HCl (Antivert) 25 mg TID PRN PO NAUSEA AND/OR VOMITING/DIZZINE Last administered on 01/18/19 10:07; Admin Dose 25 MG; Start 01/15/19 at 10:30 Insulin Glargine (Lantus) 10 units 0800 SC Last administered on 01/19/19 07:59; Admin Dose 10 UNITS; Start 01/16/19 at 08:00 Diagnostic Test (Pha) (Accu-Chek) 1 ea 02 XX ; Start 01/16/19 at 02:00 Sevelamer Carbonate (Renvela) 2,400 mg WITH MEALS PO Last administered on 01/20/19 08:06; Admin Dose 2,400 MG; Start 01/16/19 at 12:00 Insulin Aspart (Novolog Insulin Pen) NOVOLOG *MILD* ALGORITHM AC MEALS SC Last administered on 01/18/19 12:04; Admin Dose 2 UNIT; Start 01/16/19 at 12:00 Sertraline HCl (Zoloft) 100 mg DAILY PO Last administered on 01/20/19 08:09; Admin Dose 100 MG; Start 01/17/19 at 09:00 Nicotine (Nicoderm 14 Mg/ 24hr) 1 patch DAILY TRANSDERM Last administered on 01/19/19 10:00; Admin Dose 1 PATCH; Start 01/16/19 at 12:30 Assessment/Plan Additional Assessment/Plan Rehab-Right intertrochanteric hip fracture status post intramedullary nailing. Continue rehab activites. Home Tuesday Acute on chronic kidney injury.- per im/renal FEN- hyperkalemia, followed by IM ID- UTI Acute pain syndrome. Hypertension. Diabetes mellitus type 2. Anemia. COPD. Hypothyroidism. Prostate hypertrophy. Right heel DTI-improving NIKIA POE MD January 20, 2019 10:04
[2019-01-20 14:00] VITALS: BP 131/59; PULSE 64; RESP 18
[2019-01-20 19:12] VITALS: BP 130/60; PULSE 68; RESP 8
[2019-01-20] MEDS: TAMSULOSIN (SR) 0.4 MG CAP PO SCH (20:08)
[2019-01-20] MEDS: SENNA TAB PO SCH (20:09)
[2019-01-20] MEDS: ATORVASTATIN 20 MG TAB PO SCH (20:09)
[2019-01-21 02:00] VITALS: BP 136/63; PULSE 72; RESP 18
[2019-01-21] MEDS: ACCU-CHEK XX SCH (02:00)
[2019-01-21] MEDS: PANTOPRAZOLE (EC) 40 MG TAB PO SCH (06:27)
[2019-01-21] MEDS: LEVOTHYROXINE 175 MCG TAB PO SCH (06:27)
[2019-01-21 07:00] VITALS: BP 140/65; PULSE 66; RESP 18
[2019-01-21] MEDS: INSULIN ASPART [NOVOLOG] 3 ML PEN SC SCH ×3 (07:05→17:05)
[2019-01-21] MEDS: LINAGLIPTIN 5 MG TABLET PO SCH (07:40)
[2019-01-21] MEDS: SEVELAMER CARBONATE 800 MG TABLET PO SCH ×3 (07:40→17:48)
[2019-01-21] MEDS: INSULIN GLARGINE [LANTus] (100 UNITS/ML) SYG SC SCH (07:43)
[2019-01-21] MEDS: ASCORBIC ACID 500 MG TAB PO SCH (08:11)
[2019-01-21] MEDS: ZINC SULFATE 220 MG CAP PO SCH (08:11)
[2019-01-21] MEDS: SERTRALINE 100 MG TAB PO SCH (08:11)
[2019-01-21] MEDS: DOCUSATE SODIUM 100 MG CAP PO SCH ×2 (08:11→20:11)
[2019-01-21] MEDS: ASPIRIN (EC) 81 MG TAB PO SCH (08:11)
[2019-01-21] MEDS: FOLIC ACID 1 MG TAB PO SCH (08:11)
[2019-01-21] MEDS: AMPICILLIN 500 MG CAP PO SCH ×2 (08:11→20:10)
[2019-01-21] MEDS: MULTIVITAMINS THERAPEUTIC TAB PO SCH (08:11)
[2019-01-21] MEDS: LACTOBACILLUS RHAMNOSUS CAP PO SCH ×2 (08:11→20:10)
[2019-01-21] MEDS: AMLODIPINE 10 MG TAB PO SCH (08:30)
[2019-01-21] MEDS: NYSTATIN 15 GM OINT TOP SCH ×2 (08:33→21:04)
[2019-01-21] MEDS: BALSAM PERU/CASTOR OIL 60 GM TUBE TOP SCH ×2 (08:33→20:18)
[2019-01-21] MEDS: BETAMETHASONE/CLOTRIMAZOLE 15 GM CR TOP SCH (08:33)
[2019-01-21] MEDS: HEPARIN 5,000 UNIT/1 ML VIAL SC SCH (08:37)
[2019-01-21] MEDS: NICOTINE (14 MG/24 HR) PATCH TRANSDERM SCH (08:38)
[2019-01-21] MEDS ORDERED: BUMETANIDE 1 MG TAB PO ONE (09:30)
[2019-01-21] MEDS ORDERED: SODIUM POLYSTYRENE 15 GM KIT (POWDER + SORBITOL) PO ONE (09:30)
[2019-01-21 11:45] VITALS: BP 144/63; PULSE 64; RESP 18
--- NOTE | 2019-01-21 12:50 | PN ---
DATE: 01/21/2019 SUBJECTIVE: The patient stable. No events overnight. OBJECTIVE: VITAL SIGNS: Blood pressure is 140/65, respiration 19, pulse 66, temperature 98.1. HEENT: Head is normocephalic. NECK: Supple. HEART: Regular rate. LUNGS: Show diminished breath sounds at the base. ABDOMEN: Soft, nontender to palpation without rebound or guarding. EXTREMITIES: Negative for clubbing, cyanosis, no edema. DERMATOLOGIC: No rashes. MUSCULOSKELETAL: No joint effusion. NEUROLOGIC: No change in exam. MEDICATIONS: Reviewed. LABORATORY DATA: Has been reviewed. ASSESSMENT AND PLAN: 1. Chronic kidney disease, stage IIIB/IV with baseline creatinine of around 2.2 to 2.7 mg/dL. The p atient's renal function is currently stable. Continue current treatment plan, supportive care, renal ly dose all meds. 2. Hyperkalemia. Etiology is secondary to chronic kidney disease. The patient's potassium levels r emain elevated. Will continue Kayexalate. The patient will be given diuretics. Monitor closely. C ontinue low-potassium diet. 3. Anemia. Monitor hemoglobin and hematocrit levels. Continue Epogen. 4. Mineral bone disorder. Monitor calcium and phosphorus levels. 5. Hypertension. Continue current blood pressure regimen. 6. Hypomagnesemia. Continue to monitor. 7. Acute right femoral fracture status post hip arthroplasty. Continue to monitor. 8. History of chronic obstructive pulmonary disease. 9. Diabetes. Continue current insulin regimen. Dictated By: SHIN METCALF/NTS Conf#: [id number] DID#: [id number] CC: NIKIA POE MD;*EndCC*
[2019-01-21 14:00] VITALS: BP 144/63; PULSE 64; RESP 18
--- NOTE | 2019-01-21 18:36 | CONS ---
Assessment/Plan Assessment/Plan Hospital Course (Demo Recall) 68-year-old male with a history of hypertension, type 2 diabetes and chronic kidney disease was admitted to [facility] on 12/28/2018 with mechanical fall/right intertrochanteric fracture. He underwent IM nailing of the right intertrochanteric hip fracture on 12/28/2018. He was transferred to the rehab unit after that for rehabilitation. This morning he was noted to have ble eding at the tip of his penis and a urological consultation was requested. The nurses state that he may have had some bleeding from the rectum as well earlier. The patient is known to have a history of benign prostatic hypertrophy and has been on tamsulosin. He sees Dr.Shahin Clifford. There is no history of gross hematuria. He he has nocturia x2 per night and during the day he voids every 2- 3 hours. He states that his urinary stream is good. The patient does have elevated creatinine and elevated potassium. He also a heavy smoker. Impression: Hematuria. It was reported that the blood was noted on the penis but the urine was clear. Plan: Pelvic ultrasound to check the pre-and post void bladder volume and prostate size and see if there is any bladder tumor. Also ultrasound of the k idneys to check for any stones or tumor. Check his PT and INR. Continue his tamsulosin. Consultation Date/Type/Reason Admit Date/Time January 09, 2019 at 20:20 Date of Consultation: January 21, 2019 Type of Consult Urology Reason for Consultation Hematuria Requesting Provider: GAL DUARTE Date/Time of Note DATE: 01/21/19 TIME: 18:20 Hx of Present Illness 68-year-old male with a history of hypertension, type 2 diabetes and chronic kidney disease was admitted to [facility] on 12/28/2018 with mechanical fall/right intertrochanteric fracture. He underwent IM nailing of the right intertrochanteric hip fracture on 12/28/2018. He was transferred to the rehab unit after that for rehabilitation. This morning he was noted to have bleeding at the tip of his penis and a urological consultation was requested. The nurses state that he may have had some bleeding from the rectum as well earlier. The patient is known to have a history of benign prostatic hypertrophy and has been on tamsulosin. He sees Dr.Shahin Clifford. There is no history of gross hematuria. He he has nocturia x2 per night and during the day he voids every 2-3 hours. He states that his urinary stream is good. Constitutional: no complaints Eyes: no complaints ENT: no complaints Respiratory: no complaints; No shortness of breath Cardiovascular: no complaints Gastrointestinal: diarrhea (Patient was given Kayexalate because of high potassium) Genitourinary: bleeding (At the tip of the penis) Skin: no complaints Neurologic: no complaints Endocrine: no complaints Lymphatic: no complaints Psychological: no complaints Past Medical History Medical History: diabetes, hypertension, hypothyroid, renal disease, other (BPH, anemia and COPD) Home Meds Reported Medications Patiromer Calcium Sorbitex (Veltassa) 16.8 Gm Powd.pack, 16.8 GM PO 12/26/18 Insulin Detemir (Levemir) 100 Unit/1 Ml Vial, for 20units at hs 12/26/18 Sertraline Hcl* (Sertraline Hcl*) 100 Mg Tablet, 100 MG PO DAILY, #30 TAB 12/26/18 Glimepiride* (Glimepiride*) 4 Mg Tablet, 4 MG PO WITH BREAKFAST DINNE, TAB 12/26/18 Omeprazole* (Omeprazole*) 40 Mg Capsule.dr, 40 MG PO DAILY, #30 CAP 12/26/18 Levothyroxine Sodium* (Levothyroxine Sodium*) 175 Mcg Tablet, 175 MCG PO BEFORE BREAKFAST, #30 TAB 12/26/18 Aspirin* ([place] Aspirin*) 81 Mg Tab.chew, 81 MG PO DAILY, TAB.CHEW 12/26/18 Amlodipine Besylate* (Amlodipine Besylate*) 10 Mg Tablet, 10 MG PO DAILY, #30 TAB 12/26/18 Medications Current Medications Acetaminophen (Tylenol Tab) 650 mg Q6H PRN PO .PAIN 1-3 OR TEMP; Start 01/09/19 at 22:35 Acetaminophen/ Hydrocodone Bitart ([place] (5/325)) 1 tab Q6H PRN PO .MOD PAIN 4- 6 Last administered on 01/16/19at 08:45; Admin Dose 1 TAB; Start 01/09/19 at 22:35 Bisacodyl (Dulcolax) 5 mg DAILY PRN PO .CONSTIPATION Last administered on 01/10/19at 08:48; Admin Dose 5 MG; Start 01/09/19 at 22:35 Amlodipine Besylate (Norvasc) 10 mg DAILY PO Last administered on 01/21/19at 08:30; Admin Dose 10 MG; Start 01/09/19 at 22:35 Levothyroxine Sodium (Synthroid) 175 mcg BEFORE BREAKFAST PO Last administered on 01/21/19at 06:27; Admin Dose 175 MCG; Start 01/09/19 at 22:35 Miscellaneous Information 1 ea NOTE XX ; Start 01/09/19 at 22:35 Glucose (Glutose) 15 gm Q15M PRN PO DECREASED GLUCOSE; Start 01/09/19 at 22:35 Glucose (Glutose) 22.5 gm Q15M PRN PO DECREASED GLUCOSE; Start 01/09/19 at 22:35 Dextrose (D50w Syringe) 25 ml Q15M PRN IV DECREASED GLUCOSE; Start 01/09/19 at 22:35 Dextrose (D50w Syringe) 50 ml Q15M PRN IV DECREASED GLUCOSE; Start 01/09/19 at 22:35 Glucose (Glutose) 15 gm Q15M PRN BUCCAL DECREASED GLUCOSE; Start 01/09/19 at 22:35 Levalbuterol (Xopenex Neb) 1.25 mg Q4H RESP THERAPY PRN HHN SHORTNESS OF BREATH; Start 01/09/19 at 22:35 Nicotine Polacrilex (Nicorette) 2 mg Q2H PRN BUCCAL CONTROL WITHDRAWAL SYMPTOMS; Start 01/09/19 at 22:35 Aspirin (Halfprin) 81 mg DAILY PO Last administered on 01/21/19at 08:11; Admin Dose 81 MG; Start 01/09/19 at 22:35; Status Hold Lactobacillus Acidophilus/ Rhamnosus (Culturelle) 1 cap BID PO Last ad ministered on 01/21/19at 08:11; Admin Dose 1 CAP; Start 01/09/19 at 22:35 Simethicone (Mylicon) 80 mg TID PRN PO .GAS; Start 01/09/19 at 22:35 Sodium Biphosphate/ Sodium Phosphate (Fleet Enema) 133 ml DAILY PRN AL .CONSTIPATION; Start 01/09/19 at 22:35 Bethanechol Chloride (Urecholine) 25 mg URINARY CATH D/C PRN PO UNABLE TO VOID; Start 01/09/19 at 22:35 Pantoprazole (Protonix Tab) 40 mg DAILY@06 PO Last administered on 01/21/19 06:27; Admin Dose 40 MG; Start 01/09/19 at 22:35 Naloxone HCl (Narcan) 0.2 mg Q2M PRN IV .RESP RATE; Start 01/09/19 at 22:36 Hydralazine HCl (Apresoline) 50 mg QID PO Last administered on 01/21/19 17:45; Admin Dose 50 MG; Start 01/09/19 at 23:00 Tamsulosin HCl (Flomax) 0.4 mg HS PO Last administered on 01/20/19 20:08; Admin Dose 0.4 MG; Start 01/09/19 at 23:00 Heparin Sodium (Porcine) (Heparin (5000 Units/1ml)) 5,000 unit BID SC Last administered on 01/18/19 08:05; Admin Dose 5,000 UNIT; Start 01/09/19 at 23:00; Status Hold Carvedilol (Coreg) 12.5 mg BID PO Last administered on 01/21/19 08:32; Admin Dose 12.5 MG; Start 01/09/19 at 23:01 Docusate Sodium (Colace) 100 mg BID PO Last administered on 01/21/19 08:11; Admin Dose 100 MG; Start 01/10/19 at 09:00 Senna (Senokot) 1 tab HS PO Last administered on 01/18/19 20:16; Admin Dose 1 TAB; Start 01/10/19 at 21:00 Magnesium Hydroxide (Milk Of Mag) 30 ml BID PRN PO CONSTIPATION; Start 01/10/19 at 00:00 Lactulose (Enulose) 20 gm DAILY PRN PO CONSTIPATION; Start 01/10/19 at 00:00 Bisacodyl (Dulcolax Supp) 10 mg DAILY PRN AL CONSTIPATION; Start 01/10/19 at 00:00 Multivitamins Therapeutic (Theragran) 1 tab DAILY PO Last administered on 01/21/19 08:11; Admin Dose 1 TAB; Start 01/11/19 at 09:00 Ascorbic Acid (Vitamin C) 500 mg DAILY PO Last administered on 01/21/19 08:11; Admin Dose 500 MG; Start 01/11/19 at 09:00 Folic Acid (Folic Acid) 1 mg DAILY PO Last administered on 01/21/19 08:11; Admin Dose 1 MG; Start 01/11/19 at 09:00 Zinc Sulfate (Zinc Sulfate) 220 mg DAILY PO Last administered on 01/21/19 08:11; Admin Dose 220 MG; Start 01/11/19 at 09:00 Betamethasone/ Clotrimazole (Lotrisone Cr) 1 applic DAILY TOP Last administered on 01/21/19 08:33; Admin Dose 1 APPLIC; Start 01/10/19 at 13:00 Nystatin (Nystatin Oint) 1 applic BID TOP Last administered on 01/21/19 08:33; Admin Dose 1 APPLIC; Start 01/12/19 at 14:00 Ampicillin (Ampicillin) 500 mg BID PO Last administered on 01/21/19 08:11; Admin Dose 500 MG; Start 01/12/19 at 14:30; Stop 01/22/19 at 14:29 Atorvastatin Calcium (Lipitor) 40 mg HS PO Last administered on 01/20/19 20:09; Admin Dose 40 MG; Start 01/13/19 at 21:00 Linagliptin (Tradjenta) 5 mg DAILY PO Last administered on 01/21/19 07:40; Admin Dose 5 MG; Start 01/14/19 at 15:00 Meclizine HCl (Antivert) 25 mg TID PRN PO NAUSEA AND/OR VOMITING/DIZZINE Last administered on 01/18/19 10:07; Admin Dose 25 MG; Start 01/15/19 at 10:30 Insulin Glargine (Lantus) 10 units 0800 SC Last administered on 01/19/19 07:59; Admin Dose 10 UNITS; Start 01/16/19 at 08:00 Diagnostic Test (Pha) (Accu-Chek) 1 ea 02 XX ; Start 01/16/19 at 02:00 Sevelamer Carbonate (Renvela) 2,400 mg WITH MEALS PO Last administered on 01/21/19 17:48; Admin Dose 2,400 MG; Start 01/16/19 at 12:00 Insulin Aspart (Novolog Insulin Pen) NOVOLOG *MILD* ALGORITHM AC MEALS SC Last administered on 01/18/19 12:04; Admin Dose 2 UNIT; Start 01/16/19 at 12:00 Sertraline HCl (Zoloft) 100 mg DAILY PO Last administered on 01/21/19at 08:11; Admin Dose 100 MG; Start 01/17/19 at 09:00 Nicotine (Nicoderm 14 Mg/ 24hr) 1 patch DAILY TRANSDERM Last administered on 01/19/19at 10:00; Admin Dose 1 PATCH; Start 01/16/19 at 12:30 Allergies: Coded Allergies: No Known Allergy (Unverified , 12/25/18) Past Surgical History Past Surgical Hx: other (Right hip surgery for his recent fracture) Social History Alcohol Use: none Smoking Status: Current every day smoker (2 packs/day) Drug Use: none Exam/Review of Systems Exam Vitals Vital Signs Date Temp Pulse Resp B/P (MAP) Pulse Ox O2 O2 Flow FiO2 Time Delivery Rate 01/21/19 98.0 64 18 144/63 95 Room Air 14:00 (90) Intake and Output 01/20/19 01/20/19 01/21/19 1515:00 23:00 07:00 IntakeIntake Total 90 ml 800 ml 1000 ml OutputOutput Total 750 ml BalanceBalance 90 ml 50 ml 1000 ml Constitutional: alert Psych: no complaints Head: normocephalic Eyes: nl conjunctiva ENMT: nl external ears & nose Neck: supple Respiratory: normal air movement; No wheezing Cardiovascular: No jugular venous distention (JVD) Gastrointestinal: soft, other (Has diarrhea now) Genitourinary - Male: nl penis, nl scrotum; No CVA tenderness Musculoskeletal: other (Status post right hip surgery) Extremities: No calf tenderness Neurological: nl mental status Skin: nl turgor Results Result Diagram: 01/21/19 0620 Results 24hrs Laboratory Tests Test 01/21/19 06:20 01/21/19 07:34 01/21/19 11:58 01/21/19 17:35 Sodium Level 136 Potassium Level 5.9 H Chloride Level 104 Carbon Dioxide Level 21 Anion Gap 11 Blood Urea Nitrogen 79 H Creatinine 2.26 H Est Glomerular 29 L Filtrat Rate mL/min Glucose Level 146 # Calcium Level 8.6 Phosphorus Level 5.4 H Magnesium Level 1.7 Bedside Glucose 158 165 170 Medications Medication Current Medications Acetaminophen (Tylenol Tab) 650 mg Q6H PRN PO .PAIN 1-3 OR TEMP; Start 01/09/19 at 22:35 Acetaminophen/ Hydrocodone Bitart ([place] (5/325)) 1 tab Q6H PRN PO .MOD PAIN 4- 6 Last administered on 01/16/19 08:45; Admin Dose 1 TAB; Start 01/09/19 at 22 :35 Bisacodyl (Dulcolax) 5 mg DAILY PRN PO .CONSTIPATION Last administered on 01/10/19 08:48; Admin Dose 5 MG; Start 01/09/19 at 22:35 Amlodipine Besylate (Norvasc) 10 mg DAILY PO Last administered on 01/21/19 08:30; Admin Dose 10 MG; Start 01/09/19 at 22:35 Levothyroxine Sodium (Synthroid) 175 mcg BEFORE BREAKFAST PO Last administered on 01/21/19 06:27; Admin Dose 175 MCG; Start 01/09/19 at 22:35 Miscellaneous Information 1 ea NOTE XX ; Start 01/09/19 at 22:35 Glucose (Glutose) 15 gm Q15M PRN PO DECREASED GLUCOSE; Start 01/09/19 at 22:35 Glucose (Glutose) 22.5 gm Q15M PRN PO DECREASED GLUCOSE; Start 01/09/19 at 22:35 Dextrose (D50w Syringe) 25 ml Q15M PRN IV DECREASED GLUCOSE; Start 01/09/19 at 22:35 Dextrose (D50w Syringe) 50 ml Q15M PRN IV DECREASED GLUCOSE; Start 01/09/19 at 22:35 Glucose (Glutose) 15 gm Q15M PRN BUCCAL DECREASED GLUCOSE; Start 01/09/19 at 22:35 Levalbuterol (Xopenex Neb) 1.25 mg Q4H RESP THERAPY PRN HHN SHORTNESS OF BREATH; Start 01/09/19 at 22:35 Nicotine Polacrilex (Nicorette) 2 mg Q2H PRN BUCCAL CONTROL WITHDRAWAL SYMPTOMS; Start 01/09/19 at 22:35 Aspirin (Halfprin) 81 mg DAILY PO Last administered on 01/21/19 08:11; Admin Dose 81 MG; Start 01/09/19 at 22:35; Status Hold Lactobacillus Acidophilus/ Rhamnosus (Culturelle) 1 cap BID PO Last administered on 01/21/19 08:11; Admin Dose 1 CAP; Start 01/09/19 at 22:35 Simethicone (Mylicon) 80 mg TID PRN PO .GAS; Start 01/09/19 at 22:35 Sodium Biphosphate/ Sodium Phosphate (Fleet Enema) 133 ml DAILY PRN AL .CONSTIPATION; Start 01/09/19 at 22:35 Bethanechol Chloride (Urecholine) 25 mg URINARY CATH D/C PRN PO UNABLE TO VOID; Start 01/09/19 at 22:35 Pantoprazole (Protonix Tab) 40 mg DAILY@06 PO Last administered on 01/21/19at 06:27; Admin Dose 40 MG; Start 01/09/19 at 22:35 Naloxone HCl (Narcan) 0.2 mg Q2M PRN IV .RESP RATE; Start 01/09/19 at 22:36 Hydralazine HCl (Apresoline) 50 mg QID PO Last administered on 01/21/19 17:45; Admin Dose 50 MG; Start 01/09/19 at 23:00 Tamsulosin HCl (Flomax) 0.4 mg HS PO Last administered on 01/20/19at 20:08; Admin Dose 0.4 MG; Start 01/09/19 at 23:00 Heparin Sodium (Porcine) (Heparin (5000 Units/1ml)) 5,000 unit BID SC Last administered on 01/18/19 08:05; Admin Dose 5,000 UNIT; Start 01/09/19 at 23:00; Status Hold Carvedilol (Coreg) 12.5 mg BID PO Last administered on 01/21/19 08:32; Admin Dose 12.5 MG; Start 01/09/19 at 23:01 Docusate Sodium (Colace) 100 mg BID PO Last administered on 01/21/19 08:11; Admin Dose 100 MG; Start 01/10/19 at 09:00 Senna (Senokot) 1 tab HS PO Last administered on 01/18/19 20:16; Admin Dose 1 TAB; Start 01/10/19 at 21:00 Magnesium Hydroxide (Milk Of Mag) 30 ml BID PRN PO CONSTIPATION; Start 01/10/19 at 00:00 Lactulose (Enulose) 20 gm DAILY PRN PO CONSTIPATION; Start 01/10/19 at 00:00 Bisacodyl (Dulcolax Supp) 10 mg DAILY PRN AL CONSTIPATION; Start 01/10/19 at 00:00 Multivitamins Therapeutic (Theragran) 1 tab DAILY PO Last administered on 01/21/19 08:11; Admin Dose 1 TAB; Start 01/11/19 at 09:00 Ascorbic Acid (Vitamin C) 500 mg DAILY PO Last administered on 01/21/19 08:11; Admin Dose 500 MG; Start 01/11/19 at 09:00 Folic Acid (Folic Acid) 1 mg DAILY PO Last administered on 01/21/19 08:11; Admin Dose 1 MG; Start 01/11/19 at 09:00 Zinc Sulfate (Zinc Sulfate) 220 mg DAILY PO Last administered on 01/21/19 08:11; Admin Dose 220 MG; Start 01/11/19 at 09:00 Betamethasone/ Clotrimazole (Lotrisone Cr) 1 applic DAILY TOP Last administered on 01/21/19 08:33; Admin Dose 1 APPLIC; Start 01/10/19 at 13:00 Nystatin (Nystatin Oint) 1 applic BID TOP Last administered on 01/21/19 08:33; Admin Dose 1 APPLIC; Start 01/12/19 at 14:00 Ampicillin (Ampicillin) 500 mg BID PO Last administered on 01/21/19 08:11; Admin Dose 500 MG; Start 01/12/19 at 14:30; Stop 01/22/19 at 14:29 Atorvastatin Calcium (Lipitor) 40 mg HS PO Last administered on 01/20/19 20:09; Admin Dose 40 MG; Start 01/13/19 at 21:00 Linagliptin (Tradjenta) 5 mg DAILY PO Last administered on 01/21/19 07:40; Admin Dose 5 MG; Start 01/14/19 at 15:00 Meclizine HCl (Antivert) 25 mg TID PRN PO NAUSEA AND/OR VOMITING/DIZZINE Last administered on 01/18/19 10:07; Admin Dose 25 MG; Start 01/15/19 at 10:30 Insulin Glargine (Lantus) 10 units 0800 SC Last administered on 01/19/19 07:59; Admin Dose 10 UNITS; Start 01/16/19 at 08:00 Diagnostic Test (Pha) (Accu-Chek) 1 ea 02 XX ; Start 01/16/19 at 02:00 Sevelamer Carbonate (Renvela) 2,400 mg WITH MEALS PO Last administered on 01/21/19 17:48; Admin Dose 2,400 MG; Start 01/16/19 at 12:00 Insulin Aspart (Novolog Insulin Pen) NOVOLOG *MILD* ALGORITHM AC MEALS SC Last administered on 01/18/19 12:04; Admin Dose 2 UNIT; Start 01/16/19 at 12:00 Sertraline HCl (Zoloft) 100 mg DAILY PO Last administered on 01/21/19 08:11; Admin Dose 100 MG; Start 01/17/19 at 09:00 Nicotine (Nicoderm 14 Mg/ 24hr) 1 patch DAILY TRANSDERM Last administered on 01/19/19 10:00; Admin Dose 1 PATCH; Start 01/16/19 at 12:30 TARIQ BALL MD January 21, 2019 18:30
[2019-01-21 20:00] VITALS: BP 161/60; PULSE 70; RESP 18
[2019-01-21] MEDS: ATORVASTATIN 20 MG TAB PO SCH (20:10)
[2019-01-21] MEDS: TAMSULOSIN (SR) 0.4 MG CAP PO SCH (20:10)
[2019-01-21] MEDS: SENNA TAB PO SCH (20:12)
[2019-01-22] MEDS: ACCU-CHEK XX SCH (02:00)
[2019-01-22 02:02] VITALS: BP 151/69; PULSE 70; RESP 18
[2019-01-22] MEDS: LEVOTHYROXINE 175 MCG TAB PO SCH (06:34)
[2019-01-22] MEDS: PANTOPRAZOLE (EC) 40 MG TAB PO SCH (06:34)
[2019-01-22] MEDS: INSULIN ASPART [NOVOLOG] 3 ML PEN SC SCH ×2 (07:05→11:30)
[2019-01-22 07:30] VITALS: BP 152/67; PULSE 69; RESP 18
[2019-01-22] MEDS: INSULIN GLARGINE [LANTus] (100 UNITS/ML) SYG SC SCH (08:00)
[2019-01-22] MEDS: ZINC SULFATE 220 MG CAP PO SCH (08:10)
[2019-01-22] MEDS: SEVELAMER CARBONATE 800 MG TABLET PO SCH ×2 (08:10→11:49)
[2019-01-22] MEDS: LINAGLIPTIN 5 MG TABLET PO SCH (08:10)
[2019-01-22] MEDS: AMPICILLIN 500 MG CAP PO SCH (08:10)
[2019-01-22] MEDS: FOLIC ACID 1 MG TAB PO SCH (08:11)
[2019-01-22] MEDS: DOCUSATE SODIUM 100 MG CAP PO SCH (08:11)
[2019-01-22] MEDS: ASCORBIC ACID 500 MG TAB PO SCH (08:11)
[2019-01-22] MEDS: LACTOBACILLUS RHAMNOSUS CAP PO SCH (08:11)
[2019-01-22] MEDS: SERTRALINE 100 MG TAB PO SCH (08:11)
[2019-01-22] MEDS: AMLODIPINE 10 MG TAB PO SCH (08:11)
[2019-01-22] MEDS: NYSTATIN 15 GM OINT TOP SCH (08:12)
[2019-01-22] MEDS: BALSAM PERU/CASTOR OIL 60 GM TUBE TOP SCH (08:12)
[2019-01-22] MEDS: BETAMETHASONE/CLOTRIMAZOLE 15 GM CR TOP SCH (08:12)
[2019-01-22] MEDS: NICOTINE (14 MG/24 HR) PATCH TRANSDERM SCH (08:12)
[2019-01-22] MEDS: MULTIVITAMINS THERAPEUTIC TAB PO SCH (08:13)
--- NOTE | 2019-01-22 09:16 | PN ---
DATE: 01/22/2019 SUBJECTIVE: The patient is stable. No events overnight. The patient had an episode of hematuria ye sterday, resolved. No other events noted. OBJECTIVE: VITAL SIGNS: Blood pressure is 152/67, respiration 18, pulse 69, temperature 98.6. HEENT: Head is normocephalic. NECK: Supple. HEART: Regular rate. LUNGS: Show diminished breath sounds at the base. ABDOMEN: Soft, nontender to palpation without rebound or guarding. EXTREMITIES: Negative for clubbing, cyanosis, no edema. DERMATOLOGIC: No rashes. MUSCULOSKELETAL: No joint effusion. NEUROLOGIC: No change in exam. MEDICATIONS: Reviewed. LABORATORY DATA: Has been reviewed. ASSESSMENT AND PLAN: 1. Chronic kidney disease, stage IIIB/IV with baseline creatinine of 2.2 to 2.7 mg/dL. The patient' s renal function is currently stable. Continue current treatment plan, supportive care, renally dose all meds. 2. Hyperkalemia. Etiology is due to chronic kidney disease in conjunction with dietary indiscretion . The patient is counseled on a low potassium diet. The patient continues to eat food from home. T he patient is status post Kayexalate, status post IV Bumex. Will follow up renal panel. 3. Anemia. Monitor hemoglobin and hematocrit levels. Continue Epogen. 4. Mineral bone disorder. Monitor calcium and phosphorus levels. 5. Hypertension. Continue current blood pressure regimen. 6. Hypomagnesemia. Continue to monitor. 7. Acute right femoral fracture status post hip arthroplasty. Continue to monitor. 8. History of chronic obstructive pulmonary disease. 9. Diabetes. Continue current insulin regimen. Dictated By: SHIN COHEN DO NR/NTS Conf#: [id number] DID#: [id number] CC: NIKIA POE MD;*EndCC*
--- NOTE | 2019-01-22 10:32 | DS ---
Date/Time of Note Date/Time of Note DATE: 01/22/19 TIME: 10:31 Discharge Summary Admission/Discharge Info Admit Date/Time January 09, 2019 at 20:20 Discharge Date/Time Discharge Diagnosis 1. Right intertrochanteric hip fracture status post intramedullary nailing. 2. Hypertension. 3. Diabetes mellitus type 2. 4. Acute on chronic kidney injury. 5. Anemia. 6. COPD. 7. Hypothyroidism. 8. Prostate hypertrophy. 9. Right heel DTI, improved 10. Hyperkalemia 11. Improvements in self-care and mobility. Patient Condition: Good Hospital Course The patient was admitted for comprehensive interdisciplinary rehabilitation and made steady functional gains from a Mod level to a DC level for self care tasks and mobility including ambulating over 150 feet with the use of a FWW. Dizziness was a significant barrier early in stay, but patient responded well to meclizi ne. Patient is being discharged home with the recommendation of home health PT, OT and RN follow up. The DC meds are per the medication reconciliation sheet. The discharge equipment recommendations include: FWW, BSC, shower chair. The patient will follow up with PMD upon DC. Home Meds Reported Medications Patiromer Calcium Sorbitex (Veltassa) 16.8 Gm Powd.pack, 16.8 GM PO 12/26/18 Insulin Detemir (Levemir) 100 Unit/1 Ml Vial, for 20units at hs 12/26/18 Sertraline Hcl* (Sertraline Hcl*) 100 Mg Tablet, 100 MG PO DAILY, #30 TAB 12/26/18 Glimepiride* (Glimepiride*) 4 Mg Tablet, 4 MG PO WITH BREAKFAST DINNE, TAB 12/26/18 Omeprazole* (Omeprazole*) 40 Mg Capsule.dr, 40 MG PO DAILY, #30 CAP 12/26/18 Levothyroxine Sodium* (Levothyroxine Sodium*) 175 Mcg Tablet, 175 MCG PO BEFORE BREAKFAST, #30 TAB 12/26/18 Aspirin* ([place] Aspirin*) 81 Mg Tab.chew, 81 MG PO DAILY, TAB.CHEW 12/26/18 Amlodipine Besylate* (Amlodipine Besylate*) 10 Mg Tablet, 10 MG PO DAILY, #30 TAB 12/26/18 Primary Care Provider Care Physician No Primary Pending Labs Laboratory Tests Test 01/21/19 11:58 01/21/19 17:35 01/21/19 19:16 01/22/19 07:08 Bedside 165 170 Glucose mg/dL (70-220) mg/dL (70-220) Prothrombin 13.0 Time Sec (11.9-14.9 ) Prothrombin 1.0 Time Ratio INR 0.97 International Normalized Rati o Activated 31.8 Partial Thrombo Sec (23.0-35.0 plast Time ) Sodium Level 140 mmol/L (135-14 4) Potassium 5.4 Level mmol/L (3.5-5. 1) Chloride Level 106 mmol/L (97-110 ) Carbon Dioxide 24 Level mmol/L (21-31) Anion Gap 10 (5-13) Blood Urea 78 Nitrogen mg/dl (7-20) Creatinine 2.48 mg/dl (0.61-1. 24) Est Glomerular 26 Filtrat mL/min (>60) Rate mL/min Glucose Level 163 mg/dl (70-220) Calcium Level 8.6 mg/dl (8.4-10. 2) Phosphorus 5.0 Level mg/dl (2.5-4.9 ) Magnesium 1.7 Level mg/dl (1.7-2.5 ) Test 01/22/19 07:57 Bedside 180 Glucose mg/dL (70-220) NIKIA POE MD January 22, 2019 10:32
--- NOTE | 2019-01-22 14:44 | PN ---
Date/Time of Note Date/Time of Note DATE: 01/22/19 TIME: 14:43 Assessment/Plan VTE Prophylaxis Risk score (from Ns)>0 risk: 11 SCD applied (from [facility]): No SCD contraindicated: other Pharmacological prophylaxis: heparin Lines/Catheters IV C[facility]ter Type ([facility] Saline Lock Urinary Cath still in place: No Assessment/Plan Hospital Course SUBJECTIVE:no acute events OBJECTIVE: Vital signs-see below PHYSICAL EXAM: Constitutional: Adequately built,not in acute distress. HEENT: Head atraumatic and normocephalic. Eyes: Extraocular muscles intact. Anicteric sclerae. Pupils equal bilaterally, reactive to light. NECK: Supple without lymph node. CHEST: Clear and good breath sounds equally. No wheezing. No rhonchi. HEART: S1, S2. Regular rate and rhythm. ABDOMEN: Soft/non tender with no rebound tenderness. Bowel sounds were present. EXTREMITIES: Right hip surgical site c/d/i No cyanosis, clubbing or edema. NEUROLOGIC: Alert and oriented x3. Forgetful. No focal deficit. No sensory deficit. PSYCHOSOCIAL: No signs of depression. INTEGUMENTARY: No open wounds. ASSESSMENT AND PLAN: 68 yo M w/htn,dm2,CKD, here for rehabilitation for right hip fx/IM nailing... Right intertrochanteric fracture of the femur. -Status post intramedullary nailing of right intertrochanteric hip fracture on 12/28/2018. -dvt ppx,pain control,pt/rehba -f/u ortho in 2wks Hypertension -Sridhar stable. -Continue bb/hydralazine -Not a candidate for acei 2/2 hyperkalemia Diabetes mellitus 2. - stable -Lantus/ISS/Tradjenta -dm education CKD stage IIIB/IV with a baseline creatinine of 2.2 to 2.7 mg/dL -mgmt per nephro -creat fairly stable at baseline Hyperkalemia -Managed per nephrology. -Monitor closely. chronic anemia -on iron COPD. -stable Nicotine use. -nicotine patch. Hypothyroidism -on Synthroid. Prostate hypertrophy. -on tamsulosin. Urinary tract infection -Treated with ampicillin DVT prophylaxis -Subcutaneous heparin. Patient is for discharge today. I have instructed patient and family to have outpatient nephrology follow-up after discharge. Patient to follow-up with orthopedic surgeon as well after discharge. The patient was seen in collaboration with Result Diagram: 01/22/19 0708 Results 24hrs Laboratory Tests Test 01/21/19 17:35 01/21/19 19:16 01/22/19 07:08 01/22/19 07:57 Bedside Glucose 170 180 Prothrombin Time 13.0 Prothrombin Time 1.0 Ratio INR International 0.97 Normalized Ratio Activated 31.8 Partial Thromboplast Time Sodium Level 140 Potassium Level 5.4 H Chloride Level 106 Carbon Dioxide Level 24 Anion Gap 10 Blood Urea Nitrogen 78 H Creatinine 2.48 H Est Glomerular 26 L Filtrat Rate mL/min Glucose Level 163 Calcium Level 8.6 Phosphorus Level 5.0 H Magnesium Level 1.7 Exam/Review of Systems Exam Vitals Vital Signs Date Temp Pulse Resp B/P (MAP) Pulse Ox O2 O2 Flow FiO2 Time Delivery Rate 01/22/19 98.6 69 18 152/67 95 Room Air 07:30 (95) Intake and Output 01/21/19 01/21/19 01/22/19 1515:00 23:00 07:00 IntakeIntake Total 240 ml 1200 ml OutputOutput Total 550 ml 600 ml 750 ml BalanceBalance -310 ml 600 ml -750 ml Results Results 24hrs Laboratory Tests Test 01/21/19 17:35 01/21/19 19:16 01/22/19 07:08 01/22/19 07:57 Bedside Glucose 170 180 Prothrombin Time 13.0 Prothrombin Time 1.0 Ratio INR International 0.97 Normalized Ratio Activated 31.8 Partial Thromboplast Time Sodium Level 140 Potassium Level 5.4 H Chloride Level 106 Carbon Dioxide Level 24 Anion Gap 10 Blood Urea Nitrogen 78 H Creatinine 2.48 H Est Glomerular 26 L Filtrat Rate mL/min Glucose Level 163 Calcium Level 8.6 Phosphorus Level 5.0 H Magnesium Level 1.7 BARNEY HILL NP January 22, 2019 14:44
== END 2019-01-22 12:00 | disposition home health service (06) | DRG 560 ==
LOC: VRC 20:20
PROVIDERS: ADMIT Physical Medicine & Rehabilitation; ATTEND Internal Medicine Pulmonary Disease
PROC: F07Z5ZZ Bed Mobility Treatment (ICD-10-PCS; principal; 2019-01-09)
PROC: F08Z2ZZ Grooming/Personal Hygiene Treatment (ICD-10-PCS; 2019-01-09)
DX: S72.141D Displaced intertrochanteric fracture of right femur, subsequent encounter for closed fracture with routine healing (principal); N17.9 Acute kidney failure, unspecified; N39.0 Urinary tract infection, site not specified; G89.18 Other acute postprocedural pain; E11.22 Type 2 diabetes mellitus with diabetic chronic kidney disease; I12.9 Hypertensive chronic kidney disease with stage 1 through stage 4 chronic kidney disease, or unspecified chronic kidney disease; J44.9 Chronic obstructive pulmonary disease, unspecified; E03.9 Hypothyroidism, unspecified; S90.31XA Contusion of right foot, initial encounter; E83.9 Disorder of mineral metabolism, unspecified; E83.42 Hypomagnesemia; Z98.890 Other specified postprocedural states; N18.3 Chronic kidney disease, stage 3 (moderate); D50.9 Iron deficiency anemia, unspecified; N40.0 Benign prostatic hyperplasia without lower urinary tract symptoms; Z72.0 Tobacco use; E87.5 Hyperkalemia; Z79.4 Long term (current) use of insulin; Z79.82 Long term (current) use of aspirin
CPT/HCPCS: 70450; 70551; 76775; 80048; 80053; 81001; 82962; 83735; 84100; 85025; 85610; 85730; 87081; 87086; 97110; 97116; 97150; 97163; 97167; 97530; 97535; 97542; J1644; J1815; J3475; J7030